=== PATIENT | male | born 1930 | race Caucasian/White ===

== ENCOUNTER → 2016-07-11 | Day surgery (SDC) | payer BC ==
[2016-06-30 08:09] VITALS: BMI 28.0
[~2016-07-11] VITALS: Ht 162.6 cm; Wt 75.9 kg
[~2016-07-11] MED LIST: ACET325T96 PO; ADVIN50050 INH; ALBINS NEB; ALBU2SYP9; ASPCH81X PO; ATEN25TA PO; ATROPINE SULFATE 0.1 MG/ML 5ML SYR IV PRN; CLB/200 PO; DVN/160 PO; EpHEDrine SULFATE INJ 50 MG/ML AMP IV PRN; FENTANYL CITRATE INJ 50 MCG/1 ML 2 ML VIAL ONE; FNTTP25 TOP; FURO20TA PO; GABA-112 PO; GABA1CAP PO; GABA1CAP5 PO; LEVO1TAB35 PO; LIDOCAINE HCL 2% 2 ML VIAL (20MG/ML) ONE; MULT-190 PO; MULT-506 PO; NRN/300 PO; OMEP40CA PO; OMEP40CA41 PO; OXYC-57 PO; PRED20TA PO; PROPOFOL IV EMULSION 10 MG/ML 20 ML VIAL IV ONE; RANI300T2 PO; SPRIN/30 INH; TRAM-10 PO; VNTHFA/IN INH; WARF5TAB90 PO
[2016-07-11 08:20] VITALS: Ht 162.6 cm; Wt 75.9 kg
--- NOTE | 2016-07-11 08:33 | Endo History and Physical ---
History & Physical Date of Service: Jul 11, 2016. Chief Complaint: GERD Referring Physician: Dr. Jefe Merritt History of Present Illness 86 yo CM who presents for EGD secondary to GERD. Past Medical History Arthritis, Pulmonary Emboli, Blood Dyscrasias, Cancer, High Cholesterol, Hypertension, COPD, CVA/TIA Past Surgical History Hx Cardiac Surgery: No Hx Internal Defibrillator: No Hx Pacemaker: No Hx Abdominal Surgery: Yes (INGUINAL HERNIA) Hx of Implantable Prosthesis: No Hx Post-Op Nausea and Vomiting: No Hx Cancer Surgery: Yes (REMOVAL SKIN LESIONS, MOHS ON NOSE) Hx Thoracic Surgery: No Hx Orthopedic: Yes (RT/LEFT SHOULDER SX, RT/LEFT CTR) Hx Urinary Tract Surgery: No Family History None Social History Smoking Status: Former Smoker Hx Substance Use: No Hx Alcohol Use: Yes (1 BEER DAILY) Allergies Coded Allergies: No Known Allergies (Verified , 07/11/16) Current Medications Reported Home Medications Medications Dose Route/Sig Max Daily Dose Days Date Category Dose Instructions Tylenol (Acetaminophen) 325 Mg Tab 650 Mg PO Q6H PRN 06/30/16 Reported Diovan (Valsartan) 160 Mg Tab 160 Mg PO QAM 06/30/16 Reported Ultram (Tramadol HCl) 50 Mg Tab 1-2 Tab PO Q6H PRN 30 06/30/16 Reported Spiriva Handihaler (Tiotropium [place]) 30 Puff/540 Mcg Aerp 1 Cap INH QAM 06/30/16 Reported Zantac (Ranitidine HCl) 300 Mg Tab 300 Mg PO HS 06/30/16 Reported Ocuvite Preservision (Multivitamins/Minerals) 1 Tab Tab 1 Tab PO BID 06/30/16 Reported Prilosec (Omeprazole) 40 Mg Capcr 40 Mg PO BID 06/30/16 Reported Multivitamin (Multivitamins) Tab 1 Tab PO QAM 06/30/16 Reported Neurontin (Gabapentin) 100 Mg Cap 300 Mg PO DAILY AT LUNCH 06/30/16 Reported Neurontin (Gabapentin) 400 Mg Cap 400 Mg PO BID 06/30/16 Reported Aspirin Chewable (Aspirin) 81 Mg Chew 81 Mg PO QAM 06/30/16 Reported Coumadin (Warfarin Sodium) 5 Mg Tab 5 Mg PO Q2D 06/09/14 Reported ALTERNATE WITH 2.5MG Lasix (Furosemide) 20 Mg Tab 40 Mg PO QAM 03/05/14 Reported CeleBREX (Celecoxib) 200 Mg Cap 200 Mg PO QPM 03/05/14 Reported Tenormin (Atenolol) 25 Mg Tab 25 Mg PO QAM 03/05/14 Reported Advair Diskus 500-50 Mcg/Dose (Fluticasone Prop/Salmeterol) 14 Puff/1 Inhaler Aerp 1 Puff INH BID 03/05/14 Reported Coumadin (Warfarin Sodium) 5 Mg Tab 2.5 Mg PO Q2D 03/05/14 Reported Vital Signs Weight (Kilograms): 75.91 Height (Feet): 5 Height (Inches): 4 Physical Exam General Appearance: WD/WN, no apparent distress Respiratory/Chest: Auscultation: breath sounds normal Cardiovascular: Heart Auscultation: RRR Abdomen: Bowel Sounds: normal Inspection & Palpation: soft, non-distended, no tenderness, guarding & rebound Assessment and Plan Assessment: 86 yo CM who presents for EGD secondary to GERD. Plan: Proceed with EGD.
--- NOTE | 2016-07-11 09:13 | GI REPORT ---
Procedure Date: 07/11/2016 8:50 AM Procedure: Upper GI endoscopy Indications: Gastro-esophageal reflux disease Medicines: Monitored Anesthesia Care Complications: No immediate complications. Estimated Blood Loss: Estimated blood loss: none. Procedure: Pre-Anesthesia Assessment: - Prior to the procedure, a History and Physical was performed, and patient medications and allergies were reviewed. The patient's tolerance of previous anesthesia was also reviewed. The risks and benefits of the procedure and the sedation options and risks were discussed with the patient. All questions were answered, and informed consent was obtained. Prior Anticoagulants: The patient last took aspirin 1 day and Coumadin (warfarin) 5 days prior to the procedure. ASA Grade Assessment: IV - A patient with severe systemic disease that is a constant threat to life. After reviewing the risks and benefits, the patient was deemed in satisfactory condition to undergo the procedure. After obtaining informed consent, the endoscope was passed under direct vision. Throughout the procedure, the patient's blood pressure, pulse, and oxygen saturations were monitored continuously. The On-site loaner was introduced through the mouth, and advanced to the second part of duodenum. The upper GI endoscopy was accomplished without difficulty. The patient tolerated the procedure well. Findings: The examined esophagus was normal. Localized moderate inflammation characterized by erythema was found in the gastric antrum. The examined duodenum was normal. Impression: - Normal esophagus. - Gastritis. - Normal examined duodenum. - No specimens collected. Recommendation: - Resume previous diet. - Continue present medications. - Return to primary care physician as previously scheduled. 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 Pancho Tobar, DO 07/11/2016 9:12:55 AM This report has been signed electronically. Note Initiated On: 07/11/2016 8:50 AM
--- NOTE | 2016-07-11 09:14 | Discharge Instructions ---
Endoscopy Patient Instructions Date / Procedure(s) Performed Jul 11, 2016. EGD Allergy Information Coded Allergies: No Known Allergies (Verified , 07/11/16) Discharge Date / Findings Jul 11, 2016. Gastritis Medication Instructions Stopped Medication(s): COUMADIN AND LASIX Restart Stopped Medication(s): OK to resume all medications today as prescribed Reported Home Medications Medications Dose Route/Sig Max Daily Dose Days Date Category Dose Instructions Tylenol (Acetaminophen) 325 Mg Tab 650 Mg PO Q6H PRN 06/30/16 Reported Diovan (Valsartan) 160 Mg Tab 160 Mg PO QAM 06/30/16 Reported Ultram (Tramadol HCl) 50 Mg Tab 1-2 Tab PO Q6H PRN 30 06/30/16 Reported Spiriva Handihaler (Tiotropium [place]) 30 Puff/540 Mcg Aerp 1 Cap INH QAM 06/30/16 Reported Zantac (Ranitidine HCl) 300 Mg Tab 300 Mg PO HS 06/30/16 Reported Ocuvite Preservision (Multivitamins/Minerals) 1 Tab Tab 1 Tab PO BID 06/30/16 Reported Prilosec (Omeprazole) 40 Mg Capcr 40 Mg PO BID 06/30/16 Reported Multivitamin (Multivitamins) Tab 1 Tab PO QAM 06/30/16 Reported Neurontin (Gabapentin) 100 Mg Cap 300 Mg PO DAILY AT LUNCH 06/30/16 Reported Neurontin (Gabapentin) 400 Mg Cap 400 Mg PO BID 06/30/16 Reported Aspirin Chewable (Aspirin) 81 Mg Chew 81 Mg PO QAM 06/30/16 Reported Coumadin (Warfarin Sodium) 5 Mg Tab 5 Mg PO Q2D 06/09/14 Reported ALTERNATE WITH 2.5MG Lasix (Furosemide) 20 Mg Tab 40 Mg PO QAM 03/05/14 Reported CeleBREX (Celecoxib) 200 Mg Cap 200 Mg PO QPM 03/05/14 Reported Tenormin (Atenolol) 25 Mg Tab 25 Mg PO QAM 03/05/14 Reported Advair Diskus 500-50 Mcg/Dose (Fluticasone Prop/Salmeterol) 14 Puff/1 Inhaler Aerp 1 Puff INH BID 03/05/14 Reported Coumadin (Warfarin Sodium) 5 Mg Tab 2.5 Mg PO Q2D 03/05/14 Reported Provider Instructions Activity Restrictions - No exercising or heavy lifting for 24 hours. - Do not drink alcohol the day of the procedure. - Do not drive a car or operate machinery until the day after the procedure. - Do not make any important decisions or sign important papers in 24 hours after the procedure. Following Day: - Return to full activity which may include returning to work/school. Diet Start your diet with liquids and light foods (jello, soup, juice, toast). Then eat your usual diet if not nauseated. 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 This treatment is called moderate sedation. After receiving the treatment, you may be sleepy, but you will be able to breathe on your own. The effects of the treatment may last for several hours. Follow these instructions along with Activity/Diet recommendations noted above: * Do NOT do anything where dizziness or clumsiness would be dangerous. * Rest quietly at home today, then you can be up and about tomorrow. * Have a responsible person stay with you the rest of today. * You may have had an I.V. today. If so, you may take the dressing off later today. Recommendations Call your doctor if: * Trouble breathing * Continuous vomiting for more than 24 hours * Temperature above 101 degrees * Severe abdominal pain or bloating * Pain not relieved by pain medicine ordered * There is increased drainage or redness from any incision * A large amount of rectal bleeding greater than 2-3 tablespoons. (If you had a polyp/s removed or have hemorrhoids, a small amount of blood - from the rectum is to be expected.) * You have any unanswered questions or concerns. IN THE EVENT OF A SERIOUS EMERGENCY, GO TO THE NEAREST EMERGENCY ROOM Your discharge instructions were prepared by provider Pancho Tobar. Patient Instructions Signature Page Jamie Morgan Patient (or Guardian) Signature/Date: I have read and understand the instructions given to me by my caregivers. Caregiver/RN/Doctor Signature/Date: The above-named patient and/or guardian has received patient instructions on this date. + Original Patient Signature Page (only) stays with chart. Please make copy for patient.
[2016-07-11 09:45] VITALS: BP 119/59; PULSE 61; O2SAT 94
--- NOTE | 2016-07-11 09:45 | Anesthesiology Progress Note ---
Anesthesia Post Op Note Date & Time Jul 11, 2016 at 09:45 Vital Signs Pain Intensity: 0 Vital Signs Past 12 Hours Date Time Temp Pulse Resp B/P Pulse Ox O2 Delivery O2 Flow Rate FiO2 07/11/16 08:31 36.5 75 20 138/65 97 Room Air Notes Mental Status: alert / awake / arousable, participated in evaluation Pt Amnestic to Procedure: Yes Nausea / Vomiting: adequately controlled Pain: adequately controlled Airway Patency, RR, SpO2: stable & adequate BP & HR: stable & adequate Hydration State: stable & adequate Anesthetic Complications: no major complications apparent
== END | disposition home or self-care (01) ==
LOC: C.GI 08:08
PROVIDERS: ATTEND Internal Medicine
DX: K21.9 Gastro-esophageal reflux disease without esophagitis (principal); K29.70 Gastritis, unspecified, without bleeding; I10 Essential (primary) hypertension; J44.9 Chronic obstructive pulmonary disease, unspecified; Z68.27 Body mass index [BMI] 27.0-27.9, adult; Z98.41 Cataract extraction status, right eye; Z98.42 Cataract extraction status, left eye; Z98.890 Other specified postprocedural states; Z79.01 Long term (current) use of anticoagulants; Z86.711 Personal history of pulmonary embolism; Z86.73 Personal history of transient ischemic attack (TIA), and cerebral infarction without residual deficits; Z87.891 Personal history of nicotine dependence; Z85.828 Personal history of other malignant neoplasm of skin

== ENCOUNTER 2016-08-14 13:35 | Emergency (ER) | payer BC ==
[~2016-08-14] VITALS: Ht 162.6 cm; Wt 77.5 kg
[~2016-08-14 13:35] MED LIST changes: -ALBINS NEB; -ALBU2SYP9; -ATROPINE SULFATE 0.1 MG/ML 5ML SYR IV PRN; -EpHEDrine SULFATE INJ 50 MG/ML AMP IV PRN; -FENTANYL CITRATE INJ 50 MCG/1 ML 2 ML VIAL ONE; -FNTTP25 TOP; -GABA-112 PO; -LEVO1TAB35 PO; -LIDOCAINE HCL 2% 2 ML VIAL (20MG/ML) ONE; -NRN/300 PO; -OMEP40CA41 PO; -OXYC-57 PO; -PRED20TA PO; -PROPOFOL IV EMULSION 10 MG/ML 20 ML VIAL IV ONE; -VNTHFA/IN INH
[2016-08-14 13:40] VITALS: Ht 162.6 cm; Wt 77.5 kg
[2016-08-14 13:55] VITALS: TEMP 36.9; O2SAT 91
[2016-08-14 14:13] LABS: HEMATOCRIT 34.2 % (42-52); MEAN CELL VOLUME 88.6 fL (80-100); MEAN CORPUSCULAR HEMOGLOBIN 30.6 pg (25-34); MEAN CORPUSCULAR HGB CONC 34.5 g/dl (32-36); MEAN PLATELET VOLUME 8.3 fL (7.4-10.4); PLATELET COUNT 195 K/uL (130-400); RED BLOOD COUNT 3.86 M/uL (4.7-6.1); WHITE BLOOD COUNT 6.58 K/uL (4.8-10.8)
[2016-08-14] MEDS ORDERED: ALBUT/IPRATROP 3MG/0.5MG NEB 3 ML VIAL INH STA (14:21)
[2016-08-14] MEDS ORDERED: METHYLPREDNISOLONE 125 MG VIAL IV STA (14:21)
[2016-08-14 14:30] LABS: BUN/CREATININE RATIO 16.6 (10-20); CALCIUM 8.2 mg/dl (8.5-10.1); CREATININE 1.4 mg/dl (0.60-1.40); POTASSIUM 4.2 mmol/L (3.5-5.1)
--- NOTE | 2016-08-14 14:30 | EMERGENCY ROOM VISIT NOTE ---
History Report prepared by Wade: Heather Aquino Under the Supervision of: Dr. Braulio Cho M.D. First contact with patient: 14:11 Chief Complaint: COUGH Stated Complaint: COUGH X 2 DAYS, FELL COUGHING Nursing Triage Summary: patient with cough for two weeks and has been shortness of breath with. wheezing as well non productive History of Present Illness The patient is an 86 year old male who presents to the Emergency Room with complaints of a persistent dry cough for the past two weeks. The patient states that his cough has been dry and he additionally associates shortness of breath. He states that he had a coughing spell today that caused him to lose consciousness at 1200. The patient notes that he fell hitting his head and his right elbow. He states that he is on Coumadin. The patient states that he only has half of a voice box. He denies any increased swelling to his legs. The patient denies any fever, chills, neck pain, chest pain, or back pain. He denies seeing his PCP for his symptoms. The patient's daughter notes that the patient has a history of COPD and uses inhalers daily. He states that his tetanus status is up to date. Source of History: patient, family (daughter) Onset: two weeks Position: other (global) Quality: other (cough) Timing: other (persistent) Associated Symptoms: + LOC, + SOB, No back pain, No chest pain, No neck pain Review of Systems See HPI for pertinent positives & negatives. A total of 10 systems reviewed and were otherwise negative. Past Medical & Surgical Medical Problems: (1) Asthma (2) COPD (chronic obstructive pulmonary disease) (3) DVT (deep venous thrombosis) (4) Heart disease (5) Hypertension (6) Pulmonary embolism Surgical Problems: (1) H/O shoulder surgery Family History Cancer FH: heart disease Hypertension Social History Smoking Status: Former Smoker Smokeless Tobacco Use: Yes Alcohol Use: occasionally Marital Status: Housing Status: lives alone Occupation Status: retired Current/Historical Medications Scheduled Albuterol Hfa (Ventolin Hfa), 3 PUFFS INH Q6H Aspirin (Aspirin Chewable), 81 MG PO QAM Atenolol (Tenormin), 25 MG PO QAM Celecoxib (CeleBREX), 200 MG PO QPM Fluticasone Prop/Salmeterol (Advair Diskus 500-50 Mcg/Dose), 1 PUFF INH BID Furosemide (Lasix), 40 MG PO QAM Gabapentin (Neurontin), 400 MG PO BID Gabapentin (Neurontin), 300 MG PO DAILY AT LUNCH Levofloxacin (Levaquin), 750 MG PO QD@16 Multivitamin (Multivitamin), 1 TAB PO QAM Ocuvite Preservision (Ocuvite Preservision), 1 TAB PO BID Omeprazole (Prilosec), 40 MG PO DAILY Prednisone (Prednisone), 0 PO DAILY Ranitidine (Zantac), 300 MG PO HS Tiotropium [place] (Spiriva Handihaler), 1 CAP INH QAM Valsartan (Diovan), 160 MG PO QAM Warfarin Sodium (Coumadin), 2.5 MG PO Q2D Warfarin Sodium (Coumadin), 5 MG PO Q2D Scheduled PRN Acetaminophen Tab (Tylenol), 650 MG PO Q6H PRN for Pain Allergies Coded Allergies: No Known Allergies (Verified , 07/11/16) Physical Exam Vital Signs Date Time Temp Pulse Resp B/P Pulse Ox O2 Delivery O2 Flow Rate FiO2 08/14/16 14:53 77 20 134/67 92 Room Air 08/14/16 13:55 36.9 77 18 112/63 91 Room Air 08/14/16 13:55 91 Room Air 08/14/16 13:51 91 Room Air 08/14/16 13:40 36.9 76 18 114/67 92 Room Air Physical Exam GENERAL: Patient is in no acute distress. HEENT: No acute trauma, normocephalic atraumatic, mucous membranes moist, no nasal congestion, no scleral icterus. NECK: No stridor, no adenopathy, no meningismus, trachea is midline. LUNGS: Moist cough noted, breath sounds are equal, but diminished bilaterally, wheezing and rhonchi heard bilaterally. HEART: 3/6 systolic murmur with a regular rate and rhythm ABDOMEN: Soft, nontender, bowel sounds positive, no hernias, no peritonitis. EXTREMITIES: Moderate bilateral pedal edema, no cellulitis. Skin tear to the right posterior elbow, no suturing required, no evidence of fracture of the bones. No cyanosis, full range of motion of all the joints without pain or difficulty. NEUROLOGIC: Oriented x 3, no acute motor or sensory deficits, no focal weakness. SKIN: No rash, no jaundice, no diaphoresis. Medical Decision & Procedures ER Provider Diagnostic Interpretation: X ray results and stated below per my interpretation and radiologist interpretation. Other radiology results and stated below per my review and radiologist interpretation: CHEST ONE VIEW PORTABLE CLINICAL HISTORY: cough and shortness of breath cough. Dyspnea. COMPARISON STUDY: 09/02/2014 FINDINGS: Mild stable cardia megaly. A well-defined parenchymal infiltrate left base. Mild pulmonary venous congestion. Diaphragms are smooth. IMPRESSION: Infiltrate left base. Pulmonary venous congestion. Electronically signed by: Gilberto Spencer M.D. 08/14/2016 2:39 PM Dictated Date/Time: 08/14/2016 2:[address] NONCONTRAST CT DOSE: 687.98 mGy.cm HISTORY: Trauma fall, hit head, coumadin TECHNIQUE: Multiaxial CT images of the head were performed without the use of intravenous contrast. Comparison: None. Findings: The paranasal sinuses and mastoid air cells are clear. The calvarium and skull base are intact. The ventricles and sulci are within normal limits. There is no mass, hematoma, midline shift, or acute infarct. Impression: No acute intracranial abnormality. Electronically signed by: Gilberto Spencer M.D. 08/14/2016 3:27 PM Dictated Date/Time: 08/14/2016 3:25 PM Laboratory Results 08/14/16 14:00 Red Blood Count 3.86, Mean Corpuscular Volume 88.6, Mean Corpuscular Hemoglobin 30.6, Mean Corpuscular Hemoglobin Concent 34.5, Mean Platelet Volume 8.3, Neutrophils (%) (Auto) 68.4, Lymphocytes (%) (Auto) 15.8, Monocytes (%) (Auto) 13.8, Eosinophils (%) (Auto) 1.2, Basophils (%) (Auto) 0.3, Neutrophils # (Auto ) 4.50, Lymphocytes # (Auto) 1.04, Monocytes # (Auto) 0.91, Eosinophils # (Auto ) 0.08, Basophils # (Auto) 0.02 08/14/16 14:00 Test 08/14/16 14:00 08/14/16 15:00 White Blood Count 6.58 K/uL (4.8-10.8) Red Blood Count 3.86 M/uL (4.7-6.1) Hemoglobin 11.8 g/dL (14.0-18.0) Hematocrit 34.2 % (42-52) Mean Corpuscular Volume 88.6 fL (80-100) Mean Corpuscular Hemoglobin 30.6 pg (25-34) Mean Corpuscular Hemoglobin Concent 34.5 g/dl (32-36) Platelet Count 195 K/uL (130-400) Mean Platelet Volume 8.3 fL (7.4-10.4) Neutrophils (%) (Auto) 68.4 % Lymphocytes (%) (Auto) 15.8 % Monocytes (%) (Auto) 13.8 % Eosinophils (%) (Auto) 1.2 % Basophils (%) (Auto) 0.3 % Neutrophils # (Auto) 4.50 K/uL (1.4-6.5) Lymphocytes # (Auto) 1.04 K/uL (1.2-3.4) Monocytes # (Auto) 0.91 K/uL (0.11-0.59) Eosinophils # (Auto) 0.08 K/uL (0-0.5) Basophils # (Auto) 0.02 K/uL (0-0.2) RDW Standard Deviation 44.7 fL (36.4-46.3) RDW Coefficient of Variation 13.7 % (11.5-14.5) Immature Granulocyte % (Auto) 0.5 % Immature Granulocyte # (Auto) 0.03 K/uL (0.00-0.02) Prothrombin Time 24.1 SECONDS (9.0-12.0) Prothromb Time International Ratio 2.2 (0.9-1.1) Activated Partial Thromboplast Time 37.2 SECONDS (21.0-31.0) Partial Thromboplastin Ratio 1.4 Anion Gap 10.0 mmol/L (3-11) Est Creatinine Clear Calc Drug Dose 35.6 ml/min Estimated GFR () 52.4 Estimated GFR (Non- 45.2 BUN/Creatinine Ratio 16.6 (10-20) Calcium Level 8.2 mg/dl (8.5-10.1) Total Bilirubin 0.3 mg/dl (0.2-1) Aspartate Amino Transf (AST/SGOT) 24 U/L (15-37) Alanine Aminotransferase (ALT/SGPT) 19 U/L (12-78) Alkaline Phosphatase 93 U/L (45-117) Troponin I < 0.015 ng/ml (0-0.045) Total Protein 7.0 gm/dl (6.4-8.2) Albumin 2.7 gm/dl (3.4-5.0) Globulin 4.3 gm/dl (2.5-4.0) Albumin/Globulin Ratio 0.6 (0.9-2) Influenza Type A Antigen Neg for Influ A (NEG) Influenza Type B Antigen Neg for Influ B (NEG) Laboratory results reviewed by me. Medications Administered Medications (Trade) Dose Ordered Sig/[place] Route Start Time Stop Time Status Last Admin Dose Admin Albuterol/ Ipratropium (Duoneb) 3 ml NOW STAT INH 08/14/16 14:21 08/14/16 14:26 DC 08/14/16 14:40 3 ML Methylprednisolone Sodium Succinate (Solu-Medrol IV) 80 mg NOW STAT IV 08/14/16 14:21 08/14/16 14:26 DC 08/14/16 14:40 80 MG Levofloxacin (Levaquin Tab) 750 mg NOW STAT PO 08/14/16 15:33 08/14/16 15:37 DC 08/14/16 16:01 750 MG Albuterol (Ventolin Hfa Inhaler) 2 puffs NOW ONCE INH 08/14/16 15:45 08/14/16 15:46 DC 08/14/16 16:02 2 PUFFS ECG Indication: SOB/dyspnea Rate (beats per minute): 75 Rhythm: sinus rhythm Findings: 1st degree AV block, no acute ischemic change, no ectopy ED Course 1414: The patient was evaluated in room B10. A complete history and physical exam was performed. 1421: Ordered Solu-Medrol IV 80 mg IV, Duoneb 3 ml INH. 1533: Ordered Levaquin Tab 750 mg PO. 1545: Ordered Albuterol 2 puffs INH. 1553: I reevaluated the patient and he is doing fine. I discussed all the exam findings with him and I discussed the treatment plan. He verbalized complete understanding and agreement. 1604: I reevaluated the patient and he is doing well. He is ready for discharge. Medical Decision The patient is an 86 year old male who presents to the ED with complaints of persistent cough. Differential diagnoses considered include intracranial bleeding, extremity fracture, pneumonia, bronchitis, exacerbation of COPD, CHF, cardiac ischemia, dysthymia, influenza. There is no leukocytosis or concerning anemia. No significant electrolyte abnormality, kidney failure or hepatitis. INR is 2.2 which is therapeutic for someone using Coumadin. EKG shows a sinus rhythm with a first-degree AV block, no acute ischemia. Cardiac enzyme testing times one is not consistent with acute cardiac injury. Influenza testing is negative. Brain CT shows no acute bleed or mass effect. Chest film shows a left basilar pneumonia, no CHF or pneumothorax. The patient's right elbow skin tear was cleansed and dressed, no suturing required. His tetanus is current. The patient received a DuoNeb, IV Solu-Medrol. He received albuterol via MDI and was given a dose of oral Levaquin. The patient is not hypoxic or toxic. He has pneumonia and this has caused a flare of his COPD. He would like to be discharged home. He will be discharged on Levaquin, a prednisone taper and albuterol. He states that his albuterol inhaler at home has and he has only been using his Spiriva. The patient is to follow with his doctor this week, he will need his INR followed closely. If he has worsening symptoms or worsening breathing, he will report back to the ER. Impression Primary Impression: Pneumonia Additional Impressions: COPD exacerbation Skin tear of right upper extremity Scribe Attestation The scribe's documentation has been prepared under my direction and personally reviewed by me in its entirety. I confirm that the note above accurately reflects all work, treatment, procedures, and medical decision making performed by me. Departure Information Dispostion Home / Self-Care Prescriptions Albuterol Hfa (VENTOLIN HFA) 200 Puffs/36301 Mcg Aers 3 PUFFS INH Q6H, #1 INHALER Prov: Braulio Cho M.D. 08/14/16 Levofloxacin (Levaquin) 750 Mg Tab 750 MG PO QD@16, #5 TAB Prov: Braulio Cho M.D. 08/14/16 Prednisone (Prednisone) 20 Mg Tab 0 PO DAILY, #14 TAB 3 TABS DAILY FOR 2 DAYS, THEN 2 TABS DAILY FOR 2 DAYS, THEN 1 TAB DAILY FOR 2 DAYS, THEN 1/2 TAB DAILY FOR 2 DAYS. Prov: Braulio Cho M.D. 08/14/16 Referrals Jefe Merritt M.D. (PCP) Forms HOME CARE DOCUMENTATION FORM, IMPORTANT VISIT INFORMATION Patient Instructions My [facility] Additional Instructions levaquin daily for 5 more days prednisone as directed albuterol inhaler 3 puffs every 4 hours rest see trent lara this week--call tomorrow for an appt--you need a recheck at the office and will need you INR followed closely return for worsening symptoms or breathing Problem Qualifiers
[2016-08-14 14:32] LABS: BASO % 0.3 %; BASO ABS # 0.02 K/uL (0-0.2); COMPLETE YES; EOS % 1.2 %; IG% 0.5 %; LYMPH % 15.8 %; LYMPH ABS # 1.04 K/uL (1.2-3.4); MONO % 13.8 %; NEUT % 68.4 %
[2016-08-14 14:33] LABS: ALB/GLOB RATIO 0.6 (0.9-2)
[2016-08-14] MEDS ORDERED: OMEP40CA41 PO (14:34)
[2016-08-14 14:38] LABS: INR 2.2 (0.9-1.1); PARTIAL THROMBOPLASTIN RATIO 1.4; PROTHROMBIN TIME (PATIENT) 24.1 SECONDS (9.0-12.0)
--- NOTE | 2016-08-14 14:40 | DIAGNOSTIC IMAGING REPORT ---
CHEST ONE VIEW PORTABLE CLINICAL HISTORY: cough and shortness of breath cough. Dyspnea. COMPARISON STUDY: 09/02/2014 FINDINGS: Mild stable cardia megaly. A well-defined parenchymal infiltrate left base. Mild pulmonary venous congestion. Diaphragms are smooth. IMPRESSION: Infiltrate left base. Pulmonary venous congestion. Electronically signed by: Gilberto Spencer M.D. 08/14/2016 2:39 PM Dictated Date/Time: 08/14/2016 2:38 PM
--- NOTE | 2016-08-14 15:28 | DIAGNOSTIC IMAGING REPORT ---
HEAD CT NONCONTRAST CT DOSE: 687.98 mGy.cm HISTORY: Trauma fall, hit head, coumadin TECHNIQUE: Multiaxial CT images of the head were performed without the use of intravenous contrast. Comparison: None. Findings: The paranasal sinuses and mastoid air cells are clear. The calvarium and skull base are intact. The ventricles and sulci are within normal limits. There is no mass, hematoma, midline shift, or acute infarct. Impression: No acute intracranial abnormality. Electronically signed by: Gilberto Spencer M.D. 08/14/2016 3:27 PM Dictated Date/Time: 08/14/2016 3:25 PM
[2016-08-14] MEDS ORDERED: LEVOFLOXACIN 250 MG TAB PO STA (15:33)
[2016-08-14] MEDS ORDERED: ALBUTEROL HFA 8 GM INHALER INH ONE (15:45)
[2016-08-14] MEDS ORDERED: VNTHFA/IN INH (16:09)
[2016-08-14] MEDS ORDERED: PRED20TA PO (16:09)
[2016-08-14] MEDS ORDERED: LEVO1TAB35 PO (16:09)
[2016-08-14 16:21] VITALS: BP 134/78; PULSE 78; O2SAT 93
[2017-01-19] MEDS ORDERED: ALBU2SYP9 (14:47)
[2017-01-19] MEDS ORDERED: NRN/300 PO (14:47)
[2017-01-19] MEDS ORDERED: OXYC-57 PO (14:47)
[2017-02-01] MEDS ORDERED: FNTTP25 TOP (15:23)
[2017-03-03] MEDS ORDERED: GABA-112 PO (14:18)
[2017-03-03] MEDS ORDERED: ALBINS NEB (14:18)
[2017-03-03] MEDS ORDERED: FURO20TA PO (14:18)
[2017-03-03] MEDS ORDERED: OXYC-57 PO (14:18)
== END 2016-08-14 16:27 | disposition home or self-care (01) ==
LOC: C.EDB 13:36
DX: J18.9 Pneumonia, unspecified organism (principal); J44.1 Chronic obstructive pulmonary disease with (acute) exacerbation; S51.001A Unspecified open wound of right elbow, initial encounter; W18.00XA Striking against unspecified object with subsequent fall, initial encounter; J45.909 Unspecified asthma, uncomplicated; I10 Essential (primary) hypertension; Z86.711 Personal history of pulmonary embolism; Z86.718 Personal history of other venous thrombosis and embolism; Z87.891 Personal history of nicotine dependence; Z98.890 Other specified postprocedural states; Z82.49 Family history of ischemic heart disease and other diseases of the circulatory system; Z79.01 Long term (current) use of anticoagulants; Z79.82 Long term (current) use of aspirin; Z79.52 Long term (current) use of systemic steroids; Z79.899 Other long term (current) drug therapy

== ENCOUNTER → 2016-09-09 | Outpatient (CLI) | payer BC ==
[~2016-09-09] MED LIST changes: +ALBINS NEB; +ALBU2SYP9; +FNTTP25 TOP; +GABA-112 PO; +LEVO1TAB35 PO; +NRN/300 PO; -OMEP40CA PO; +OMEP40CA41 PO; +OXYC-57 PO; +PRED20TA PO; -TRAM-10 PO; +VNTHFA/IN INH
[2016-09-09 12:43] LABS: ALT/SGPT 20 U/L (12-78); BLOOD UREA NITROGEN 21 mg/dl (7-18); BUN/CREATININE RATIO 16.4 (10-20); CALCIUM 8.8 mg/dl (8.5-10.1); CARBON DIOXIDE 26 mmol/L (21-32); CHLORIDE 100 mmol/L (98-107); GLUCOSE 109 mg/dl (70-99); POTASSIUM 4.6 mmol/L (3.5-5.1); SODIUM 133 mmol/L (136-145)
[2016-09-09 12:46] LABS: ALB/GLOB RATIO 0.9 (0.9-2); ALKALINE PHOSPHATASE 120 U/L (45-117); AST/SGOT 16 U/L (15-37)
[2016-09-09 13:09] LABS: ESTIMATED AVERAGE GLUCOSE 137 mg/dl; HA1C FLAG Normal (Normal)
== END | disposition home or self-care (01) ==
LOC: C.LABBFT 07:42
PROVIDERS: ATTEND Internal Medicine
DX: R73.01 Impaired fasting glucose (principal); K76.0 Fatty (change of) liver, not elsewhere classified; I50.9 Heart failure, unspecified

== ENCOUNTER → 2016-09-15 | Outpatient (CLI) | payer BC ==
--- NOTE | 2016-09-15 10:38 | DIAGNOSTIC IMAGING REPORT ---
CHEST 2 VIEWS ROUTINE CLINICAL HISTORY: J18.9 [id number] dyspnea COMPARISON STUDY: 08/14/2016 FINDINGS: Improved components of congestive failure. Small residual parenchymal infiltrate left base improved from the prior study. IMPRESSION: Small parenchymal infiltrate left base improved from the prior study. Improved components of congestive failure. Electronically signed by: Gilberto Spencer M.D. 09/15/2016 10:36 AM Dictated Date/Time: 09/15/2016 10:35 AM
[2016-09-15 12:21] LABS: BASO % 0.3 %; BASO ABS # 0.02 K/uL (0-0.2); COMPLETE YES; EOS % 3.5 %; IG% 0.2 %; LYMPH % 17.4 %; LYMPH ABS # 1.14 K/uL (1.2-3.4); MEAN CELL VOLUME 89.1 fL (80-100); MEAN CORPUSCULAR HEMOGLOBIN 30.7 pg (25-34); MEAN CORPUSCULAR HGB CONC 34.4 g/dl (32-36); MEAN PLATELET VOLUME 8.4 fL (7.4-10.4); MONO % 13.4 %; NEUT % 65.2 %; PLATELET COUNT 315 K/uL (130-400); RED BLOOD COUNT 4.04 M/uL (4.7-6.1); WHITE BLOOD COUNT 6.57 K/uL (4.8-10.8)
[2016-09-15 12:35] LABS: PROTHROMBIN TIME (PATIENT) 44.1 SECONDS (9.0-12.0)
[2016-09-15 12:39] LABS: BLOOD UREA NITROGEN 24 mg/dl (7-18); BUN/CREATININE RATIO 16.1 (10-20); CALCIUM 8.8 mg/dl (8.5-10.1); CARBON DIOXIDE 27 mmol/L (21-32); CHLORIDE 100 mmol/L (98-107); GLUCOSE 99 mg/dl (70-99); POTASSIUM 4.8 mmol/L (3.5-5.1); SODIUM 133 mmol/L (136-145)
[2016-09-15 12:49] LABS: INR 3.9 (0.9-1.1)
== END | disposition home or self-care (01) ==
LOC: C.RAD1850 10:12
PROVIDERS: ATTEND Nurse Practitioner
DX: J18.9 Pneumonia, unspecified organism (principal); I82.4Y9 Acute embolism and thrombosis of unspecified deep veins of unspecified proximal lower extremity

== ENCOUNTER → 2016-10-17 | Outpatient (CLI) | payer BC ==
[2016-10-17 17:45] LABS: TOTAL IRON BINDING CAPACITY 278 mcg/dl (250-450)
--- NOTE | 2016-10-24 06:45 | CODING QUERY MEDICAL NECESSITY ---
CQSUPPORTING DIAGNOSIS NEEDED A supporting diagnosis is required for the test/procedure performed on this patient in order for us to be reimbursed by the patient's insurance. Please provide a supporting diagnosis for the following test/procedure listed below next to the test name along with your signature. *If there is no additional diagnosis for this patient that would support the following test/procedure please document that below next to the test/procedure. Test(s)/Procedure(s) that require a supporting diagnosis: DOS 10/17/16 VITAMIN B12 Provider Signature: Date: Thank you Katelynn Benavidez [employer] Once completed, please kindly fax back to [phone] For questions please call [phone]
== END | disposition home or self-care (01) ==
LOC: C.LABBFT 11:25
PROVIDERS: ATTEND Internal Medicine
DX: D64.9 Anemia, unspecified (principal)

== ENCOUNTER → 2016-10-22 | Outpatient (CLI) | payer BC | END | disposition home or self-care (01) | LOC: C.LABSPEC 12:38 | PROVIDERS: ATTEND Internal Medicine | DX: D64.9 Anemia, unspecified (principal) ==

== ENCOUNTER → 2016-10-26 | Outpatient (CLI) | payer BC | END | disposition home or self-care (01) | LOC: C.LAB1850 14:42 | PROVIDERS: ATTEND Internal Medicine Pulmonary Disease | DX: I50.9 Heart failure, unspecified (principal) ==

== ENCOUNTER → 2016-10-31 | Outpatient (CLI) | payer BC | END | disposition home or self-care (01) | LOC: C.LABBFT 11:12 | PROVIDERS: ATTEND Internal Medicine | DX: D64.9 Anemia, unspecified (principal); I26.99 Other pulmonary embolism without acute cor pulmonale ==

== ENCOUNTER → 2016-11-01 | Outpatient (CLI) | payer BC ==
--- NOTE | 2016-11-01 09:45 | DIAGNOSTIC IMAGING REPORT ---
LUMBAR SPINE MRI HISTORY: Back pain M54.5 Low back [id number] TECHNIQUE: Multiplanar multisequence MRI of the lumbar spine was performed without the use of contrast. COMPARISON: Routine lumbar spine dated 10/12/2016 FINDINGS: For the purpose of the report the L5-S1 disc space will be located on axial image 27 of 30. Near complete compression deformity T12. 50% compression deformity T10. At both levels there is evidence for bone marrow edematous change and or infiltrative change. There is slight posterior bulging of the posterior margins of the vertebral bodies of both sites. There is a grade 1 anterolisthesis of L4 on L5. There is considerable degenerative disc changes throughout. T12-L1: Posterior bulging disc components combine with posterior displacement of the vertebral body. Anterior to posterior dimension of the spinal canal 0 x 50%. Posterior displacement is estimated at 5 mm. L1-L2: Mild broad-based disc bulge. Partial effacement anterior subarachnoid space. L2-L3: Broad-based bulging disc and mild mild posterior osteophytic reaction. Mild impact anterior thecal sac. Minimal narrowing neuroforamina bilaterally. L3-L4: No significant central canal or neural foraminal narrowing. L4-L5: Broad-based disc herniation with considerable narrowing of the right neuroforamina. Degenerative changes of the posterior arch. Moderate hypertrophic changes of posterior elements. Minimal narrowing left neural foramina. L5-S1: No significant central canal or neural foraminal narrowing. IMPRESSION: 1. Complete compression deformity T12. 2. 50% compression deformity T10. 3. Although there is considerable bone marrow edema at both sites, the appearance suggests osteoporotic compression deformities although this should be closely monitored. 4. Severe narrowing right and to lesser extent left neural foramina at L4-L5 primarily secondary to grade 1 anterolisthesis. It is accentuated by broad-based disc herniation and hypertrophic changes of posterior elements. 5. Multilevel bulging disc and posterior osteophytic reaction at all levels. 6. Severe degenerative disc changes throughout. Electronically signed by: Gilberto Spencer M.D. 11/01/2016 9:44 AM Dictated Date/Time: 11/01/2016 9:23 AM
== END | disposition home or self-care (01) ==
LOC: C.MRI 08:08
PROVIDERS: ATTEND Internal Medicine
DX: M54.5 Low back pain (principal); M53.84 Other specified dorsopathies, thoracic region

== ENCOUNTER → 2016-11-28 | Outpatient (CLI) | payer BC ==
[2016-11-28 14:55] LABS: BLOOD UREA NITROGEN 14 mg/dl (7-18); BUN/CREATININE RATIO 12.4 (10-20); CALCIUM 8.3 mg/dl (8.5-10.1); CARBON DIOXIDE 26 mmol/L (21-32); CHLORIDE 99 mmol/L (98-107); GLUCOSE 110 mg/dl (70-99); POTASSIUM 3.9 mmol/L (3.5-5.1); SODIUM 134 mmol/L (136-145)
== END | disposition home or self-care (01) ==
LOC: C.LAB1850 12:50
PROVIDERS: ATTEND Physician Assistant Medical
DX: R60.9 Edema, unspecified (principal)

== ENCOUNTER 2017-03-13 08:08 | Day surgery (SDC) | payer BC ==
[2017-03-03 14:18] VITALS: BMI 26.0
--- NOTE | 2017-03-03 15:16 | PAT Medication Instructions ---
Service Date Mar 03, 2017. Current Home Medication List Acetaminophen Tab (Tylenol), 650 MG PO Q6H PRN for Pain Albuterol Sulf (Albuterol Sulfate), 1 DOSE NEB UD PRN for SOB/Wheezing Aspirin (Aspirin Chewable), 81 MG PO QAM Atenolol (Tenormin), 25 MG PO QAM Celecoxib (CeleBREX), 200 MG PO QPM Fentanyl (Fentanyl), 25 MCG TOP q 72hrs Furosemide (Lasix), 20 MG PO TID Gabapentin (Neurontin), 400 MG PO TID Gabapentin (Neurontin), 100 MG PO UD PRN for prn Multivitamin (Multivitamin), 1 TAB PO QAM Ocuvite Preservision (Ocuvite Preservision), 1 TAB PO BID Oxycodone/Acetaminophen 5MG/325MG (Percocet 5MG/325MG), 1-2 TABLETS PO Q4H PRN for Pain Valsartan (Diovan), 160 MG PO QAM Warfarin Sodium (Coumadin), 2.5 MG PO Q2D Warfarin Sodium (Coumadin), 5 MG PO Q2D Medication Instructions For Your Scheduled Surgery - We will call you with instructions for following: Aspirin (Aspirin Chewable), 81 MG PO QAM Celecoxib (CeleBREX), 200 MG PO QPM -Hold for 5 days per surgeon's instructions: Warfarin Sodium (Coumadin), 2.5 MG PO Q2D Warfarin Sodium (Coumadin), 5 MG PO Q2D -Continue as directed: Fentanyl (Fentanyl), 25 MCG TOP q 72hrs - Hold the following medications the morning of surgery: Valsartan (Diovan), 160 MG PO QAM Ocuvite Preservision (Ocuvite Preservision), 1 TAB PO BID Multivitamin (Multivitamin), 1 TAB PO QAM Furosemide (Lasix), 20 MG PO TID - Take the following medications the morning of surgery with a sip of water: Oxycodone/Acetaminophen 5MG/325MG (Percocet 5MG/325MG), 1-2 TABLETS PO Q4H PRN for Pain (if needed up to four hours before surgery) Gabapentin (Neurontin), 400 MG PO TID Gabapentin (Neurontin), 100 MG PO UD PRN for prn Atenolol (Tenormin), 25 MG PO QAM Acetaminophen Tab (Tylenol), 650 MG PO Q6H PRN for Pain Albuterol Sulf (Albuterol Sulfate), 1 DOSE NEB UD PRN for SOB/Wheezing (if needed, ALSO PLEASE BRING WITH YOU THE MORNING OF THE SURGERY) - Take the following medications as scheduled the night before surgery: Ocuvite Preservision (Ocuvite Preservision), 1 TAB PO BID Gabapentin (Neurontin), 400 MG PO TID Gabapentin (Neurontin), 100 MG PO UD PRN for prn Furosemide (Lasix), 20 MG PO TID Oxycodone/Acetaminophen 5MG/325MG (Percocet 5MG/325MG), 1-2 TABLETS PO Q4H PRN for Pain Acetaminophen Tab (Tylenol), 650 MG PO Q6H PRN for Pain Albuterol Sulf (Albuterol Sulfate), 1 DOSE NEB UD PRN for SOB/Wheezing If you have any questions please call us at [phone] or [phone] or [phone]
--- NOTE | 2017-03-03 15:36 | DIAGNOSTIC IMAGING REPORT ---
CHEST 2 VIEWS ROUTINE CLINICAL HISTORY: Preoperative chest COMPARISON STUDY: 09/15/2016 FINDINGS: The heart remains enlarged. There is stable aortic tortuosity/ectasia. There is stable elevation of the interstitium. This is likely chronic.. There is no focal pulmonary consolidation. There are minor basilar atelectatic changes. There are no pleural effusions. There is a severe compression deformity within the lower thoracic spine. IMPRESSION: 1. Persistent cardiomegaly 2. Mild interstitial thickening, likely chronic 3. No evidence of focal pulmonary consolidation Electronically signed by: Darwin Ulloa M.D. 03/03/2017 3:35 PM Dictated Date/Time: 03/03/2017 3:33 PM
[2017-03-03 15:49] LABS: BUN/CREATININE RATIO 13.5 (10-20); CALCIUM 8.5 mg/dl (8.5-10.1); CREATININE 1.2 mg/dl (0.60-1.40); POTASSIUM 4.2 mmol/L (3.5-5.1)
[2017-03-03 17:04] LABS: PARTIAL THROMBOPLASTIN RATIO 1.3
[2017-03-03 17:11] LABS: URINE APPEARANCE CLEAR (CLEAR); URINE BILIRUBIN NEG (NEG); URINE COLOR YELLOW; URINE EPITHELIAL CELL AUTO 0-5 /lpf (0-5); URINE NITRITE NEG (NEG); URINE SPECIFIC GRAVITY 1.015 (1.000-1.030); UROBILINOGEN NEG (NEG)
[2017-03-03 17:18] LABS: MANUAL MICROSCOPIC REQUIRED? NO; REVIEW REQ? NO
[2017-03-03 18:18] LABS: BASO % 0.6 %; BASO ABS # 0.03 K/uL (0-0.2); COMPLETE YES; EOS % 5.3 %; LYMPH % 25.2 %; LYMPH ABS # 1.23 K/uL (1.2-3.4); MEAN CELL VOLUME 89.7 fL (80-100); MEAN CORPUSCULAR HEMOGLOBIN 30.3 pg (25-34); MEAN CORPUSCULAR HGB CONC 33.7 g/dl (32-36); MEAN PLATELET VOLUME 9.2 fL (7.4-10.4); MONO % 13.7 %; NEUT % 55.2 %; PLATELET COUNT 250 K/uL (130-400); WHITE BLOOD COUNT 4.89 K/uL (4.8-10.8)
[~2017-03-13] VITALS: Ht 162.6 cm; Wt 68.5 kg
[~2017-03-13 08:08] MED LIST changes: -ADVIN50050 INH; -ALBU2SYP9; +CEFAZOLIN 2000 MG/60 ML D5W IV SCH; -GABA1CAP PO; +LACTATED RINGER'S 1000ML 1,000 ML IV SCH; -LEVO1TAB35 PO; -NRN/300 PO; -OMEP40CA41 PO; -PRED20TA PO; -RANI300T2 PO; +SODIUM CHLORIDE 0.9% 1000ML 1,000 ML IV SCH; -SPRIN/30 INH; -VNTHFA/IN INH
[2017-03-13 08:33] VITALS: Ht 162.6 cm; Wt 68.5 kg
[2017-03-13 09:14] LABS: INR 1.1 (0.9-1.1); PARTIAL THROMBOPLASTIN RATIO 1.1
[2017-03-13] MEDS ORDERED: DEXAMETHASONE SOD INJ 4 MG/ML VIAL ONE (09:39)
[2017-03-13] MEDS ORDERED: PHENYLEPHRINE HCL INJ 10 MG/ML VIAL ONE (09:39)
[2017-03-13] MEDS ORDERED: GLYCOPYRROLATE INJ 0.2 MG/ML VIAL ONE (09:39)
[2017-03-13] MEDS ORDERED: EpHEDrine SULFATE INJ 50 MG/ML AMP ONE (09:39)
[2017-03-13] MEDS ORDERED: ONDANSETRON INJ 2 MG/ML 2 ML VIAL ONE (09:39)
[2017-03-13] MEDS ORDERED: FENTANYL CITRATE INJ 50 MCG/1 ML 2 ML VIAL ONE (09:39)
[2017-03-13] MEDS ORDERED: SUCCINYLCHOLINE CHLORIDE 20 MG/ML 10 ML VIAL IV ONE (09:39)
[2017-03-13] MEDS ORDERED: NEOSTIGMINE METHYLSULFATE 5 MG/5 ML SYR ONE ×2 (09:39→11:35)
[2017-03-13] MEDS ORDERED: ROCURONIUM BROMIDE 10 MG/ML 5 ML VIAL IV ONE (09:39)
[2017-03-13] MEDS ORDERED: PROPOFOL IV EMULSION 10 MG/ML 20 ML VIAL IV ONE (09:39)
[2017-03-13] MEDS ORDERED: LIDOCAINE HCL 2% 2 ML VIAL (20MG/ML) ONE (09:39)
[2017-03-13] MEDS ORDERED: MIDAZOLAM HCL 1 MG/ML 2ML VIAL ONE (09:40)
--- NOTE | 2017-03-13 10:12 | History and Physical ---
History & Physical Date Mar 13, 2017. Chief Complaint Back pain History of Present Illness The patient is a 87 year old male with complaints of lumbar spine pain ongoing now for 2-4 months in duration worsening over time. No neurological deficit. Past Medical/Surgical History Medical Problems: (1) Asthma (2) COPD (chronic obstructive pulmonary disease) (3) DVT (deep venous thrombosis) (4) Heart disease (5) Hypertension (6) Pulmonary embolism Surgical Problems: (1) H/O shoulder surgery Additional History Hypertension: Yes Bleeding Tendencies: Yes Allergies Coded Allergies: No Known Allergies (Verified , 03/13/17) Home Medications Scheduled Aspirin (Aspirin Chewable), 81 MG PO QAM Atenolol (Tenormin), 25 MG PO QAM Celecoxib (CeleBREX), 200 MG PO QPM Fentanyl (Fentanyl), 25 MCG TOP q 72hrs Furosemide (Lasix), 20 MG PO TID Gabapentin (Neurontin), 400 MG PO TID Multivitamin (Multivitamin), 1 TAB PO QAM Ocuvite Preservision (Ocuvite Preservision), 1 TAB PO BID Valsartan (Diovan), 160 MG PO QAM Warfarin Sodium (Coumadin), 2.5 MG PO Q2D Warfarin Sodium (Coumadin), 5 MG PO Q2D Scheduled PRN Acetaminophen Tab (Tylenol), 650 MG PO Q6H PRN for Pain Albuterol Sulf (Albuterol Sulfate), 1 DOSE NEB UD PRN for SOB/Wheezing Gabapentin (Neurontin), 100 MG PO UD PRN for prn Oxycodone/Acetaminophen 5MG/325MG (Percocet 5MG/325MG), 1-2 TABLETS PO Q4H PRN for Pain Physical Examination Skin: warm/dry Eyes: normal inspection ENT: normal ENT inspection Head: normocephalic Neck: supple Respiratory/Chest: no respiratory distress Cardiovascular: no edema, no murmur Abdomen / GI: non tender Back: + pertinent finding (extreme pain with flexion-extension the lumbar area extreme pain with palpation and percussion) Diagnosis Osteoporotic compression fracture T12 vertebrae ASA Classification: ASA Class III Plan of Treatment Plan of treatment Kyphoplasty T12 vertebrae
[2017-03-13] MEDS ORDERED: BUPIVACAINE/EPINEPHRINE 0.5% MPF 1:200,000 30 ML VIAL ONE (10:24)
[2017-03-13] MEDS ORDERED: CONRAY 60% 50 ML VIAL ONE (10:26)
[2017-03-13] MEDS ORDERED: HYDROmorphone INJ 2 MG/ML SYR/VIAL IV PRN (10:30)
[2017-03-13] MEDS ORDERED: ONDANSETRON INJ 2 MG/ML 2 ML VIAL IV PRN ×2 (10:30→12:15)
[2017-03-13] MEDS ORDERED: LABETALOL HCL IV 5 MG/ML 20ML IV PRN (10:30)
[2017-03-13] MEDS ORDERED: ATROPINE SULFATE 0.1 MG/ML 5ML SYR IV PRN (10:30)
[2017-03-13] MEDS ORDERED: SODIUM CHLORIDE 0.9% 1000ML 1,000 ML IV SCH (12:02)
--- NOTE | 2017-03-13 12:07 | Discharge Instructions ---
Discharge Instructions Date of Service Mar 13, 2017. Admission Reason for Admission: Compression Fracture T12 Discharge Discharge Diagnosis / Problem: SAME ABOVE Discharge Goals Goal(s): Decrease discomfort, Improve function Activity Recommendations Activity Limitations: as noted below Lifting Limitations: until after follow-up appointment Exercise/Sports Limitations: until after follow-up appointment Shower/Bathe: tomorrow . Instructions / Follow-Up Instructions / Follow-Up MEDICATIONS: * Resume previous medications unless instructed otherwise by your surgeon. * Always take pain medication on a full stomach or with food to avoid upset stomach. * Do not drink alcohol or drive while taking narcotics. * Ibuprofen or Tylenol may be taken if narcotic not needed. SPECIAL CARE INSTRUCTIONS: __ None _X_ Keep extremity elevated and iced x 48 hours; apply ice 20-30 minutes 8-10 times/day. May remove at night. __ Sling __24 hrs/day __ Remove at night __ Shoulder Immobilizer __ 24 hrs/day __ Remove at night _X_ Dressing __ Maintain until seen in office, may shower with plastic over site _X_ Remove dressings in 24-48 hours and then may shower _X_ Cover incisions with band-aids after showering __ Do not remove steri-strips Call physician if chills or temperature rises above 102 degrees or pain unrelieved by prescribed pain medications at . . Current Hospital Diet Patient's current hospital diet: Discharge Diet Recommended Diet: Regular Diet Procedures Procedures Performed: T12 Kyphoplasty Pending Studies Studies pending at discharge: no Medical Emergencies . Who to Call and When: Medical Emergencies: If at any time you feel your situation is an emergency, please call 911 immediately. . Non-Emergent Contact Non-Emergency issues call your: Primary Care Provider . "Provider Documentation" section prepared by Miguel Mortensen. . VTE Core Measure Inpt VTE Proph given/why not?: SCD's
--- NOTE | 2017-03-13 12:09 | [facility] Post Operative Brief Note ---
Immediate Operative Summary Operative Date Mar 13, 2017. Pre-Operative Diagnosis Osteoporotic compression fracture T12 vertebrae Post-Operative Diagnosis Osteoporotic compression fracture T12 vertebrae Procedure(s) Performed T12 Kyphoplasty [address] Nathan Perry Electrical And Instrument Mechanic Surgeon(s) Miguel Mortensen PA-C Estimated Blood Loss 10 mL Findings compression fracture Specimens No pathology specimens per surgeon Complication(s) None Disposition Recovery Room / PACU
[2017-03-13] MEDS ORDERED: GABAPENTIN 100 MG CAP PO PRN (12:15)
[2017-03-13] MEDS ORDERED: OXYCODONE/ACETAMINOPHEN 5-325 TAB PO PRN ×2 (12:15)
[2017-03-13] MEDS ORDERED: ACETAMINOPHEN 325 MG TAB PO PRN (12:15)
[2017-03-13] MEDS ORDERED: WARFARIN SOD 5 MG TAB PO SCH ×2 (12:15)
[2017-03-13 12:54] VITALS: TEMP 36.4
--- NOTE | 2017-03-13 13:09 | Anesthesiology Progress Note ---
Anesthesia Post Op Note Date & Time Mar 13, 2017 at 13:09 Vital Signs Pain Intensity: 0 Vital Signs Past 12 Hours Date Time Temp Pulse Resp B/P (MAP) Pulse Ox O2 Delivery O2 Flow Rate FiO2 03/13/17 12:45 36.3 66 16 131/62 94 Room Air 03/13/17 12:35 68 16 133/66 96 Room Air 03/13/17 12:25 74 18 132/55 100 Oxymask 10 03/13/17 12:15 62 13 121/55 100 Oxymask 10 03/13/17 12:07 36.2 69 16 120/57 100 Oxymask 10 03/13/17 09:06 36.7 65 18 151/68 (95) 94 Room Air Notes Mental Status: alert / awake / arousable, participated in evaluation Pt Amnestic to Procedure: Yes Nausea / Vomiting: adequately controlled Pain: adequately controlled Airway Patency, RR, SpO2: stable & adequate BP & HR: stable & adequate Hydration State: stable & adequate Anesthetic Complications: no major complications apparent
[2017-03-13] MEDS ORDERED: OXYCODONE/ACETAMINOPHEN 5-325 TAB ONE (13:19)
[2017-03-13 13:25] VITALS: BP 131/60; PULSE 72; O2SAT 96
[2017-03-13 13:55] VITALS: BP 116/70; PULSE 76; O2SAT 100
[2017-03-13] MEDS ORDERED: FUROSEMIDE 20 MG TAB PO SCH (14:00)
[2017-03-13] MEDS ORDERED: GABAPENTIN 400 MG CAP PO SCH (14:00)
--- NOTE | 2017-03-13 14:25 | DIAGNOSTIC IMAGING REPORT ---
Thoracic SPINE, INTRAOPERATIVE FLUOROSCOPY HISTORY: T12 kyphoplasty. FLUOROSCOPY TIME: 1 minute and 20 seconds. FINDINGS: Intraoperative fluoroscopy was provided for the thoracic spine. 2 fluoroscopic spot images were obtained. Status post kyphoplasty at the T12 compression deformity. The cement is within the T12 vertebral body. IMPRESSION: Fluoroscopy provided for a T12 kyphoplasty.. Electronically signed by: Jose Wallace M.D. 03/13/2017 2:24 PM Dictated Date/Time: 03/13/2017 2:23 PM
[2017-03-13] MEDS ORDERED: CEROVITE ADV FORMULA TAB PO SCH (21:00)
[2017-03-13] MEDS ORDERED: CeleBREX 200 MG CAP PO SCH (21:00)
--- NOTE | 2017-03-14 07:03 | OPERATIVE REPORT ---
DATE OF OPERATION: 03/13/2017 PREOPERATIVE DIAGNOSIS: Compression fracture, T12. POSTOPERATIVE DIAGNOSIS: Compression fracture, T12. PROCEDURE: Kyphoplasty, T12. SURGEON: Dr. Perry. COMPLICATIONS: Zero. BLOOD LOSS: Less than 10 mL. PANEL RAISER OPERATOR: Miguel Mortensen PA-C. ANESTHETIC: General. DESCRIPTION OF PROCEDURE: The patient was taken to the surgical suite, placed prone, scrubbed, prepped in sterile. We used biplanar x-ray and C-arm. We were able to engage the pedicle of T12 bilaterally. We used a drill balloon, inflating each balloon to about 250 mmHg and 2.0 mL per side. The balloons withdrawn. The cement infiltrated. It looked like a pretty good fill. There were no apparent complications. We irrigated and closed. Sterile dressings applied. The patient returned to PACU stable. No apparent complications with the surgery. Sponge and needle count correct. I attest to the content of the Intraoperative Record and any orders documented therein. Any exception s are noted below.
[2017-03-14] MEDS ORDERED: MULTIVITAMIN TAB PO SCH (09:00)
[2017-03-14] MEDS ORDERED: ASPIRIN 81 MG CHEW PO SCH (09:00)
[2017-03-14] MEDS ORDERED: VALSARTAN 80 MG TAB PO SCH (09:00)
== END 2017-03-13 14:35 | disposition home or self-care (01) ==
LOC: C.ACU 08:08
PROVIDERS: ATTEND Orthopaedic Surgery Orthopaedic Surgery of the Spine
DX: M80.88XA Other osteoporosis with current pathological fracture, vertebra(e), initial encounter for fracture (principal); I10 Essential (primary) hypertension; J44.9 Chronic obstructive pulmonary disease, unspecified; Z86.711 Personal history of pulmonary embolism; Z86.718 Personal history of other venous thrombosis and embolism; Z79.01 Long term (current) use of anticoagulants; Z79.82 Long term (current) use of aspirin; Z79.899 Other long term (current) drug therapy

== ENCOUNTER → 2017-04-25 | Outpatient (CLI) | payer BC ==
[~2017-04-25] MED LIST changes: -CEFAZOLIN 2000 MG/60 ML D5W IV SCH; -LACTATED RINGER'S 1000ML 1,000 ML IV SCH; -SODIUM CHLORIDE 0.9% 1000ML 1,000 ML IV SCH
--- NOTE | 2017-04-25 13:45 | DIAGNOSTIC IMAGING REPORT ---
ABDOMEN ULTRASOUND FOR HERNIA CLINICAL HISTORY: R10.31 Abdominal pain, RLQ (right lower quadrant) [id number] COMPARISON STUDY: None. FINDINGS: Real-time sonographic imaging within the right lower quadrant was performed at the patient's area of pain. There is no sonographic abnormality. No fluid collections or masses identified. No hernia identified. IMPRESSION: No sonographic abnormality within the right lower quadrant. Electronically signed by: Jose Wallace M.D. 04/25/2017 1:44 PM Dictated Date/Time: 04/25/2017 1:43 PM
== END | disposition home or self-care (01) ==
LOC: C.ULTR 13:01
PROVIDERS: ATTEND Physician Assistant Medical
DX: R10.31 Right lower quadrant pain (principal)

== ENCOUNTER → 2017-04-27 | Outpatient (CLI) | payer BC | END | disposition home or self-care (01) | LOC: C.LABBFT 09:29 | PROVIDERS: ATTEND Internal Medicine | DX: D64.9 Anemia, unspecified (principal) ==

== ENCOUNTER → 2017-05-02 | Outpatient (CLI) | payer BC ==
[2017-05-02 13:06] LABS: URINE APPEARANCE CLEAR (CLEAR); URINE BILIRUBIN NEG (NEG); URINE COLOR YELLOW; URINE NITRITE NEG (NEG); URINE SPECIFIC GRAVITY 1.014 (1.000-1.030); UROBILINOGEN NEG (NEG)
[2017-05-02 13:14] LABS: MANUAL MICROSCOPIC REQUIRED? NO; REVIEW REQ? NO
== END | disposition home or self-care (01) ==
LOC: C.LABSPEC 11:12
PROVIDERS: ATTEND Physician Assistant Medical
DX: R10.31 Right lower quadrant pain (principal)

== ENCOUNTER → 2017-05-09 | Outpatient (CLI) | payer BC ==
[2017-05-09 17:53] LABS: URINE APPEARANCE CLEAR (CLEAR); URINE BILIRUBIN NEG (NEG); URINE COLOR YELLOW; URINE EPITHELIAL CELL AUTO 0-5 /lpf (0-5); URINE NITRITE NEG (NEG); URINE PH 5.5 (4.5-7.5); URINE SPECIFIC GRAVITY 1.012 (1.000-1.030); UROBILINOGEN NEG (NEG); ZZUR CULT IF INDIC CLEAN CATCH NO
[2017-05-09 17:56] LABS: MANUAL MICROSCOPIC REQUIRED? NO; REVIEW REQ? NO
== END | disposition home or self-care (01) ==
LOC: C.LABBFT 13:19
PROVIDERS: ATTEND Physician Assistant Medical
DX: R10.31 Right lower quadrant pain (principal)

== ENCOUNTER → 2017-05-19 | Outpatient (CLI) | payer BC ==
--- NOTE | 2017-05-19 11:31 | DIAGNOSTIC IMAGING REPORT ---
CT SCAN OF THE ABDOMEN AND PELVIS WITHOUT IV CONTRAST CLINICAL HISTORY: Right lower quadrant abdominal pain. Flank pain. COMPARISON STUDY: Radiographs of lumbar spine dated 12/20/2016. TECHNIQUE: CT scan of the abdomen and pelvis is performed from the lung bases to the proximal femora. Images are reviewed in the axial, sagittal, and coronal planes. IV contrast was not administered for this examination as per the referring clinician. Note that the examination was performed in suboptimal fashion without oral and IV contrast. A dose lowering technique was utilized adhering to the principles of ALARA. The examination is degraded by streak artifact from the left arm which could not be elevated above the abdomen as well as by motion artifact. CT DOSE: 453.47 mGycm FINDINGS: Lung bases: The heart is enlarged and without pericardial effusion. The coronary arteries and mitral annulus are densely calcified. There is diminished attenuation of the cardiac blood pool as compared to the myocardium suggesting anemia. There is bibasilar scarring versus atelectasis and elevation of left hemidiaphragm. No airspace consolidation or pleural effusion is seen. Liver: The unenhanced liver is normal in size, contour, and attenuation. There is no intrahepatic biliary ductal dilatation. Gallbladder: Large calcified gallstones are identified. There is no CT evidence of acute cholecystitis. Spleen: Normal in size and attenuation. Pancreas: The unenhanced pancreas is markedly atrophic and grossly unremarkable. Adrenal glands: Unremarkable. Kidneys: The unenhanced kidneys are atrophic and without hydronephrosis. There are no renal calculi identified. There is no evidence of contour deforming renal mass lesion. Abdominal vasculature: The abdominal aorta is normal in course and caliber noting advanced atherosclerotic calcification. Bowel: There is moderate to severe constipation. No bowel obstruction is seen. The appendix is not clearly visualized. Peritoneum: There is no intraperitoneal free air or abdominal ascites. Lymphadenopathy: None. Pelvic viscera: The prostate gland is markedly enlarged and heterogeneous, measuring 5.7 cm in transverse outer. There is median lobe hypertrophy. The bladder wall appears mildly thickened and trabeculated consistent with chronic outlet obstruction. Skeletal structures: The skeletal structures are osteopenic. There is advanced lumbosacral spondylosis and scoliosis. There are moderate to severe compression deformities of T11 and T12. There are retropulsed fragments at T12 with evidence of previous vertebroplasty at this level. No lytic or blastic lesions are seen. IMPRESSION: 1. Suboptimal examination without oral and IV contrast. 2. No acute infectious or inflammatory findings are identified in the abdomen or pelvis. 3. Moderate to severe constipation. No bowel obstruction is seen. 4. Prostatomegaly with evidence of chronic bladder outlet obstruction. 5. Cardiomegaly. 6. Cholelithiasis. 7. Additional findings as above. Electronically signed by: Braulio Xavier M.D. 05/19/2017 11:30 AM Dictated Date/Time: 05/19/2017 11:23 AM
== END | disposition home or self-care (01) ==
LOC: C.CTS 10:39
PROVIDERS: ATTEND Physician Assistant Medical
DX: R10.31 Right lower quadrant pain (principal); K59.00 Constipation, unspecified; N40.0 Benign prostatic hyperplasia without lower urinary tract symptoms; I51.7 Cardiomegaly; K80.20 Calculus of gallbladder without cholecystitis without obstruction

== ENCOUNTER 2017-05-27 17:20 | Inpatient (IN) | payer BC, OTHER ==
[2017-05-27] VITALS (20 sets, daily range): BP systolic 85–149; BP diastolic 53–96; PULSE 74–84; TEMP 36.6–37.3; O2SAT 94–100; Ht 152.4 cm; Wt 60.9 kg
[~2017-05-27] VITALS: Ht 152.4 cm; Wt 60.9 kg
[2017-05-27] MEDS ORDERED: SODIUM CHLORIDE 0.9% 1000ML 1,000 ML IV STA (17:25)
--- NOTE | 2017-05-27 17:47 | EMERGENCY ROOM VISIT NOTE ---
History Report prepared by Wade: Saleem Cramer Under the Supervision of: Dr. Chad Valdes M.D. First contact with patient: 17:22 Stated Complaint: WEAKNESS, LIGHTHEADED, RECTAL BLEED History of Present Illness The patient is a 87 year old male who presents to the Emergency Room with complaints of intermittent rectal bleeding that began today. The patient states that he had a catscan and ultrasound done recently that showed that he is constipated. He reports that he was not given an enema, but states that he has been taking stool softeners. The patient reports that he has been having bowel movements every day and has been fine up until today. The patient states that he has been weak starting today.and noticed that he has been rectally bleeding. He states that he went to have a bowel movement today and noticed that his stool was dark red in appearance. The patient also states that he has been short of breath after moving around today, which is not normal for him. He reports that he currently takes Coumadin for his history of blood clots in his legs that started in 2009. The patient denies fevers, chills, cough, congestion , nausea, vomiting, and abdominal pain. Source of History: patient Onset: today Position: other (rectal) Quality: other (dark red) Timing: intermittent Associated Symptoms: + SOB, + weakness, No fevers, No chills, No cough, No nausea, No vomiting, No abdominal pain Review of Systems See HPI for pertinent positives and negatives. A total of ten systems were reviewed and were otherwise negative. Past Medical & Surgical Medical Problems: (1) Asthma (2) COPD (chronic obstructive pulmonary disease) (3) DVT (deep venous thrombosis) (4) Heart disease (5) Hypertension (6) Pulmonary embolism Surgical Problems: (1) H/O shoulder surgery Family History Cancer FH: heart disease Hypertension Social History Smoking Status: Former Smoker Alcohol Use: occasionally Marital Status: Housing Status: lives alone Occupation Status: retired Current/Historical Medications Scheduled Aspirin (Aspirin Chewable), 81 MG PO QAM Atenolol (Tenormin), 25 MG PO QAM Celecoxib (CeleBREX), 200 MG PO QPM Fentanyl (Fentanyl), 25 MCG TOP q 72hrs Furosemide (Lasix), 20 MG PO TID Gabapentin (Neurontin), 400 MG PO TID Multivitamin (Multivitamin), 1 TAB PO QAM Ocuvite Preservision (Ocuvite Preservision), 1 TAB PO BID Omeprazole (Prilosec), 40 MG PO DAILY Ranitidine (Zantac), 300 MG PO HS Ropinirole (Requip), 1 MG PO DAILY Valsartan (Diovan), 160 MG PO QAM Warfarin Sodium (Coumadin), 2.5 MG PO Q2D Warfarin Sodium (Coumadin), 5 MG PO Q2D Scheduled PRN Acetaminophen Tab (Tylenol), 650 MG PO Q6H PRN for Pain Albuterol Hfa (Ventolin Hfa), 2-4 PUFFS INH Q6H PRN for SOB/Wheezing Albuterol Sulf (Albuterol Sulfate), 1 DOSE NEB UD PRN for SOB/Wheezing Gabapentin (Neurontin), 100 MG PO UD PRN for prn Oxycodone/Acetaminophen 5MG/325MG (Percocet 5MG/325MG), 1-2 TABLETS PO Q4H PRN for Pain Tiotropium [place] (Spiriva Handihaler), 1 CAP INH DAILY PRN for SOB/Wheezing Tramadol (Ultram), 50 MG PO Q4H PRN for Pain Allergies Coded Allergies: No Known Allergies (Verified , 05/27/17) Physical Exam Vital Signs Date Time Temp Pulse Resp B/P (MAP) Pulse Ox O2 Delivery O2 Flow Rate FiO2 05/27/17 19:53 88 107/59 96 Nasal Cannula 2.0 05/27/17 19:38 92 Nasal Cannula 2.0 05/27/17 19:36 71 137/58 05/27/17 19:13 75 05/27/17 18:48 69 106/48 05/27/17 18:21 67 106/48 99 Room Air 05/27/17 17:30 97 Room Air 05/27/17 17:29 36.8 68 16 125/61 96 Room Air Physical Exam GENERAL: Awake, alert, fatigued-appearing, in no distress, pale appearing HENT: Normocephalic, atraumatic. Dry mucous membranes. EYES: Normal conjunctiva. Sclera non-icteric. NECK: Supple. No nuchal rigidity. FROM. No JVD. RESPIRATORY: Clear to auscultation. CARDIAC: Regular rate, normal rhythm. 3/6 systolic murmur. Extremities warm and well perfused. Pulses equal. ABDOMEN: Soft, non-distended. No tenderness to palpation. No rebound or guarding. No masses. RECTAL: Dark red blood that is guaiac positive. No Melena. MUSCULOSKELETAL: Chest examination reveals no tenderness. The back is symmetrical on inspection without obvious abnormality. There is no CVA tenderness to palpation. No joint edema. LOWER EXTREMITIES: Calves are equal size bilaterally and non-tender. 3+ lower extremity bilateral edema. No discoloration. NEURO: Normal sensorium. No sensory or motor deficits noted. SKIN: No rash or jaundice noted. Medical Decision & Procedures ER Provider Diagnostic Interpretation: Radiology results as stated below per my review and radiologist interpretation: CHEST ONE VIEW PORTABLE HISTORY: ABDOMINAL PAIN/GI COMPARISON: None. FINDINGS: The lungs are clear. Cardiac silhouette is top normal in size. No pleural effusions. No pneumothorax. Left shoulder prosthesis. Lower thoracic spine vertebroplasty. IMPRESSION: No significant change compared to the prior study. No acute process. Electronically signed by: Jose Wallace M.D. 05/27/2017 6:28 PM Dictated Date/Time: 05/27/2017 6:28 PM ABDOMEN AND PELVIS CT WITH IV CONTRAST CT DOSE: 284.95 mGy.cm HISTORY: Generalized abdominal pain. Right blood per rectum. TECHNIQUE: Multiaxial CT images of the abdomen and pelvis were performed following the use of intravenous contrast. A dose lowering technique was utilized adhering to the principles of ALARA. COMPARISON STUDY: Abdomen and pelvis CT 05/19/2017. FINDINGS: The heart is enlarged and without pericardial effusion. There is persistent elevation of left hemidiaphragm. No airspace consolidation or pleural effusion is seen. Liver: The unenhanced liver is normal in size, contour, and attenuation. There is no intrahepatic biliary ductal dilatation. Gallbladder: Large calcified gallstones are identified. There is no CT evidence of acute cholecystitis. Spleen: Normal in size and attenuation. Pancreas: The unenhanced pancreas is markedly atrophic and grossly unremarkable. Adrenal glands: Unremarkable. Kidneys: The unenhanced kidneys are atrophic and without hydronephrosis. There is a punctate stone within the left kidney. There is no evidence of contour deforming renal mass lesion. Abdominal vasculature: The abdominal aorta is normal in course and caliber noting advanced atherosclerotic calcification. Bowel: There is moderate to severe constipation. Question of focal thickening/narrowing within the rectum on image 292. However, this could be due to decompression. No surrounding pericolonic fat stranding.. The appendix is not clearly visualized. Peritoneum: There is no intraperitoneal free air or abdominal ascites. Small fat-containing left inguinal hernia, unchanged. Lymphadenopathy: None. Pelvic viscera: The prostate gland is markedly enlarged and heterogeneous, measuring 5.7 cm in transverse outer. There is median lobe hypertrophy. The bladder wall appears mildly thickened and trabeculated consistent with chronic outlet obstruction. Skeletal structures: The skeletal structures are osteopenic. There is advanced lumbosacral spondylosis and scoliosis. There are moderate to severe compression deformities of T11 and T12. There are retropulsed fragments at T12 with evidence of previous vertebroplasty at this level. No lytic or blastic lesions are seen. IMPRESSION: 1. Questionable area of focal thickening/narrowing within the rectum. This may be due to an area of underdistention. However, sigmoidoscopy is recommended to exclude the possibility of a rectal mass given the patient's history of rectal bleeding. 2. Otherwise, no significant change compared to the prior study. No acute infectious or inflammatory findings are identified in the abdomen or pelvis. 3. Moderate to severe constipation. 4. Prostatomegaly with evidence of chronic bladder outlet obstruction. 5. Cardiomegaly. 6. Cholelithiasis. 7. Additional findings as above. Electronically signed by: Jose Wallace M.D. 05/27/2017 6:58 PM Dictated Date/Time: 05/27/2017 6:47 PM Laboratory Results Test 05/27/17 17:39 05/27/17 20:03 Red Blood Cell Morphology Unremarkable Pro-B-Type Natriuretic Peptide 1266 pg/ml (0-1800) Lipase 60 U/L (73-393) Bedside Hemoglobin 6.1 g/dl (14.0-18.0) Bedside Hematocrit 18 % (42-52) Bedside Sodium 132 mEq/L (135-144) Bedside Potassium 5.4 mEq/L (3.3-5.0) Bedside Chloride 98 mEq/L (101-112) Bedside Total CO2 27 mEq/l (24-31) Bedside Blood Urea Nitrogen 38 mg/dl (7-18) Bedside Creatinine 1.1 mg/dl (0.6-1.3) Bedside Glucose (other) 113 mg/dl (70-99) Bedside Ionized Calcium (Arian) 1.07 mmol/l (1.12-1.32) Laboratory results reviewed by me Medications Administered Medications (Trade) Dose Ordered Sig/[place] Route Start Time Stop Time Status Last Admin Dose Admin Phytonadione 5 mg/ Sodium Chloride 50.5 ml @ 101 mls/hr ONE ONCE IV 05/27/17 19:30 05/27/17 19:59 DC 05/27/17 19:50 101 MLS/HR Albuterol/ Ipratropium (Duoneb) 3 ml NOW STAT INH 05/27/17 19:34 05/27/17 19:35 DC 05/27/17 20:28 3 ML ECG Indication: weakness Rate (beats per minute): 70 Rhythm: sinus rhythm Findings: 1st degree AV block, no acute ischemic change, other (normal axis) ED Course 1723: The patient was evaluated in room B11B. A complete history and physical exam was performed. 1919: I reevaluated the patient and discussed his results and treatment plan. He agreed and will be further evaluated. 1926: I discussed the patients case with Dr. Gallego, [facility] Hospitalist. He understands the patients condition and agrees to accept the patient. The patient will be further evaluated. Medical Decision I reviewed the patient's past medical history, medications, and the nursing notes as described above. The patient's presentation and history were concerning for diverticulosis, colitis, diverticulitis, gastritis, peptic ulcer, bowel obstruction. The patient is an 87-year-old gentleman with a past history of DVT on Coumadin who presents emergency Department with red blood per rectum per hpi. Arrival the patient is uncomfortable, pale but in no acute distress afebrile with stable vital signs. Exam demonstrates dark red blood that is guaiac positive. No Melena. HBG 7.4 from 11.8 in february. INR supratherapeutic at 4.7. CT of the abdomen and pelvis demonstrates question of a rectal mass which could be the source for the patient's rectal bleeding. Given the patient's active bleeding and substantial drop in hemoglobin from February patient was ordered for 2 units of PRBCs, 2 units of FFP, and 5 mg of IV vitamin K. Case was discussed with Dr. Lee, [facility] hospitalist will admit the patient to the ICU for further management. Case additionally d/w Mario Russell, ICU PA. Medication Reconcilliation Current Medication List: was personally reviewed by me Blood Pressure Screening Patient's blood pressure: Normal blood pressure Consults Time Called: 1924 Consulting Physician: Dr. Gallego [facility] Hospitalist Returned Call: 1926 I discussed the patients case with Dr. Gallego [facility] Hospitalist. He understands the patients condition and agrees to accept the patient. The patient will be further evaluated. Impression Primary Impression: GI bleed Critical Care I have personally spent greater than 80 minutes of critical care time in the direct management of this patient. This includes bedside care, interpretation of diagnostic studies, and testing, discussion with consultants, patient, and family members, and other required patient management activities. This 80 minutes is in excess of all separately billable procedures. Scribe Attestation The scribe's documentation has been prepared under my direction and personally reviewed by me in its entirety. I confirm that the note above accurately reflects all work, treatment, procedures, and medical decision making performed by me. Departure Information Dispostion Home / Self-Care Referrals No Doctor, Assigned (PCP)
[2017-05-27] MEDS ORDERED: VNTHFA/IN INH (18:00)
[2017-05-27] MEDS ORDERED: TRAM-10 PO (18:00)
[2017-05-27] MEDS ORDERED: SPRIN/30 INH (18:00)
[2017-05-27] MEDS ORDERED: RANI300T2 PO (18:00)
[2017-05-27] MEDS ORDERED: OMEP40CA41 PO (18:00)
[2017-05-27] MEDS ORDERED: ROPI1TAB PO (18:00)
[2017-05-27 18:05] LABS: BASO % 0.5 %; BASO ABS # 0.03 K/uL (0-0.2); EOS % 3.3 %; HEMATOCRIT 22.1 % (42-52); IG% 0.2 %; LYMPH % 23.3 %; LYMPH ABS # 1.28 K/uL (1.2-3.4); MEAN CELL VOLUME 91.7 fL (80-100); MEAN CORPUSCULAR HEMOGLOBIN 30.7 pg (25-34); MEAN CORPUSCULAR HGB CONC 33.5 g/dl (32-36); MONO % 12.4 %; NEUT % 60.3 %; PLATELET COUNT 239 K/uL (130-400); RED BLOOD COUNT 2.41 M/uL (4.7-6.1); WHITE BLOOD COUNT 5.49 K/uL (4.8-10.8)
[2017-05-27 18:10] LABS: PROTHROMBIN TIME (PATIENT) 47.7 SECONDS (9.0-12.0)
[2017-05-27 18:15] LABS: ALT/SGPT 13 U/L (12-78); AST/SGOT 13 U/L (15-37); BLOOD UREA NITROGEN 37 mg/dl (7-18); BUN/CREATININE RATIO 34.6 (10-20); CALCIUM 7.8 mg/dl (8.5-10.1); CARBON DIOXIDE 28 mmol/L (21-32); CHLORIDE 101 mmol/L (98-107); CREATININE 1.06 mg/dl (0.60-1.40); GLUCOSE 96 mg/dl (70-99); POTASSIUM 5.3 mmol/L (3.5-5.1); SODIUM 132 mmol/L (136-145)
[2017-05-27 18:20] LABS: ALKALINE PHOSPHATASE 95 U/L (45-117)
[2017-05-27 18:25] LABS: INR 4.7 (0.9-1.1)
[2017-05-27 18:29] LABS: COMPLETE YES
--- NOTE | 2017-05-27 18:30 | DIAGNOSTIC IMAGING REPORT ---
CHEST ONE VIEW PORTABLE HISTORY: ABDOMINAL PAIN/GI COMPARISON: None. FINDINGS: The lungs are clear. Cardiac silhouette is top normal in size. No pleural effusions. No pneumothorax. Left shoulder prosthesis. Lower thoracic spine vertebroplasty. IMPRESSION: No significant change compared to the prior study. No acute process. Electronically signed by: Jose Wallace M.D. 05/27/2017 6:28 PM Dictated Date/Time: 05/27/2017 6:28 PM
--- NOTE | 2017-05-27 18:59 | DIAGNOSTIC IMAGING REPORT ---
ABDOMEN AND PELVIS CT WITH IV CONTRAST CT DOSE: 284.95 mGy.cm HISTORY: Generalized abdominal pain. Right blood per rectum. TECHNIQUE: Multiaxial CT images of the abdomen and pelvis were performed following the use of intravenous contrast. A dose lowering technique was utilized adhering to the principles of ALARA. COMPARISON STUDY: Abdomen and pelvis CT 05/19/2017. FINDINGS: The heart is enlarged and without pericardial effusion. There is persistent elevation of left hemidiaphragm. No airspace consolidation or pleural effusion is seen. Liver: The unenhanced liver is normal in size, contour, and attenuation. There is no intrahepatic biliary ductal dilatation. Gallbladder: Large calcified gallstones are identified. There is no CT evidence of acute cholecystitis. Spleen: Normal in size and attenuation. Pancreas: The unenhanced pancreas is markedly atrophic and grossly unremarkable. Adrenal glands: Unremarkable. Kidneys: The unenhanced kidneys are atrophic and without hydronephrosis. There is a punctate stone within the left kidney. There is no evidence of contour deforming renal mass lesion. Abdominal vasculature: The abdominal aorta is normal in course and caliber noting advanced atherosclerotic calcification. Bowel: There is moderate to severe constipation. Question of focal thickening/narrowing within the rectum on image 292. However, this could be due to decompression. No surrounding pericolonic fat stranding.. The appendix is not clearly visualized. Peritoneum: There is no intraperitoneal free air or abdominal ascites. Small fat-containing left inguinal hernia, unchanged. Lymphadenopathy: None. Pelvic viscera: The prostate gland is markedly enlarged and heterogeneous, measuring 5.7 cm in transverse outer. There is median lobe hypertrophy. The bladder wall appears mildly thickened and trabeculated consistent with chronic outlet obstruction. Skeletal structures: The skeletal structures are osteopenic. There is advanced lumbosacral spondylosis and scoliosis. There are moderate to severe compression deformities of T11 and T12. There are retropulsed fragments at T12 with evidence of previous vertebroplasty at this level. No lytic or blastic lesions are seen. IMPRESSION: 1. Questionable area of focal thickening/narrowing within the rectum. This may be due to an area of underdistention. However, sigmoidoscopy is recommended to exclude the possibility of a rectal mass given the patient's history of rectal bleeding. 2. Otherwise, no significant change compared to the prior study. No acute infectious or inflammatory findings are identified in the abdomen or pelvis. 3. Moderate to severe constipation. 4. Prostatomegaly with evidence of chronic bladder outlet obstruction. 5. Cardiomegaly. 6. Cholelithiasis. 7. Additional findings as above. Electronically signed by: Jose Wallace M.D. 05/27/2017 6:58 PM Dictated Date/Time: 05/27/2017 6:47 PM
[2017-05-27] MEDS ORDERED: PHYTONADIONE INJ 5 MG in SODIUM CHLORIDE 0.9% 50ML 50 ML IV ONE (19:30)
--- NOTE | 2017-05-27 19:33 | History and Physical ---
History & Physical Date & Time of Service: May 27, 2017 at 19:31 Chief Complaint: Weakness, Lightheaded, Rectal Bleed Primary Care Physician: Jefe Merritt M.D. History of Present Illness Source: patient, family, clinic records, hospital records 87M with a PMHx of DVTs on Coumadin, Diastolic CHF, COPD p/w with a half day history of lethargy and four "black" stools after dinner (the last stool was the darkest). Patient has never had black or red bowel movements in the past. Patient denies that his BM are bright red. He denies any rectal pain. Patient has chronic abdominal pain that is across his front that goes to his back - the abdominal pain has been going for at least 6 months. The patient's back pain is chronic and he has had a compression fracture in the past. Patient has been getting regular blood work for a high Coumadin level. Patient has lost 30lbs over the past two months due to a poor appetite. Colonoscopy 4-5 years ago at [facility], had no issues. Endoscopy in early [address] Tobar. Patient received 1units of PRBC and IV Vit K in the ER. SHX: Former smoker 20 pack years, also chews tobacco. Past Medical/Surgical History Medical Problems: (1) Asthma Status: Chronic (2) COPD (chronic obstructive pulmonary disease) Status: Chronic (3) DVT (deep venous thrombosis) Status: Resolved (4) Heart disease Status: Chronic (5) Hypertension Status: Chronic (6) Pulmonary embolism Status: Resolved Surgical Problems: (1) H/O shoulder surgery Status: Resolved Family History Cancer FH: heart disease Hypertension Social History Smoking Status: Former Smoker Smokeless Tobacco Use: No Alcohol Use: none Drug Use: none Marital Status: Housing status: lives with family Occupational Status: retired Immunizations History of Influenza Vaccine: Yes Influenza Vaccine Date: Feb 17, 2015 History of Tetanus Vaccine?: Yes Tetanus Immunization Date: Aug 17, 2012 History of Pneumococcal: No History of Hepatitis B Vaccine: Unknown Multi-Drug Resistant Organisms History of MDRO: No Allergies Coded Allergies: No Known Allergies (Verified , 05/27/17) Home Medications Scheduled Aspirin (Aspirin Chewable), 81 MG PO QAM Atenolol (Tenormin), 25 MG PO QAM Celecoxib (CeleBREX), 200 MG PO QPM Fentanyl (Fentanyl), 25 MCG TOP q 72hrs Furosemide (Lasix), 20 MG PO TID Gabapentin (Neurontin), 400 MG PO TID Multivitamin (Multivitamin), 1 TAB PO QAM Ocuvite Preservision (Ocuvite Preservision), 1 TAB PO BID Omeprazole (Prilosec), 40 MG PO DAILY Ranitidine (Zantac), 300 MG PO HS Ropinirole (Requip), 1 MG PO DAILY Valsartan (Diovan), 160 MG PO QAM Warfarin Sodium (Coumadin), 2.5 MG PO Q2D Warfarin Sodium (Coumadin), 5 MG PO Q2D Scheduled PRN Acetaminophen Tab (Tylenol), 650 MG PO Q6H PRN for Pain Albuterol Hfa (Ventolin Hfa), 2-4 PUFFS INH Q6H PRN for SOB/Wheezing Albuterol Sulf (Albuterol Sulfate), 1 DOSE NEB UD PRN for SOB/Wheezing Gabapentin (Neurontin), 100 MG PO UD PRN for prn Oxycodone/Acetaminophen 5MG/325MG (Percocet 5MG/325MG), 1-2 TABLETS PO Q4H PRN for Pain Tiotropium Edison (Spiriva Handihaler), 1 CAP INH DAILY PRN for SOB/Wheezing Tramadol (Ultram), 50 MG PO Q4H PRN for Pain Review of Systems Constitutional: No fever, No chills Respiratory: No cough, No sputum, No shortness of breath Cardiovascular: No chest pain Abdomen: + pain (chronic), + GI bleeding, No nausea, No vomiting Musculoskeletal: No joint pain Genitourinary - Male: No dysuria Physical Exam Vital Signs Date Time Temp Pulse Resp B/P (MAP) Pulse Ox O2 Delivery O2 Flow Rate FiO2 05/27/17 19:13 75 05/27/17 18:48 69 106/48 05/27/17 18:21 67 106/48 99 Room Air 05/27/17 17:30 97 Room Air 05/27/17 17:29 36.8 68 16 125/61 96 Room Air General Appearance: WD/WN, + pertinent finding (patient appears pale, the room smells like melena. ) Head: normocephalic, atraumatic Eyes: PERRL, EOMI Neck: supple Respiratory/Chest: chest non-tender, lungs clear, normal breath sounds, no respiratory distress, no accessory muscle use Abdomen/GI: normal bowel sounds, normal rectal exam (good anal sphincter tone, no visible blood on my finger or around anus. ), + pertinent finding (pt has a midline abdominal hernia, abdomen is soft and non tender, I did appreciate a hard 1cm round non mobile lymph node on the right abdomen, bowel sounds present , abdomen is distended, not ascites. 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, no motor/sensory deficits, alert, normal mood/affect, oriented x 3 Skin: no rash, + pallor (pale) Diagnostics Laboratory Results Results Past 24 Hours Test 05/27/17 17:39 05/27/17 17:42 Range/Units White Blood Count 5.49 4.8-10.8 K/uL Red Blood Count 2.41 4.7-6.1 M/uL Hemoglobin 7.4 14.0-18.0 g/dL Hematocrit 22.1 42-52 % Mean Corpuscular Volume 91.7 80-100 fL Mean Corpuscular Hemoglobin 30.7 25-34 pg Mean Corpuscular Hemoglobin Concent 33.5 32-36 g/dl Platelet Count 239 130-400 K/uL Mean Platelet Volume 8.0 7.4-10.4 fL Neutrophils (%) (Auto) 60.3 % Lymphocytes (%) (Auto) 23.3 % Monocytes (%) (Auto) 12.4 % Eosinophils (%) (Auto) 3.3 % Basophils (%) (Auto) 0.5 % Neutrophils # (Auto) 3.31 1.4-6.5 K/uL Lymphocytes # (Auto) 1.28 1.2-3.4 K/uL Monocytes # (Auto) 0.68 0.11-0.59 K/uL Eosinophils # (Auto) 0.18 0-0.5 K/uL Basophils # (Auto) 0.03 0-0.2 K/uL RDW Standard Deviation 49.3 36.4-46.3 fL RDW Coefficient of Variation 14.6 11.5-14.5 % Immature Granulocyte % (Auto) 0.2 % Immature Granulocyte # (Auto) 0.01 0.00-0.02 K/uL Red Blood Cell Morphology Unremarkable Prothrombin Time 47.7 9.0-12.0 SECONDS Prothromb Time International Ratio 4.7 0.9-1.1 Sodium Level 132 136-145 mmol/L Potassium Level 5.3 3.5-5.1 mmol/L Chloride Level 101 98-107 mmol/L Carbon Dioxide Level 28 21-32 mmol/L Anion Gap 3.0 3-11 mmol/L Blood Urea Nitrogen 37 7-18 mg/dl Creatinine 1.06 0.60-1.40 mg/dl Est Creatinine Clear Calc Drug Dose 45.6 ml/min Estimated GFR () 72.8 Estimated GFR (Non- 62.8 BUN/Creatinine Ratio 34.6 10-20 Random Glucose 96 70-99 mg/dl Calcium Level 7.8 8.5-10.1 mg/dl Total Bilirubin 0.2 0.2-1 mg/dl Direct Bilirubin < 0.1 0-0.2 mg/dl Aspartate Amino Transf (AST/SGOT) 13 15-37 U/L Alanine Aminotransferase (ALT/SGPT) 13 12-78 U/L Alkaline Phosphatase 95 45-117 U/L Troponin I < 0.015 0-0.045 ng/ml Pro-B-Type Natriuretic Peptide 1266 0-1800 pg/ml Total Protein 5.8 6.4-8.2 gm/dl Albumin 2.5 3.4-5.0 gm/dl Lipase 60 73-393 U/L Lactic Acid Level 1.6 0.4-2.0 mmol/L Diagnostic Radiology ABDOMEN AND PELVIS CT WITH IV CONTRAST CT DOSE: 284.95 mGy.cm HISTORY: Generalized abdominal pain. Right blood per rectum. TECHNIQUE: Multiaxial CT images of the abdomen and pelvis were performed following the use of intravenous contrast. A dose lowering technique was utilized adhering to the principles of ALARA. COMPARISON STUDY: Abdomen and pelvis CT 05/19/2017. FINDINGS: The heart is enlarged and without pericardial effusion. There is persistent elevation of left hemidiaphragm. No airspace consolidation or pleural effusion is seen. Liver: The unenhanced liver is normal in size, contour, and attenuation. There is no intrahepatic biliary ductal dilatation. Gallbladder: Large calcified gallstones are identified. There is no CT evidence of acute cholecystitis. Spleen: Normal in size and attenuation. Pancreas: The unenhanced pancreas is markedly atrophic and grossly unremarkable. Adrenal glands: Unremarkable. Kidneys: The unenhanced kidneys are atrophic and without hydronephrosis. There is a punctate stone within the left kidney. There is no evidence of contour deforming renal mass lesion. Abdominal vasculature: The abdominal aorta is normal in course and caliber noting advanced atherosclerotic calcification. Bowel: There is moderate to severe constipation. Question of focal thickening/narrowing within the rectum on image 292. However, this could be due to decompression. No surrounding pericolonic fat stranding.. The appendix is not clearly visualized. Peritoneum: There is no intraperitoneal free air or abdominal ascites. Small fat-containing left inguinal hernia, unchanged. Lymphadenopathy: None. Pelvic viscera: The prostate gland is markedly enlarged and heterogeneous, measuring 5.7 cm in transverse outer. There is median lobe hypertrophy. The bladder wall appears mildly thickened and trabeculated consistent with chronic outlet obstruction. Skeletal structures: The skeletal structures are osteopenic. There is advanced lumbosacral spondylosis and scoliosis. There are moderate to severe compression deformities of T11 and T12. There are retropulsed fragments at T12 with evidence of previous vertebroplasty at this level. No lytic or blastic lesions are seen. IMPRESSION: 1. Questionable area of focal thickening/narrowing within the rectum. This may be due to an area of underdistention. However, sigmoidoscopy is recommended to exclude the possibility of a rectal mass given the patient's history of rectal bleeding. 2. Otherwise, no significant change compared to the prior study. No acute infectious or inflammatory findings are identified in the abdomen or pelvis. 3. Moderate to severe constipation. 4. Prostatomegaly with evidence of chronic bladder outlet obstruction. 5. Cardiomegaly. 6. Cholelithiasis. 7. Additional findings as above. CHEST ONE VIEW PORTABLE HISTORY: ABDOMINAL PAIN/GI COMPARISON: None. FINDINGS: The lungs are clear. Cardiac silhouette is top normal in size. No pleural effusions. No pneumothorax. Left shoulder prosthesis. Lower thoracic spine vertebroplasty. IMPRESSION: No significant change compared to the prior study. No acute process. Impression Assessment and Plan 87M with a PMHx of COPD, DVTs on Coumadin and Diastolic CHF p/w melena starting after dinner. Patient's Hemoglobin was 7.4 and went to 6.5 in the ER. INR was 4.7. IV Vit K and 3 units of PRBC were given. Dr. Lofton spoke to Dr. Davis. We will admit the patient to the ICU, start a PPI drip and IV Octreotide and do serial H&H monitoring. ECHO from 2014: 1. Normal global biventricular systolic function without segmental wall motion abnormalities. (EF of 55%) 2. Moderate aortic stenosis. 3. Trivial to mild aortic insufficiency. 4. Mild left ventricular hypertrophy. 5. Diastolic dysfunction is suggested. GI Bleed - Patient told ER doc that the stool was dark red, he told admitting resident that the stools were black. Room smells of melena. Rectal exam normal. - CT Showed moderate stool and a possible rectal mass. - Upper endoscopy by Dr. Tobar in Jun 2016 showed gastritis in the gastric antrum with a normal duodenum. - PPI drip and IV Octreotide. - Will hold all home AC (ASA, Cerebrex and Coumadin). - INR was 4.7 on admission, given IV Vit K, will recheck at 2am. - Dr. Davis is aware, if hemoglobin continues to dip he would be a candidate for Interventional Radiology (transfer). - No formal FOBT in chart. - Getting 3 units PRBC. After RBCs finish will start IVF of 75mls/hr (per last ECHO he should be able to tolerate it). - H&H Q6H. Asthma Albuterol Nebs Q6H PRN Continue home Spiriva Dopamine Agonist continue home Ropiranole Chronic Abdo and Back Pain Was unable to change position because of significant chronic back pain with a history of compression fractures. Hold home PO meds including Tylenol, Gabapentin and Ultram. Morphine 2mg IV PRN Q6G + 4mg PRN for breakthrough pain. Fentanyl Patch 50mcg TD Q3D. HTN Hold home Losartan. Hold home Atenolol. Hold Home Lasix. DVT Proph Pt has a h/o DVTs and was on Coumadin for them, will order SCDs. Dispo: ICU, NPO Full Code. Attending addendum: I have physically seen this patient, have supervised the medical residents activities, and agree with the H&P unless as otherwise noted. Assessment and Plan: GI bleed/symptomatic anemia, hemoglobin initially 7.4 decreased to 6.1 in 30 minutes in the ED-- Admit to the ICU. Nothing by mouth Protonix bolus then drip Octreotide drip Hold aspirin, Celebrex and Coumadin INR 4.7 upon admission, given vitamin K 10 mg IV and repeat INR in 4-6 hours with next labs Had colonoscopy with [facility] approximately 4 years ago that reportedly was negative Had EGD with Dr. Tobar in June 2016 which showed gastritis Transfused 3 units packed red blood cells now, and a repeat H&H, and then repeat at 6 hour intervals. 2 received 2 units of FFP in the ED Spoke with Dr. Davis from [facility], who did the last colonoscopy, as it appears that the source of bleeding as he described dark red stools would be lower GI, although, there is some variation in his story, and there may be an upper GI component. Hypertension-- Hold losartan, atenolol and Lasix. Asthma/hypoxia in the ED-- albuterol nebulizers every 6 hours when necessary Can continue Spiriva Continue nasal cannula 2 L of oxygen, titrate to keep pulse ox greater than or equal to 92%. DVT/PE history-- As noted above, reverse INR with vitamin K. We will need to determine the patient will be able to use anticoagulation again based on above studies next Restless leg syndrome-- Hold Requip while nothing by mouth GERD-- Replacing omeprazole and ranitidine with Protonix drip as noted above. Peripheral neuropathy-- Hold gabapentin 40 mg by mouth 3 times a day. Chronic pain syndrome-- continue fentanyl patch 25 g daily and morphine IV when necessary Level of Care Critical Care Advanced Directives Existing Advance Directive: Yes Existing Living Will: Yes VTE Prophylaxis VTE Risk Assessment Done? Y/N: Yes Risk Level: Moderate Given or contraindicated: SCD's, Contraindicated Social Service Consult None Apply Note Total Time: Critical Care 30 - 74 minutes Resident Involvement: Resident Care Provided Care Provided: Adult Hospital Medicine
[2017-05-27] MEDS ORDERED: ALBUT/IPRATROP 3MG/0.5MG NEB 3 ML VIAL INH STA (19:34)
[2017-05-27] MEDS ORDERED: OCTREOTIDE IV BOLUS & DRIP IV STA (20:10)
[2017-05-27 20:15] LABS: ISTAT CREATININE 1.1 mg/dl (0.6-1.3); ISTAT HEMOGLOBIN 6.1 g/dl (14.0-18.0); ISTAT IONIZED CALCIUM 1.07 mmol/l (1.12-1.32)
[2017-05-27] MEDS ORDERED: MoRPHine SULFATE 4 MG/ML 1 ML CARP\\VIAL IV PRN (20:15)
[2017-05-27] MEDS ORDERED: ALBUTEROL 0.5% NEB SOLN 2.5 MG/0.5 ML VIAL INH PRN (20:15)
[2017-05-27] MEDS ORDERED: FENTANYL 50 MCG/HR TDSY TD SCH (20:15)
[2017-05-27] MEDS ORDERED: TIOTROPIUM BROMIDE 5 PUFF/90 MCG INH INH PRN (20:15)
--- NOTE | 2017-05-27 20:27 | Critical Care Consultation ---
Critical Care Consultation Date of Consultation: May 27, 2017. Attending Physician: Reason for Consultation: 87-year-old male with active lower GI bleed requiring aggressive blood products replacement and close hemodynamic monitoring. History of Present Illness Patient is an 87-year-old male who was enjoying his typical state of health until this evening. He reports that after a meal, he developed dark colored stools followed by bloody stools. He became lightheaded and had some worsening baseline shortness of breath. EMS was contacted and the patient was brought to the emergency department. A CT scan of the abdomen and pelvis demonstrated some thickening of the distal colon at the rectum. He had a moderate amount of bloody stool output. His H&H was low at 7.4 and 22.1. He did receive 1 unit of FFP, 1 unit of blood, and 5 mg of vitamin K in the emergency department. EKG demonstrated no acute findings. Patient had increasing oxygen requirement. He does wear nasal cannula oxygen at night. The patient is currently on Coumadin secondary to a LEFT lower extremity DVT with associated PE. He does have COPD secondary to a long-standing history of smoking. He does not currently smoke, however. Patient reports no prior GI bleeds. He does take Celebrex daily secondary to a history of chronic low back pain and osteoarthritis. He wears a fentanyl patch for this discomfort. Patient reports a prior history of abdominal hernia repair. He denies any other abdominal surgeries. Patient does take Lasix 3 times daily secondary to peripheral edema. He denies any history of coronary artery disease or cholesterol issues. Upon arrival to the ICU, the patient reports ongoing low back pain rating his discomfort a 4/10. He reports no new discomfort otherwise. He reports that his initial bowel movement was very dark in color and subsequent bowel movements have been very dark red in color. He complains of some short of breath which she reports is worse than baseline. He denies any pleuritic pain or chest discomfort. He denies a current dizziness or lightheadedness. He denies any headaches, fevers, chills, nausea, vomiting, hematemesis, hematuria, or dysuria. Patient did have a history of colonoscopy approximately 3-4 years ago as well as an upper endoscopy at some point or another. Past Medical/Surgical History Medical Problems: (1) Asthma (2) COPD (chronic obstructive pulmonary disease) (3) DVT (deep venous thrombosis) (4) Heart disease (5) Hypertension (6) Pulmonary embolism Surgical Problems: (1) H/O shoulder surgery Family History Cancer FH: heart disease Hypertension noncontributory Social History Smoking Status: Former Smoker Smokeless Tobacco Use: No Alcohol Use: occasionally Drug Use: none Marital Status: Housing Status: lives alone Occupation Status: retired Allergies Coded Allergies: No Known Allergies (Verified , 05/27/17) Home Medications Scheduled Aspirin (Aspirin Chewable), 81 MG PO QAM Atenolol (Tenormin), 25 MG PO QAM Celecoxib (CeleBREX), 200 MG PO QPM Fentanyl (Fentanyl), 25 MCG TOP q 72hrs Furosemide (Lasix), 20 MG PO TID Gabapentin (Neurontin), 400 MG PO TID Multivitamin (Multivitamin), 1 TAB PO QAM Ocuvite Preservision (Ocuvite Preservision), 1 TAB PO BID Omeprazole (Prilosec), 40 MG PO DAILY Ranitidine (Zantac), 300 MG PO HS Ropinirole (Requip), 1 MG PO DAILY Valsartan (Diovan), 160 MG PO QAM Warfarin Sodium (Coumadin), 2.5 MG PO Q2D Warfarin Sodium (Coumadin), 5 MG PO Q2D Scheduled PRN Acetaminophen Tab (Tylenol), 650 MG PO Q6H PRN for Pain Albuterol Hfa (Ventolin Hfa), 2-4 PUFFS INH Q6H PRN for SOB/Wheezing Albuterol Sulf (Albuterol Sulfate), 1 DOSE NEB UD PRN for SOB/Wheezing Gabapentin (Neurontin), 100 MG PO UD PRN for prn Oxycodone/Acetaminophen 5MG/325MG (Percocet 5MG/325MG), 1-2 TABLETS PO Q4H PRN for Pain Tiotropium Hamilton (Spiriva Handihaler), 1 CAP INH DAILY PRN for SOB/Wheezing Tramadol (Ultram), 50 MG PO Q4H PRN for Pain Current Inpatient Medications Current Inpatient Medications Medications (Trade) Dose Ordered Sig/[place] Route Start Time Stop Time Status Last Admin Dose Admin Morphine Sulfate (MoRPHine SULFATE INJ) 2 mg Q2H PRN IV 05/27/17 20:15 06/10/17 20:14 Pantoprazole Sodium (Protonix IV Bolus/Drip) 1 ea NOW STAT IV 05/27/17 20:04 05/27/17 20:05 UNV Morphine Sulfate (MoRPHine SULFATE INJ) 4 mg Q2H PRN IV 05/27/17 20:15 06/10/17 20:14 Octreotide Acetate (Sandostatin Iv Bolus & Drip) 1 ea NOW STAT IV 05/27/17 20:10 05/27/17 20:11 UNV Ropinirole HCl (Requip Tab) 1 mg DAILY PO 05/28/17 09:00 06/27/17 08:59 UNV Tiotropium Hamilton (Spiriva Handihaler Inhaler) 30 puff DAILY PRN INH 05/27/17 20:15 06/26/17 20:14 UNV Fentanyl (Duragesic Patch) 50 mcg Q72H TD 05/27/17 20:15 06/10/17 20:14 UNV Albuterol Sulfate (Ventolin 0.5% 2.5MG/0.5ML Neb) 2.5 mg Q6R PRN INH 05/27/17 20:15 06/26/17 20:14 Review of Systems A complete 10-point Review of Systems was discussed with the patient, with pertinent positives and negatives listed in the History of Present Illness. All remaining Review of Systems questions can be considered negative unless otherwise specified. Physical Exam Date Time Temp Pulse Resp B/P (MAP) Pulse Ox O2 Delivery O2 Flow Rate FiO2 05/27/17 20:21 76 20 117/96 100 2.0 05/27/17 20:20 78 117/96 100 Nasal Cannula 2.0 05/27/17 20:17 37.0 74 14 137/69 98 2.0 05/27/17 19:53 88 107/59 96 Nasal Cannula 2.0 05/27/17 19:38 92 Nasal Cannula 2.0 05/27/17 19:36 71 137/58 05/27/17 19:13 75 05/27/17 18:48 69 106/48 05/27/17 18:21 67 106/48 99 Room Air 05/27/17 17:30 97 Room Air 05/27/17 17:29 36.8 68 16 125/61 96 Room Air VITAL SIGNS - Vital signs and nursing notes were reviewed. GENERAL - 87-year-old male appearing his stated age who is in no acute distress. Communicates well with provider and answers questions appropriately. HEAD - NC/AT. EYES - PERRL with EOMI bilaterally. Sclera anicteric. Pale conjunctiva. EARS - No deformities of external structures noted on gross examination bilaterally. NOSE - Midline and without cyanosis. MOUTH/OROPHARYNX - Without perioral cyanosis. Buccal mucosa pink and moist and without leukoplakia. Tongue midline with equal elevation of palate bilaterally. Edentulous. NECK - Neck with FROM. Supple to palpation. No JVD. No nuchal rigidity. LUNGS - Chest wall symmetric without accessory muscle use, intercostals retractions, or central cyanosis. Normal vesicular breath sounds CTA B/L. No wheezes, rales, or rhonchi appreciated. CARDIAC - RRR with S1/S2. No murmur, rubs, or gallops appreciated. ABDOMEN - Abdominal contour protuberant with palpable ventral hernia. No pulsatile masses noted. Negative Julio Cesar's or Chapman Yang's Signs. BS normoactive all four quadrants. Mild tenderness to palpation appreciated in the lower abdomen. No guarding. No Rebound Tenderness. Negative Rovsing's. Negative Garcia's. No palpable masses, hepatosplenomegaly, or ascites noted. EXTREMITIES - Moderate bilateral lower extremity pitting edema form the feet to the knees. +3/5 radial and dorsalis pedis pulses palpated throughout. PSYCH - A&Ox3 and cooperates fully with examiner. Pt is very pleasant and interacts well with examiner. Laboratory Results Last 24 Hours Test 05/27/17 17:39 05/27/17 17:42 05/27/17 20:03 05/27/17 20:04 White Blood Count 5.49 K/uL Red Blood Count 2.41 M/uL Hemoglobin 7.4 g/dL Hematocrit 22.1 % Mean Corpuscular Volume 91.7 fL Mean Corpuscular Hemoglobin 30.7 pg Mean Corpuscular Hemoglobin Concent 33.5 g/dl Platelet Count 239 K/uL Mean Platelet Volume 8.0 fL Neutrophils (%) (Auto) 60.3 % Lymphocytes (%) (Auto) 23.3 % Monocytes (%) (Auto) 12.4 % Eosinophils (%) (Auto) 3.3 % Basophils (%) (Auto) 0.5 % Neutrophils # (Auto) 3.31 K/uL Lymphocytes # (Auto) 1.28 K/uL Monocytes # (Auto) 0.68 K/uL Eosinophils # (Auto) 0.18 K/uL Basophils # (Auto) 0.03 K/uL RDW Standard Deviation 49.3 fL RDW Coefficient of Variation 14.6 % Immature Granulocyte % (Auto) 0.2 % Immature Granulocyte # (Auto) 0.01 K/uL Red Blood Cell Morphology Unremarkable Prothrombin Time 47.7 SECONDS Prothromb Time International Ratio 4.7 Sodium Level 132 mmol/L Potassium Level 5.3 mmol/L Chloride Level 101 mmol/L Carbon Dioxide Level 28 mmol/L Anion Gap 3.0 mmol/L 14.0 mmol/L Blood Urea Nitrogen 37 mg/dl Creatinine 1.06 mg/dl Est Creatinine Clear Calc Drug Dose 45.6 ml/min Estimated GFR () 72.8 Estimated GFR (Non- 62.8 BUN/Creatinine Ratio 34.6 Random Glucose 96 mg/dl Calcium Level 7.8 mg/dl Total Bilirubin 0.2 mg/dl Direct Bilirubin < 0.1 mg/dl Aspartate Amino Transf (AST/SGOT) 13 U/L Alanine Aminotransferase (ALT/SGPT) 13 U/L Alkaline Phosphatase 95 U/L Troponin I < 0.015 ng/ml Pro-B-Type Natriuretic Peptide 1266 pg/ml Total Protein 5.8 gm/dl Albumin 2.5 gm/dl Lipase 60 U/L Lactic Acid Level 1.6 mmol/L Bedside Hemoglobin 6.1 g/dl Bedside Hematocrit 18 % Bedside Sodium 132 mEq/L Bedside Potassium 5.4 mEq/L Bedside Chloride 98 mEq/L Bedside Total CO2 27 mEq/l Bedside Blood Urea Nitrogen 38 mg/dl Bedside Creatinine 1.1 mg/dl Bedside Glucose (other) 113 mg/dl Bedside Ionized Calcium (Arian) 1.07 mmol/l Diagnostic Results Radiological imaging and reports were reviewed by myself. Radiologist's Interpretation as follows: CHEST ONE VIEW PORTABLE HISTORY: ABDOMINAL PAIN/GI COMPARISON: None. FINDINGS: The lungs are clear. Cardiac silhouette is top normal in size. No pleural effusions. No pneumothorax. Left shoulder prosthesis. Lower thoracic spine vertebroplasty. IMPRESSION: No significant change compared to the prior study. No acute process. ABDOMEN AND PELVIS CT WITH IV CONTRAST CT DOSE: 284.95 mGy.cm HISTORY: Generalized abdominal pain. Right blood per rectum. TECHNIQUE: Multiaxial CT images of the abdomen and pelvis were performed following the use of intravenous contrast. A dose lowering technique was utilized adhering to the principles of ALARA. COMPARISON STUDY: Abdomen and pelvis CT 05/19/2017. FINDINGS: The heart is enlarged and without pericardial effusion. There is persistent elevation of left hemidiaphragm. No airspace consolidation or pleural effusion is seen. Liver: The unenhanced liver is normal in size, contour, and attenuation. There is no intrahepatic biliary ductal dilatation. Gallbladder: Large calcified gallstones are identified. There is no CT evidence of acute cholecystitis. Spleen: Normal in size and attenuation. Pancreas: The unenhanced pancreas is markedly atrophic and grossly unremarkable. Adrenal glands: Unremarkable. Kidneys: The unenhanced kidneys are atrophic and without hydronephrosis. There is a punctate stone within the left kidney. There is no evidence of contour deforming renal mass lesion. Abdominal vasculature: The abdominal aorta is normal in course and caliber noting advanced atherosclerotic calcification. Bowel: There is moderate to severe constipation. Question of focal thickening/narrowing within the rectum on image 292. However, this could be due to decompression. No surrounding pericolonic fat stranding.. The appendix is not clearly visualized. Peritoneum: There is no intraperitoneal free air or abdominal ascites. Small fat-containing left inguinal hernia, unchanged. Lymphadenopathy: None. Pelvic viscera: The prostate gland is markedly enlarged and heterogeneous, measuring 5.7 cm in transverse outer. There is median lobe hypertrophy. The bladder wall appears mildly thickened and trabeculated consistent with chronic outlet obstruction. Skeletal structures: The skeletal structures are osteopenic. There is advanced lumbosacral spondylosis and scoliosis. There are moderate to severe compression deformities of T11 and T12. There are retropulsed fragments at T12 with evidence of previous vertebroplasty at this level. No lytic or blastic lesions are seen. IMPRESSION: 1. Questionable area of focal thickening/narrowing within the rectum. This may be due to an area of underdistention. However, sigmoidoscopy is recommended to exclude the possibility of a rectal mass given the patient's history of rectal bleeding. 2. Otherwise, no significant change compared to the prior study. No acute infectious or inflammatory findings are identified in the abdomen or pelvis. 3. Moderate to severe constipation. 4. Prostatomegaly with evidence of chronic bladder outlet obstruction. 5. Cardiomegaly. 6. Cholelithiasis. 7. Additional findings as above. Assessment & Plan (1) GI bleed (2) COPD (chronic obstructive pulmonary disease) (3) Heart disease (4) Hypertension (5) Asthma Reason Critically Ill: 87-year-old male with active lower GI bleed requiring aggressive blood products replacement and close hemodynamic monitoring. Neuro - * CAM ICU: NEGATIVE * Chronic low back pain - Continue Fentanyl Patch. PRN Morphine for worsening pain. Cardiac - * History of hypertension and "leaky valve". Moderate bilateral lower extremity edema concerning for diastolic heart failure: * Continue home Lasix. * Will add Lasix while transfusing large volume of blood products. * BIPAP if needed. * EKG Sinus Rhythm w/ 1' AV block and QTc of 406 ms * Trend troponins in the setting of anemia and concerns for global ischemia. * Daily EKGs/EKGs w/ chest pain. * Monitor on Telemetry Respiratory - * History of COPD/CHF: * Worsening SOB tonight - ??Demand 2/2 anemia vs COPD. * Must presume demand 2/2 clear lungs at this time. * Will monitor closely for volume overload in the setting of large volume blood products. * Lasix as needed. * BIPAP if needed. * COPD: * PRN nebs. * Will add an AM CXR after receiving large volume overnight. * h/o PEs: * Will hold Coumadin and other anticoagulants at this point 2/2 GIB. * Will reassess need for anticoagulation tomorrow. GI - * GIB (presumed lower) w/ supratherapeutic INR: * Received 5 mg Vit K, 1U PRBCs, 1U FFP in the ED. * Will add an additional 2U PRBCs and 3 Units FFP for a total of 3U PRBCs/4U FFP * Initial described stool sounds UGIB in nature/however subsequent stools have sounded LGIB. In this setting with a patient who is on chronic Celebrex, will cover UGIB w/ Protonix gtt. Octreotide added in the acute setting. * Stool cultures/C. Diff added. * Initial Lactic Acid negative and CT does not suggest ischemia. - will trend Lactic. * NPO Overnight. * Appreciate GI consult * If declines overnight - suggest transfer for IR per GI. RENAL/LYTES - * Slight hyperkalemia. Will recheck in the setting of normal renal function. * Monitor electrolytes - replace appropriately. - * Slaughter Catheter to gravity. * Strict I&Os ENDO - * No h/o DM or Thyroid Disease. * Will monitor BSGs closely - ISS if needed. HEME - * Acute Blood Loss Anemia 2/2 GIB w/ initial H&H of 7.4/22.1 in an anticoagulated (supratherapeutic INR) patient: * Correction of INR w/ FFP/Vit K * H&H q4h overnight. * PRBCs x3 * FFP x4 * Close hemodynamic monitoring. ID - * No suggestion of infectious sources at this time. * Will send stool cultures/C. Diff * Monitor Fever Curve. LINES/IV ACCESS - * PIVs x3 in place. * Slaughter Catheter DVT PROPHYLAXIS - * Hold Anticoagulation at this point in the setting of GIB. * D/C SCDs 2/2 h/o LLE DVT. I have personally spent 45 minutes of critical care time in the direct management of this patient. This is a life/limb threatening event. This includes time spent evaluating patient, direct bedside care, chart review, placing orders, interpretation of diagnostic studies, discussion with consultants, patient, and family members, as well as other required patient management activities. This time is exclusive of all separately billable procedures, and teaching time and separate from and in addition to any other critical care service time. Thank you for this consultation allow us to be part of this patient's care. Please refer to my attending physician's documentation for any further recommendations. attending, addendum, agree with the above, the pt with lower GI bleeding, source undetermined, on coumadin, received vit K and FFP, 3 UPRBC, Hct up but not optimal. hemodynamically stable, awaiting GI input. monitor in ICU. code status DNR. CCT 60 min.
[2017-05-27] MEDS ORDERED: PANTOprazole INJ 80 MG in DEXTROSE 5% 100ML IV ONE (21:15)
[2017-05-27] MEDS ORDERED: OCTREOTIDE ACETATE INJ 100 MCG in SYR 9 ML PHA PREPARED IV ONE (21:15)
[2017-05-27] MEDS ORDERED: FUROSEMIDE INJ 20 MG in SYRINGE 0 ML IV ONE (21:30)
[2017-05-27] MEDS ORDERED: ALBUT/IPRATROP 3MG/0.5MG NEB 3 ML VIAL INH PRN (22:00)
[2017-05-27] MEDS: PANTOprazole INJ 40 MG in DEXTROSE 5% 100ML IV SCH (22:33)
[2017-05-27] MEDS: OCTREOTIDE ACETATE INJ 500 MCG in NSS 100ML IV SCH (22:34)
[2017-05-27 23:26] LABS: INR 1.9 (0.9-1.1); PARTIAL THROMBOPLASTIN RATIO 1.3; PROTHROMBIN TIME (PATIENT) 19.9 SECONDS (9.0-12.0)
[2017-05-28] VITALS (48 sets, daily range): BP systolic 71–150; BP diastolic 40–97; PULSE 61–99; TEMP 36.5–36.9; O2SAT 60–100
[2017-05-28] MEDS: CHECK FENTANYL PATCH PLACEMENT SCH ×3 (00:56→16:09)
[2017-05-28] MEDS ORDERED: FUROSEMIDE INJ 20 MG in SYRINGE 0 ML IV STA (01:46)
[2017-05-28] MEDS ORDERED: LIDOCAINE HCL 2% JELLY 30 ML TUBE EXT ONE (02:15)
[2017-05-28] MEDS: PANTOprazole INJ 40 MG in DEXTROSE 5% 100ML IV SCH ×5 (02:47→22:36)
[2017-05-28 03:59] LABS: BASO % 0.8 %; BASO ABS # 0.05 K/uL (0-0.2); EOS % 2.5 %; HEMATOCRIT 21.3 % (42-52); IG% 0.2 %; LYMPH % 25.8 %; LYMPH ABS # 1.65 K/uL (1.2-3.4); MEAN CELL VOLUME 86.9 fL (80-100); MEAN CORPUSCULAR HEMOGLOBIN 30.2 pg (25-34); MEAN CORPUSCULAR HGB CONC 34.7 g/dl (32-36); MONO % 16.1 %; NEUT % 54.6 %; PLATELET COUNT 134 K/uL (130-400); RED BLOOD COUNT 2.45 M/uL (4.7-6.1)
[2017-05-28 04:20] LABS: INR 1.4 (0.9-1.1); PARTIAL THROMBOPLASTIN RATIO 1.1; PROTHROMBIN TIME (PATIENT) 14.9 SECONDS (9.0-12.0)
[2017-05-28 04:21] LABS: BUN/CREATININE RATIO 36.1 (10-20); CALCIUM 7.8 mg/dl (8.5-10.1); CREATININE 1.01 mg/dl (0.60-1.40); MAGNESIUM 2.1 mg/dl (1.8-2.4); PHOSPHORUS 3.7 mg/dl (2.5-4.9); POTASSIUM 4.9 mmol/L (3.5-5.1)
[2017-05-28 04:48] LABS: COMPLETE YES; POLYCHROMASIA 1+
--- NOTE | 2017-05-28 07:28 | DIAGNOSTIC IMAGING REPORT ---
CHEST ONE VIEW PORTABLE CLINICAL HISTORY: 87 years-old Male presenting with copd/chf. TECHNIQUE: Portable upright AP view of the chest was obtained. COMPARISON: 05/27/2017. FINDINGS: Atherosclerosis of the aortic arch with tortuosity of the ascending and descending aorta. Cardiac silhouette top normal in size. Prominence of hilar vasculature unchanged. Mildly low lung volumes. Minimal left basilar opacity. Trace pleural effusions may be present. No pneumothorax. 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 Degenerative changes of the right glenohumeral joint. Posttreatment changes of kyphoplasty suggested. Upper abdomen normal. IMPRESSION: 1. Findings suggestive of developing volume overload. No bishop pulmonary edema. 2. Left basilar atelectasis. 3. Possible developing trace pleural effusions. Electronically signed by: Jm Dejesus M.D. 05/28/2017 7:27 AM Dictated Date/Time: 05/28/2017 7:25 AM
[2017-05-28] MEDS: OCTREOTIDE ACETATE INJ 500 MCG in NSS 100ML IV SCH ×2 (07:43→17:53)
[2017-05-28] MEDS ORDERED: FENTANYL PATCH REMOVE & WASTE SCH (08:59)
[2017-05-28] MEDS ORDERED: FENTANYL 50 MCG/HR TDSY TD SCH (09:00)
[2017-05-28 09:16] LABS: HEMATOCRIT 25.9 % (42-52)
[2017-05-28] MEDS: SODIUM CHLORIDE 0.9% 1000ML 1,000 ML IV SCH (10:24)
[2017-05-28] MEDS ORDERED: NURSING VERBAL MED ORDER ONE (10:30)
--- NOTE | 2017-05-28 10:38 | GASTROINTESTINAL CONSULTATION ---
DATE OF CONSULTATION: 05/28/2017 REASON FOR EVALUATION: Large-volume GI bleeding. HISTORY OF PRESENT ILLNESS: The patient is an 87-year-old man who presented to the hospital with large-volume rectal bleeding that started around noon yesterday. The patient is passing some dark stools and then maroon stools with clots. He became lightheaded and presented to the hospital where he was noted to be significantly anemic with a hemoglobin of 7.4. INR was elevated at 4.7. It was noted that the patient does take Coumadin for a left leg DVT with pulmonary embolism in the past. He is on ranitidine, but also takes baby aspirin and Celebrex. Since being hospitalized, the patient has received 2 units of fresh frozen plasma and 4 units of red blood cells with normalization of his vital signs. He has not had any further bowel movements since early this morning. He does report a little bit of pain in the right upper quadrant. PAST MEDICAL HISTORY: Remarkable for severe COPD, on nocturnal oxygen. He had a left leg DVT with pulmonary embolism. He has got hypertension, history of shoulder surgery and heart disease. FAMILY HISTORY: Positive for cancer, heart disease, hypertension. SOCIAL HISTORY: The patient is , lives with family, former smoker, does not consume any alcohol. ALLERGIES: None. MEDICATIONS: Per list. REVIEW OF SYSTEMS: Positive for pain in the right upper abdomen and back pain. PHYSICAL EXAMINATION: GENERAL: The patient is in no acute distress. VITAL SIGNS: Blood pressure is 106/50, pulse 70. LUNGS: Showed decreased breath sounds. ABDOMEN: Shows ventral hernia. He has some tenderness in right upper quadrant to palpation. No mass or rebound. IMPRESSION: The patient has onset of relatively painless rectal bleeding. It initially started off as dark blood, which would possibly indicate an upper gastrointestinal source, which means he needs an esophagogastroduodenoscopy. The patient does have a history of ulcers in the past and has been on aspirin and Celebrex with only ranitidine for gastric protection. He also has been passing some clots, which usually means a lower gastrointestinal source of bleeding, so we will also schedule him for a colonoscopy. These tests will be performed tomorrow. In the meantime, we will continue on octreotide and Protonix and fluid replacement. We will prep his bowel and scope him tomorrow afternoon. Should the patient have acute bleeding, then he may need interventional radiology. We will follow the patient during his hospital stay.
--- NOTE | 2017-05-28 10:59 | Critical Care Progress Note ---
Critical Care Progress Note Date of Service May 28, 2017. Attending Dr. Neal Subjective The patient remains asymptomatic except for right upper quadrant pain radiating to the back. He did have 2 bowel movements with brown stool mixed with old appalled according to the nursing staff. He denies any diarrhea, nausea or vomiting. His pain in the back returned again as a patient being dependent on narcotics to control his back pain. The patient appeared to be somewhat irritable, he denies any hematemesis, dizziness or palpitation. No hemoptysis or shortness of breath. The rest of his review of system was unremarkable except for swelling in the lower extremities right greater than left. 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 Current SOFA Score SOFA Score Response (Comments) Value PaO2/FiO2 (mmHg) < 400 1 SaO2 / FIO2 221 - 301 1 Platelets (x10) > 150 0 Bilirubin (mg/dL) < 1.2 0 Warren Coma Score 15 0 Level of Hypotension No Hypotension 0 Creatinine (mg/dL) < 1.2 0 Total 2 Assessment & Plan #1 GI bleeding, upper versus lower, the patient has been taken Celebrex, aspirin , and [id number] painkillers for his back pain. He could not remember whether he was taking NSAIDs are not. He also on narcotics for back pain as well. #2 although the patient had findings of the CAT scan suggestive of abnormality in the sigmoid. Further evaluation with colonoscopy as being planned for tomorrow by GI. Appreciate their input. #3 the patient also would undergo EGD to evaluate upper GI bleed. #4 history of DVT has been on Coumadin in the past. #5 history of COPD. #6 history of chronic back pain with narcotic dependence. Plan: #1 keep the patient nothing by mouth except for clear liquids for today until tomorrow. #2 continue with Protonix and octreotide drip. #3 the patient was given GoLYTELY by GI for colonic prep. #4 appreciate GI consult. #5 keep Coumadin on hold. #6 the patient cannot tolerate compression boots due to the swelling and tenderness in his lower extremities. #7 potential placement of IVC filter if needed based on the findings on the endoscopy. The soles of the bleeding. #8 serial hematocrit. #9 INR down to 1.4 which should be adequate. #10 agree with the diuresis done earlier as a patient received 5 units of blood and 3 units of FFP. In addition to vitamin K. #11 we will monitor in the ICU. #12 in addition to the fentanyl patch agree with morphine when necessary. #13 case discussed with the staff rounds details. Critical care time spent with the patient was 45 minutes. Consults & Procedures Consultants: GI consult Procedures: EGD and colonoscopy in a.m. Data Medications: Current Inpatient Medications Medications (Trade) Dose Ordered Sig/[place] Route Start Time Stop Time Status Last Admin Dose Admin Morphine Sulfate (MoRPHine SULFATE INJ) 2 mg Q2H PRN IV 05/27/17 20:15 06/10/17 20:14 Morphine Sulfate (MoRPHine SULFATE INJ) 4 mg Q2H PRN IV 05/27/17 20:15 06/10/17 20:14 Ropinirole HCl (Requip Tab) 1 mg DAILY PO 05/28/17 09:00 06/27/17 08:59 Tiotropium [place] (Spiriva Handihaler Inhaler) 1 puff DAILY PRN INH 05/27/17 20:15 06/26/17 20:14 Albuterol Sulfate (Ventolin 0.5% 2.5MG/0.5ML Neb) 2.5 mg Q6R PRN INH 05/27/17 20:15 06/26/17 20:14 Sodium Chloride 1,000 ml @ 45 mls/hr [id number] IV 05/27/17 21:00 06/26/17 20:59 05/28/17 10:24 45 MLS/HR Pantoprazole Sodium 40 mg/ Dextrose 100 ml @ 20 mls/hr Q5H IV 05/27/17 21:30 06/26/17 21:29 05/28/17 07:43 20 MLS/HR Octreotide Acetate 500 mcg/ Sodium Chloride 105 ml @ 10 mls/hr [id number] IV 05/27/17 21:15 06/26/17 21:14 05/28/17 07:43 10 MLS/HR Albuterol/ Ipratropium (Duoneb) 3 ml Q6R PRN INH 05/27/17 22:00 06/26/17 21:59 Miscellaneous Information (Check Fentanyl Patch Placement) 1 ea QS N/A 05/28/17 00:00 06/27/17 00:00 05/28/17 08:14 1 EA Fentanyl (Duragesic Patch) 50 mcg Q3D@0900 TD 05/30/17 09:00 06/13/17 08:59 Miscellaneous (Fentanyl Patch Remove & Waste) 1 ea Q3D@0859 N/A 05/30/17 08:59 06/29/17 08:58 Polyethylene Glycol/ Electrolytes (Golytely Soln) 8 dose TODAY@0600,1400 PO 05/28/17 14:00 05/29/17 06:01 I & O: 24-Hour Column 05/29/17 07:59 Intake Total 310 ml Balance 310 ml Vital Signs: Date Time Temp Pulse Resp B/P (MAP) Pulse Ox O2 Delivery O2 Flow Rate FiO2 05/28/17 09:01 36.9 66 17 125/70 (88) 95 Nasal Cannula 2.0 05/28/17 08:02 36.6 64 12 124/50 (74) 100 Nasal Cannula 2.0 05/28/17 08:00 Nasal Cannula 2.0 05/28/17 07:31 36.9 63 13 126/71 (89) 99 Nasal Cannula 2.0 05/28/17 07:01 36.7 62 13 116/55 (75) 99 Nasal Cannula 2.0 05/28/17 06:40 36.5 64 14 90/49 100 2.0 05/28/17 06:31 63 23 115/61 (79) 100 Nasal Cannula 2.0 05/28/17 06:16 61 12 122/55 (77) 99 Nasal Cannula 2.0 05/28/17 06:01 36.6 61 12 121/54 (76) 99 Nasal Cannula 2.0 05/28/17 05:46 69 21 99/55 (70) 99 Nasal Cannula 2.0 05/28/17 05:31 65 11 95/49 (64) 99 Nasal Cannula 2.0 05/28/17 05:16 36.8 68 13 109/51 (70) 99 Nasal Cannula 2.0 05/28/17 05:01 67 12 114/55 (74) 99 05/28/17 04:46 36.7 68 13 132/60 (84) 100 Nasal Cannula 2.0 05/28/17 04:31 71 12 123/53 (76) 99 05/28/17 04:16 36.6 75 9 71/ (23) 99 Nasal Cannula 2.0 05/28/17 04:01 36.9 71 14 105/60 (75) 100 Nasal Cannula 2.0 05/28/17 04:00 Room Air 2.0 05/28/17 03:51 70 14 139/65 (89) 99 05/28/17 03:31 73 13 125/60 (81) 99 05/28/17 03:16 74 10 123/62 (82) 99 05/28/17 03:01 70 13 123/67 (85) 99 05/28/17 02:46 73 14 130/69 (89) 99 05/28/17 02:31 36.9 73 15 141/68 (92) 100 05/28/17 02:16 79 18 121/64 (83) 98 05/28/17 02:02 36.8 85 16 128/40 (69) 99 Nasal Cannula 2.0 05/28/17 01:46 73 14 88/49 (62) 100 05/28/17 01:31 36.9 69 21 122/67 (85) 100 05/28/17 01:17 36.9 88 21 133/97 (109) 60 05/28/17 01:01 73 16 124/58 (80) 98 05/28/17 00:46 74 14 119/56 (77) 98 05/28/17 00:31 74 18 112/55 (74) 99 05/28/17 00:30 36.8 75 14 112/55 99 05/28/17 00:16 76 15 111/56 (74) 99 05/28/17 00:01 36.9 77 15 122/60 100 2.0 05/28/17 00:01 77 15 122/60 (80) 100 Nasal Cannula 2.0 05/27/17 23:59 Room Air 2.0 05/27/17 23:46 79 24 97/54 (68) 94 05/27/17 23:45 36.9 75 18 97/54 97 2.0 05/27/17 23:31 77 13 124/58 (80) 96 05/27/17 23:20 36.8 75 12 124/58 98 2.0 05/27/17 23:16 76 13 118/54 (75) 99 05/27/17 23:07 36.9 81 20 124/64 96 05/27/17 23:01 82 16 124/64 (84) 97 05/27/17 22:46 37.3 74 17 106/55 96 2.0 05/27/17 22:31 36.6 78 20 119/53 99 05/27/17 22:18 36.8 84 15 121/55 99 2.0 05/27/17 22:05 36.7 82 19 85/66 99 2.0 05/27/17 21:45 36.7 80 17 149/62 97 05/27/17 21:15 36.7 83 15 110/64 100 05/27/17 21:13 36.6 79 15 111/54 97 2.0 05/27/17 21:00 36.6 83 12 111/54 (63) 05/27/17 20:51 36.6 83 12 111/54 97 Room Air 2.0 05/27/17 20:41 37.1 77 15 95/69 100 3.0 05/27/17 20:31 36.8 77 10 131/57 97 12.0 05/27/17 20:21 76 20 117/96 100 2.0 05/27/17 20:20 78 117/96 100 Nasal Cannula 2.0 05/27/17 20:17 37.0 74 14 137/69 98 2.0 05/27/17 19:53 88 107/59 96 Nasal Cannula 2.0 05/27/17 19:38 92 Nasal Cannula 2.0 05/27/17 19:36 71 137/58 05/27/17 19:13 75 05/27/17 18:48 69 106/48 05/27/17 18:21 67 106/48 99 Room Air 05/27/17 17:30 97 Room Air 05/27/17 17:29 36.8 68 16 125/61 96 Room Air Laboratory Results: Last 24 Hours Test 05/27/17 17:39 05/27/17 17:42 05/27/17 20:03 05/27/17 22:14 White Blood Count 5.49 K/uL Red Blood Count 2.41 M/uL Hemoglobin 7.4 g/dL Hematocrit 22.1 % Mean Corpuscular Volume 91.7 fL Mean Corpuscular Hemoglobin 30.7 pg Mean Corpuscular Hemoglobin Concent 33.5 g/dl Platelet Count 239 K/uL Mean Platelet Volume 8.0 fL Neutrophils (%) (Auto) 60.3 % Lymphocytes (%) (Auto) 23.3 % Monocytes (%) (Auto) 12.4 % Eosinophils (%) (Auto) 3.3 % Basophils (%) (Auto) 0.5 % Neutrophils # (Auto) 3.31 K/uL Lymphocytes # (Auto) 1.28 K/uL Monocytes # (Auto) 0.68 K/uL Eosinophils # (Auto) 0.18 K/uL Basophils # (Auto) 0.03 K/uL RDW Standard Deviation 49.3 fL RDW Coefficient of Variation 14.6 % Immature Granulocyte % (Auto) 0.2 % Immature Granulocyte # (Auto) 0.01 K/uL Red Blood Cell Morphology Unremarkable Prothrombin Time 47.7 SECONDS Prothromb Time International Ratio 4.7 Sodium Level 132 mmol/L Potassium Level 5.3 mmol/L Chloride Level 101 mmol/L Carbon Dioxide Level 28 mmol/L Anion Gap 3.0 mmol/L 14.0 mmol/L Blood Urea Nitrogen 37 mg/dl Creatinine 1.06 mg/dl Est Creatinine Clear Calc Drug Dose 45.6 ml/min Estimated GFR () 72.8 Estimated GFR (Non- 62.8 BUN/Creatinine Ratio 34.6 Random Glucose 96 mg/dl Calcium Level 7.8 mg/dl Total Bilirubin 0.2 mg/dl Direct Bilirubin < 0.1 mg/dl Aspartate Amino Transf (AST/SGOT) 13 U/L Alanine Aminotransferase (ALT/SGPT) 13 U/L Alkaline Phosphatase 95 U/L Troponin I < 0.015 ng/ml 0.021 ng/ml Pro-B-Type Natriuretic Peptide 1266 pg/ml Total Protein 5.8 gm/dl Albumin 2.5 gm/dl Lipase 60 U/L Lactic Acid Level 1.6 mmol/L Bedside Hemoglobin 6.1 g/dl Bedside Hematocrit 18 % Bedside Sodium 132 mEq/L Bedside Potassium 5.4 mEq/L Bedside Chloride 98 mEq/L Bedside Total CO2 27 mEq/l Bedside Blood Urea Nitrogen 38 mg/dl Bedside Creatinine 1.1 mg/dl Bedside Glucose (other) 113 mg/dl Bedside Ionized Calcium (Arian) 1.07 mmol/l Test 05/27/17 22:58 05/28/17 00:00 05/28/17 01:47 05/28/17 03:47 Hemoglobin 6.0 g/dL 7.4 g/dL Hematocrit 18.0 % 21.3 % Prothrombin Time 19.9 SECONDS 14.9 SECONDS Prothromb Time International Ratio 1.9 1.4 Activated Partial Thromboplast Time 34.1 SECONDS 29.1 SECONDS Partial Thromboplastin Ratio 1.3 1.1 Stool Occult Blood POSITIVE White Blood Count 6.40 K/uL Red Blood Count 2.45 M/uL Mean Corpuscular Volume 86.9 fL Mean Corpuscular Hemoglobin 30.2 pg Mean Corpuscular Hemoglobin Concent 34.7 g/dl Platelet Count 134 K/uL Mean Platelet Volume 8.0 fL Neutrophils (%) (Auto) 54.6 % Lymphocytes (%) (Auto) 25.8 % Monocytes (%) (Auto) 16.1 % Eosinophils (%) (Auto) 2.5 % Basophils (%) (Auto) 0.8 % Neutrophils # (Auto) 3.50 K/uL Lymphocytes # (Auto) 1.65 K/uL Monocytes # (Auto) 1.03 K/uL Eosinophils # (Auto) 0.16 K/uL Basophils # (Auto) 0.05 K/uL RDW Standard Deviation 47.2 fL RDW Coefficient of Variation 14.9 % Immature Granulocyte % (Auto) 0.2 % Immature Granulocyte # (Auto) 0.01 K/uL Polychromasia 1+ Sodium Level 134 mmol/L Potassium Level 4.9 mmol/L Chloride Level 101 mmol/L Carbon Dioxide Level 28 mmol/L Anion Gap 5.0 mmol/L Blood Urea Nitrogen 37 mg/dl Creatinine 1.01 mg/dl Est Creatinine Clear Calc Drug Dose 39.8 ml/min Estimated GFR () 77.2 Estimated GFR (Non- 66.6 BUN/Creatinine Ratio 36.1 Random Glucose 127 mg/dl Lactic Acid Level 1.4 mmol/L Calcium Level 7.8 mg/dl Phosphorus Level 3.7 mg/dl Magnesium Level 2.1 mg/dl Total Bilirubin 1.0 mg/dl Direct Bilirubin 0.3 mg/dl Aspartate Amino Transf (AST/SGOT) 11 U/L Alanine Aminotransferase (ALT/SGPT) 11 U/L Alkaline Phosphatase 73 U/L Troponin I < 0.015 ng/ml Total Protein 5.1 gm/dl Albumin 2.4 gm/dl Test 05/28/17 09:02 Hemoglobin 9.1 g/dL Hematocrit 25.9 %
[2017-05-28 11:00] LABS: URINE APPEARANCE CLEAR (CLEAR); URINE BILIRUBIN NEG (NEG); URINE COLOR YELLOW; URINE NITRITE NEG (NEG); URINE PH 7.5 (4.5-7.5); URINE SPECIFIC GRAVITY 1.012 (1.000-1.030); UROBILINOGEN NEG (NEG); ZZUR CULT IF INDIC CLEAN CATCH NO
[2017-05-28 11:01] LABS: MANUAL MICROSCOPIC REQUIRED? NO; REVIEW REQ? NO
[2017-05-28] MEDS: ROPINIROLE HCL 1 MG TAB PO SCH (11:36)
[2017-05-28] MEDS: LAVAGE SOLUTION 4000ML PO SCH (14:08)
[2017-05-28 14:16] LABS: HEMATOCRIT 23.7 % (42-52)
--- NOTE | 2017-05-28 16:06 | Progress Note ---
Subjective Date of Service: May 28, 2017. Subjective sleeping nursing notes stabilizing no further active bleeding and vitals stable ICU input noted and appreciated Problem List Medical Problems: (1) Asthma Status: Chronic (2) COPD (chronic obstructive pulmonary disease) Status: Chronic (3) COPD exacerbation Status: Acute (4) GI bleed Status: Acute (5) Heart disease Status: Chronic (6) Hypertension Status: Chronic (7) Pneumonia Status: Acute (8) Skin tear of right upper extremity Status: Acute Objective Vital Signs Date Time Temp Pulse Resp B/P (MAP) Pulse Ox O2 Delivery O2 Flow Rate FiO2 05/28/17 15:00 36.9 80 18 95/66 (76) 99 Nasal Cannula 2.0 05/28/17 14:01 74 18 135/80 (98) 99 Nasal Cannula 2.0 05/28/17 13:01 69 18 112/59 (76) 97 Nasal Cannula 2.0 05/28/17 12:40 36.9 69 15 122/58 (79) 99 Nasal Cannula 2.0 05/28/17 12:00 Nasal Cannula 2.0 05/28/17 11:01 64 18 150/69 (96) 100 Nasal Cannula 2.0 05/28/17 10:01 64 17 130/49 (76) 96 Nasal Cannula 2.0 05/28/17 09:01 36.9 66 17 125/70 (88) 95 Nasal Cannula 2.0 05/28/17 08:02 36.6 64 12 124/50 (74) 100 Nasal Cannula 2.0 05/28/17 08:00 Nasal Cannula 2.0 05/28/17 07:31 36.9 63 13 126/71 (89) 99 Nasal Cannula 2.0 05/28/17 07:01 36.7 62 13 116/55 (75) 99 Nasal Cannula 2.0 05/28/17 06:40 36.5 64 14 90/49 100 2.0 05/28/17 06:31 63 23 115/61 (79) 100 Nasal Cannula 2.0 05/28/17 06:16 61 12 122/55 (77) 99 Nasal Cannula 2.0 05/28/17 06:01 36.6 61 12 121/54 (76) 99 Nasal Cannula 2.0 05/28/17 05:46 69 21 99/55 (70) 99 Nasal Cannula 2.0 05/28/17 05:31 65 11 95/49 (64) 99 Nasal Cannula 2.0 05/28/17 05:16 36.8 68 13 109/51 (70) 99 Nasal Cannula 2.0 05/28/17 05:01 67 12 114/55 (74) 99 05/28/17 04:46 36.7 68 13 132/60 (84) 100 Nasal Cannula 2.0 05/28/17 04:31 71 12 123/53 (76) 99 05/28/17 04:16 36.6 75 9 71/ (23) 99 Nasal Cannula 2.0 05/28/17 04:01 36.9 71 14 105/60 (75) 100 Nasal Cannula 2.0 05/28/17 04:00 Room Air 2.0 05/28/17 03:51 70 14 139/65 (89) 99 05/28/17 03:31 73 13 125/60 (81) 99 05/28/17 03:16 74 10 123/62 (82) 99 05/28/17 03:01 70 13 123/67 (85) 99 05/28/17 02:46 73 14 130/69 (89) 99 05/28/17 02:31 36.9 73 15 141/68 (92) 100 05/28/17 02:16 79 18 121/64 (83) 98 05/28/17 02:02 36.8 85 16 128/40 (69) 99 Nasal Cannula 2.0 05/28/17 01:46 73 14 88/49 (62) 100 05/28/17 01:31 36.9 69 21 122/67 (85) 100 05/28/17 01:17 36.9 88 21 133/97 (109) 60 05/28/17 01:01 73 16 124/58 (80) 98 05/28/17 00:46 74 14 119/56 (77) 98 05/28/17 00:31 74 18 112/55 (74) 99 05/28/17 00:30 36.8 75 14 112/55 99 05/28/17 00:16 76 15 111/56 (74) 99 05/28/17 00:01 36.9 77 15 122/60 100 2.0 05/28/17 00:01 77 15 122/60 (80) 100 Nasal Cannula 2.0 05/27/17 23:59 Room Air 2.0 05/27/17 23:46 79 24 97/54 (68) 94 05/27/17 23:45 36.9 75 18 97/54 97 2.0 05/27/17 23:31 77 13 124/58 (80) 96 05/27/17 23:20 36.8 75 12 124/58 98 2.0 05/27/17 23:16 76 13 118/54 (75) 99 05/27/17 23:07 36.9 81 20 124/64 96 05/27/17 23:01 82 16 124/64 (84) 97 05/27/17 22:46 37.3 74 17 106/55 96 2.0 05/27/17 22:31 36.6 78 20 119/53 99 05/27/17 22:18 36.8 84 15 121/55 99 2.0 05/27/17 22:05 36.7 82 19 85/66 99 2.0 05/27/17 21:45 36.7 80 17 149/62 97 05/27/17 21:15 36.7 83 15 110/64 100 05/27/17 21:13 36.6 79 15 111/54 97 2.0 05/27/17 21:00 36.6 83 12 111/54 (63) 05/27/17 20:51 36.6 83 12 111/54 97 Room Air 2.0 05/27/17 20:41 37.1 77 15 95/69 100 3.0 05/27/17 20:31 36.8 77 10 131/57 97 12.0 05/27/17 20:21 76 20 117/96 100 2.0 05/27/17 20:20 78 117/96 100 Nasal Cannula 2.0 05/27/17 20:17 37.0 74 14 137/69 98 2.0 05/27/17 19:53 88 107/59 96 Nasal Cannula 2.0 05/27/17 19:38 92 Nasal Cannula 2.0 05/27/17 19:36 71 137/58 05/27/17 19:13 75 05/27/17 18:48 69 106/48 05/27/17 18:21 67 106/48 99 Room Air 05/27/17 17:30 97 Room Air 05/27/17 17:29 36.8 68 16 125/61 96 Room Air Physical Exam General Appearance: no apparent distress Respiratory/Chest: no respiratory distress, no accessory muscle use Skin: normal color Laboratory Results Last 24 Hours Test 05/27/17 17:39 05/27/17 17:42 05/27/17 20:03 05/27/17 22:14 White Blood Count 5.49 K/uL Red Blood Count 2.41 M/uL Hemoglobin 7.4 g/dL Hematocrit 22.1 % Mean Corpuscular Volume 91.7 fL Mean Corpuscular Hemoglobin 30.7 pg Mean Corpuscular Hemoglobin Concent 33.5 g/dl Platelet Count 239 K/uL Mean Platelet Volume 8.0 fL Neutrophils (%) (Auto) 60.3 % Lymphocytes (%) (Auto) 23.3 % Monocytes (%) (Auto) 12.4 % Eosinophils (%) (Auto) 3.3 % Basophils (%) (Auto) 0.5 % Neutrophils # (Auto) 3.31 K/uL Lymphocytes # (Auto) 1.28 K/uL Monocytes # (Auto) 0.68 K/uL Eosinophils # (Auto) 0.18 K/uL Basophils # (Auto) 0.03 K/uL RDW Standard Deviation 49.3 fL RDW Coefficient of Variation 14.6 % Immature Granulocyte % (Auto) 0.2 % Immature Granulocyte # (Auto) 0.01 K/uL Red Blood Cell Morphology Unremarkable Prothrombin Time 47.7 SECONDS Prothromb Time International Ratio 4.7 Sodium Level 132 mmol/L Potassium Level 5.3 mmol/L Chloride Level 101 mmol/L Carbon Dioxide Level 28 mmol/L Anion Gap 3.0 mmol/L 14.0 mmol/L Blood Urea Nitrogen 37 mg/dl Creatinine 1.06 mg/dl Est Creatinine Clear Calc Drug Dose 45.6 ml/min Estimated GFR () 72.8 Estimated GFR (Non- 62.8 BUN/Creatinine Ratio 34.6 Random Glucose 96 mg/dl Calcium Level 7.8 mg/dl Total Bilirubin 0.2 mg/dl Direct Bilirubin < 0.1 mg/dl Aspartate Amino Transf (AST/SGOT) 13 U/L Alanine Aminotransferase (ALT/SGPT) 13 U/L Alkaline Phosphatase 95 U/L Troponin I < 0.015 ng/ml 0.021 ng/ml Pro-B-Type Natriuretic Peptide 1266 pg/ml Total Protein 5.8 gm/dl Albumin 2.5 gm/dl Lipase 60 U/L Lactic Acid Level 1.6 mmol/L Bedside Hemoglobin 6.1 g/dl Bedside Hematocrit 18 % Bedside Sodium 132 mEq/L Bedside Potassium 5.4 mEq/L Bedside Chloride 98 mEq/L Bedside Total CO2 27 mEq/l Bedside Blood Urea Nitrogen 38 mg/dl Bedside Creatinine 1.1 mg/dl Bedside Glucose (other) 113 mg/dl Bedside Ionized Calcium (Arian) 1.07 mmol/l Test 05/27/17 22:58 05/28/17 00:00 05/28/17 01:47 05/28/17 03:47 Hemoglobin 6.0 g/dL 7.4 g/dL Hematocrit 18.0 % 21.3 % Prothrombin Time 19.9 SECONDS 14.9 SECONDS Prothromb Time International Ratio 1.9 1.4 Activated Partial Thromboplast Time 34.1 SECONDS 29.1 SECONDS Partial Thromboplastin Ratio 1.3 1.1 Urine Color YELLOW Urine Appearance CLEAR Urine pH 7.5 Urine Specific [place] 1.012 Urine Protein NEG Urine Glucose (UA) NEG Urine Ketones NEG Urine Occult Blood 2+ Urine Nitrite NEG Urine Bilirubin NEG Urine Urobilinogen NEG Urine Leukocyte Esterase NEG Urine WBC (Auto) 1-5 /hpf Urine RBC (Auto) 10-30 /hpf Urine Hyaline Casts (Auto) 0 /lpf Urine Epithelial Cells (Auto) 5-10 /lpf Urine Bacteria (Auto) NEG Stool Occult Blood POSITIVE White Blood Count 6.40 K/uL Red Blood Count 2.45 M/uL Mean Corpuscular Volume 86.9 fL Mean Corpuscular Hemoglobin 30.2 pg Mean Corpuscular Hemoglobin Concent 34.7 g/dl Platelet Count 134 K/uL Mean Platelet Volume 8.0 fL Neutrophils (%) (Auto) 54.6 % Lymphocytes (%) (Auto) 25.8 % Monocytes (%) (Auto) 16.1 % Eosinophils (%) (Auto) 2.5 % Basophils (%) (Auto) 0.8 % Neutrophils # (Auto) 3.50 K/uL Lymphocytes # (Auto) 1.65 K/uL Monocytes # (Auto) 1.03 K/uL Eosinophils # (Auto) 0.16 K/uL Basophils # (Auto) 0.05 K/uL RDW Standard Deviation 47.2 fL RDW Coefficient of Variation 14.9 % Immature Granulocyte % (Auto) 0.2 % Immature Granulocyte # (Auto) 0.01 K/uL Polychromasia 1+ Sodium Level 134 mmol/L Potassium Level 4.9 mmol/L Chloride Level 101 mmol/L Carbon Dioxide Level 28 mmol/L Anion Gap 5.0 mmol/L Blood Urea Nitrogen 37 mg/dl Creatinine 1.01 mg/dl Est Creatinine Clear Calc Drug Dose 39.8 ml/min Estimated GFR () 77.2 Estimated GFR (Non- 66.6 BUN/Creatinine Ratio 36.1 Random Glucose 127 mg/dl Lactic Acid Level 1.4 mmol/L Calcium Level 7.8 mg/dl Phosphorus Level 3.7 mg/dl Magnesium Level 2.1 mg/dl Total Bilirubin 1.0 mg/dl Direct Bilirubin 0.3 mg/dl Aspartate Amino Transf (AST/SGOT) 11 U/L Alanine Aminotransferase (ALT/SGPT) 11 U/L Alkaline Phosphatase 73 U/L Troponin I < 0.015 ng/ml Total Protein 5.1 gm/dl Albumin 2.4 gm/dl Test 05/28/17 09:02 05/28/17 11:34 05/28/17 14:00 Hemoglobin 9.1 g/dL 8.2 g/dL Hematocrit 25.9 % 23.7 % Bedside Glucose 119 mg/dl Troponin I < 0.015 ng/ml Assessment and Plan GI Bleed with acute blood loss anemia requiring 5 units transfusion thus far also related to coagulopathy - appearing stabilizing - ongoing close follow up, further transfusion if necessary - ongoing medical management for possible UGI source pending scopes, although clinically suspect LGI Asthma Albuterol Nebs Q6H PRN Continue home Spiriva Chronic Abdo and Back Pain Was unable to change position because of significant chronic back pain with a history of compression fractures. Hold home PO meds including Tylenol, Gabapentin and Ultram. Morphine 2mg IV PRN Q6G + 4mg PRN for breakthrough pain. Fentanyl Patch 50mcg TD Q3D. HTN Hold home Losartan. Hold home Atenolol. Hold Home Lasix. DVT Proph Pt has a h/o DVTs and was on Coumadin for them, will order SCDs. Dispo: ICU, NPO, management currently predominantly via product assembler team
[2017-05-28] MEDS: MoRPHine SULFATE 2 MG/ML CARP IV PRN (16:08)
[2017-05-28 20:23] LABS: HEMATOCRIT 26.5 % (42-52); MEAN CORPUSCULAR HEMOGLOBIN 29.9 pg (25-34); MEAN PLATELET VOLUME 8.2 fL (7.4-10.4); PLATELET COUNT 165 K/uL (130-400); RED BLOOD COUNT 3.01 M/uL (4.7-6.1); WHITE BLOOD COUNT 8.58 K/uL (4.8-10.8)
[2017-05-29] VITALS (35 sets, daily range): BP systolic 111–171; BP diastolic 57–98; PULSE 70–96; TEMP 36.4–37.2; O2SAT 95–100
[2017-05-29 02:39] LABS: HEMATOCRIT 23.2 % (42-52)
[2017-05-29] MEDS: PANTOprazole INJ 40 MG in DEXTROSE 5% 100ML IV SCH ×4 (03:30→20:38)
[2017-05-29] MEDS: OCTREOTIDE ACETATE INJ 500 MCG in NSS 100ML IV SCH ×2 (05:13→16:12)
[2017-05-29 05:39] LABS: BASO % 0.5 %; BASO ABS # 0.03 K/uL (0-0.2); EOS % 4.3 %; IG% 0.2 %; LYMPH % 24.8 %; LYMPH ABS # 1.46 K/uL (1.2-3.4); MEAN CELL VOLUME 88.2 fL (80-100); MEAN CORPUSCULAR HEMOGLOBIN 31.1 pg (25-34); MEAN CORPUSCULAR HGB CONC 35.2 g/dl (32-36); MEAN PLATELET VOLUME 8.2 fL (7.4-10.4); MONO % 13.8 %; NEUT % 56.4 %; PLATELET COUNT 129 K/uL (130-400); RED BLOOD COUNT 2.38 M/uL (4.7-6.1); WHITE BLOOD COUNT 5.88 K/uL (4.8-10.8)
[2017-05-29 05:59] LABS: COMPLETE YES
[2017-05-29] MEDS: LAVAGE SOLUTION 4000ML PO SCH (06:00)
[2017-05-29 06:14] LABS: BUN/CREATININE RATIO 31.4 (10-20); CALCIUM 7.6 mg/dl (8.5-10.1); CREATININE 0.84 mg/dl (0.60-1.40); MAGNESIUM 2.1 mg/dl (1.8-2.4); POTASSIUM 4.4 mmol/L (3.5-5.1)
[2017-05-29 06:19] LABS: PHOSPHORUS 2.6 mg/dl (2.5-4.9)
[2017-05-29] MEDS: CHECK FENTANYL PATCH PLACEMENT SCH ×3 (08:00→16:00)
[2017-05-29] MEDS: SODIUM CHLORIDE 0.9% 1000ML 1,000 ML IV SCH (08:01)
[2017-05-29] MEDS: ROPINIROLE HCL 1 MG TAB PO SCH (08:01)
--- NOTE | 2017-05-29 09:05 | Clinical Documentation Query ---
CECY Sebastian : CLINICAL DOCUMENTATION QUERY Patient is an 87 year old male admitted for evaluation and treatment of acute GI bleeding with acute blood loss anemia. Documentation by admitting physician notes include "Patient has lost 30lbs over the past two months due to a poor appetite". Per EMR, patient has lost > 36 pounds since August of this year. Total protein and serum albumin low. Patient monitored with serial chemistries. NPO at this time secondary to admitting diagnoses as above. In your clinical opinion is this patient suffering from: ( x ) possible Mild protein-calorie malnutrition, will check prealbumin ( ) Moderate protein-calorie malnutrition ( ) Severe protein-calorie malnutrition ( ) Not Agree ( ) Other explanation of clinical findings (Please Explain) ( ) Unable to determine (Please Define) ( ) Need to Discuss The medical record reflects the following clinical findings, treatment, and risk factors. Clinical Indicators: As above Treatment: Patient monitored with serial chemistries, I/O, daily weights Risk Factors: Age, diastolic CHF, COPD Please clarify and document your clinical opinion in the progress notes and discharge summary. Terms such as "probable", "suspected", "likely", "questionable", "possible", or "still to be ruled out" are acceptable. IF IN AGREEMENT, YOU MUST DOCUMENT ABOVE DIAGNOSTIC STATEMENT IN DAILY PROGRESS NOTES AND DISCHARGE SUMMARY. This document is not part of the patient's record. Thank You, Miguel Dotson RN [phone]
[2017-05-29 09:35] LABS: INR 1.1 (0.9-1.1); PROTHROMBIN TIME (PATIENT) 11.5 SECONDS (9.0-12.0)
[2017-05-29] MEDS: MoRPHine SULFATE 2 MG/ML CARP IV PRN (10:27)
--- NOTE | 2017-05-29 12:54 | Clinical Documentation Query ---
CECY Sebastian : CLINICAL DOCUMENTATION QUERY Patient is an 87 year old male admitted for evaluation and treatment of acute GI bleeding with acute blood loss anemia. Documentation by admitting physician notes include "Patient has lost 30lbs over the past two months due to a poor appetite". Per EMR, patient has lost > 36 pounds since August of this year. Total protein and serum albumin low. Patient monitored with serial chemistries. NPO at this time secondary to admitting diagnoses as above. In your clinical opinion is this patient suffering from: (x ) possible Mild protein-calorie malnutrition, will check prealbumin ( ) Moderate protein-calorie malnutrition ( ) Severe protein-calorie malnutrition ( ) Not Agree ( ) Other explanation of clinical findings (Please Explain) ( ) Unable to determine (Please Define) ( ) Need to Discuss The medical record reflects the following clinical findings, treatment, and risk factors. Clinical Indicators: As above Treatment: Patient monitored with serial chemistries, I/O, daily weights Risk Factors: Age, diastolic CHF, COPD Please clarify and document your clinical opinion in the progress notes and discharge summary. Terms such as "probable", "suspected", "likely", "questionable", "possible", or "still to be ruled out" are acceptable. IF IN AGREEMENT, YOU MUST DOCUMENT ABOVE DIAGNOSTIC STATEMENT IN DAILY PROGRESS NOTES AND DISCHARGE SUMMARY. This document is not part of the patient's record. Thank You, Miguel Dotson RN [phone]
[2017-05-29 13:52] LABS: HEMATOCRIT 23.5 % (42-52)
--- NOTE | 2017-05-29 15:57 | Endo History and Physical ---
History & Physical Date of Service: May 29, 2017. Chief Complaint: GI bleed Referring Physician: Dr Merritt History of Present Illness For EGD and colonoscopy Past Medical History Arthritis, Hypertension, COPD, Depression Past Surgical History Hx Cardiac Surgery: No Hx Internal Defibrillator: No Hx Pacemaker: No Hx Abdominal Surgery: Yes (INGUINAL HERNIA) Hx Post-Op Nausea and Vomiting: No Hx Cancer Surgery: Yes (REMOVAL SKIN LESIONS, MOHS ON NOSE) Hx Thoracic Surgery: No Hx Orthopedic: Yes (RT/LEFT SHOULDER SX, RT/LEFT CTR) Hx Urinary Tract Surgery: No Social History Smoking Status: Former Smoker Smokeless Tobacco Use: No Hx Substance Use: No Hx Alcohol Use: Yes (1 beer a day) Allergies Coded Allergies: No Known Allergies (Verified , 05/27/17) Current Medications Reported Home Medications Medications Dose Route/Sig Max Daily Dose Days Date Category Dose Instructions Ultram (Tramadol HCl) 50 Mg Tab 50 Mg PO Q4H PRN 05/27/17 Reported Requip (Ropinirole HCl) 1 Mg Tab 1 Mg PO DAILY 05/27/17 Reported Ventolin Hfa (Albuterol) 200 Puffs/16951 Mcg Aers 2-4 Puffs INH Q6H PRN 05/27/17 Reported Prilosec (Omeprazole) 40 Mg Cap 40 Mg PO DAILY 05/27/17 Reported Zantac (Ranitidine HCl) 300 Mg Tab 300 Mg PO HS 05/27/17 Reported Spiriva Handihaler (Tiotropium [place]) 30 Puff/540 Mcg Aerp 1 Cap INH DAILY PRN 05/27/17 Reported Albuterol Sulfate (Albuterol Sulf) 2.5 Mg/3 Ml Nebu 1 Dose NEB UD PRN 03/03/17 Reported Lasix (Furosemide) 20 Mg Tab 20 Mg PO TID 03/03/17 Reported Percocet 5MG/325MG (Oxycodone/Acetaminophen) Tab 1-2 Tablets PO Q4H PRN 03/03/17 Reported PAIN Neurontin (Gabapentin) 100 Mg Cap 100 Mg PO UD PRN 03/03/17 Reported Fentanyl 25 Mcg Tdsy 25 Mcg TOP Q 72HRS 02/01/17 Reported Tylenol (Acetaminophen) 325 Mg Tab 650 Mg PO Q6H PRN 06/30/16 Reported Diovan (Valsartan) 160 Mg Tab 160 Mg PO QAM 06/30/16 Reported Ocuvite Preservision (Multivitamins/Minerals) 1 Tab Tab 1 Tab PO BID 06/30/16 Reported Multivitamin (Multivitamins) Tab 1 Tab PO QAM 06/30/16 Reported Neurontin (Gabapentin) 400 Mg Cap 400 Mg PO TID 06/30/16 Reported Aspirin Chewable (Aspirin) 81 Mg Chew 81 Mg PO QAM 06/30/16 Reported Coumadin (Warfarin Sodium) 5 Mg Tab 5 Mg PO Q2D 06/09/14 Reported ALTERNATE WITH 2.5MG CeleBREX (Celecoxib) 200 Mg Cap 200 Mg PO QPM 03/05/14 Reported Tenormin (Atenolol) 25 Mg Tab 25 Mg PO QAM 03/05/14 Reported Coumadin (Warfarin Sodium) 5 Mg Tab 2.5 Mg PO Q2D 03/05/14 Reported Vital Signs Weight (Kilograms): 60.900 Height (Feet): 5 Height (Inches): 0.00 Date Time Temp Pulse Resp B/P (MAP) Pulse Ox O2 Delivery O2 Flow Rate FiO2 05/29/17 15:10 37.3 76 20 137/65 (89) 98 Room Air 05/29/17 11:30 36.8 80 18 139/74 (95) 97 Nasal Cannula 2.0 05/29/17 11:17 Nasal Cannula 2.0 05/29/17 09:30 36.8 70 20 138/69 (92) 97 Nasal Cannula 2.0 05/29/17 08:00 37.0 78 20 145/75 96 05/29/17 07:30 36.8 80 20 160/71 (100) 97 Nasal Cannula 2.0 05/29/17 07:30 Nasal Cannula 2.0 05/29/17 07:15 36.8 80 20 160/71 97 05/29/17 06:31 36.4 76 13 160/71 99 2.0 05/29/17 06:29 36.4 76 13 138/79 99 2.0 05/29/17 05:19 83 17 136/68 (90) 98 Nasal Cannula 2.0 05/29/17 05:01 77 11 142/66 (91) 96 Nasal Cannula 2.0 05/29/17 04:17 96 Nasal Cannula 2.0 05/29/17 04:01 37.0 82 17 135/67 (89) 96 Nasal Cannula 2.0 05/29/17 03:01 81 16 111/59 (76) 98 Nasal Cannula 2.0 05/29/17 02:01 88 18 129/80 (96) 98 Nasal Cannula 2.0 05/29/17 01:01 88 18 125/75 (92) 97 Nasal Cannula 2.0 05/29/17 00:09 96 Nasal Cannula 2.0 05/29/17 00:01 37.0 91 14 121/86 (98) 98 Nasal Cannula 2.0 05/28/17 23:01 93 13 100/82 (88) 97 Nasal Cannula 2.0 05/28/17 22:01 97 13 116/85 (95) 97 Nasal Cannula 2.0 05/28/17 21:01 96 14 118/72 (87) 97 Nasal Cannula 2.0 05/28/17 20:02 96 Nasal Cannula 2.0 05/28/17 20:01 36.9 98 15 113/74 (87) 99 Nasal Cannula 2.0 05/28/17 19:01 99 15 116/92 (100) 99 Nasal Cannula 2.0 05/28/17 18:00 36.9 91 16 142/78 (99) 100 Nasal Cannula 2.0 05/28/17 17:00 36.9 65 18 131/95 (107) 100 Nasal Cannula 2.0 05/28/17 16:00 36.9 65 18 128/68 (88) 100 Nasal Cannula 2.0 05/28/17 16:00 96 Nasal Cannula 2.0 Physical Exam General Appearance: + mild distress, + thin Respiratory/Chest: Respiratory effort: tachypneic Auscultation: breath sounds normal Cardiovascular: Heart Auscultation: RRR Abdomen: Inspection & Palpation: RUQ tenderness Assessment and Plan GI bleed for EGD and colonoscopy
--- NOTE | 2017-05-29 16:04 | Hospitalist Progress Note ---
Hospitalist Progress Note Date of Service May 29, 2017. Subjective Pt evaluation today including: conversation w/ patient, physical exam, chart review, lab review, review of inpatient medication list Pain: None PO Intake: NPO Voiding: pat catheter in place The patient complains of bloody diarrhea. He complains of shortness of breath, general weakness and fatigue. He also states that he has a cold that he " picked up here" and complains of a cough. The patient denies fevers, chills, sweats, chest pain, palpitations, claudication, wheezing, nausea, vomiting, abdominal pain, dysuria, hematuria, urinary retention, paralysis, weakness, numbness and tingling. Additional Comments: See HPI for pertinent positives and negatives. All other systems reviewed and negative. Objective Vital Signs Date Time Temp Pulse Resp B/P (MAP) Pulse Ox O2 Delivery O2 Flow Rate FiO2 05/29/17 15:10 37.3 76 20 137/65 (89) 98 Room Air 05/29/17 11:30 36.8 80 18 139/74 (95) 97 Nasal Cannula 2.0 05/29/17 11:17 Nasal Cannula 2.0 05/29/17 09:30 36.8 70 20 138/69 (92) 97 Nasal Cannula 2.0 05/29/17 08:00 37.0 78 20 145/75 96 05/29/17 07:30 36.8 80 20 160/71 (100) 97 Nasal Cannula 2.0 05/29/17 07:30 Nasal Cannula 2.0 05/29/17 07:15 36.8 80 20 160/71 97 05/29/17 06:31 36.4 76 13 160/71 99 2.0 05/29/17 06:29 36.4 76 13 138/79 99 2.0 05/29/17 05:19 83 17 136/68 (90) 98 Nasal Cannula 2.0 05/29/17 05:01 77 11 142/66 (91) 96 Nasal Cannula 2.0 05/29/17 04:17 96 Nasal Cannula 2.0 05/29/17 04:01 37.0 82 17 135/67 (89) 96 Nasal Cannula 2.0 05/29/17 03:01 81 16 111/59 (76) 98 Nasal Cannula 2.0 05/29/17 02:01 88 18 129/80 (96) 98 Nasal Cannula 2.0 05/29/17 01:01 88 18 125/75 (92) 97 Nasal Cannula 2.0 05/29/17 00:09 96 Nasal Cannula 2.0 05/29/17 00:01 37.0 91 14 121/86 (98) 98 Nasal Cannula 2.0 05/28/17 23:01 93 13 100/82 (88) 97 Nasal Cannula 2.0 05/28/17 22:01 97 13 116/85 (95) 97 Nasal Cannula 2.0 05/28/17 21:01 96 14 118/72 (87) 97 Nasal Cannula 2.0 05/28/17 20:02 96 Nasal Cannula 2.0 05/28/17 20:01 36.9 98 15 113/74 (87) 99 Nasal Cannula 2.0 05/28/17 19:01 99 15 116/92 (100) 99 Nasal Cannula 2.0 05/28/17 18:00 36.9 91 16 142/78 (99) 100 Nasal Cannula 2.0 05/28/17 17:00 36.9 65 18 131/95 (107) 100 Nasal Cannula 2.0 05/28/17 16:00 36.9 65 18 128/68 (88) 100 Nasal Cannula 2.0 05/28/17 16:00 96 Nasal Cannula 2.0 Physical Exam Notes: General appearance: Well-developed, well-nourished, no apparent distress Head: Normocephalic, atraumatic Eyes: Normal inspection, PERRL, EOMI ENT: Normal ENT inspection, hearing grossly normal, pharynx normal Neck: Supple, no JVD, trachea midline Respiratory/Chest: +Diminished throughout. Lungs clear to auscultation, no respiratory distress Cardiovascular: +Systolic murmur. Regular rate & rhythm, no gallop Abdomen/GI: +Diffuse tenderness to palpation. Copious blood coming from rectum. Normal bowel sounds, soft Extremities/Musculoskeletal: Normal inspection, no calf tenderness, no pedal edema Neurological/Psych: Alert, normal mood/affect Skin: Normal color, warm/dry, no rash Laboratory Results Last 24 Hours Test 05/28/17 17:11 05/28/17 20:13 05/29/17 02:31 05/29/17 05:20 Bedside Glucose 137 mg/dl White Blood Count 8.58 K/uL 5.88 K/uL Red Blood Count 3.01 M/uL 2.38 M/uL Hemoglobin 9.0 g/dL 8.0 g/dL 7.4 g/dL Hematocrit 26.5 % 23.2 % 21.0 % Mean Corpuscular Volume 88.0 fL 88.2 fL Mean Corpuscular Hemoglobin 29.9 pg 31.1 pg Mean Corpuscular Hemoglobin Concent 34.0 g/dl 35.2 g/dl RDW Standard Deviation 49.4 fL 49.2 fL RDW Coefficient of Variation 15.4 % 15.3 % Platelet Count 165 K/uL 129 K/uL Mean Platelet Volume 8.2 fL 8.2 fL Neutrophils (%) (Auto) 56.4 % Lymphocytes (%) (Auto) 24.8 % Monocytes (%) (Auto) 13.8 % Eosinophils (%) (Auto) 4.3 % Basophils (%) (Auto) 0.5 % Neutrophils # (Auto) 3.32 K/uL Lymphocytes # (Auto) 1.46 K/uL Monocytes # (Auto) 0.81 K/uL Eosinophils # (Auto) 0.25 K/uL Basophils # (Auto) 0.03 K/uL Immature Granulocyte % (Auto) 0.2 % Immature Granulocyte # (Auto) 0.01 K/uL Red Blood Cell Morphology Unremarkable Sodium Level 136 mmol/L Potassium Level 4.4 mmol/L Chloride Level 104 mmol/L Carbon Dioxide Level 30 mmol/L Anion Gap 2.0 mmol/L Blood Urea Nitrogen 26 mg/dl Creatinine 0.84 mg/dl Est Creatinine Clear Calc Drug Dose 47.6 ml/min Estimated GFR () 91.2 Estimated GFR (Non- 78.7 BUN/Creatinine Ratio 31.4 Random Glucose 119 mg/dl Calcium Level 7.6 mg/dl Phosphorus Level 2.6 mg/dl Magnesium Level 2.1 mg/dl Total Bilirubin 0.6 mg/dl Direct Bilirubin 0.2 mg/dl Aspartate Amino Transf (AST/SGOT) 10 U/L Alanine Aminotransferase (ALT/SGPT) 10 U/L Alkaline Phosphatase 64 U/L Total Protein 4.7 gm/dl Albumin 2.2 gm/dl Test 05/29/17 09:09 05/29/17 13:26 05/29/17 13:44 Prothrombin Time 11.5 SECONDS Prothromb Time International Ratio 1.1 Activated Partial Thromboplast Time 24.7 SECONDS Partial Thromboplastin Ratio 1.0 Bedside Glucose 142 mg/dl Hemoglobin 8.1 g/dL Hematocrit 23.5 % Fibrinogen 233 mg/dl Diagnostic Results Reviewed the following studies and agree with interpretation as follows: CHEST ONE VIEW PORTABLE CLINICAL HISTORY: 87 years-old Male presenting with copd/chf. TECHNIQUE: Portable upright AP view of the chest was obtained. COMPARISON: 05/27/2017. FINDINGS: Atherosclerosis of the aortic arch with tortuosity of the ascending and descending aorta. Cardiac silhouette top normal in size. Prominence of hilar vasculature unchanged. Mildly low lung volumes. Minimal left basilar opacity. Trace pleural effusions may be present. No pneumothorax. 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 Degenerative changes of the right glenohumeral joint. Posttreatment changes of kyphoplasty suggested. Upper abdomen normal. IMPRESSION: 1. Findings suggestive of developing volume overload. No bishop pulmonary edema. 2. Left basilar atelectasis. 3. Possible developing trace pleural effusions. Assessment and Plan 87 y/o male with a history of HTN, chronic diastolic CHF, h/o DVT/PE, COPD, RLS , and chronic back pain who presents with GI bleed and acute blood loss anemia. GI bleed w/acute blood loss anemia -Admit to ICU. Intensivists consulted and managing -Hgb 7.4 on 05/29, received 1 unit PRBC. Has received 6 units total so far. Repeat Hgb 8.1. Transfuse prn -Trend H&H q6h -GI consulted, appreciate recs: Will scope today, continue PPI drip and octreotide. -Pt for EGD/colonoscopy, NPO -Continue Protonix drip, octreotide and IVF -Pt hemodynamically stable. PICC established HTN--stable, pt had been hypotensive -Home atenolol and Diovan on hold Chronic diastolic CHF--mild acute exacerbation given large amount of fluid/ blood received -Received Lasix 20 mg IV x2 on 05/28 as had received total of 3 units PRBC -CXR 05/28 with developing volume overload but no bishop edema. -Will give further Lasix on prn basis H/o DVT/PE -Hold warfarin COPD -Continue Spiriva RLS -Continue Requip 1 mg PO qd Chronic back pain -Continue fentanyl patch 50 mcg TD q72h, IV morphine prn breakthrough DVT prophylaxis -Chemical prophylaxis contraindicated -SCDs Code Status -Level V, DO NOT RESUSCITATE
[2017-05-29 16:08] LABS: ISTAT CREATININE 0.9 mg/dl (0.6-1.3); ISTAT HEMOGLOBIN 6.8 g/dl (14.0-18.0); ISTAT IONIZED CALCIUM 1.18 mmol/l (1.12-1.32)
[2017-05-29] MEDS ORDERED: PROPOFOL IV EMULSION 10 MG/ML 20 ML VIAL IV ONE (16:26)
[2017-05-29] MEDS ORDERED: KETAMINE HCL INJ 50 MG/ML 10 ML VIAL ONE (16:26)
[2017-05-29] MEDS ORDERED: MIDAZOLAM HCL 1 MG/ML 2ML VIAL ONE (16:38)
--- NOTE | 2017-05-29 17:03 | Discharge Instructions ---
Endoscopy Patient Instructions Date / Procedure(s) Performed May 29, 2017. EGD Allergy Information Coded Allergies: No Known Allergies (Verified , 05/27/17) Discharge Date / Findings May 29, 2017. 2 large duodenal ulcers Medication Instructions Restart Stopped Medication(s): resume meds Current Inpatient Medications Medications (Trade) Dose Ordered Sig/[place] Route Start Time Stop Time Status Last Admin Dose Admin Morphine Sulfate (MoRPHine SULFATE INJ) 2 mg Q2H PRN IV 05/27/17 20:15 06/10/17 20:14 05/29/17 10:27 2 MG Morphine Sulfate (MoRPHine SULFATE INJ) 4 mg Q2H PRN IV 05/27/17 20:15 06/10/17 20:14 Ropinirole HCl (Requip Tab) 1 mg DAILY PO 05/28/17 09:00 06/27/17 08:59 05/29/17 08:01 1 MG Tiotropium [place] (Spiriva Handihaler Inhaler) 1 puff DAILY PRN INH 05/27/17 20:15 06/26/17 20:14 Albuterol Sulfate (Ventolin 0.5% 2.5MG/0.5ML Neb) 2.5 mg Q6R PRN INH 05/27/17 20:15 06/26/17 20:14 Sodium Chloride 1,000 ml @ 45 mls/hr [id number] IV 05/27/17 21:00 06/26/17 20:59 05/29/17 08:01 45 MLS/HR Pantoprazole Sodium 40 mg/ Dextrose 100 ml @ 20 mls/hr Q5H IV 05/27/17 21:30 06/26/17 21:29 05/29/17 13:39 20 MLS/HR Octreotide Acetate 500 mcg/ Sodium Chloride 105 ml @ 10 mls/hr [id number] IV 05/27/17 21:15 06/26/17 21:14 05/29/17 16:12 10 MLS/HR Albuterol/ Ipratropium (Duoneb) 3 ml Q6R PRN INH 05/27/17 22:00 06/26/17 21:59 Miscellaneous Information (Check Fentanyl Patch Placement) 1 ea QS N/A 05/28/17 00:00 06/27/17 00:00 05/29/17 08:00 1 EA Fentanyl (Duragesic Patch) 50 mcg Q3D@0900 TD 05/30/17 09:00 06/13/17 08:59 Miscellaneous (Fentanyl Patch Remove & Waste) 1 ea Q3D@0859 N/A 05/30/17 08:59 06/29/17 08:58 Provider Instructions Activity Restrictions - No exercising or heavy lifting for 24 hours. - Do not drink alcohol the day of the procedure. - Do not drive a car or operate machinery until the day after the procedure. - Do not make any important decisions or sign important papers in 24 hours after the procedure. Following Day: - Return to full activity which may include returning to work/school. Diet Start your diet with liquids and light foods (jello, soup, juice, toast). Then eat your usual diet if not nauseated. Treatment For Common After Affects For mild abdominal pain, bloating, or excessive gas: - Rest - Eat lightly - Lie on right side Follow-Up Information Follow-up with as scheduled Anesthesia Information What You Should Know You have had a procedure that required some medicine to reduce anxiety and discomfort. This treatment is called moderate sedation. After receiving the treatment, you may be sleepy, but you will be able to breathe on your own. The effects of the treatment may last for several hours. Follow these instructions along with Activity/Diet recommendations noted above: * Do NOT do anything where dizziness or clumsiness would be dangerous. * Rest quietly at home today, then you can be up and about tomorrow. * Have a responsible person stay with you the rest of today. * You may have had an I.V. today. If so, you may take the dressing off later today. Recommendations Call your doctor if: * Trouble breathing * Continuous vomiting for more than 24 hours * Temperature above 101 degrees * Severe abdominal pain or bloating * Pain not relieved by pain medicine ordered * There is increased drainage or redness from any incision * A large amount of rectal bleeding greater than 2-3 tablespoons. (If you had a polyp/s removed or have hemorrhoids, a small amount of blood - from the rectum is to be expected.) * You have any unanswered questions or concerns. IN THE EVENT OF A SERIOUS EMERGENCY, GO TO THE NEAREST EMERGENCY ROOM Your discharge instructions were prepared by provider Devon Davis. Patient Instructions Signature Page Jamie Morgan Patient (or Guardian) Signature/Date: I have read and understand the instructions given to me by my caregivers. Caregiver/RN/Doctor Signature/Date: The above-named patient and/or guardian has received patient instructions on this date. + Original Patient Signature Page (only) stays with chart. Please make copy for patient.
[2017-05-29] MEDS ORDERED: LIDOCAINE HCL 2% 2 ML VIAL (20MG/ML) ONE (17:08)
--- NOTE | 2017-05-29 17:14 | GI REPORT ---
Procedure Date: 05/29/2017 4:39 PM Procedure: Upper GI endoscopy Indications: Hematochezia Medicines: Midazolam 1 mg IV, Propofol total dose 100 mg IV, Ketamine 10 mg IV, Lidocaine 60 mg IV Complications: No immediate complications. Estimated Blood Loss: Estimated blood loss: none. Procedure: Pre-Anesthesia Assessment: - Prior to the procedure, a History and Physical was performed, and patient medications, allergies and sensitivities were reviewed. The patient's tolerance of previous anesthesia was reviewed. - The risks and benefits of the procedure and the sedation options and risks were discussed with the patient. All questions were answered and informed consent was obtained. After obtaining informed consent, the endoscope was passed under direct vision. Throughout the procedure, the patient's blood pressure, pulse, and oxygen saturations were monitored continuously. The scope was introduced through the mouth, and advanced to the second part of duodenum. The upper GI endoscopy was accomplished without difficulty. The patient tolerated the procedure well. Findings: A medium-sized hiatus hernia was present. Hematin (altered blood/oerwql-skrurf-pnep material) was found in the gastric body. Two non-obstructing non-bleeding cratered duodenal ulcers with a visible vessel were found in the duodenal bulb. The largest lesion was 12 mm in largest dimension. There is no evidence of perforation. Area was successfully injected with 3 mL of a 1:10,000 solution of epinephrine for drug delivery. To prevent bleeding post-maneuver, two hemostatic clips were successfully placed (MR conditional). There was no bleeding during, and at the end, of the procedure. Impression: - Medium-sized hiatus hernia. - Hematin (altered blood/kqwdbh-fojfpx-nprd material) in the gastric body. - Multiple non-obstructing non-bleeding duodenal ulcers with a visible vessel. NSAID induced etiology. There is no evidence of perforation. Injected. Clips (MR conditional) were placed. - No specimens collected. Recommendation: - Return patient to [facility] for ongoing care. Devon Davis M.D. Devon Davis MD 05/29/2017 5:13:12 PM This report has been signed electronically. Note Initiated On: 05/29/2017 4:39 PM I attest to the content of the Intraoperative Record and orders documented therein, exceptions below
--- NOTE | 2017-05-29 17:18 | Anesthesiology Progress Note ---
Anesthesia Post Op Note Date & Time May 29, 2017 at 17:18 Vital Signs Pain Intensity: 10.0 Vital Signs Past 12 Hours Date Time Temp Pulse Resp B/P (MAP) Pulse Ox O2 Delivery O2 Flow Rate FiO2 05/29/17 16:40 37.1 96 20 171/98 100 10.0 05/29/17 16:25 37.1 76 20 150/61 96 10.0 05/29/17 16:10 37.0 73 18 149/70 98 10.0 05/29/17 16:10 36.9 72 20 139/66 99 10.0 05/29/17 16:05 37.1 72 22 159/74 99 10.0 05/29/17 16:00 37.2 77 22 147/75 98 10.0 05/29/17 15:10 37.3 76 20 137/65 (89) 98 Room Air 05/29/17 11:30 36.8 80 18 139/74 (95) 97 Nasal Cannula 2.0 05/29/17 11:17 Nasal Cannula 2.0 05/29/17 09:30 36.8 70 20 138/69 (92) 97 Nasal Cannula 2.0 05/29/17 08:00 37.0 78 20 145/75 96 05/29/17 07:30 36.8 80 20 160/71 (100) 97 Nasal Cannula 2.0 05/29/17 07:30 Nasal Cannula 2.0 05/29/17 07:15 36.8 80 20 160/71 97 05/29/17 06:31 36.4 76 13 160/71 99 2.0 05/29/17 06:29 36.4 76 13 138/79 99 2.0 05/29/17 05:19 83 17 136/68 (90) 98 Nasal Cannula 2.0 Notes Mental Status: alert / awake / arousable, participated in evaluation Pt Amnestic to Procedure: Yes Nausea / Vomiting: adequately controlled Pain: adequately controlled Airway Patency, RR, SpO2: stable & adequate BP & HR: stable & adequate Hydration State: stable & adequate Anesthetic Complications: no major complications apparent
--- NOTE | 2017-05-29 17:56 | PROGRESS NOTE ---
DATE: 05/29/2017 SUBJECTIVE: The patient presented to the endoscopy unit this afternoon for EGD and colonoscopy for rectal bleeding. The patient on upper endoscopy was found to have 2 large deep duodenal ulcers, one with a visible vessel. Fortunately, there was no active bleeding, but there was some old blood in the stomach. Prior to the procedure, the patient was noted to be short of breath and a hemoglobin done stat prior to the procedure showed his hemoglobin of 6.7. He was ordered 3 more units of red blood cells, which would make a total of 9. During the procedure, the ulcer bases were injected with a total of 3 mL of epinephrine. The more proximal ulcer had an area that appeared to be a visible vessel and this was clipped with 2 Hemoclips. There was no bleeding during or after the procedure. IMPRESSION: The patient has 2 large deep duodenal ulcers. The colonoscopy was not performed as the patient was relatively unstable. Discussed with the patient's family and the critical care unit nurse about considering transfer to a facility that has interventional radiology, in case he has further bleeding. ADIEL
--- NOTE | 2017-05-29 18:05 | Discharge Summary ---
Discharge Summary Date of Service May 29, 2017. Discharge Summary Admission Date: May 27, 2017 at 20:10 Discharge Date: May 29, 2017 Discharge Disposition: Acute care facility Principal Diagnosis: GI bleed w/acute blood loss anemia Problems/Secondary Diagnoses: GI bleed from gastric 2 big ulcerations , has epi injections and clips during EGD, is getting 3 unit PRBC now b/c hypotensive Immunizations: Have You Had Influenza Vaccine: Yes Influenza Vaccine Date: Feb 17, 2015 History of Tetanus Vaccine?: Yes Tetanus Immunization Date: Aug 17, 2012 History of Pneumococcal: No History of Hepatitis B Vaccine: Unknown Consultations: gi, and efficiency expert Medication Reconciliation Continued Medications: Albuterol Hfa (Ventolin Hfa) 200 Puffs/61378 Mcg Aers 2-4 PUFFS INH Q6H PRN for SOB/Wheezing, #1 INHALER Fentanyl (Fentanyl) 25 Mcg Tdsy 25 MCG TOP q 72hrs Gabapentin (Neurontin) 400 Mg Cap 400 MG PO TID, CAP Gabapentin (Neurontin) 100 Mg Cap 100 MG PO UD PRN for prn, CAP Oxycodone/Acetaminophen 5MG/325MG (Percocet 5MG/325MG) Tab 1-2 TABLETS PO Q4H PRN for Pain, TAB PAIN Ropinirole (Requip) 1 Mg Tab 1 MG PO DAILY, TAB Tiotropium [place] (Spiriva Handihaler) 30 Puff/540 Mcg Aerp 1 CAP INH DAILY PRN for SOB/Wheezing, INHALER Tramadol (Ultram) 50 Mg Tab 50 MG PO Q4H PRN for Pain, TAB Discontinued Medications: Acetaminophen Tab (Tylenol) 325 Mg Tab 650 MG PO Q6H PRN for Pain, TAB Albuterol Sulf (Albuterol Sulfate) 2.5 Mg/3 Ml Nebu 1 DOSE NEB UD PRN for SOB/Wheezing Aspirin (Aspirin Chewable) 81 Mg Chew 81 MG PO QAM Atenolol (Tenormin) 25 Mg Tab 25 MG PO QAM Celecoxib (CeleBREX) 200 Mg Cap 200 MG PO QPM Furosemide (Lasix) 20 Mg Tab 20 MG PO TID, TAB Multivitamin (Multivitamin) Tab 1 TAB PO QAM, TAB Ocuvite Preservision (Ocuvite Preservision) 1 Tab Tab 1 TAB PO BID, TAB Omeprazole (Prilosec) 40 Mg Cap 40 MG PO DAILY, CAP Ranitidine (Zantac) 300 Mg Tab 300 MG PO HS, TAB Valsartan (Diovan) 160 Mg Tab 160 MG PO QAM, TAB Warfarin Sodium (Coumadin) 5 Mg Tab 2.5 MG PO Q2D Warfarin Sodium (Coumadin) 5 Mg Tab 5 MG PO Q2D ALTERNATE WITH 2.5MG Discharge Exam [id number] Review of Systems: Constitutional: No fever, No chills, No sweats, No weight loss, No weakness , No fatigue, No problem reported Eyes: No worsening of vision, No eye pain, No redness, No discharge, No diplopia, No problem reported ENT: No hearing loss, No unusual epistaxis, No nasal symptoms, No sore throat, No tinnitus, No dental problems, No trouble swallowing, No problem reported Respiratory: No cough, No sputum, No wheezing, No shortness of breath, No dyspnea on exertion, No dyspnea at rest, No hemoptysis, No problem reported Cardiovascular: No chest pain, No orthopnea, No PND, No edema, No claudication, No palpitations, No problem reported Abdomen: No pain, No nausea, No vomiting, No diarrhea, No constipation, No GI bleeding, No problem reported Musculoskeletal: No joint pain, No muscle pain, No swelling, No calf pain, No problem reported Genitourinary - Male: No hematuria, No dysuria, No urinary frequency, No urinary urgency, No urinary hesitancy, No urinary retention, No urinary incontinence, No penile discharge, No lesions, No impotence, No problem reported Neurologic: No memory loss, No paralysis, No weakness, No numbness/tingling , No vertigo, No balance problems, No problem reported Psychiatric: No depression symptoms, No anhedonism, No anxiety, No insomnia , No substance abuse, No problem reported Endocrine: + fatigue, No excessive thirst, No excessive urination, No problem reported Hematologic / Lymphatic: No abnormal bleeding/bruising, No clotting problems , No swollen lymph nodes, No night sweats, No problem reported Integumentary: No rash, No itch, No new/changing skin lesions, No color change, No bleeding, No problem reported Physical Exam: General Appearance: WD/WN Eyes: normal inspection, PERRL, EOMI ENT: normal ENT inspection, hearing grossly normal, TMs normal Neck: supple, no adenopathy, thyroid normal, no JVD Respiratory/Chest: chest non-tender, lungs clear, normal breath sounds Cardiovascular: regular rate, rhythm, no edema, no murmur Abdomen / GI: normal bowel sounds, non tender, soft, no organomegaly, no pulsatile mass, normal rectal exam, occult blood negative Extremities: normal inspection, no calf tenderness, normal capillary refill , no pedal edema, normal range of motion Neurologic/Psychiatric: guest relations representative II-XII nml as tested, no motor/sensory deficits , alert, normal mood/affect, normal reflexes, oriented x 3 Skin: normal color, warm/dry, no rash Hospital Course 87 y/o male with a history of HTN, chronic diastolic CHF, h/o DVT/PE, COPD, RLS , and chronic back pain was admitted on 05/27/2017 with GI bleed and acute blood loss anemia. GI bleed w/acute blood loss anemia -Admit to ICU. Intensivists consulted and managing Has received 6 units total so far. Repeat Hgb 8.1 in 13:44, and 6.8 at 15:52 GI bleed from gastric 2 big ulcerations in EGD around 1600 , has epi injections and clips during EGD, is getting 3 unit PRBC now b/c hypotensive cont ICU. continue PPI drip and octreotide. talked to efficiency expert, and GI, efficiency expert, and GI, updated patient and family, for the care plan, which includes transferring to tertiary care center for possible need surgery or interventional radiologist if rebleeding, INR was 4.7 upon admission, today late afternoon INR is 1.1, got 3 unit FFP, and Vit k iv upon admission d/w pt and family about the transferring plan, d/w the risks and benefits for transferring, risks includes delayed care, MVA, and cardio pulm arrest, pt is competent to make decision, agreed to go, consent signed, pt will go by [facility] icu Dr. Meena romero pt is gettign 3 unit PRBC now, hemodynamic stable, PICC established HTN--stable, pt had been hypotensive -Home atenolol and Diovan on hold Chronic diastolic CHF--mild acute exacerbation given large amount of fluid/ blood received -Received Lasix 20 mg IV x2 on 05/28 as had received total of 3 units PRBC -CXR 05/28 with developing volume overload but no bishop edema. -Will give further Lasix on prn basis H/o DVT/PE -Hold warfarin COPD -Continue Spiriva RLS -Continue Requip 1 mg PO qd Chronic back pain -Continue fentanyl patch 50 mcg TD q72h, IV morphine prn breakthrough DVT prophylaxis -Chemical prophylaxis contraindicated -SCDs Code Status -Level V, DO NOT RESUSCITATE Total Time Spent: Greater than 30 minutes This includes examination of the patient, discharge planning, medication reconciliation, and communication with other providers. Discharge Instructions Please refer to the electronic Patient Visit Report (Discharge Instructions) for additional information. Additional Copies To Devon Davis M.D.; Jefe Merritt M.D.
[2017-05-29 18:06] LABS: HEMATOCRIT 25.8 % (42-52)
[2017-05-29 19:25] LABS: HEMATOCRIT 25.2 % (42-52)
--- NOTE | 2017-05-30 02:33 | Critical Care Progress Note ---
Critical Care Progress Note Date of Service May 30, 2017. ICU Day ICU Day Number: [address] Martin Subjective Patient tired, frustrated with passing bloody bowel movements Objective Alert and oriented 3 Normocephalic atraumatic Bilateral 20-gauge IVs in upper extremities Current SOFA Score SOFA Score Response (Comments) Value PaO2/FiO2 (mmHg) < 400 1 SaO2 / FIO2 221 - 301 1 Platelets (x10) > 150 0 Bilirubin (mg/dL) < 1.2 0 [place] Coma Score 15 0 Level of Hypotension No Hypotension 0 Creatinine (mg/dL) < 1.2 0 Total 2 Assessment & Plan (1) GI bleed (2) COPD (chronic obstructive pulmonary disease) (3) Heart disease (4) Hypertension (5) Asthma #1 GI bleeding * Discussed with gastroenterology patient has 2 large ulcers which were clipped * GI expresses concern if he was to rebleed he would need further intervention by radiology, we do not have interventional radiology service here so patient would prefer to be transferred to [facility] #2 acute blood loss anemia * Patient has received a total of 7 units of packed red cells, 2 of FFP and an additional unit of cryoprecipitate was ordered * Given the significant transfusion requirement the patient was seen by IV team and they were able to place bilateral 16-gauge IVs #3 chronic long-term anticoagulation secondary to DVT * Currently being held #4 history aortic stenosis * Avoid significant tachycardia I have personally spent 40 minutes of critical care time in the direct management of this patient. This is a life/limb threatening event. This includes time spent evaluating patient, direct bedside care, chart review, placing orders, interpretation of diagnostic studies, discussion with consultants, patient, and family members, as well as other required patient management activities. This time is exclusive of all separately billable procedures, and teaching time and separate from and in addition to any other critical care service time. Consults & Procedures Consultants: GI consult Procedures: EGD 05/29/2017 Data Vital Signs: Date Time Temp Pulse Resp B/P (MAP) Pulse Ox O2 Delivery O2 Flow Rate FiO2 05/29/17 20:30 78 13 131/60 (83) 96 05/29/17 20:15 75 19 130/60 (83) 96 05/29/17 20:00 Nasal Cannula 2.0 05/29/17 20:00 36.9 73 19 133/64 (87) 96 17 18:31 36.7 78 14 134/61 (85) 97 17 18:20 79 15 95 17 18:16 75 16 131/58 (82) 17 18:05 78 18 100 17 18:01 76 21 145/57 (86) 99 17 17:50 78 20 99 17 17:46 76 15 140/75 (96) 98 17 17:35 76 14 99 18/17 17:31 79 17 136/60 (85) 98 17 17:20 82 15 100 17 17:15 36.8 22 138/60 (86) 97 Nasal Cannula 2.0 05/29/17 17:15 Nasal Cannula 2.0 05/29/17 16:40 37.1 96 20 171/98 100 10.0 05/29/17 16:25 37.1 76 20 150/61 96 10.0 05/29/17 16:10 37.0 73 18 149/70 98 10.0 05/29/17 16:10 36.9 72 20 139/66 99 10.0 05/29/17 16:05 37.1 72 22 159/74 99 10.0 05/29/17 16:00 37.2 77 22 147/75 98 10.0 17 15:10 37.3 76 20 137/65 (89) 98 Room Air 05/29/17 11:30 36.8 80 18 139/74 (95) 97 Nasal Cannula 2.0 05/29/17 11:17 Nasal Cannula 2.0 05/29/17 09:30 36.8 70 20 138/69 (92) 97 Nasal Cannula 2.0 05/29/17 08:00 37.0 78 20 145/75 96 05/29/17 07:30 36.8 80 20 160/71 (100) 97 Nasal Cannula 2.0 05/29/17 07:30 Nasal Cannula 2.0 17 07:15 36.8 80 20 160/71 97 17 06:31 36.4 76 13 160/71 99 2.0 17 06:29 36.4 76 13 138/79 99 2.0 05/29/17 05:19 83 17 136/68 (90) 98 Nasal Cannula 2.0 05/29/17 05:01 77 11 142/66 (91) 96 Nasal Cannula 2.0 05/29/17 04:17 96 Nasal Cannula 2.0 05/29/17 04:01 37.0 82 17 135/67 (89) 96 Nasal Cannula 2.0 05/29/17 03:01 81 16 111/59 (76) 98 Nasal Cannula 2.0 Laboratory Results: Last 24 Hours Test 05/29/17 02:31 05/29/17 05:20 05/29/17 09:09 05/29/17 13:26 Hemoglobin 8.0 g/dL 7.4 g/dL Hematocrit 23.2 % 21.0 % White Blood Count 5.88 K/uL Red Blood Count 2.38 M/uL Mean Corpuscular Volume 88.2 fL Mean Corpuscular Hemoglobin 31.1 pg Mean Corpuscular Hemoglobin Concent 35.2 g/dl Platelet Count 129 K/uL Mean Platelet Volume 8.2 fL Neutrophils (%) (Auto) 56.4 % Lymphocytes (%) (Auto) 24.8 % Monocytes (%) (Auto) 13.8 % Eosinophils (%) (Auto) 4.3 % Basophils (%) (Auto) 0.5 % Neutrophils # (Auto) 3.32 K/uL Lymphocytes # (Auto) 1.46 K/uL Monocytes # (Auto) 0.81 K/uL Eosinophils # (Auto) 0.25 K/uL Basophils # (Auto) 0.03 K/uL RDW Standard Deviation 49.2 fL RDW Coefficient of Variation 15.3 % Immature Granulocyte % (Auto) 0.2 % Immature Granulocyte # (Auto) 0.01 K/uL Red Blood Cell Morphology Unremarkable Sodium Level 136 mmol/L Potassium Level 4.4 mmol/L Chloride Level 104 mmol/L Carbon Dioxide Level 30 mmol/L Anion Gap 2.0 mmol/L Blood Urea Nitrogen 26 mg/dl Creatinine 0.84 mg/dl Est Creatinine Clear Calc Drug Dose 47.6 ml/min Estimated GFR () 91.2 Estimated GFR (Non- 78.7 BUN/Creatinine Ratio 31.4 Random Glucose 119 mg/dl Calcium Level 7.6 mg/dl Phosphorus Level 2.6 mg/dl Magnesium Level 2.1 mg/dl Total Bilirubin 0.6 mg/dl Direct Bilirubin 0.2 mg/dl Aspartate Amino Transf (AST/SGOT) 10 U/L Alanine Aminotransferase (ALT/SGPT) 10 U/L Alkaline Phosphatase 64 U/L Total Protein 4.7 gm/dl Albumin 2.2 gm/dl Prothrombin Time 11.5 SECONDS Prothromb Time International Ratio 1.1 Activated Partial Thromboplast Time 24.7 SECONDS Partial Thromboplastin Ratio 1.0 Bedside Glucose 142 mg/dl Test 05/29/17 13:44 05/29/17 15:52 05/29/17 17:53 05/29/17 19:11 Hemoglobin 8.1 g/dL 9.0 g/dL 8.7 g/dL Hematocrit 23.5 % 25.8 % 25.2 % Fibrinogen 233 mg/dl Bedside Hemoglobin 6.8 g/dl Bedside Hematocrit 20 % Bedside Sodium 137 mEq/L Bedside Potassium 4.2 mEq/L Bedside Chloride 99 mEq/L Bedside Total CO2 25 mEq/l Anion Gap 19.0 mmol/L Bedside Blood Urea Nitrogen 18 mg/dl Bedside Creatinine 0.9 mg/dl Bedside Glucose (other) 119 mg/dl Bedside Ionized Calcium (Arian) 1.18 mmol/l Prealbumin 12.0 mg/dl
[2017-05-30] MEDS ORDERED: FENTANYL PATCH REMOVE & WASTE SCH (08:59)
[2017-05-30] MEDS ORDERED: FENTANYL 50 MCG/HR TDSY TD SCH (09:00)
--- NOTE | 2017-05-31 17:25 | EDITING REQUIRED CODING QUERY ---
CODING QUERY To promote full compliance with coding requirements relating to patient care, provider participation is requested in all cases of director call center sales uncertainty. Please assist us with the question(s) below: Coding Question(s): Patient admitted with rectal bleed and acute blood loss anemia. D/S states gastric ulcer - 05/29 progress note mentions duodenal ulcer which as clipped/injected during EGD. Please clarify the source of the GI bleed. Thank you. Gorge Carney [facility] Physician's Response(s): Clarification : Two non-obstructing non-bleeding cratered duodenal ulcers with a visible vessel were found in the duodenal bulb", thanks Principal Diagnosis: "_that condition established after study, to be chiefly responsible for occasioning the admission of the patient to the hospital for care." Co-Existing Principal Diagnosis: "_when two or more diagnoses equally meet the criteria for principal diagnosis as determined by the circumstances of admission, diagnostic work up, and/or therapy provided, and the Alphabetic Index, Tabular List, or another coding guideline does not provide sequencing direction, any one of the diagnoses may be sequenced first." "When the physician has documented what appears to be a current diagnosis in the body of the record, but has not included the diagnosis in the final diagnostic statement, the physician should be asked whether the diagnosis should be added." (Source Coding [facility] 2 QTR90. p3-4)
== END 2017-05-29 21:25 | disposition short-term general hospital (02) | DRG 377 ==
LOC: EDBD 17:20 → C.EDB 17:21 → C.MSICU 20:10 → ENRESERV 20:13
PROVIDERS: ADMIT Hospitalist; ATTEND Family Medicine
PROC: 3E0G8GC Introduction of Other Therapeutic Substance into Upper GI, Via Natural or Artificial Opening Endoscopic (ICD-10-PCS; principal; 2017-05-29 15:04)
PROC: 0W3P8ZZ Control Bleeding in Gastrointestinal Tract, Via Natural or Artificial Opening Endoscopic (ICD-10-PCS; principal; 2017-05-29 15:04)
DX: K26.4 Chronic or unspecified duodenal ulcer with hemorrhage (principal); I50.33 Acute on chronic diastolic (congestive) heart failure; D62 Acute posthemorrhagic anemia; D68.32 Hemorrhagic disorder due to extrinsic circulating anticoagulants; F11.20 Opioid dependence, uncomplicated; E44.1 Mild protein-calorie malnutrition; S41.101A Unspecified open wound of right upper arm, initial encounter; T45.515A Adverse effect of anticoagulants, initial encounter; J44.9 Chronic obstructive pulmonary disease, unspecified; T39.015A Adverse effect of aspirin, initial encounter; Z86.718 Personal history of other venous thrombosis and embolism; I11.0 Hypertensive heart disease with heart failure; I35.0 Nonrheumatic aortic (valve) stenosis; Z79.01 Long term (current) use of anticoagulants; Z82.49 Family history of ischemic heart disease and other diseases of the circulatory system; K44.9 Diaphragmatic hernia without obstruction or gangrene; M48.50XS Collapsed vertebra, not elsewhere classified, site unspecified, sequela of fracture; I25.10 Atherosclerotic heart disease of native coronary artery without angina pectoris; Z86.711 Personal history of pulmonary embolism; R09.02 Hypoxemia; K21.9 Gastro-esophageal reflux disease without esophagitis; G25.81 Restless legs syndrome; G89.4 Chronic pain syndrome; X58.XXXA Exposure to other specified factors, initial encounter; Z87.891 Personal history of nicotine dependence; Y92.019 Unspecified place in single-family (private) house as the place of occurrence of the external cause; X58.XXXS Exposure to other specified factors, sequela; I82.4Y9 Acute embolism and thrombosis of unspecified deep veins of unspecified proximal lower extremity

== ENCOUNTER → 2017-06-06 | Outpatient (CLI) | payer BC, OTHER ==
[~2017-06-06] MED LIST changes: +ACET-1311 PO; +ACET-1693 PO; -ACET325T96 PO; +ASPI81TA28 PO; +ATEN-173 PO; +CYM/30 PO; +DRGTP12 TOP; +DRGTP25 TD; +DULO-24 PO; +FERR1TAB13 PO; +FURO-85 PO; +GABA-1220 PO; -GABA1CAP5 PO; +IPRA-64 INH; +MULTCAP33 PO; +OMEP40CA41 PO; +ONDA4TAB46 PO; +OXGN; +OXYC-643 PO; +OXYC-737 PO; +PANT40TA PO; +RANI300T2 PO; +ROPI1TAB PO; +SENN-61 PO; +SENNTAB23 PO; +SPRIN/30 INH; +TRAM-10 PO; +VNTHFA/IN INH; +WARF2.5T8 PO; +WARF5TAB7 PO; +[UNRECOGNIZED DRUG - CODE] PO
[2017-06-06 17:26] LABS: BASO ABS # 0.06 K/uL (0-0.2); EOS % 3.4 %; HEMATOCRIT 31.2 % (42-52); HEMOGLOBIN 10.1 g/dL (14.0-18.0); IG# 0.02 K/uL (0.00-0.02); LYMPH % 24.9 %; LYMPH ABS # 1.47 K/uL (1.2-3.4); MEAN CELL VOLUME 93.1 fL (80-100); MEAN CORPUSCULAR HEMOGLOBIN 30.1 pg (25-34); MEAN CORPUSCULAR HGB CONC 32.4 g/dl (32-36); MEAN PLATELET VOLUME 8.7 fL (7.4-10.4); MONO % 9.3 %; MONO ABS # 0.55 K/uL (0.11-0.59); NEUT % 61.1 %; NEUT ABS # 3.61 K/uL (1.4-6.5); PLATELET COUNT 380 K/uL (130-400); RED CELL DISTRIBUTION WIDTH CV 15.4 % (11.5-14.5); RED CELL DISTRIBUTION WIDTH SD 51.7 fL (36.4-46.3); WHITE BLOOD COUNT 5.91 K/uL (4.8-10.8)
== END | disposition home or self-care (01) ==
LOC: C.LABBFT 12:07
PROVIDERS: ATTEND Internal Medicine
DX: I82.4Y9 Acute embolism and thrombosis of unspecified deep veins of unspecified proximal lower extremity (principal); K25.9 Gastric ulcer, unspecified as acute or chronic, without hemorrhage or perforation

== ENCOUNTER → 2017-06-13 | Outpatient (CLI) | payer BC, OTHER ==
[2017-06-13 12:31] LABS: BASO % 0.8 %; BASO ABS # 0.05 K/uL (0-0.2); EOS ABS # 0.36 K/uL (0-0.5); HEMATOCRIT 30.3 % (42-52); HEMOGLOBIN 9.7 g/dL (14.0-18.0); IG# 0.01 K/uL (0.00-0.02); LYMPH % 24.2 %; LYMPH ABS # 1.45 K/uL (1.2-3.4); MEAN CELL VOLUME 93.8 fL (80-100); MEAN PLATELET VOLUME 8.4 fL (7.4-10.4); MONO % 13.5 %; MONO ABS # 0.81 K/uL (0.11-0.59); NEUT % 55.3 %; NEUT ABS # 3.32 K/uL (1.4-6.5); PLATELET COUNT 332 K/uL (130-400); RED CELL DISTRIBUTION WIDTH CV 15.1 % (11.5-14.5); RED CELL DISTRIBUTION WIDTH SD 51.5 fL (36.4-46.3)
[2017-06-13 12:59] LABS: HEMOGLOBIN A1C 5.4 % (4.5-5.6)
[2017-06-13 13:05] LABS: ALT/SGPT 17 U/L (12-78); BLOOD UREA NITROGEN 14 mg/dl (7-18); CALCIUM 8.5 mg/dl (8.5-10.1); CARBON DIOXIDE 29 mmol/L (21-32); CREATININE 1.01 mg/dl (0.60-1.40); GLUCOSE 80 mg/dl (70-99); POTASSIUM 4.3 mmol/L (3.5-5.1); SODIUM 134 mmol/L (136-145)
[2017-06-13 13:13] LABS: ALKALINE PHOSPHATASE 88 U/L (45-117); AST/SGOT 18 U/L (15-37); TOTAL PROTEIN 6.1 gm/dl (6.4-8.2); TRANSFERRIN 200 mg/dl (200-360)
== END | disposition home or self-care (01) ==
LOC: C.LABBFT 08:36
PROVIDERS: ATTEND Internal Medicine
DX: D64.9 Anemia, unspecified (principal); R73.01 Impaired fasting glucose; I26.99 Other pulmonary embolism without acute cor pulmonale; I82.4Y9 Acute embolism and thrombosis of unspecified deep veins of unspecified proximal lower extremity; R10.31 Right lower quadrant pain; K59.00 Constipation, unspecified; N40.0 Benign prostatic hyperplasia without lower urinary tract symptoms; I51.7 Cardiomegaly; K80.20 Calculus of gallbladder without cholecystitis without obstruction

== ENCOUNTER → 2017-07-18 | Outpatient (CLI) | payer BC ==
[~2017-07-18] MED LIST changes: -CYM/30 PO; -DRGTP12 TOP; -IPRA-64 INH; +IPRASOL4 INH; -ONDA4TAB46 PO; -OXYC-737 PO; -[UNRECOGNIZED DRUG - CODE] PO
--- NOTE | 2017-07-18 14:54 | DIAGNOSTIC IMAGING REPORT ---
THORACIC SPINE 3 VIEWS ROUTINE CLINICAL HISTORY: M54.5 Low back [id number] COMPARISON STUDY: 03-28 FINDINGS: There are post procedural changes of a T12 kyphoplasty. There is a persistent superior endplate T11 compression deformity with endplate fragmentation. There are equivocal erosive type changes involving the inferior T10 endplate. There are multilevel degenerative changes. IMPRESSION: 1. No acute fractures 2. Evidence for prior T12 kyphoplasty 3. Superior endplate T11 compression fracture with fragmentation and T11-12 endplate erosive change Electronically signed by: Darwin Ulloa M.D. 07/18/2017 2:53 PM Dictated Date/Time: 07/18/2017 2:50 PM
--- NOTE | 2017-07-18 15:35 | DIAGNOSTIC IMAGING REPORT ---
LUMBAR SPINE 5 VIEWS CLINICAL HISTORY: Chronic low back pain. FINDINGS: 5 views of the lumbar spine are compared to a study dated 12/20/2016. The skeletal structures are osteopenic. Correlation is made with abdominal CT dated 05/27/2017. There is a moderate to severe compression deformity of T12 with evidence of previous vertebroplasty and mildly retropulsed fragment. Chronic compression deformity is also seen involving T11. Vertebral body height is maintained throughout the lumbar spine. There is grade 1 anterolisthesis at L4-L5 and L5-S1. The transverse and spinous processes are intact as visualized. Advanced facet arthropathy is seen in the mid to lower lumbar region. Anterior osteophytes are seen throughout. Advanced degenerative disc space narrowing is seen at all levels, greatest at L4-L5 and L5-S1 where there is associated endplate sclerosis. There is no evidence of spondylolysis. The visualized bony pelvis is intact as imaged. Sclerotic degenerative change is noted in the sacroiliac joints. There is advanced atherosclerotic calcification of the abdominal aorta. No bowel obstruction is identified. An indeterminate density projects over the mid abdomen. This is new from prior studies. Phleboliths are noted in the pelvis. IMPRESSION: 1. No acute bony abnormality is seen involving the lumbar spine. 2. Osteopenia, chronic compression deformities in the lower thoracic region, and advanced lumbosacral spondylosis are similar to previous. 3. An indeterminant metallic density projects over the mid abdomen and is new from previous. Clinical correlation will be required. Dictated: 07/18/2017 2:50 PM Transcribed: 07/18/2017 3:35 PM [facility] Electronically signed by: Braulio Xavier M.D. 07/19/2017 4:30 PM Dictated Date/Time: 07/18/2017 2:50 PM
== END | disposition home or self-care (01) ==
LOC: C.RAD1850 14:30
PROVIDERS: ATTEND Internal Medicine
DX: M54.5 Low back pain (principal); M85.88 Other specified disorders of bone density and structure, other site; M47.817 Spondylosis without myelopathy or radiculopathy, lumbosacral region; R93.5 Abnormal findings on diagnostic imaging of other abdominal regions, including retroperitoneum; M48.54XA Collapsed vertebra, not elsewhere classified, thoracic region, initial encounter for fracture

== ENCOUNTER → 2017-07-26 | Outpatient (CLI) | payer BC ==
--- NOTE | 2017-07-26 11:07 | DIAGNOSTIC IMAGING REPORT ---
R RIBS UNILATERAL MIN 2 VIEWS CLINICAL HISTORY: Right posterior lateral chest wall pain. No recent trauma. COMPARISON STUDY: Chest radiograph May 28, 2017. FINDINGS: No pneumothorax or pleural effusion is noted. There is no consolidation to suggest pneumonia. Cardiomediastinal silhouette is stable. There is no evidence for pulmonary edema. A lower thoracic vertebral augmentation is incidentally noted. No acute right rib fractures are identified. There is subtle deformity of several right-sided ribs which likely reflects old, healed fractures. IMPRESSION: 1. No pneumothorax. No acute right rib fractures identified. 2. Subtle deformity of several right-sided ribs which favors old, healed fractures. Electronically signed by: Kj Hernandez M.D. 07/26/2017 11:05 AM Dictated Date/Time: 07/26/2017 11:01 AM
== END | disposition home or self-care (01) ==
LOC: C.RADBC 10:05
PROVIDERS: ATTEND Physician Assistant
DX: R07.89 Other chest pain (principal)

== ENCOUNTER → 2017-08-01 | Outpatient (CLI) | payer BC ==
[~2017-08-01] MED LIST changes: -ASPI81TA28 PO; -ATEN25TA PO; -CLB/200 PO; -OXYC-57 PO; -OXYC-643 PO; -RANI300T2 PO; -TRAM-10 PO
[2017-08-01 17:44] LABS: BLOOD UREA NITROGEN 19 mg/dl (7-18); CREATININE 1.17 mg/dl (0.60-1.40)
== END | disposition home or self-care (01) ==
LOC: C.LABBFT 11:27
PROVIDERS: ATTEND Physician Assistant
DX: Z01.812 Encounter for preprocedural laboratory examination (principal)

== ENCOUNTER → 2017-08-02 | Day surgery (SDC) | payer BC ==
[2017-07-21 11:41] VITALS: BMI 24.0
[~2017-08-02] VITALS: Ht 162.6 cm; Wt 64.1 kg
[~2017-08-02] MED LIST changes: +LIDOCAINE HCL 2% 2 ML VIAL (20MG/ML) ONE; +PROPOFOL IV EMULSION 10 MG/ML 20 ML VIAL IV ONE
[2017-08-02 12:19] VITALS: Ht 162.6 cm; Wt 64.1 kg
[2017-08-02 12:48] VITALS: TEMP 36.9
--- NOTE | 2017-08-02 13:10 | Endo History and Physical ---
History & Physical Date of Service: Aug 02, 2017. Chief Complaint: F/U DUODENAL ULCER Referring Physician: DR. LE History of Present Illness For EGD Past Medical History Arthritis, Hypertension, COPD, Depression Past Surgical History Hx Cardiac Surgery: No Hx Internal Defibrillator: No Hx Pacemaker: No Hx Abdominal Surgery: Yes (HERNIA REPAIR) Hx of Implantable Prosthesis: No Hx Post-Op Nausea and Vomiting: No Hx Cancer Surgery: No Hx Thoracic Surgery: No Hx Orthopedic: Yes (RT ARM REPAIR S/P BREAK, LT/RT CTR, LT TSA, RT RCR, LOW BACK DISCECTOMY) Hx Urinary Tract Surgery: No Family History None Social History Smoking Status: Former Smoker Hx Substance Use: No Hx Alcohol Use: Yes (1 BEER/DAY) Allergies Coded Allergies: No Known Allergies (Verified , 08/02/17) Current Medications Reported Home Medications Medications Dose Route/Sig Max Daily Dose Days Date Category Dose Instructions Oxygen Unknown Strength Gas Unknown Dose NA HS 07/21/17 Reported Jantoven (Warfarin Sodium) 2.5 Mg Tab 2.5 Mg PO [id number] 07/21/17 Reported MON,TU,WED,TH,FRI,SAT Jantoven (Warfarin Sodium) 5 Mg Tab 5 Mg PO Monday07/21/17 Reported Diovan (Valsartan) 160 Mg Tab 160 Mg PO QAM 07/21/17 Reported Tylenol (Acetaminophen) 325 Mg Tab 325 Mg PO Q4-6H PRN 07/21/17 Reported Stool Softener (Sennosides-Docusate Sodium) 1 Tab Tab 1 Tab PO BID 07/21/17 Reported Senokot (Senna) 8.6 Mg Tab 1 Tab PO DAILY PRN 07/21/17 Reported Requip (Ropinirole HCl) 1 Mg Tab 1 Mg PO HS 07/21/17 Reported Preservision Areds (Multiple Vitamins W/ Minerals) 1 Cap Cap 1 Cap PO BID 07/21/17 Reported Protonix (Pantoprazole Sodium) 40 Mg Tab 40 Mg PO BID 07/21/17 Reported Multivitamin (Multivitamins) Tab 1 Tab PO DAILY 07/21/17 Reported Lasix (Furosemide) 20 Mg Tab 20 Mg PO TID 07/21/17 Reported Kp Ferrous Sulfate (Ferrous Sulfate) 325 Mg Tab 1 Tab PO Q2D 07/21/17 Reported Fentanyl 25 Mcg Tdsy 1 Patch TD [id number] 07/21/17 Reported Cymbalta (Duloxetine HCl) 20 Mg Cap 1 Cap PO BID 07/21/17 Reported Tenormin (Atenolol) 25 Mg Tab 25 Mg PO QAM 07/21/17 Reported Prilosec (Omeprazole) 40 Mg Cap 40 Mg PO DAILY 05/27/17 Reported Fentanyl 25 Mcg Tdsy 25 Mcg TOP Q 72HRS 02/01/17 Reported Tylenol (Acetaminophen) 325 Mg Tab 650 Mg PO Q6H PRN 06/30/16 Reported Ocuvite Preservision (Multivitamins/Minerals) 1 Tab Tab 1 Tab PO BID 06/30/16 Reported Neurontin (Gabapentin) 400 Mg Cap 400 Mg PO TID 06/30/16 Reported Aspirin Chewable (Aspirin) 81 Mg Chew 81 Mg PO QAM 06/30/16 Reported Coumadin (Warfarin Sodium) 5 Mg Tab 2.5 Mg PO Q2D 03/05/14 Reported Vital Signs Weight (Kilograms): 64.09 Height (Feet): 5 Height (Inches): 4 Date Time Temp Pulse Resp B/P (MAP) Pulse Ox O2 Delivery O2 Flow Rate FiO2 08/02/17 12:48 36.9 59 18 132/67 (88) 94 Room Air Physical Exam General Appearance: + thin Respiratory/Chest: Respiratory effort: no dyspnea Cardiovascular: Heart Auscultation: RRR Abdomen: Inspection & Palpation: soft Assessment and Plan Hx of DU for EGD
--- NOTE | 2017-08-02 13:26 | Discharge Instructions ---
Endoscopy Patient Instructions Date / Procedure(s) Performed Aug 02, 2017. EGD Allergy Information Coded Allergies: No Known Allergies (Verified , 08/02/17) Discharge Date / Findings Aug 02, 2017. Healed ulcer Medication Instructions Stopped Medication(s): COUMADIN ASPIRIN Restart Stopped Medication(s): resume meds Reported Home Medications Medications Dose Route/Sig Max Daily Dose Days Date Category Dose Instructions Oxygen Unknown Strength Gas Unknown Dose NA HS 07/21/17 Reported Jantoven (Warfarin Sodium) 2.5 Mg Tab 2.5 Mg PO [id number] 07/21/17 Reported MON,,WED,,MON,SAT Jantoven (Warfarin Sodium) 5 Mg Tab 5 Mg PO Monday07/21/17 Reported Diovan (Valsartan) 160 Mg Tab 160 Mg PO QAM 07/21/17 Reported Tylenol (Acetaminophen) 325 Mg Tab 325 Mg PO Q4-6H PRN 07/21/17 Reported Stool Softener (Sennosides-Docusate Sodium) 1 Tab Tab 1 Tab PO BID 07/21/17 Reported Senokot (Senna) 8.6 Mg Tab 1 Tab PO DAILY PRN 07/21/17 Reported Requip (Ropinirole HCl) 1 Mg Tab 1 Mg PO HS 07/21/17 Reported Preservision Areds (Multiple Vitamins W/ Minerals) 1 Cap Cap 1 Cap PO BID 07/21/17 Reported Protonix (Pantoprazole Sodium) 40 Mg Tab 40 Mg PO BID 07/21/17 Reported Multivitamin (Multivitamins) Tab 1 Tab PO DAILY 07/21/17 Reported Lasix (Furosemide) 20 Mg Tab 20 Mg PO TID 07/21/17 Reported Kp Ferrous Sulfate (Ferrous Sulfate) 325 Mg Tab 1 Tab PO Q2D 07/21/17 Reported Fentanyl 25 Mcg Tdsy 1 Patch TD [id number] 07/21/17 Reported Cymbalta (Duloxetine HCl) 20 Mg Cap 1 Cap PO BID 07/21/17 Reported Tenormin (Atenolol) 25 Mg Tab 25 Mg PO QAM 07/21/17 Reported Prilosec (Omeprazole) 40 Mg Cap 40 Mg PO DAILY 05/27/17 Reported Fentanyl 25 Mcg Tdsy 25 Mcg TOP Q 72HRS 02/01/17 Reported Tylenol (Acetaminophen) 325 Mg Tab 650 Mg PO Q6H PRN 06/30/16 Reported Ocuvite Preservision (Multivitamins/Minerals) 1 Tab Tab 1 Tab PO BID 06/30/16 Reported Neurontin (Gabapentin) 400 Mg Cap 400 Mg PO TID 06/30/16 Reported Aspirin Chewable (Aspirin) 81 Mg Chew 81 Mg PO QAM 06/30/16 Reported Coumadin (Warfarin Sodium) 5 Mg Tab 2.5 Mg PO Q2D 03/05/14 Reported Provider Instructions Activity Restrictions - No exercising or heavy lifting for 24 hours. - Do not drink alcohol the day of the procedure. - Do not drive a car or operate machinery until the day after the procedure. - Do not make any important decisions or sign important papers in 24 hours after the procedure. Following Day: - Return to full activity which may include returning to work/school. Diet Start your diet with liquids and light foods (jello, soup, juice, toast). Then eat your usual diet if not nauseated. Treatment For Common After Affects For mild abdominal pain, bloating, or excessive gas: - Rest - Eat lightly - Lie on right side Follow-Up Information Follow-up with DR. LE as scheduled Anesthesia Information What You Should Know You have had a procedure that required some medicine to reduce anxiety and discomfort. This treatment is called moderate sedation. After receiving the treatment, you may be sleepy, but you will be able to breathe on your own. The effects of the treatment may last for several hours. Follow these instructions along with Activity/Diet recommendations noted above: * Do NOT do anything where dizziness or clumsiness would be dangerous. * Rest quietly at home today, then you can be up and about tomorrow. * Have a responsible person stay with you the rest of today. * You may have had an I.V. today. If so, you may take the dressing off later today. Recommendations Call your doctor if: * Trouble breathing * Continuous vomiting for more than 24 hours * Temperature above 101 degrees * Severe abdominal pain or bloating * Pain not relieved by pain medicine ordered * There is increased drainage or redness from any incision * A large amount of rectal bleeding greater than 2-3 tablespoons. (If you had a polyp/s removed or have hemorrhoids, a small amount of blood - from the rectum is to be expected.) * You have any unanswered questions or concerns. IN THE EVENT OF A SERIOUS EMERGENCY, GO TO THE NEAREST EMERGENCY ROOM Your discharge instructions were prepared by provider Devon Davis. Patient Instructions Signature Page Jamie Morgan Patient (or Guardian) Signature/Date: I have read and understand the instructions given to me by my caregivers. Caregiver/RN/Doctor Signature/Date: The above-named patient and/or guardian has received patient instructions on this date. + Original Patient Signature Page (only) stays with chart. Please make copy for patient.
--- NOTE | 2017-08-02 13:32 | GI REPORT ---
Procedure Date: 08/02/2017 1:18 PM Procedure: Upper GI endoscopy Indications: Follow-up of acute duodenal ulcer Medicines: Propofol total dose 50 mg IV, Lidocaine 60 mg IV Complications: No immediate complications. Estimated Blood Loss: Estimated blood loss: none. Procedure: Pre-Anesthesia Assessment: - Prior to the procedure, a History and Physical was performed, and patient medications, allergies and sensitivities were reviewed. The patient's tolerance of previous anesthesia was reviewed. - The risks and benefits of the procedure and the sedation options and risks were discussed with the patient. All questions were answered and informed consent was obtained. After obtaining informed consent, the endoscope was passed under direct vision. Throughout the procedure, the patient's blood pressure, pulse, and oxygen saturations were monitored continuously. The Scope was introduced through the mouth, and advanced to the third part of duodenum. The upper GI endoscopy was accomplished without difficulty. The patient tolerated the procedure well. Findings: The Z-line was regular and was found 35 cm from the incisors. The entire examined stomach was normal. The duodenal ulcer is healed with a retained clip present. Impression: - Z-line regular, 35 cm from the incisors. - Normal stomach. - No specimens collected. Recommendation: - Discharge patient to home (ambulatory). - Continue present medications. - Return to primary care physician PRN. Devon Davis M.D. Devon Davis MD 08/02/2017 1:32:25 PM This report has been signed electronically. Note Initiated On: 08/02/2017 1:18 PM I attest to the content of the Intraoperative Record and orders documented therein, exceptions below
[2017-08-02 14:01] VITALS: BP 141/67; PULSE 63; O2SAT 92
--- NOTE | 2017-08-02 14:13 | Anesthesiology Progress Note ---
Anesthesia Post Op Note Date & Time Aug 02, 2017 at 14:13 Vital Signs Pain Intensity: 0 Vital Signs Past 12 Hours Date Time Temp Pulse Resp B/P (MAP) Pulse Ox O2 Delivery O2 Flow Rate FiO2 08/02/17 14:01 63 20 141/67 (91) 92 Room Air 08/02/17 13:45 64 18 133/65 (87) 95 Room Air 08/02/17 13:30 64 18 125/56 (79) 98 Room Air 08/02/17 12:48 36.9 59 18 132/67 (88) 94 Room Air Notes Mental Status: alert / awake / arousable, participated in evaluation Pt Amnestic to Procedure: Yes Nausea / Vomiting: adequately controlled Pain: adequately controlled Airway Patency, RR, SpO2: stable & adequate BP & HR: stable & adequate Hydration State: stable & adequate Anesthetic Complications: no major complications apparent
== END | disposition home or self-care (01) ==
LOC: C.GI 12:03
PROVIDERS: ATTEND Internal Medicine Gastroenterology
DX: K26.9 Duodenal ulcer, unspecified as acute or chronic, without hemorrhage or perforation (principal); M19.90 Unspecified osteoarthritis, unspecified site; I10 Essential (primary) hypertension; I77.1 Stricture of artery; J44.9 Chronic obstructive pulmonary disease, unspecified; K21.9 Gastro-esophageal reflux disease without esophagitis; D64.9 Anemia, unspecified; F32.9 Major depressive disorder, single episode, unspecified; Z98.41 Cataract extraction status, right eye; Z98.42 Cataract extraction status, left eye; Z96.612 Presence of left artificial shoulder joint; Z87.81 Personal history of (healed) traumatic fracture; Z87.891 Personal history of nicotine dependence; Z79.82 Long term (current) use of aspirin; Z79.01 Long term (current) use of anticoagulants; Z86.718 Personal history of other venous thrombosis and embolism; Z86.711 Personal history of pulmonary embolism

== ENCOUNTER → 2017-08-04 | Outpatient (CLI) | payer BC ==
[~2017-08-04] MED LIST changes: -ALBINS NEB; +CYM/30 PO; +DRGTP12 TOP; -FURO20TA PO; -GABA-112 PO; +GADAVIST IV PRN; -IPRASOL4 INH; -LIDOCAINE HCL 2% 2 ML VIAL (20MG/ML) ONE; -PROPOFOL IV EMULSION 10 MG/ML 20 ML VIAL IV ONE; -SPRIN/30 INH; -VNTHFA/IN INH
--- NOTE | 2017-08-04 08:51 | DIAGNOSTIC IMAGING REPORT ---
THORACIC SPINE MRI WITH AND WITHOUT CONTRAST HISTORY: THORACIC PAIN TECHNIQUE: Multiplanar multisequence MRI of the thoracic spine was performed both before and after the intravenous administration of contrast. COMPARISON: Thoracic spine 07/18/2017. FINDINGS: Severe compression deformity T12 level which demonstrates prior vertebroplasty. There is moderate anterior wedging within the T11 vertebral body. Mild inferior endplate compression deformity at T9. The T10 vertebral body is completely compressed and fragmented and therefore not well visualized. This is also unchanged. There is edema within the posterior elements of the T10 and T11 vertebral bodies. There is edema throughout the inferior endplate of T9, majority of the T11 vertebral body, and seen within the fragmented and compressed T10 vertebral body. These areas also demonstrate diminished T1 signal and diffuse enhancement. Minimal paravertebral edema and enhancement. There is enhancement seen within the posterior elements of the T10 and T11 vertebral bodies. No definite mass identified. These compression deformities are unchanged compared to 05/27/[address] There is fusion of the T4 and T5 vertebral bodies. These thoracic spinal cord demonstrates a normal signal intensity. The conus terminates at the L1-L2 disc space level. There is epidural enhancement and thickening at the T10 level which completely surrounds the thecal sac and results in moderate central canal narrowing. There is 4 mm of retropulsion of the fragment at T10 vertebral body and 4 mm of retropulsion of the T12 vertebral body. There is also moderate central canal narrowing at the T12 level. Severe bilateral neural foraminal narrowing at T10-T11 and moderate bilateral neural foraminal narrowing at T11-T12. IMPRESSION: 1. Old compression fractures from T9 through T12 which remain unchanged. No acute compression fractures identified. 2. The T10 vertebral body is not well visualized due to the severe compression and fragmentation. This also remains unchanged. 3. Abnormal signal and enhancement within the T9-T11 vertebral bodies and posterior elements as described above. There is also abnormal epidural thickening and enhancement at the T10 level which completely surrounds the thecal sac and results in moderate central canal narrowing. No epidural fluid collections identified. There is also mild paravertebral edema and enhancement at this level. These findings are nonspecific and could represent long-standing reactive change from the old fractures and abnormal movement in the setting of a pseudoarthrosis at T10. However, a discitis/osteomyelitis could also have a similar appearance in the appropriate clinical setting. Therefore, clinical correlation recommended. 4. Moderate central canal narrowing at the T10 and T12 levels. 5. These findings were called/faxed to the referring physician's office following dictation. Electronically signed by: Jose Wallace M.D. 08/04/2017 8:49 AM Dictated Date/Time: 08/04/2017 8:30 AM
== END | disposition home or self-care (01) ==
LOC: C.MRIBC 06:44
PROVIDERS: ATTEND Physician Assistant
DX: M54.14 Radiculopathy, thoracic region (principal)

== ENCOUNTER → 2017-08-11 | Outpatient (CLI) | payer BC ==
[~2017-08-11] MED LIST changes: -GADAVIST IV PRN
[2017-08-11 13:13] LABS: BASO % 1.1 %; BASO ABS # 0.06 K/uL (0-0.2); EOS % 3.9 %; EOS ABS # 0.22 K/uL (0-0.5); HEMATOCRIT 36.5 % (42-52); HEMOGLOBIN 11.8 g/dL (14.0-18.0); IG# 0.01 K/uL (0.00-0.02); LYMPH % 27.3 %; LYMPH ABS # 1.52 K/uL (1.2-3.4); MEAN CELL VOLUME 90.1 fL (80-100); MEAN CORPUSCULAR HEMOGLOBIN 29.1 pg (25-34); MEAN CORPUSCULAR HGB CONC 32.3 g/dl (32-36); MEAN PLATELET VOLUME 8.6 fL (7.4-10.4); MONO % 11.8 %; MONO ABS # 0.66 K/uL (0.11-0.59); NEUT % 55.7 %; PLATELET COUNT 379 K/uL (130-400); RED CELL DISTRIBUTION WIDTH CV 14.2 % (11.5-14.5); WHITE BLOOD COUNT 5.57 K/uL (4.8-10.8)
== END | disposition home or self-care (01) ==
LOC: C.LABBC 09:37
PROVIDERS: ATTEND Physician Assistant
DX: M46.24 Osteomyelitis of vertebra, thoracic region (principal); M46.44 Discitis, unspecified, thoracic region

== ENCOUNTER → 2017-08-17 | Outpatient (CLI) | payer BC ==
[~2017-08-17] MED LIST changes: -CYM/30 PO; -DRGTP12 TOP; -DRGTP25 TD; -FNTTP25 TOP; -WARF5TAB90 PO
--- NOTE | 2017-08-17 11:20 | DIAGNOSTIC IMAGING REPORT ---
CHEST 2 VIEWS ROUTINE CLINICAL HISTORY: R/O PNEUMOTHORAX nerve block. Chest pain. COMPARISON STUDY: 05/28/2017 FINDINGS: Mild stable cardiomegaly. Tortuous thoracic aorta unchanged. Lungs are clear. No evidence for pneumothorax. Prior low thoracic vertebroplasty. Degenerative change of the thoracic spine. Left shoulder arthroplasty. IMPRESSION: No evidence for pneumothorax. Chronic and postoperative change. The above report was generated using voice recognition software. It may contain grammatical, syntax or spelling errors. Electronically signed by: Gilberto Spencer M.D. 08/17/2017 11:18 AM Dictated Date/Time: 08/17/2017 11:17 AM
--- NOTE | 2017-08-17 12:02 | Pain Clinic Procedure Note ---
Pain Management Procedure Note Procedure Date Aug 17, 2017. Procedure Description Procedure Time Out: side/site verified, patient ID confirmed, correct procedure Consent Obtained: written Performed By: Dr. Rodriguez Indications: diagnostic Contraindications: none ASA Class: 4 Description: INTERCOSTAL NERVE BLOCK Diagnosis: Intercostal neuralgia. Side/Level injected: Right T10, T11 and T12 intercostal nerves Surgeon: Dr. Rodriguez Prior to starting, the Patients diagnosis and the procedure were reviewed with the patient in detail. Possible risks and complications including infection, bleeding, damage to surrounding structures and increased pain were discussed. Alternative therapies were also reviewed. Patients questions were answered and they agreed to proceed. Informed consent was obtained. Allergies and medication list was reviewed. The patient was brought to the procedure room and placed in left lateral decubitus position. Immediately prior to starting the procedure, a ``time out was conducted with the staff and the patient where the patient was identified , proposed procedure was verified, consent was reviewed and the proper site for the planned procedure was identified. Monitors used included intermittent blood pressure with automated device, continuous pulse oximetry and level of consciousness. Patient was not given any intravenous sedation and constant verbal contact was maintained throughout the procedure. Biplanar fluoroscopy was used to assist in placement of the needle as well as to evaluate final needle position prior to the injection. On examination, no signs of skin breakdown or infection were noted at the injection site. The site was cleansed with DuraPrep followed by Betadine. Sterile drapes were applied. Next, appropriate rib on the appropriate side identified under fluoroscopy to true AP view. Skin was infiltrated with 0.5 mL of 1% Xylocaine MPF. A 25 gauge , 1.5 needle was introduced through the anesthetized area and placed at the inferior edge of the rib. C-arm was lateral view and the needle was then `` walked off the inferior margin of the rib into the neurovascular bundle. No blood, paresthesia or air was aspirated upon removed the stylette. 2.5 ml of 0.5% bupivacaine MPF containing 10 milligrams of Kenalog was injected. Needle was flushed with additional local anesthetic and withdrawn. Hemostasis was noted. Band-Aids were applied at the site. Using same technique, additional levels were injected. Chest x-ray was obtained to evaluate for any hemo or pneumothorax. Patient tolerated the procedure uneventfully without complications. Patient was brought to recovery area and observed. Vital signs were stable prior to discharge. 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 Complications: none Patient Tolerated Procedure: well Post-procedure Vital Signs: reviewed and stable Discharge Instructions: reviewed & understood Comments: Prior to proceeding, potential risks including infection, bleeding, nerve injury , failure to relieve symptoms, possible diagnostic nature of the procedure as well as possibility of pneumo or hemothorax were discussed with the patient. Patient was informed that if he experiences hemopneumothorax, he may require additional procedure such as a chest tube placement and hospitalization. Patient's questions were answered and they voiced understanding. Patient gave informed consent to proceed. Postprocedure x-ray did not reveal any edema or pneumothorax.
== END | disposition home or self-care (01) ==
LOC: C.RADBC 10:31
PROVIDERS: ATTEND Anesthesiology
DX: J93.9 Pneumothorax, unspecified (principal); Z98.890 Other specified postprocedural states

== ENCOUNTER → 2017-08-17 | Outpatient (CLI) | payer BC | END | disposition home or self-care (01) | LOC: C.LAB1850 09:49 | PROVIDERS: ATTEND Anesthesiology | DX: Z01.812 Encounter for preprocedural laboratory examination (principal) ==

== ENCOUNTER → 2017-08-29 | Outpatient (CLI) | payer BC ==
--- NOTE | 2017-08-29 16:23 | DIAGNOSTIC IMAGING REPORT ---
THORACIC SPINE 3 VIEWS ROUTINE CLINICAL HISTORY: AGE-RELATED OSTEOPOROSIS COMPARISON STUDY: July 18, 2017 FINDINGS: The bones are osteoporotic. There is a severe T12 compression fracture status post vertebroplasty. There is slight progression in the moderate wedge compression deformity of the T11 vertebral body. The T10 vertebral body is flattened. IMPRESSION: 1. Osteoporosis 2. Severe T10 and T12 compression fractures 3. Slight progression in the moderate T11 wedge-shaped compression deformity Electronically signed by: Darwin Ulloa M.D. 08/29/2017 4:22 PM Dictated Date/Time: 08/29/2017 4:19 PM
== END | disposition home or self-care (01) ==
LOC: C.RADBC 15:41
PROVIDERS: ATTEND Physician Assistant Surgical
DX: M80.08XA Age-related osteoporosis with current pathological fracture, vertebra(e), initial encounter for fracture (principal)

== ENCOUNTER 2017-09-21 10:49 | Emergency (ER) | payer BC ==
[~2017-09-21] VITALS: Ht 152.4 cm; Wt 64.5 kg
[2017-09-21 10:50] VITALS: Ht 152.4 cm; Wt 64.5 kg
[2017-09-21] MEDS ORDERED: SODIUM CHLORIDE 0.9% 1000ML 1,000 ML IV STA (11:12)
[2017-09-21] MEDS ORDERED: OPTIRAY 320 IV PRN (11:30)
[2017-09-21 11:33] LABS: BASO % 0.6 %; BASO ABS # 0.03 K/uL (0-0.2); EOS % 1.4 %; EOS ABS # 0.07 K/uL (0-0.5); HEMATOCRIT 35.6 % (42-52); HEMOGLOBIN 12.2 g/dL (14.0-18.0); IG# 0.01 K/uL (0.00-0.02); LYMPH % 25.8 %; LYMPH ABS # 1.28 K/uL (1.2-3.4); MEAN CELL VOLUME 86.4 fL (80-100); MEAN CORPUSCULAR HEMOGLOBIN 29.6 pg (25-34); MEAN CORPUSCULAR HGB CONC 34.3 g/dl (32-36); MEAN PLATELET VOLUME 7.9 fL (7.4-10.4); MONO % 13.3 %; MONO ABS # 0.66 K/uL (0.11-0.59); NEUT % 58.7 %; NEUT ABS # 2.92 K/uL (1.4-6.5); PLATELET COUNT 197 K/uL (130-400); RED CELL DISTRIBUTION WIDTH CV 15.5 % (11.5-14.5); RED CELL DISTRIBUTION WIDTH SD 49.4 fL (36.4-46.3); WHITE BLOOD COUNT 4.97 K/uL (4.8-10.8)
[2017-09-21 11:34] VITALS: O2SAT 92
[2017-09-21 11:44] LABS: INR 2.5 (0.9-1.1); PTT PATIENT 34.8 SECONDS (21.0-31.0)
[2017-09-21 11:51] LABS: ALBUMIN 3.5 gm/dl (3.4-5.0); ALKALINE PHOSPHATASE 87 U/L (45-117); ALT/SGPT 21 U/L (12-78); AST/SGOT 28 U/L (15-37); BLOOD UREA NITROGEN 20 mg/dl (7-18); CALCIUM 8.7 mg/dl (8.5-10.1); CARBON DIOXIDE 27 mmol/L (21-32); CREATININE 0.92 mg/dl (0.60-1.40); GLUCOSE 87 mg/dl (70-99); POTASSIUM 4.4 mmol/L (3.5-5.1); SODIUM 128 mmol/L (136-145); TOTAL PROTEIN 6.9 gm/dl (6.4-8.2)
[2017-09-21] MEDS ORDERED: ONDA4TAB46 PO (12:06)
[2017-09-21] MEDS ORDERED: [UNRECOGNIZED DRUG - CODE] PO (12:06)
[2017-09-21] MEDS ORDERED: OXYC-57 PO (12:06)
--- NOTE | 2017-09-21 12:23 | DIAGNOSTIC IMAGING REPORT ---
CHEST ONE VIEW PORTABLE CLINICAL HISTORY: 87 years-old Male presenting with EVALUATE FOR TRAUMA/INJURY. TECHNIQUE: Portable upright AP view of the chest was obtained. COMPARISON: 08/17/2017. FINDINGS: Atherosclerosis of the aortic arch. Tortuosity and prominence of the thoracic aorta. Cardiac silhouette top normal in size. Mildly low lung volumes. No focal opacity. Trace bilateral pleural effusions may be present. No pneumothorax. Deformity of the posterior superior lateral aspect of the right humeral head could suggest prior Hill-Sachs impaction fracture. Reverse total left shoulder arthroplasty. Osteopenia suspected. Post procedure changes of kyphoplasty in the thoracic spine. Upper abdomen normal. IMPRESSION: 1. Mildly low lung volumes with possible trace bilateral pleural effusions. No other evidence of acute cardiopulmonary disease. Electronically signed by: Jm Dejesus M.D. 09/21/2017 11:50 AM Dictated Date/Time: 09/21/2017 11:48 AM
--- NOTE | 2017-09-21 12:33 | DIAGNOSTIC IMAGING REPORT ---
CT SCAN OF THE BRAIN WITHOUT IV CONTRAST CLINICAL HISTORY: Trauma. COMPARISON STUDY: CT of the brain dated 08/14/2016. TECHNIQUE: Unenhanced axial CT scan of the brain is performed from the vertex to the skull base. A dose lowering technique was utilized adhering to the principles of ALARA. FINDINGS: Brain parenchyma: There are age-related involutional changes noting moderate confluent subcortical and periventricular microangiopathic change. There is no hemorrhage, mass effect, or evidence of acute territorial ischemia by CT criteria. Lau-white matter is preserved. No extra-axial fluid collection is seen. Ventricles, sulci, cisterns: Prominent secondary to involutional change. Intracranial vasculature: There is atherosclerotic calcification of the cavernous carotid and vertebral arteries. Calvarium: The skeletal structures are osteopenic. No depressed calvarial fracture is identified. Sinuses and mastoids: Calcified secretions are present within the left sphenoid sinus. The remaining visualized paranasal sinuses are clear. The mastoid air cells are well pneumatized. Orbits: The bony orbits are grossly intact. There are bilateral ocular lens implants. IMPRESSION: Senescent changes as above with no hemorrhage, mass effect, or evidence of acute territorial ischemia by CT criteria. Electronically signed by: Braulio Xavier M.D. 09/21/2017 12:32 PM Dictated Date/Time: 09/21/2017 12:29 PM
--- NOTE | 2017-09-21 12:38 | DIAGNOSTIC IMAGING REPORT ---
CERVICAL SPINE W/O CT DOSE: 1122.97 mGy.cm CLINICAL HISTORY: 87 years-old Male with EVALUATE FOR TRAUMA/INJURY. Acute neck injury status post fall COMPARISON: CT head of same day TECHNIQUE: Multiple axial CT images of the cervical spine were obtained without contrast. A dose lowering technique was utilized adhering to the principles of ALARA. FINDINGS: Mastoid air cells and middle ear cavities are clear. The bones appear demineralized. Severe multilevel intervertebral disc space narrowing and facet arthrosis with prominent multilevel endplate spurring and posterior disc osteophyte complex formations. 2 mm anterolisthesis C5 on C6 and 3 mm anterolisthesis C6 on C7 is likely secondary to long-standing facet disease. No definite acute fracture or subluxation is identified. Evaluation of the central canal and neuroforamen is better assessed by MRI. Multilevel foraminal narrowing is noted without definite high-grade central canal stenosis. Moderate atherosclerosis of the thoracic aorta with plaquing of the bilateral carotid bulbs. No pneumothorax identified. Biapical pleural-parenchymal scarring of the lung apices. Soft tissues are unremarkable. IMPRESSION: No acute cervical spine fracture or subluxation. The above report was generated using voice recognition software. It may contain grammatical, syntax or spelling errors. Electronically signed by: Burak Trujillo M.D. 09/21/2017 12:37 PM Dictated Date/Time: 09/21/2017 12:31 PM
--- NOTE | 2017-09-21 12:40 | DIAGNOSTIC IMAGING REPORT ---
CT (CHEST) THORAX WITH CLINICAL HISTORY: 87 years-old Male presenting with fall severe L sided chest pain, fell backwards with head trauma, 10 out of 10 left rib pain, on Coumadin. TECHNIQUE: Multidetector CT imaging of the chest was performed after the administration of intravenous contrast. IV contrast: 118 mL of Optiray 320. A dose lowering technique was used consistent with the principles of ALARA (as low as reasonably achievable). COMPARISON: 09/11/2014. CT DOSE (mGy.cm): The estimated cumulative dose is 1122.97. FINDINGS: Radio Division Officer topogram: Cardiomegaly. Reverse left total shoulder arthroplasty. On soft tissue windows, normal thyroid and thoracic inlet. No axillary, supraclavicular, hilar, or mediastinal lymphadenopathy. Atherosclerosis of the aorta. Tortuosity of cervical vessels could suggest chronic hypertension. Mild multichamber enlargement of the heart. Coronary artery and aortic valve calcification. No pericardial or pleural effusion. Hyperenhancing focus in the periphery of the left hepatic lobe likely flash filling hemangioma. On lung windows, extensive dependent changes likely atelectasis. Mosaic attenuation at the lung apices suggest small airways disease. Scattered linear and bandlike opacities likely atelectasis or scarring. Pleural parenchymal scarring at the apices is unchanged. Respiratory motion artifact slightly limits evaluation of lung parenchyma. Mild bronchial wall thickening. Central airways patent. On bone windows, degenerative changes of the spine. Interval kyphoplasty changes of T12. Additionally, interval development of a transversely oriented fracture of T11 extending from the anterior cortex to the superior endplate. This is accompanied by smooth sclerosis along the fracture plane suggesting chronic deformity. Anterior vertebral body height loss at this level. Reverse left total shoulder arthroplasty. Degenerative changes of the right glenohumeral joint. No evidence of a rib fracture. Chronic fracture of the left acromion process. IMPRESSION: 1. Atelectasis and extensive pleural-parenchymal scarring. 2. No displaced left rib fracture. 3. Chronic fracture of the left acromion process. 4. Interval kyphoplasty changes of T12. 5. Transversely oriented fracture of T11 with anterior vertebral body height loss. This fracture may also be chronic. Noncontrast MR of the thoracic spine could help to characterize the chronicity if clinically indicated. Electronically signed by: Jm Dejesus M.D. 09/21/2017 12:39 PM Dictated Date/Time: 09/21/2017 12:30 PM
[2017-09-21] MEDS ORDERED: MoRPHine SULFATE 4 MG/ML 1 ML CARP\\VIAL IV STA (12:52)
[2017-09-21] MEDS ORDERED: OXYC1TAB3 PO (13:49)
[2017-09-21 14:11] VITALS: BP 138/71; PULSE 70; TEMP 36.4; O2SAT 92
--- NOTE | 2017-09-21 16:56 | EMERGENCY ROOM VISIT NOTE ---
History Report prepared by Wade: Bertha Morrissey Under the Supervision of: Dr. Yo Mendez D.O. First contact with patient: 11:04 Chief Complaint: FALL Stated Complaint: 5 History of Present Illness The patient is an 87 year old male who presents to the Emergency Room with complaints of constant pain in his left side that began following a falling episode that occurred last night. The patient states that he was closing his blinds and tried to walk backwards with the help of his walker. He suffered a mechanical fall and fell down onto his side. He now has pain in his left side of his chest. The patient denies any back pain or head pain, but he did hit his head. The patient notes that he does have some pain in his neck, but this is still present from a fall that occurred 1 week ago. The patient also "slid out of his chair" this morning, but this did not cause any injuries. The patient is on blood thinners for a history of DVT and pulmonary emboli. The patient does live alone, and notes that he wants to go back home if he can be discharged today. Source of History: patient Onset: Last night Position: abdomen (Left ribs) Quality: other (Trauma from a fall) Timing: constant Associated Symptoms: + neck pain (chronic), No headache, No back pain Review of Systems See HPI for pertinent positives & negatives. A total of 10 systems reviewed and were otherwise negative. Past Medical & Surgical Medical Problems: (1) Asthma (2) COPD (chronic obstructive pulmonary disease) (3) DVT (deep venous thrombosis) (4) Heart disease (5) Hypertension (6) Pulmonary embolism Surgical Problems: (1) H/O shoulder surgery Family History Cancer FH: heart disease Hypertension Social History Smoking Status: Former Smoker Alcohol Use: occasionally Drug Use: none Marital Status: Housing Status: lives alone Occupation Status: retired Current/Historical Medications Scheduled Aspirin (Aspirin Chewable), 81 MG PO QAM Atenolol (Tenormin), 25 MG PO QAM Docusate Sodium (Dss), 100 MG PO BID Duloxetine HCl (Cymbalta), 1 CAP PO BID Ferrous Sulfate (Kp Ferrous Sulfate), 1 TAB PO Q2D Furosemide (Lasix), 20 MG PO TID Gabapentin (Neurontin), 400 MG PO TID Home O2 Therapy (Oxygen), Unknown Dose NA HS Multiple Vitamins W/ Minerals (Preservision Areds), 1 CAP PO BID Multivitamin (Multivitamin), 1 TAB PO DAILY Pantoprazole (Protonix), 40 MG PO BID Ropinirole (Requip), 1 MG PO HS Valsartan (Diovan), 160 MG PO QAM Warfarin Sod (Jantoven), 5 MG PO 6XWK Warfarin Sod (Jantoven), 2.5 MG PO WK Scheduled PRN Acetaminophen (Tylenol), 325 MG PO Q4-6H PRN for Pain Acetaminophen Tab (Tylenol), 650 MG PO Q6H PRN for Pain Ondansetron Hcl (Zofran), 4 MG PO Q6 PRN for Nausea Oxycodone Immediate Rel Tab (Roxicodone Ir), 5 MG PO Q6H PRN for Pain Oxycodone/Acetaminophen 5MG/325MG (Percocet 5MG/325MG), 1-2 TABLETS PO 4-6HOURS PRN for Pain Allergies Coded Allergies: No Known Allergies (Verified , 09/21/17) Physical Exam Vital Signs Date Time Temp Pulse Resp B/P (MAP) Pulse Ox O2 Delivery O2 Flow Rate FiO2 09/21/17 14:11 36.4 70 17 138/71 92 09/21/17 14:00 138/71 09/21/17 13:49 70 17 92 09/21/17 13:30 156/72 09/21/17 13:22 145/71 09/21/17 13:19 64 19 93 09/21/17 12:55 62 09/21/17 12:41 180/88 09/21/17 12:40 60 18 180/88 97 Room Air 09/21/17 11:34 92 Room Air 09/21/17 10:50 36.4 58 18 156/82 96 Room Air Physical Exam GENERAL: alert, well appearing, well nourished, no distress, non-toxic HEAD: normal cephalic, atraumatic EYE EXAM: normal conjunctiva, PERRL and EOM's grossly intact OROPHARYNX: no exudate, no erythema, lips, buccal mucosa, and tongue normal and mucous membranes are moist EARS: TMs clear b/l NECK: supple, no nuchal rigidity, no adenopathy, non-tender CHEST: stable to compression anteriorly and posteriorly. Left rib pain from rib 3 to 7, tracking to left flank. LUNGS: clear to auscultation. Normal chest wall mechanics HEART: no murmurs, S1 normal and S2 normal ABDOMEN: abdomen soft, non-tender, normo-active bowel sounds, no masses, no rebound or guarding. PELVIS: stable to compression anteriorly and posteriorly BACK: Back is symmetrical on inspection and there is no deformity, no new midline tenderness, no CVA tenderness. UPPER EXTREMITIES: full active and passive range of motion of all joints without tenderness to palpation LOWER EXTREMITIES: full active and passive range of motion of all joints without tenderness to palpation NEURO EXAM: Normal sensorium, cranial nerves II-XII grossly intact, normal speech, no gross weakness of arms, no gross weakness of legs. GCS: 15. Medical Decision & Procedures ER Provider Diagnostic Interpretation: Radiology results as stated below per my review and the radiologist's interpretation: CERVICAL SPINE W/O CT DOSE: 1122.97 mGy.cm CLINICAL HISTORY: 87 years-old Male with EVALUATE FOR TRAUMA/INJURY. Acute neck injury status post fall COMPARISON: CT head of same day TECHNIQUE: Multiple axial CT images of the cervical spine were obtained without contrast. A dose lowering technique was utilized adhering to the principles of ALARA. FINDINGS: Mastoid air cells and middle ear cavities are clear. The bones appear demineralized. Severe multilevel intervertebral disc space narrowing and facet arthrosis with prominent multilevel endplate spurring and posterior disc osteophyte complex formations. 2 mm anterolisthesis C5 on C6 and 3 mm anterolisthesis C6 on C7 is likely secondary to long-standing facet disease. No definite acute fracture or subluxation is identified. Evaluation of the central canal and neuroforamen is better assessed by MRI. Multilevel foraminal narrowing is noted without definite high-grade central canal stenosis. Moderate atherosclerosis of the thoracic aorta with plaquing of the bilateral carotid bulbs. No pneumothorax identified. Biapical pleural-parenchymal scarring of the lung apices. Soft tissues are unremarkable. IMPRESSION: No acute cervical spine fracture or subluxation. The above report was generated using voice recognition software. It may contain grammatical, syntax or spelling errors. Electronically signed by: Burak Trujillo M.D. 09/21/2017 12:37 PM Dictated Date/Time: 09/21/2017 12:[address] (CHEST) THORAX WITH CLINICAL HISTORY: 87 years-old Male presenting with fall severe L sided chest pain, fell backwards with head trauma, 10 out of 10 left rib pain, on Coumadin. TECHNIQUE: Multidetector CT imaging of the chest was performed after the administration of intravenous contrast. IV contrast: 118 mL of Optiray 320. A dose lowering technique was used consistent with the principles of ALARA (as low as reasonably achievable). COMPARISON: 09/11/2014. CT DOSE (mGy.cm): The estimated cumulative dose is 1122.97. FINDINGS: Pathology Supervisor topogram: Cardiomegaly. Reverse left total shoulder arthroplasty. On soft tissue windows, normal thyroid and thoracic inlet. No axillary, supraclavicular, hilar, or mediastinal lymphadenopathy. Atherosclerosis of the aorta. Tortuosity of cervical vessels could suggest chronic hypertension. Mild multichamber enlargement of the heart. Coronary artery and aortic valve calcification. No pericardial or pleural effusion. Hyperenhancing focus in the periphery of the left hepatic lobe likely flash filling hemangioma. On lung windows, extensive dependent changes likely atelectasis. Mosaic attenuation at the lung apices suggest small airways disease. Scattered linear and bandlike opacities likely atelectasis or scarring. Pleural parenchymal scarring at the apices is unchanged. Respiratory motion artifact slightly limits evaluation of lung parenchyma. Mild bronchial wall thickening. Central airways patent. On bone windows, degenerative changes of the spine. Interval kyphoplasty changes of T12. Additionally, interval development of a transversely oriented fracture of T11 extending from the anterior cortex to the superior endplate. This is accompanied by smooth sclerosis along the fracture plane suggesting chronic deformity. Anterior vertebral body height loss at this level. Reverse left total shoulder arthroplasty. Degenerative changes of the right glenohumeral joint. No evidence of a rib fracture. Chronic fracture of the left acromion process. IMPRESSION: 1. Atelectasis and extensive pleural-parenchymal scarring. 2. No displaced left rib fracture. 3. Chronic fracture of the left acromion process. 4. Interval kyphoplasty changes of T12. 5. Transversely oriented fracture of T11 with anterior vertebral body height loss. This fracture may also be chronic. Noncontrast MR of the thoracic spine could help to characterize the chronicity if clinically indicated. Electronically signed by: Jm Dejesus M.D. 09/21/2017 12:39 PM Dictated Date/Time: 09/21/2017 12:30 PM . CHEST ONE VIEW PORTABLE CLINICAL HISTORY: 87 years-old Male presenting with EVALUATE FOR TRAUMA/INJURY. TECHNIQUE: Portable upright AP view of the chest was obtained. COMPARISON: 08/17/2017. FINDINGS: Atherosclerosis of the aortic arch. Tortuosity and prominence of the thoracic aorta. Cardiac silhouette top normal in size. Mildly low lung volumes. No focal opacity. Trace bilateral pleural effusions may be present. No pneumothorax. Deformity of the posterior superior lateral aspect of the right humeral head could suggest prior Hill-Sachs impaction fracture. Reverse total left shoulder arthroplasty. Osteopenia suspected. Post procedure changes of kyphoplasty in the thoracic spine. Upper abdomen normal. IMPRESSION: 1. Mildly low lung volumes with possible trace bilateral pleural effusions. No other evidence of acute cardiopulmonary disease. Electronically signed by: Jm Dejesus M.D. 09/21/2017 11:50 AM Dictated Date/Time: 09/21/2017 11:[address] SCAN OF THE BRAIN WITHOUT IV CONTRAST CLINICAL HISTORY: Trauma. COMPARISON STUDY: CT of the brain dated 08/14/2016. TECHNIQUE: Unenhanced axial CT scan of the brain is performed from the vertex to the skull base. A dose lowering technique was utilized adhering to the principles of ALARA. FINDINGS: Brain parenchyma: There are age-related involutional changes noting moderate confluent subcortical and periventricular microangiopathic change. There is no hemorrhage, mass effect, or evidence of acute territorial ischemia by CT criteria. Lau-white matter is preserved. No extra-axial fluid collection is seen. Ventricles, sulci, cisterns: Prominent secondary to involutional change. Intracranial vasculature: There is atherosclerotic calcification of the cavernous carotid and vertebral arteries. Calvarium: The skeletal structures are osteopenic. No depressed calvarial fracture is identified. Sinuses and mastoids: Calcified secretions are present within the left sphenoid sinus. The remaining visualized paranasal sinuses are clear. The mastoid air cells are well pneumatized. Orbits: The bony orbits are grossly intact. There are bilateral ocular lens implants. IMPRESSION: Senescent changes as above with no hemorrhage, mass effect, or evidence of acute territorial ischemia by CT criteria. Electronically signed by: Braulio Xavier M.D. 09/21/2017 12:32 PM Dictated Date/Time: 09/21/2017 12:29 PM Laboratory Results 09/21/17 11:20 Red Blood Count 4.12, Mean Corpuscular Volume 86.4, Mean Corpuscular Hemoglobin 29.6, Mean Corpuscular Hemoglobin Concent 34.3, Mean Platelet Volume 7.9, Neutrophils (%) (Auto) 58.7, Lymphocytes (%) (Auto) 25.8, Monocytes (%) (Auto) 13.3, Eosinophils (%) (Auto) 1.4, Basophils (%) (Auto) 0.6, Neutrophils # (Auto ) 2.92, Lymphocytes # (Auto) 1.28, Monocytes # (Auto) 0.66, Eosinophils # (Auto ) 0.07, Basophils # (Auto) 0.03 09/21/17 11:20 Test 09/21/17 11:20 09/21/17 12:40 White Blood Count 4.97 K/uL (4.8-10.8) Red Blood Count 4.12 M/uL (4.7-6.1) Hemoglobin 12.2 g/dL (14.0-18.0) Hematocrit 35.6 % (42-52) Mean Corpuscular Volume 86.4 fL (80-100) Mean Corpuscular Hemoglobin 29.6 pg (25-34) Mean Corpuscular Hemoglobin Concent 34.3 g/dl (32-36) Platelet Count 197 K/uL (130-400) Mean Platelet Volume 7.9 fL (7.4-10.4) Neutrophils (%) (Auto) 58.7 % Lymphocytes (%) (Auto) 25.8 % Monocytes (%) (Auto) 13.3 % Eosinophils (%) (Auto) 1.4 % Basophils (%) (Auto) 0.6 % Neutrophils # (Auto) 2.92 K/uL (1.4-6.5) Lymphocytes # (Auto) 1.28 K/uL (1.2-3.4) Monocytes # (Auto) 0.66 K/uL (0.11-0.59) Eosinophils # (Auto) 0.07 K/uL (0-0.5) Basophils # (Auto) 0.03 K/uL (0-0.2) RDW Standard Deviation 49.4 fL (36.4-46.3) RDW Coefficient of Variation 15.5 % (11.5-14.5) Immature Granulocyte % (Auto) 0.2 % Immature Granulocyte # (Auto) 0.01 K/uL (0.00-0.02) Prothrombin Time 25.9 SECONDS (9.0-12.0) Prothromb Time International Ratio 2.5 (0.9-1.1) Activated Partial Thromboplast Time 34.8 SECONDS (21.0-31.0) Partial Thromboplastin Ratio 1.3 Anion Gap 3.0 mmol/L (3-11) Est Creatinine Clear Calc Drug Dose 44.6 ml/min Estimated GFR () 86.4 Estimated GFR (Non- 74.5 BUN/Creatinine Ratio 22.1 (10-20) Calcium Level 8.7 mg/dl (8.5-10.1) Total Bilirubin 0.5 mg/dl (0.2-1) Direct Bilirubin 0.2 mg/dl (0-0.2) Aspartate Amino Transf (AST/SGOT) 28 U/L (15-37) Alanine Aminotransferase (ALT/SGPT) 21 U/L (12-78) Alkaline Phosphatase 87 U/L (45-117) Troponin I < 0.015 ng/ml (0-0.045) Total Protein 6.9 gm/dl (6.4-8.2) Albumin 3.5 gm/dl (3.4-5.0) Urine Color YELLOW Urine Appearance CLEAR (CLEAR) Urine pH 6.0 (4.5-7.5) Urine Specific [place] 1.022 (1.000-1.030) Urine Protein NEG (NEG) Urine Glucose (UA) NEG (NEG) Urine Ketones NEG (NEG) Urine Occult Blood TRACE (NEG) Urine Nitrite NEG (NEG) Urine Bilirubin NEG (NEG) Urine Urobilinogen NEG (NEG) Urine Leukocyte Esterase NEG (NEG) Urine WBC (Auto) 1-5 /hpf (0-5) Urine RBC (Auto) 10-30 /hpf (0-4) Urine Hyaline Casts (Auto) 0 /lpf (0-5) Urine Epithelial Cells (Auto) 0-5 /lpf (0-5) Urine Bacteria (Auto) NEG (NEG) Laboratory results per my review. Medications Administered Medications (Trade) Dose Ordered Sig/[place] Route Start Time Stop Time Status Last Admin Dose Admin Sodium Chloride 1,000 ml @ 999 mls/hr Q1H1M STAT IV 09/21/17 11:12 4/12/18 12:12 DC 09/21/17 12:46 999 MLS/HR Morphine Sulfate (MoRPHine SULFATE INJ) 4 mg NOW STAT IV 09/21/17 12:52 09/21/17 12:53 DC 09/21/17 13:00 4 MG ECG Per My Interpretation Indication: other (recurrent fall) Rate (beats per minute): 53 Rhythm: sinus rhythm Findings: 1st degree AV block, T-wave inversion (Leads 3), other (No PVCs) ED Course ED COURSE: Vital signs were reviewed and showed hypertensive vitals The patients medical record was reviewed The above diagnostic studies were performed and reviewed. ED treatments and interventions as stated above. 1106: The patient was evaluated in room C6. A complete history and physical examination was performed. 1112: Ordered Sodium Chloride 1000 mL @ 999 mL/hr IV. 1252: Ordered Morphine Sulfate 4 mg IV. 1406: I discussed the case with Dr. Perry - Orthopedics. He states that he will see the patient in the office tomorrow morning at 0830. He suggest discharging home with a brace. 1412: Upon reevaluation, the patient is resting in bed.I discussed my findings with the patient and he understands and agrees with the treatment plan. Based on the patients age, coexisting illnesses, exam and lab findings the decision to treat as an outpatient was made. The patient remained stable while under my care. The patient appeared well at the time of discharge. Medical Decision Differential diagnoses include major intracranial, cervical, spinal, thoracic, abdominal, pelvic and neurologic injury. Fracture, contusion, sprain, strain, laceration, abrasions included as well. Patient is an 87-year-old male who presents the ER following a mechanical fall. He fell and hit his left side. He denies loss consciousness. He has had no headache or neck pain. Does take blood thinners. Labs were obtained and CBC and BMP along with LFTs, bilirubin and troponin were unremarkable with the exception of mild hyponatremia at 128. INR therapeutic at 2.5. UA was negative. Patient was given IV fluids. He was given IV morphine for pain along his left chest wall which was reproducible. CT of the chest showed no rib fractures but a questionable recent chronic T11 fracture. Reviewed with Dr. Perry who has his spinal surgeon previously had operated on T12. He recommended if the patient is comfortable he will see him tomorrow at 820 in the morning. Patient requests to go home and notes that he does not want to stay. I did feel this was reasonable. With his mild hypernatremia and questionable acute T11 fracture with him being neurologically intact he was discharged per his request. He was given OxyIR. Discussed with Pt concerning signs and symptoms to watch out for. Pt was instructed to follow up with their PCP and discussed with the patient their option to return to the ED at anytime for persistent or worsening symptoms. The appropriate anticipatory guidance and out-patient management, including indications for return to the emergency department, were explained at length to the patient and understood. Medication Reconcilliation Current Medication List: was personally reviewed by me Blood Pressure Screening Patient's blood pressure: Elevated blood pressure Blood pressure disposition: Elevated BP felt to be situational Consults Time Called: 1400 Consulting Physician: Dr. Vicky Garzon Orthopedically Returned Call: 1406 I discussed the case with Dr. Vicky Diaz. He states that he will see the patient in the office tomorrow morning at 0830. He suggest discharging home with a brace. Impression Primary Impression: Thoracic spine fracture Additional Impressions: Fall Anemia Scribe Attestation The scribe's documentation has been prepared under my direction and personally reviewed by me in its entirety. I confirm that the note above accurately reflects all work, treatment, procedures, and medical decision making performed by me. Departure Information Dispostion Home / Self-Care Prescriptions Oxycodone Immediate Rel Tab (ROXICODONE IR) 5 Mg Tab 5 MG PO Q6H Y for Pain, #10 TAB Prov: Yo Mendez, 09/21/17 Referrals Jefe Merritt M.D. (PCP) Forms HOME CARE DOCUMENTATION FORM, IMPORTANT VISIT INFORMATION Patient Instructions My [facility] Additional Instructions Please follow up with your primary care doctor with in the next 24 hours. Any worsening of your symptoms, please return to the ED immediately. This includes any fevers greater than 100.4, worsening pain, chest pain, shortness breath, weakness or numbness in the legs, persistent nausea, vomiting, unable to eat or drink, or any other concerning signs or symptoms from your standpoint. You were given medications during this visit that will inhibit your ability to drive, operate machinery and work. Please do NOT drive, operate machinery or work for the next 12hrs. You were also given a prescription for a narcotic. While taking this medication you should also not drive, operate machinery and or work. You were found to have a blood pressure greater than 120 systolic over 90 diastolic. Due to the new Medicare guidelines, we are now recommending that you follow up with your primary care doctor in regards to this elevated blood pressure. You have an appointment tomorrow at [address] Perry's office. If you are unable to make this please call as soon as possible to inform them. Please wear your back brace at home. Problem Qualifiers Primary Impression: Thoracic spine fracture Encounter type: initial encounter Thoracic vertebra fracture level: T11 Fracture type: closed Fracture morphology: unspecified fracture morphology Qualified Codes: S22.089A - Unspecified fracture of t11-T12 vertebra, initial encounter for closed fracture Additional Impressions: Fall Encounter type: initial encounter Qualified Codes: W19.XXXA - Unspecified fall, initial encounter
== END 2017-09-21 14:13 | disposition home or self-care (01) ==
LOC: EDBD 10:49 → C.EDC 10:52
DX: S22.089A Unspecified fracture of T11-T12 vertebra, initial encounter for closed fracture (principal); R07.81 Pleurodynia; W19.XXXA Unspecified fall, initial encounter; Y93.01 Activity, walking, marching and hiking; Y92.009 Unspecified place in unspecified non-institutional (private) residence as the place of occurrence of the external cause; Y99.8 Other external cause status; E87.1 Hypo-osmolality and hyponatremia; D64.9 Anemia, unspecified; J44.9 Chronic obstructive pulmonary disease, unspecified; I11.9 Hypertensive heart disease without heart failure; Z79.82 Long term (current) use of aspirin; Z79.01 Long term (current) use of anticoagulants; Z87.891 Personal history of nicotine dependence; Z99.81 Dependence on supplemental oxygen

== ENCOUNTER → 2017-12-27 | Outpatient (CLI) | payer BC ==
[~2017-12-27] MED LIST changes: -ACET-1693 PO; -MULT-190 PO; -OMEP40CA41 PO; +ONDA4TAB46 PO; +OXYC-57 PO; -SENN-61 PO; -SENNTAB23 PO; +[UNRECOGNIZED DRUG - CODE] PO
[2017-12-27 09:01] LABS: INR 5.4 (0.9-1.1)
--- NOTE | 2018-01-10 07:17 | CODING QUERY NO DIAGNOSIS ---
TREATMENT RENDERED WITHOUT A DIAGNOSIS 30 To promote full compliance with coding requirements relating to patient care, physician participation is requested in all cases of hospital coder uncertainty. Please assist us with providing a diagnosis/symptom for the test(s) below: A diagnosis/symptom was not documented on your Order. A valid diagnosis/symptom is required to bill all insurances. Please remember that we are unable to code a diagnosis of rule out, probable, possible, questionable, or suspected. DOS 12/27/17 Tests that require a diagnosis: * PT/INR DIAGNOSIS: Provider Signature: Date: Thank you Arleen Medina Health Information Management Once completed, please kindly fax back to [phone] For questions please call [phone]
== END | disposition home or self-care (01) ==
LOC: C.LABSPEC 08:10
PROVIDERS: ATTEND Internal Medicine
DX: I82.4Y9 Acute embolism and thrombosis of unspecified deep veins of unspecified proximal lower extremity (principal)

== ENCOUNTER → 2017-12-28 | Outpatient (CLI) | payer BC ==
[2017-12-28 12:31] LABS: INR 3.4 (0.9-1.1)
--- NOTE | 2018-01-10 11:36 | CODING QUERY NO DIAGNOSIS ---
TREATMENT RENDERED WITHOUT A DIAGNOSIS 30 To promote full compliance with coding requirements relating to patient care, physician participation is requested in all cases of grab setter uncertainty. Please assist us with providing a diagnosis/symptom for the test(s) below: A diagnosis/symptom was not documented on your Order. A valid diagnosis/symptom is required to bill all insurances. Please remember that we are unable to code a diagnosis of rule out, probable, possible, questionable, or suspected. DOS 30 Tests that require a diagnosis: * PT/INR DIAGNOSIS: Provider Signature: Date: Thank you Arleen Medina Health Information Management Once completed, please kindly fax back to [phone] For questions please call [phone]
== END | disposition home or self-care (01) ==
LOC: C.LABSPEC 12:44
PROVIDERS: ATTEND Internal Medicine
DX: I82.4Y9 Acute embolism and thrombosis of unspecified deep veins of unspecified proximal lower extremity (principal)

== ENCOUNTER → 2018-01-03 | Outpatient (CLI) | payer BC ==
[2018-01-03 08:59] LABS: INR 3.5 (0.9-1.1)
== END | disposition home or self-care (01) ==
LOC: C.LABSPEC 08:26
PROVIDERS: ATTEND Internal Medicine
DX: Z51.81 Encounter for therapeutic drug level monitoring (principal); Z79.01 Long term (current) use of anticoagulants

== ENCOUNTER 2018-08-04 00:25 | Inpatient (IN) ==
[2018-08-04] MEDS ORDERED: ALBUT/IPRATROP 3MG/0.5MG NEB 3 ML VIAL NEB STA ×2 (00:48→06:15)
[2018-08-04] MEDS ORDERED: MoRPHine SULFATE 4 MG/ML 1 ML CARP\\VIAL IV STA (00:48)
[2018-08-04] MEDS: SODIUM CHLORIDE 0.9% 500 ML IV SCH ×2 (01:02→13:40)
[2018-08-04 01:06] LABS: Hematocrit (blood only) 35.2 % (42-52); Hemoglobin 11.7 g/dL (14.0-18.0); Immature Granulocytes # (auto) 0.01 K/uL (0.00-0.02); Immature Granulocytes % (auto) 0.2 %; Lymphocytes # (auto) 1.16 K/uL (1.2-3.4); Mean Corpuscular Hgb Conc 33.2 g/dL (32-36); Mean Corpuscular Volume 84.2 fL (80-100); Mean Platelet Volume 8.4 fL (7.4-10.4); Monocytes # (auto) 0.82 K/uL (0.11-0.59); Monocytes % (auto) 13.5 %; Neutrophils % (auto) 67.3 %; Platelet Count 247 K/uL (130-400); RDW Coefficient of Variation 17.3 % (11.5-14.5); Red Blood Count 4.18 M/uL (4.7-6.1); White Blood Count 6.09 K/uL (4.8-10.8)
[2018-08-04 01:27] LABS: BUN Creatinine Ratio 23.1 (10-20); Calcium 8.1 mg/dl (8.5-10.1); Creatinine Clr Calc Pharmacy 37.8 ml/min; Est GFR (African American) 66.9; Est GFR (Non-African American) 57.7; Magnesium 1.8 mg/dl (1.8-2.4); Potassium 4.2 mmol/L (3.5-5.1)
[2018-08-04 01:32] LABS: Albumin Globulin Ratio 0.8 (0.9-2); Bilirubin,Total 0.4 mg/dl (0.2-1); Globulin 3.7 gm/dl (2.5-4.0); Total Protein 6.7 gm/dl (6.4-8.2); Troponin I 0.02 ng/ml (0-0.045)
[2018-08-04 01:47] LABS: Prothrombin Time 48.1 Seconds (9.0-12.0)
[2018-08-04 02:05] LABS: INR 5.3 (0.9-1.1)
[2018-08-04] MEDS ORDERED: IOVERSOL 100ml IV PRN (03:33)
[2018-08-04] MEDS ORDERED: PHYTONADIONE 2.5 MG in SODIUM CHLORIDE 0.9% 50 ML IV ONE (04:04)
[2018-08-04] MEDS ORDERED: BENZONATATE 100 MG CAPSULE PO ONE (04:26)
[2018-08-04] MEDS ORDERED: MoRPHine SULFATE 4 MG/ML 1 ML CARP\\VIAL ONE (04:50)
[2018-08-04] MEDS ORDERED: SODIUM CHLORIDE 0.9% 500 ML IV ONE (06:15)
[2018-08-04] MEDS ORDERED: VANCOMYCIN CONSULT ACTIVE PRN ×2 (06:20→08:30)
[2018-08-04] MEDS ORDERED: PIPERACILL/TAZOBAC CONSULT ACTIVE PRN ×2 (06:20→08:30)
[2018-08-04] MEDS ORDERED: VANCOMYCIN CONSULT ACTIVE ONE (06:20)
[2018-08-04] MEDS ORDERED: VANCOMYCIN HCL 1,500 MG in SODIUM CHLORIDE 0.9% 500 ML IV ONE (06:20)
[2018-08-04] MEDS ORDERED: PIPERACILLIN/TAZOBACTAM 3.375 GM/115 ML BAG IV STA (06:20)
[2018-08-04] MEDS ORDERED: PHYTONADIONE 5 MG in SODIUM CHLORIDE 0.9% 50 ML IV ONE (06:38)
--- NOTE | 2018-08-04 06:44 | XRay Report ---
XR chest 1V portable HISTORY: 88 years-old Male cough, recent bronchitis acute cough with history of bronchitis COMPARISON: Chest radiograph 07/30/2017 TECHNIQUE: Portable AP view the chest FINDINGS: Cardiac silhouette is enlarged, unchanged. Calcification tortuosity of the thoracic aortic arch. Brass Plater jesse interstitial coarsening. Subsegmental left basilar opacities are noted without pneumothorax, larg e pleural effusion or overt pulmonary edema. Degenerative changes about the spine and right shoulder. Kyphoplasty changes about a lower thoracic segment. Left shoulder arthroplasty. IMPRESSION: 1. Cardiomegaly without overt pulmonary edema. 2. Linear left basilar opacities are suggestive of atelectasis, pneumonitis considered less likely. 3. Chronic interstitial coarsening. The above report was generated using voice recognition software. It may contain grammatical, syntax o r spelling errors. Electronically signed by: Burak Trujillo M.D. 08/04/2018 6:42 AM
--- NOTE | 2018-08-04 07:07 | CT Scan Report ---
CT abd pelvis IV con only CLINICAL HISTORY: 88 years-old Male presenting with rlq pain. TECHNIQUE: Multidetector CT of the abdomen and pelvis was performed after the administration of intra venous contrast. IV contrast: 94 mL of Optiray 320. One or more dose lowering techniques were used co nsistent with the principles of ALARA (as low as reasonably achievable), including automatic exposure control, mA or kV adjustment to individual patient size, and/or use of iterative reconstruction. COMPARISON: 05/19/2017. CT DOSE (mGy.cm): The estimated cumulative dose is 581.56 mGy.cm. 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 Lung bases: Normal heart size. Coronary artery and aortic valve calcification. No pericardial or pleu ral effusion. Minimal dependent changes likely atelectasis or scarring. 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 No focal lesion. Patent hepatic vasculature. Biliary: No intrahepatic or extrahepatic biliary ductal dilatation. Gallbladder contains gallstones. Pancreas: A cystic ovoid 1.6 cm focus is noted in the pancreatic head (series 3 image 126). 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 Alternatively, this could represent a dilated portion of the common bile duct. Sever e atrophy of pancreatic parenchyma. No pancreatic ductal dilatation. Spleen: Normal. Adrenal glands: Normal. Kidneys and ureters: Mild bilateral renal parenchymal atrophy. Nonobstructing punctate calculus in th e left kidney. No hydronephrosis. Ureters nondistended. Bladder: Circumferential bladder wall thickening. Pelvic organs: Prostate enlargement likely secondary to benign prostatic hyperplasia. Bowel: The appendix is not visualized. No bowel obstruction. Moderate stool burden in the right colon . Peritoneal cavity: No free fluid or intraperitoneal gas. However, extensive infiltration with high de nsity fluid in the right retroperitoneum within the posterior pararenal space in the right lower quad rant minimally tracking to the right extraperitoneal pelvis and extensively in the space of Retzius. Lymph nodes: No enlarged lymph nodes in the abdomen or pelvis. Vasculature: Atherosclerosis of the normal caliber abdominal aorta. IVC patent. Abdominal wall: Extensive right rectus sheath hematoma also involving the right oblique muscles. The most focal portion of the hematoma measures 3.6 x 6.2 cm in axial dimension (series 3 image 249. Ther e is displacement inferomedially of the subjacent properitoneal fat. The right inferior epigastric ve ssels course medial to this and are normal in caliber, nearing the appearance of the left vessels. No evidence of a pseudoaneurysm or extravasation. Abdominal wall intramuscular hematoma also involves t he oblique muscles more superior to this to the level of the ribs fat-containing inguinal hernias. Po ssible postsurgical changes in the right inguinal region may imply hernia repair. Musculoskeletal: Degenerative changes of the spine. Osteopenia. Post procedure changes of kyphoplasty of T12. There is a severe compression deformity of T12 as well as a moderate to severe anterior wedg ing deformity of T11 with a persistent focal fracture plane versus disc calcification at T10-11. This appearance is unchanged from prior. Partially visualized internal fixation hardware in the right hum erus. IMPRESSION: 1. Extensive right rectus sheath and right abdominal wall intramuscular hematoma, measuring up to 6 cm in axial dimension. Hemorrhage extends into the right retroperitoneal/extraperitoneal regions. No evidence of pseudoaneurysm or active extravasation. Correlate clinically for possible trauma or iatro genic injury. This can also be seen in the setting of coagulopathy. 2. No convincing evidence of additional acute intra-abdominal pathology. 3. 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 4. chronic severe compression deformities of the lower thoracic spine. Electronically signed by: Jm Dejesus M.D. 08/04/2018 7:05 AM
[2018-08-04] MEDS ORDERED: ACETAMINOPHEN 1000 MG/100 ML IV IV PRN (08:30)
[2018-08-04] MEDS ORDERED: POLYETHYLENE (MIRALAX) 17 GM PACK PO PRN (08:30)
[2018-08-04] MEDS ORDERED: ALUMINUM/MAGNESIUM SUSP 30 ML UDC PO PRN (08:30)
[2018-08-04] MEDS ORDERED: OXYCODONE/ACETAMINOPHEN 5mg/325mg TAB PO PRN (08:30)
[2018-08-04] MEDS ORDERED: PIPERACILLIN/TAZOBACTAM 4.5 GM in DEXTROSE 5% 100 ML IV SCH (08:30)
[2018-08-04] MEDS ORDERED: MAGNESIUM HYDROXIDE SUSP 30 ML UDC PO PRN (08:30)
[2018-08-04] MEDS ORDERED: ACETAMINOPHEN 325 MG TAB PO PRN (08:30)
[2018-08-04] MEDS ORDERED: VANCOMYCIN HCL 1,000 MG/270 ML BAG IV STA (08:30)
[2018-08-04] MEDS ORDERED: NON-FORMULARY MEDICATION (Acetaminophen [Acetaminophen] 650 MG) PO PRN (08:30)
[2018-08-04] MEDS ORDERED: NITROGLYCERIN SL 0.4 MG/TAB TAB SL PRN (08:30)
[2018-08-04] MEDS ORDERED: ONDANSETRON 4 MG TAB PO PRN (08:30)
[2018-08-04] MEDS ORDERED: ONDANSETRON INJ 2 MG/ML 2 ML VIAL IV PRN (08:30)
[2018-08-04] MEDS ORDERED: ACETAMINOPHEN 1,000 MG/100 ML VIAL IV PRN (08:57)
[2018-08-04] MEDS ORDERED: ALBUT/IPRATROP 3MG/0.5MG NEB 3 ML VIAL INH PRN (08:58)
[2018-08-04] MEDS ORDERED: NON-FORMULARY MEDICATION (Vitamins A,C,E-Zinc-Copper [Preservision Areds] 1 CAP) PO SCH (09:00)
[2018-08-04] MEDS: ALBUT/IPRATROP 3MG/0.5MG NEB 3 ML VIAL NEB SCH ×4 (09:01→18:40)
--- NOTE | 2018-08-04 09:26 | History & Physical Report ---
Date of Service August 04, 2018 Assessment & Plan (1) Hematoma: (2) Supratherapeutic INR: This is a coagulopathy associated with Coumadin on presentation he was given vitamin K. 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 The patient has significant GI bleed in 2017 however after this was stabilized he had recurrence of the leg clot and his primary care provider elected to restart the Coumadin. Patient states they did discuss a intra-vena caval filter in the past and is felt he was not a candidate for this (3) COPD exacerbation: This is a COPD exacerbation associated with bronchitis he will be on intravenous steroids duo nebs and antibiotics vancomycin and Zosyn have been chosen by the emergency department (4) Bronchitis: There is some equivocal reading of a basilar change on x-ray however clinically this continues to be a continuation of his bronchitis (5) Heart disease: Patient is a history of chronic diastolic heart failure he is typically on Lasix 20 ARB and atenolol continue to watch his volume status History of Present Illness Primary Care Provider: [facility] 80-year-old male presents to the emergency department with increased abdominal pain and shortness of breath. The patient was given doxycycline for bronchitis on the . Patient continues to have shortness of breath productive cough now is a firm tender area to the left side of his midline of his abdomen. This is confirmed to be a rectus sheath hematoma. He was with coagulopathy from Coumadin with an INR of 5.7 on presentation was given 7.5 mg of vitamin K on presentation. Patient states it hurts to cough he cannot take a deep breath Allergies Allergy/AdvReac Type Severity Reaction Status Date / Time No Known Allergies Allergy Verified 08/04/18 01:28 Home Medications Home Medications Medication Instructions Recorded Confirmed Type aspirin 81 mg tablet,delayed 81 mg PO DAILY 02/19/18 08/04/18 History release atenolol 25 mg tablet 25 mg PO DAILY 02/19/18 08/04/18 History duloxetine 20 mg capsule,delayed 40 mg PO DAILY cap 02/19/18 08/04/18 History release gabapentin 400 mg capsule 400 mg PO TID 02/19/18 08/04/18 History multivitamin capsule 1 cap PO DAILY 02/19/18 08/04/18 History ondansetron HCl 4 mg tablet 4 mg PO Q6 PRN 02/19/18 08/04/[address] 40 mg granules 40 mg PO BID 02/19/18 08/04/18 History delayed-release for susp in packet ropinirole 1 mg tablet 1 mg PO HS tab 02/19/18 08/04/18 History warfarin 5 mg tablet 5 mg PO [id number] tab 02/19/18 08/04/18 History furosemide 20 mg tablet 20 mg PO DAILY tab 02/21/18 08/04/18 History irbesartan 150 mg tablet 150 mg PO DAILY 02/21/18 08/04/18 History naloxone 4 mg/actuation nasal spray 1 sprays INTNAS Q2M PRN 02/21/18 08/04/18 History oxycodone-acetaminophen 5 mg-325 1 - 2 tab PO .Q4-6H PRN tab 02/21/18 08/04/18 History mg tablet acetaminophen 650 mg PO Q4 PRN 05/04/18 08/04/18 History food supplemt, lactose-reduced 1 dose PO DAILY 05/04/18 08/04/18 History [Ensure] sennosides 8.6 mg PO DAILY PRN 05/04/18 08/04/18 History warfarin 2 mg tablet 2 mg PO MONWEDFRI tab 06/29/18 08/04/18 History Oxygen Gas 1 applic NA UD 08/04/18 08/04/18 History vitamins A,C,F-rhfq-ytzmax 1 cap PO BID 08/04/18 08/04/18 History [PreserVision AREDS] Past Med/Surg History Surgical History History of kyphoplasty (Chronic) History of left shoulder replacement (Chronic) 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) Hx of hernia repair Family History Other Family history non-contributory Social History marital status: / Current Living Situation: Personal Care Facility current occupational status: retired Other Information That Helps Us Care for You: No Feels Safe at Home: Yes Safety Concerns: Feels Safe At This Time Smoking Status: Former smoker Do You Dip or Chew Tobacco: No Second Hand Exposure: No Tobacco Cessation Education Requested by Patient: No Hx Alcohol Use: Yes (OCC) Alcohol Intake Frequency: holidays/special occasions only Hx Substance Use: No Beliefs That Will Affect Care: Ep[employer] Ep[employer] Beliefs: 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 Required: No Review of Systems ROS: Patient is in pain has difficulty breathing No double vision blurry vision No problems with speech or swallowing No palpitations, chest pain or pressure Patient has a coughing which is loose and productive on his baseline chronic respiratory failure Marked central abdominal pain with some swelling, no nausea vomiting diarrhea No burning urine urine frequency or changes in color No focal joint pain or muscle pain No skin rashes or oral lesions No unusual bruising or bleeding No focused back pain or numbness or loss of strength No changes in memory or confusion Physical Exam 2 Vital Signs (Past 24 Hours): Last Vital Signs Temp 36.4 C L 08/04/18 00:41 Pulse 58 L 08/04/18 09:01 Resp 19 08/04/18 09:01 BP 109/71 08/04/18 06:30 Pulse Ox 92 08/04/18 09:01 The patient in moderate distress, with pain and breathing. Vital signs as documented. Head exam is unremarkable. normocephalic, atraumatic Neck is without jugular venous distension, thyromegaly, or lymphademopathy Lungs are labored breathing, accessory muscle use, purse lips, coarse rhonchi no wheeze Cardiac exam reveals Rhythm is regular. First and second heart sounds normal. Abdominal exam reveals swelling of rectus sheath tender and painful to exam, normal bowel sounds, no masses, no organomegaly Extremities are nonedematous and both pedal pulses are present Neurologic exam is A&Ox3, no focal deficits, strength is equal bilateral Psychologically seems neither anxious or depressed Skin is warm Dry without bruises or lesions
[2018-08-04] MEDS: GABAPENTIN 400 MG CAP PO SCH ×3 (09:47→20:07)
[2018-08-04] MEDS: ATENOLOL 25 MG TABLET PO SCH (09:47)
[2018-08-04] MEDS: ASPIRIN 81 MG ECTAB PO SCH (09:47)
[2018-08-04] MEDS: MULTIVITAMIN TAB PO SCH (09:47)
[2018-08-04] MEDS: PANTOprazole 40 MG TAB PO SCH ×2 (09:47→20:07)
[2018-08-04] MEDS: IRBESARTAN 150 MG TAB PO SCH (09:47)
[2018-08-04] MEDS: methylPREDNISolone 60 MG in SYRINGE 0 ML IV SCH ×3 (09:47→23:00)
[2018-08-04] MEDS: DULOXETINE HCL 20 MG CAP PO SCH (09:47)
[2018-08-04] MEDS: SENNA 8.6 MG TAB PO SCH (09:48)
[2018-08-04 11:29] LABS: INR 2.3 (0.9-1.1); Prothrombin Time 22.6 Seconds (9.0-12.0)
--- NOTE | 2018-08-04 11:43 | Pharmacy Report ---
Pharmacy Abx Initial Consult - Date of Service August 04, 2018 - Pharmacy Dosing Scope Date of Consult: 08-04 Consultation requested by: Dr. Armstrong Pharmacy is consulted to initiate vancomycin/zosyn dosing therapy, order appropriate labs and adjust drug dose/frequency. - Subjective The patient is a 88 year old M admitted on 08/04/18 07:09. - Objective Height: 5 ft Weight: 69.4 kg Vital Signs (Past 12hrs): Lab Results (24hrs): Laboratory Tests (24 Hours) 08/04/18 08/04/18 00:57 00:57 WBC 6.09 Neut # (Auto) 4.10 Creatinine 1.13 Est Cr Clr Drug Dosing 37.8 - Risk Factors for Resistance * Resident in a residential or extended-care facility * Antimicrobial use within the last 90 days [doxycycline 07/30 - unclear how many days] - Assessment & Plan Assessment/Plan: Patient admitted with possible COPD exacerbation/bronchitis - pharmacy consulted for vancomycin and zosyn. Per provider notes, patient previously on doxycycline prior to admission. MRSA nasal swab ordered. Vancomycin: * 1500 mg (~21 mg/kg) given in the ER as loading dose * Will start maintenance dose of vancomycin 1000 mg (~14 mg/kg) iv q 18 hrs to achieve estimated trough ~15-20 mcg/ml (goal for pneumonia/resp infxn) * Estimated kinetics: t1/2~18 hrs, ke~0.037, CrCl ~37 ml/min - baseline Scr appears to be closer to 1.0 mg/dL * Will continue to follow - will plan on ordering trough if continued >48 hrs Zosyn: * 3.375 gm iv x 1 in the ER - will start 3.375 gm iv q8 hrs (appropriate for CrCl >20ml/min; actual CrCl ~37 ml/min) Pharmacy will continue to follow and will adjust dose/frequency as necessary. Thank you.
[2018-08-04] MEDS ORDERED: ALBUT/IPRATROP 3MG/0.5MG NEB 3 ML VIAL NEB SCH (12:00)
[2018-08-04] MEDS: PIPERACILLIN/TAZOBACTAM 3.375 GM in DEXTROSE 5% 100 ML IV SCH ×2 (12:06→19:52)
[2018-08-04] MEDS: TAMSULOSIN HCL 0.4 MG CAP PO SCH (20:07)
[2018-08-04] MEDS: ROPINIROLE HCL 1 MG TABLET PO SCH (20:07)
[2018-08-05] MEDS ORDERED: VANCOMYCIN HCL 1,000 MG in SODIUM CHLORIDE 0.9% 250 ML IV SCH (02:00)
[2018-08-05] MEDS: PIPERACILLIN/TAZOBACTAM 3.375 GM in DEXTROSE 5% 100 ML IV SCH ×2 (04:00→11:33)
[2018-08-05] MEDS: methylPREDNISolone 60 MG in SYRINGE 0 ML IV SCH ×2 (06:34→14:07)
[2018-08-05 07:17] LABS: Hemoglobin 9.3 g/dL (14.0-18.0); Immature Granulocytes # (auto) 0.03 K/uL (0.00-0.02); Immature Granulocytes % (auto) 0.5 %; Lymphocytes # (auto) 0.83 K/uL (1.2-3.4); Lymphocytes % (auto) 13.2 %; Mean Corpuscular Hgb Conc 33.2 g/dL (32-36); Mean Corpuscular Volume 84.3 fL (80-100); Mean Platelet Volume 8.4 fL (7.4-10.4); Monocytes % (auto) 12.8 %; Neutrophils # (auto) 4.61 K/uL (1.4-6.5); Neutrophils % (auto) 73.5 %; Platelet Count 208 K/uL (130-400); RDW Coefficient of Variation 17.6 % (11.5-14.5); RDW Standard Deviation 54.6 fL (36.4-46.3); Red Blood Count 3.32 M/uL (4.7-6.1); White Blood Count 6.27 K/uL (4.8-10.8)
[2018-08-05 07:21] LABS: INR 1.2 (0.9-1.1); Partial Thromboplastin Time 27.3 Seconds (21.0-31.0)
[2018-08-05] MEDS: ALBUT/IPRATROP 3MG/0.5MG NEB 3 ML VIAL NEB SCH ×4 (07:21→17:59)
[2018-08-05] MEDS: MULTIVITAMIN TAB PO SCH (07:36)
[2018-08-05] MEDS: ASPIRIN 81 MG ECTAB PO SCH (07:37)
[2018-08-05] MEDS: ATENOLOL 25 MG TABLET PO SCH (07:38)
[2018-08-05] MEDS: SENNA 8.6 MG TAB PO SCH (07:38)
[2018-08-05] MEDS: PANTOprazole 40 MG TAB PO SCH ×2 (07:39→21:10)
[2018-08-05] MEDS: IRBESARTAN 150 MG TAB PO SCH (07:39)
[2018-08-05] MEDS: DULOXETINE HCL 20 MG CAP PO SCH (07:39)
[2018-08-05] MEDS: GABAPENTIN 400 MG CAP PO SCH ×3 (07:40→21:10)
[2018-08-05 07:42] LABS: Albumin Level 2.6 gm/dl (3.4-5.0); BUN Creatinine Ratio 21.7 (10-20); Calcium 8.3 mg/dl (8.5-10.1); Est GFR (African American) 71.5; Est GFR (Non-African American) 61.7; Potassium 4.4 mmol/L (3.5-5.1)
[2018-08-05 07:45] LABS: Albumin Globulin Ratio 0.8 (0.9-2); Bilirubin,Total 0.5 mg/dl (0.2-1); Globulin 3.2 gm/dl (2.5-4.0); Total Protein 5.8 gm/dl (6.4-8.2)
--- NOTE | 2018-08-05 09:08 | Emergency Department Note ---
Entered by Marian Hernandez acting as a scribe for History of Present Illness General Chief complaint: Abdominal Pain Stated complaint: RIGHT SIDE PAIN Time Seen by Provider: 08/04/18 00:33 Source: patient History of Present Illness Onset (ago): day(s) (yesterday) Location: abdomen Radiation: non-radiation Pain Consistency: + other (worsening) Maximum Pain Intensity: 10 Relieved By: + other (lying on left side); not by medication (Tylenol, Oxycodone ) Exacerbated By: + other (cough) Associated symptoms: + denies other symptoms (change in bowel movements, difficulty urinating, pain with urination, abdominal bloating, abdominal distention, hip pain, scrotal pain) and + cough; no fever/chills and no nausea/ vomiting The patient is an 88 year old male who presents to the Emergency Room with complaints of worsening right lower abdominal pain starting yesterday. The patient states that he was in the ED Monday and he thought he had the flu, but it wasn�t. He states that he was diagnosed with acute bronchitis. He states that since then his fevers have gone away, but his cough has remained and is more productive. He reports that yesterday while coughing the pain suddenly started. He states that since then the pain has gotten worse. He notes that it has become more constant. He reports that the pain is worse with coughing and better when he lies on his left side. He notes that he tried taking Tylenol and Oxycodone with no relief. The patient notes that he has a history of a hernia repair there, but doesn�t feel a bulge there now and didn�t feel a pop when coughing. The patient notes that he has hematuria, but believes it is from being cathed on Monday. The patient denies chills, change in bowel movements, difficulty urinating, pain with urination, vomiting, nausea, abdominal bloating , abdominal distention, hip pain, scrotal pain, the pain radiating anywhere, a history of an appendectomy and cholecystectomy, and ever having pain like this before. The patient�s daughter notes that he is on oxygen usually at night. Home Medications Home Medications Medication Instructions Recorded Confirmed Type aspirin 81 mg tablet,delayed 81 mg PO DAILY 02/19/18 08/04/18 History release atenolol 25 mg tablet 25 mg PO DAILY 02/19/18 08/04/18 History duloxetine 20 mg capsule,delayed 40 mg PO DAILY cap 02/19/18 08/04/18 History release gabapentin 400 mg capsule 400 mg PO TID 02/19/18 08/04/18 History multivitamin capsule 1 cap PO DAILY 02/19/18 08/04/18 History ondansetron HCl 4 mg tablet 4 mg PO Q6 PRN 02/19/18 08/04/[address] 40 mg granules 40 mg PO BID 02/19/18 08/04/18 History delayed-release for susp in packet ropinirole 1 mg tablet 1 mg PO HS tab 02/19/18 08/04/18 History warfarin 5 mg tablet 5 mg PO [id number] tab 02/19/18 08/04/18 History furosemide 20 mg tablet 20 mg PO DAILY tab 02/21/18 08/04/18 History irbesartan 150 mg tablet 150 mg PO DAILY 02/21/18 08/04/18 History naloxone 4 mg/actuation nasal spray 1 sprays INTNAS Q2M PRN 02/21/18 08/04/18 History oxycodone-acetaminophen 5 mg-325 1 - 2 tab PO .Q4-6H PRN tab 02/21/18 08/04/18 History mg tablet acetaminophen 650 mg PO Q4 PRN 05/04/18 08/04/18 History food supplemt, lactose-reduced 1 dose PO DAILY 05/04/18 08/04/18 History [Ensure] sennosides 8.6 mg PO DAILY PRN 05/04/18 08/04/18 History warfarin 2 mg tablet 2 mg PO [id number] tab 06/29/18 08/04/18 History Oxygen Gas 1 applic NA UD 08/04/18 08/04/18 History vitamins A,C,I-uyzx-pjfrni 1 cap PO BID 08/04/18 08/04/18 History [PreserVision AREDS] Allergies Allergy/AdvReac Type Severity Reaction Status Date / Time No Known Allergies Allergy Verified 08/04/18 01:28 Past Med/Surg History Surgical History History of kyphoplasty (Chronic) History of left shoulder replacement (Chronic) 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) Hx of hernia repair Family History Other Family history non-contributory Social History marital status: / Current Living Situation: Personal Care Facility current occupational status: retired Other Information That Helps Us Care for You: No Feels Safe at Home: Yes Safety Concerns: Feels Safe At This Time Smoking Status: Former smoker Do You Dip or Chew Tobacco: No Second Hand Exposure: No Tobacco Cessation Education Requested by Patient: No Hx Alcohol Use: Yes (OCC) Alcohol Intake Frequency: holidays/special occasions only Hx Substance Use: No Beliefs That Will Affect Care: Bahai Bahai Beliefs: JHONATHAN [employer] Fiberglass Required: No Review of Systems See HPI for pertinent positives & negatives. and A total of 10 systems reviewed and were otherwise negative Physical Exam Vital Signs Vital Signs - 24 hr 08/04/18 10:11 08/04/18 10:58 08/04/18 11:14 Temperature 36.8 C 36.6 C Temperature Source Oral Oral Pulse Rate Pulse Rate [Apical] 103 H 85 76 Pulse Rate [Finger] Pulse Rhythm [Apical] Regular Pulse Strength [Apical] Normal Respiratory Rate 20 18 Respiratory Effort / Characteristics Spontaneous Short of Breath SOB on Exertion Respiratory Depth Normal Respiratory Pattern Regular Blood Pressure [Left Arm] Blood Pressure [Right Arm] 162/90 H 99/56 L Blood Pressure Mean [Left Arm] Blood Pressure Mean [Right Arm] 114 70 Blood Pressure Position [Left Arm] Blood Pressure Position [Right Arm] Lying Sitting Pulse Oximetry 95 95 96 Oxygen Delivery Method Nasal Cannula Nasal Cannula Nasal Cannula Oxygen Flow Rate 2 2 2 08/04/18 15:11 08/04/18 15:43 08/04/18 16:00 Temperature 36.6 C Temperature Source Oral Pulse Rate 73 Pulse Rate [Apical] 78 74 Pulse Rate [Finger] Pulse Rhythm [Apical] Pulse Strength [Apical] Respiratory Rate 19 18 Respiratory Effort / Characteristics Respiratory Depth Respiratory Pattern Blood Pressure [Left Arm] Blood Pressure [Right Arm] 114/62 Blood Pressure Mean [Left Arm] Blood Pressure Mean [Right Arm] 79 Blood Pressure Position [Left Arm] Blood Pressure Position [Right Arm] Lying Pulse Oximetry 93 95 Oxygen Delivery Method Nasal Cannula Nasal Cannula Oxygen Flow Rate 2 2 08/04/18 18:41 08/04/18 19:09 08/04/18 20:00 Temperature 36.9 C Temperature Source Oral Pulse Rate Pulse Rate [Apical] 76 109 H Pulse Rate [Finger] Pulse Rhythm [Apical] Pulse Strength [Apical] Respiratory Rate 18 19 Respiratory Effort / Characteristics Labored SOB on Exertion Respiratory Depth Normal Respiratory Pattern Regular Blood Pressure [Left Arm] Blood Pressure [Right Arm] 133/69 Blood Pressure Mean [Left Arm] Blood Pressure Mean [Right Arm] 90 Blood Pressure Position [Left Arm] Blood Pressure Position [Right Arm] Lying Pulse Oximetry 94 92 Oxygen Delivery Method Nasal Cannula Nasal Cannula Nasal Cannula Oxygen Flow Rate 2 1 2.5 08/04/18 23:15 08/04/18 23:45 08/05/18 04:00 Temperature 37.1 C 36.6 C Temperature Source Oral Oral Pulse Rate 92 H Pulse Rate [Apical] Pulse Rate [Finger] 96 H 88 Pulse Rhythm [Apical] Pulse Strength [Apical] Respiratory Rate 23 22 Respiratory Effort / Characteristics Respiratory Depth Respiratory Pattern Blood Pressure [Left Arm] 147/70 H Blood Pressure [Right Arm] 103/49 L Blood Pressure Mean [Left Arm] 95 Blood Pressure Mean [Right Arm] 67 Blood Pressure Position [Left Arm] Lying Blood Pressure Position [Right Arm] Lying Pulse Oximetry 91 95 Oxygen Delivery Method Nasal Cannula Nasal Cannula Oxygen Flow Rate 2.5 2.5 08/05/18 06:58 08/05/18 07:23 Temperature 36.4 C L Temperature Source Oral Pulse Rate Pulse Rate [Apical] Pulse Rate [Finger] 83 80 Pulse Rhythm [Apical] Pulse Strength [Apical] Respiratory Rate 22 16 Respiratory Effort / Characteristics Respiratory Depth Respiratory Pattern Blood Pressure [Left Arm] 139/68 Blood Pressure [Right Arm] Blood Pressure Mean [Left Arm] 91 Blood Pressure Mean [Right Arm] Blood Pressure Position [Left Arm] Lying Blood Pressure Position [Right Arm] Pulse Oximetry 91 92 Oxygen Delivery Method Nasal Cannula Nasal Cannula Oxygen Flow Rate 2.5 2 GENERAL: alert, uncomfortable appearing, well nourished, moderate distress, non- toxic EYE EXAM: normal conjunctiva, PERRL and EOM's grossly intact OROPHARYNX: no exudate, no erythema, lips, buccal mucosa, and tongue normal and mucous membranes are moist NECK: supple, no nuchal rigidity, no adenopathy, non-tender LUNGS: Bilateral expiratory wheezes. Normal chest wall mechanics HEART: no murmurs, S1 normal and S2 normal ABDOMEN: abdomen soft, normo-active bowel sounds, ventral hernia soft and easily reduced, only present during increased intraabdominal pressure, extreme tenderness to palpation and splinting of the RLQ, no obvious hernia, no rebound or guarding. BACK: Back is symmetrical on inspection and there is no deformity, no midline tenderness, no CVA tenderness. SKIN: no rashes and no bruising UPPER EXTREMITIES: upper extremities are grossly normal. FROM, nml puses b/l. LOWER EXTREMITIES: 1+ bilateral lower extremity edema. FROM, nml pulses b/l. NEURO EXAM: Normal sensorium, cranial nerves II-XII grossly intact, normal speech, no gross weakness of arms, no gross weakness of legs. Course 0039: Past medical records reviewed. The patient was evaluated in room B6, and a complete history and physical examination were performed. 0415: I reevaluated the patient and he is still having pain. I updated him on his test results and discussed admission with him. He wants to go back to [facility], but will think about it since he can't walk. I told him he will need a close recheck of his Coumdin level. 0607: I reevaluated the patient and updated him on his test results. I discussed the treatment plan with them. They verbally agree and understand. 0630: Dr. Madden [facility] Hospitalist is aware of the patient at this time. Consultations Consultation #1: Dr. Madden [facility] Hospitalist is aware of the patient at this time. Time: 06:30 Administered Medications Albuterol (Duoneb) 3 ml NEB QIDR [facility] Stop: 09/03/18 08:29 Last Admin: 08/05/18 07:21 Dose: 3 ml Admin: 08/04/18 18:40 Dose: 3 ml Admin: 08/04/18 15:43 Dose: 3 ml Admin: 08/04/18 11:13 Dose: 3 ml Admin: 08/04/18 09:01 Dose: 3 ml Aspirin (Ecotrin Ectab) 81 mg PO DAILY [facility] Stop: 09/03/18 08:59 Last Admin: 08/05/18 07:37 Dose: 81 mg Admin: 08/04/18 09:47 Dose: 81 mg Atenolol (Tenormin) 25 mg PO DAILY [facility] Stop: 09/03/18 08:59 Last Admin: 08/05/18 07:38 Dose: 25 mg Admin: 08/04/18 09:47 Dose: 25 mg Duloxetine HCl (Cymbalta) 40 mg PO DAILY [facility] Stop: 09/03/18 08:59 Last Admin: 08/05/18 07:39 Dose: 40 mg Admin: 08/04/18 09:47 Dose: 40 mg Gabapentin (Neurontin) 400 mg PO TID [facility] Stop: 09/03/18 08:59 Last Admin: 08/05/18 07:40 Dose: 400 mg Admin: 08/04/18 20:07 Dose: 400 mg Admin: 08/04/18 13:25 Dose: 400 mg Admin: 08/04/18 09:47 Dose: 400 mg Methylprednisolone 60 mg/ (Syringe) 0.96 mls @ 1.5 mls/min IV Q8 [facility] Stop: 09/03/18 08:59 Last Admin: 08/05/18 06:34 Dose: 1.5 mls/min Admin: 08/04/18 23:00 Dose: 1.5 mls/min Admin: 08/04/18 15:57 Dose: 1.5 mls/min Admin: 08/04/18 09:47 Dose: 1.5 mls/min Vancomycin HCl 1,000 mg/ (Sodium Chloride) 270 mls @ 125 mls/hr IV Q18H [facility] Stop: 08/12/18 01:59 Last Infusion: 08/05/18 04:15 Dose: 0 mls/hr Admin: 08/05/18 02:00 Dose: 125 mls/hr Piperacillin Sod/Tazobactam (Sod 3.375 gm/ Dextrose) 115 mls @ 28.75 mls/hr IV Q8H [facility]; Protocol Stop: 08/11/18 11:59 Last Infusion: 08/05/18 08:10 Dose: 0 mls/hr Admin: 08/05/18 04:00 Dose: 28.8 mls/hr Infusion: 08/05/18 00:00 Dose: 0 mls/hr Admin: 08/04/18 19:52 Dose: 28.8 mls/hr Infusion: 08/04/18 16:12 Dose: 0 mls/hr Admin: 08/04/18 12:06 Dose: 28.8 mls/hr Ioversol (Optiray 320 100ml) 94 ml IV ONCE PRN PRN Reason: Interaction Checking Stop: 08/08/18 03:32 Last Admin: 08/04/18 03:33 Dose: 94 ml Irbesartan (Avapro) 150 mg PO DAILY [facility] Stop: 09/03/18 08:59 Last Admin: 08/05/18 07:39 Dose: 150 mg Admin: 08/04/18 09:47 Dose: 150 mg Miscellaneous (Order Awaiting Action) 1 ea N/A QS [facility] Stop: 09/03/18 15:59 Last Admin: 08/05/18 07:13 Dose: Not Given Admin: 08/05/18 06:28 Dose: Not Given Admin: 08/04/18 15:28 Dose: Not Given Multivitamins (Multivitamin Tab) 1 tab PO DAILY [facility] Stop: 09/03/18 08:59 Last Admin: 08/05/18 07:36 Dose: 1 tab Admin: 08/04/18 09:47 Dose: 1 tab Pantoprazole Sodium (Protonix) 40 mg PO BID [facility] Stop: 09/03/18 08:59 Last Admin: 08/05/18 07:39 Dose: 40 mg Admin: 08/04/18 20:07 Dose: 40 mg Admin: 08/04/18 09:47 Dose: 40 mg Ropinirole HCl (Requip) 1 mg PO HS [facility] Stop: 09/03/18 20:59 Last Admin: 08/04/18 20:07 Dose: 1 mg Sennosides (Senokot) 8.6 mg PO DAILY [facility] Stop: 09/03/18 08:59 Last Admin: 08/05/18 07:38 Dose: 8.6 mg Admin: 08/04/18 09:48 Dose: 8.6 mg Tamsulosin HCl (Flomax) 0.4 mg PO HS [facility] Stop: 09/03/18 20:59 Last Admin: 08/04/18 20:07 Dose: 0.4 mg Discontinued Medications Albuterol (Duoneb) 3 ml NEB NOW STA Stop: 08/04/18 00:49 Last Admin: 08/04/18 01:12 Dose: 3 ml Albuterol (Duoneb) 3 ml NEB NOW STA Stop: 08/04/18 06:16 Last Admin: 08/04/18 06:38 Dose: 3 ml Benzonatate (Tessalon Perle) 100 mg PO NOW ONE Stop: 08/04/18 04:27 Last Admin: 08/04/18 04:33 Dose: 100 mg Sodium Chloride (Nss) 500 mls @ 125 mls/hr IV .Q4H [facility] Stop: 09/03/18 00:59 Last Admin: 08/04/18 13:40 Dose: Not Given Infusion: 08/04/18 04:19 Dose: 0 mls/hr Admin: 08/04/18 01:02 Dose: 125 mls/hr Phytonadione 2.5 mg/ Sodium (Chloride) 50.25 mls @ 100.5 mls/hr IV ONE ONE Stop: 08/04/18 04:33 Last Infusion: 08/04/18 04:55 Dose: 0 mls/hr Admin: 08/04/18 04:19 Dose: 100.5 mls/hr Sodium Chloride (Nss) 500 mls @ 999 mls/hr IV .Q31M ONE Stop: 08/04/18 06:45 Last Infusion: 08/04/18 08:37 Dose: 0 mls/hr Admin: 08/04/18 06:38 Dose: 999 mls/hr Piperacillin Sod/Tazobactam Sod (Zosyn) 3.375 gm in 115 mls @ 230 mls/hr IV NOW STA Stop: 08/04/18 06:49 Last Infusion: 08/04/18 08:37 Dose: 0 mls/hr Admin: 08/04/18 06:46 Dose: 230 mls/hr Vancomycin HCl 1,500 mg/ (Sodium Chloride) 530 mls @ 200 mls/hr IV NOW ONE Stop: 08/04/18 08:58 Last Infusion: 08/04/18 10:38 Dose: 0 mls/hr Admin: 08/04/18 07:27 Dose: 200 mls/hr Phytonadione 5 mg/ Sodium (Chloride) 50.5 mls @ 101 mls/hr IV ONE ONE Stop: 08/04/18 07:07 Last Infusion: 08/04/18 10:01 Dose: 0 mls/hr Admin: 08/04/18 09:09 Dose: 101 mls/hr Miscellaneous Information (Consult) 1 ea N/A UD ONE Stop: 08/04/18 06:21 Last Admin: 08/04/18 13:41 Dose: Not Given Morphine Sulfate (Morphine Sulfate) 4 mg IV NOW STA Stop: 08/04/18 00:49 Last Admin: 08/04/18 01:12 Dose: 4 mg Morphine Sulfate (Morphine Sulfate) Confirm Administered Dose 4 mg .ROUTE .STK- MED ONE Stop: 08/04/18 04:51 Last Admin: 08/04/18 04:52 Dose: 4 mg Medical Decision Making Differential Diagnosis Differential diagnosis: Etiologies such as biliary colic, cholecystitis, hepatitis, pancreatitis, cardiac disease, pancreatitis, gastritis, peptic ulcer disease, appendicitis, cystitis, diverticulitis, mesenteric ischemia, inflammatory bowel disease, ileus , bowel obstruction, testicular torsion, aortic pathology, shingles, as well as others were considered. Medical Records Attestation: I reviewed the patient's medical records. Home Medications Current Medication List: was personally reviewed by me Laboratory Data Attestation: I reviewed the patient's lab results. Result diagrams: 08/05/18 06:36 08/05/18 06:36 Lab Results 08/04/18 08/04/18 08/04/18 Range/Units 00:57 00:57 00:57 WBC 6.09 (4.8-10.8) K/uL RBC 4.18 L (4.7-6.1) M/uL Hgb 11.7 L (14.0-18.0) g/dL Hct 35.2 L (42-52) % MCV 84.2 (80-100) fL MCH 28.0 (25-34) pg MCHC 33.2 (32-36) g/dL RDW Std Deviation 53.0 H (36.4-46.3) fL RDW Coeff of Truman 17.3 H (11.5-14.5) % Plt Count 247 (130-400) K/uL MPV 8.4 (7.4-10.4) fL Immature Gran % (Auto) 0.2 % Neut % (Auto) 67.3 % Lymph % (Auto) 19.0 % Evangeline % (Auto) 13.5 % Eos % (Auto) 0.0 % Baso % (Auto) 0.0 % Immature Gran # (Auto) 0.01 (0.00-0.02) K/uL Neut # (Auto) 4.10 (1.4-6.5) K/uL Lymph # (Auto) 1.16 L (1.2-3.4) K/uL Evangeline # (Auto) 0.82 H (0.11-0.59) K/uL Eos # (Auto) 0.00 (0-0.5) K/uL Baso # (Auto) 0.00 (0-0.2) K/uL PT 48.1 H (9.0-12.0) Seconds INR 5.3 H (0.9-1.1) APTT (21.0-31.0) Seconds PTT Ratio Sodium 132 L (136-145) mmol/L Potassium 4.2 (3.5-5.1) mmol/L Chloride 98 (98-107) mmol/L Carbon Dioxide 30 (21-32) mmol/L Anion Gap 4.0 (3-11) BUN 26 H (7-18) mg/dl Creatinine 1.13 (0.6-1.4) mg/dl Est Cr Clr Drug Dosing 37.8 ml/min Est GFR ( Amer) 66.9 Est GFR (Non-Af Amer) 57.7 BUN/Creatinine Ratio 23.1 H (10-20) Glucose 122 H (70-99) mg/dl POC Lactic Acid Marcio (0.90-1.70) mmol/L Calcium 8.1 L (8.5-10.1) mg/dl Magnesium 1.8 (1.8-2.4) mg/dl Total Bilirubin 0.4 (0.2-1) mg/dl AST 24 (15-37) U/L ALT 27 (12-78) U/L Alkaline Phosphatase 93 (45-117) U/L Troponin I 0.020 (0-0.045) ng/ml Total Protein 6.7 (6.4-8.2) gm/dl Albumin 3.0 L (3.4-5.0) gm/dl Globulin 3.7 (2.5-4.0) gm/dl Albumin/Globulin Ratio 0.8 L (0.9-2) Lipase 35 L (73-393) U/L Nasal Screen MRSA (PCR) (Negative) 08/04/18 08/04/18 08/04/18 Range/Units 01:02 09:05 11:02 WBC (4.8-10.8) K/uL RBC (4.7-6.1) M/uL Hgb (14.0-18.0) g/dL Hct (42-52) % MCV (80-100) fL MCH (25-34) pg MCHC (32-36) g/dL RDW Std Deviation (36.4-46.3) fL RDW Coeff of Truman (11.5-14.5) % Plt Count (130-400) K/uL MPV (7.4-10.4) fL Immature Gran % (Auto) % Neut % (Auto) % Lymph % (Auto) % Evangeline % (Auto) % Eos % (Auto) % Baso % (Auto) % Immature Gran # (Auto) (0.00-0.02) K/uL Neut # (Auto) (1.4-6.5) K/uL Lymph # (Auto) (1.2-3.4) K/uL Evangeline # (Auto) (0.11-0.59) K/uL Eos # (Auto) (0-0.5) K/uL Baso # (Auto) (0-0.2) K/uL PT 22.6 H (9.0-12.0) Seconds INR 2.3 H (0.9-1.1) APTT (21.0-31.0) Seconds PTT Ratio Sodium (136-145) mmol/L Potassium (3.5-5.1) mmol/L Chloride (98-107) mmol/L Carbon Dioxide (21-32) mmol/L Anion Gap (3-11) BUN (7-18) mg/dl Creatinine (0.6-1.4) mg/dl Est Cr Clr Drug Dosing ml/min Est GFR ( Amer) Est GFR (Non-Af Amer) BUN/Creatinine Ratio (10-20) Glucose (70-99) mg/dl POC Lactic Acid Marcio 1.53 (0.90-1.70) mmol/L Calcium (8.5-10.1) mg/dl Magnesium (1.8-2.4) mg/dl Total Bilirubin (0.2-1) mg/dl AST (15-37) U/L ALT (12-78) U/L Alkaline Phosphatase (45-117) U/L Troponin I 0.016 (0-0.045) ng/ml Total Protein (6.4-8.2) gm/dl Albumin (3.4-5.0) gm/dl Globulin (2.5-4.0) gm/dl Albumin/Globulin Ratio (0.9-2) Lipase (73-393) U/L Nasal Screen MRSA (PCR) (Negative) 08/04/18 08/04/18 08/05/18 Range/Units 13:08 15:05 06:36 WBC 6.27 (4.8-10.8) K/uL RBC 3.32 L (4.7-6.1) M/uL Hgb 10.7 L 9.3 L (14.0-18.0) g/dL Hct 28.0 L (42-52) % MCV 84.3 (80-100) fL MCH 28.0 (25-34) pg MCHC 33.2 (32-36) g/dL RDW Std Deviation 54.6 H (36.4-46.3) fL RDW Coeff of Truman 17.6 H (11.5-14.5) % Plt Count 208 (130-400) K/uL MPV 8.4 (7.4-10.4) fL Immature Gran % (Auto) 0.5 % Neut % (Auto) 73.5 % Lymph % (Auto) 13.2 % Evangeline % (Auto) 12.8 % Eos % (Auto) 0.0 % Baso % (Auto) 0.0 % Immature Gran # (Auto) 0.03 H (0.00-0.02) K/uL Neut # (Auto) 4.61 (1.4-6.5) K/uL Lymph # (Auto) 0.83 L (1.2-3.4) K/uL Evangeline # (Auto) 0.80 H (0.11-0.59) K/uL Eos # (Auto) 0.00 (0-0.5) K/uL Baso # (Auto) 0.00 (0-0.2) K/uL PT (9.0-12.0) Seconds INR (0.9-1.1) APTT (21.0-31.0) Seconds PTT Ratio Sodium (136-145) mmol/L Potassium (3.5-5.1) mmol/L Chloride (98-107) mmol/L Carbon Dioxide (21-32) mmol/L Anion Gap (3-11) BUN (7-18) mg/dl Creatinine (0.6-1.4) mg/dl Est Cr Clr Drug Dosing ml/min Est GFR ( Amer) Est GFR (Non-Af Amer) BUN/Creatinine Ratio (10-20) Glucose (70-99) mg/dl POC Lactic Acid Marcio (0.90-1.70) mmol/L Calcium (8.5-10.1) mg/dl Magnesium (1.8-2.4) mg/dl Total Bilirubin (0.2-1) mg/dl AST (15-37) U/L ALT (12-78) U/L Alkaline Phosphatase (45-117) U/L Troponin I (0-0.045) ng/ml Total Protein (6.4-8.2) gm/dl Albumin (3.4-5.0) gm/dl Globulin (2.5-4.0) gm/dl Albumin/Globulin Ratio (0.9-2) Lipase (73-393) U/L Nasal Screen MRSA (PCR) Negative (Negative) 08/05/18 08/05/18 Range/Units 06:36 06:36 WBC (4.8-10.8) K/uL RBC (4.7-6.1) M/uL Hgb (14.0-18.0) g/dL Hct (42-52) % MCV (80-100) fL MCH (25-34) pg MCHC (32-36) g/dL RDW Std Deviation (36.4-46.3) fL RDW Coeff of Truman (11.5-14.5) % Plt Count (130-400) K/uL MPV (7.4-10.4) fL Immature Gran % (Auto) % Neut % (Auto) % Lymph % (Auto) % Evangeline % (Auto) % Eos % (Auto) % Baso % (Auto) % Immature Gran # (Auto) (0.00-0.02) K/uL Neut # (Auto) (1.4-6.5) K/uL Lymph # (Auto) (1.2-3.4) K/uL Evangeline # (Auto) (0.11-0.59) K/uL Eos # (Auto) (0-0.5) K/uL Baso # (Auto) (0-0.2) K/uL PT 12.0 (9.0-12.0) Seconds INR 1.2 H (0.9-1.1) APTT 27.3 (21.0-31.0) Seconds PTT Ratio 1.0 Sodium 133 L (136-145) mmol/L Potassium 4.4 (3.5-5.1) mmol/L Chloride 98 (98-107) mmol/L Carbon Dioxide 29 (21-32) mmol/L Anion Gap 5.0 (3-11) BUN 23 H (7-18) mg/dl Creatinine 1.07 (0.6-1.4) mg/dl Est Cr Clr Drug Dosing 39.0 ml/min Est GFR ( Amer) 71.5 Est GFR (Non-Af Amer) 61.7 BUN/Creatinine Ratio 21.7 H (10-20) Glucose 112 H (70-99) mg/dl POC Lactic Acid Marcio (0.90-1.70) mmol/L Calcium 8.3 L (8.5-10.1) mg/dl Magnesium (1.8-2.4) mg/dl Total Bilirubin 0.5 (0.2-1) mg/dl AST 23 (15-37) U/L ALT 20 (12-78) U/L Alkaline Phosphatase 68 (45-117) U/L Troponin I (0-0.045) ng/ml Total Protein 5.8 L (6.4-8.2) gm/dl Albumin 2.6 L (3.4-5.0) gm/dl Globulin 3.2 (2.5-4.0) gm/dl Albumin/Globulin Ratio 0.8 L (0.9-2) Lipase (73-393) U/L Nasal Screen MRSA (PCR) (Negative) Imaging Data Attestation: I personally reviewed and interpreted this imaging study as follows : My Impression: 1 VIEW CHEST X-RAY: The results were interpreted by me. No cardiomegaly. No effusions. Appearance of left lower lobe infiltrate. Prominent aortic know. No wide mediastinum. No acute pulmonary edema. Radiologist's Impression: Radiology results as stated below per my review and the radiologist's interpretation: CT ABDOMEN & PELVIS With Contrast: Impression: Extensive fat stranding with thickening of the right rectus and oblique abdominal muscles most likely represents an intramuscular hematoma. The inferior epigastric artery courses through this collection but no definite source of active contrast extravasation is seen. The appendix is not clearly delineated. Cholelithiasis. Large colonic stool burden. Recommend correlation for constipation. Mild urinary bladder wall thickening. Recommend correlation for cystitis. Enlarged prostate gland. Bilateral renal atrophy with punctate nonobstructing left renal calculus. Osteoporosis. Fat stranding overlying the sacrum appears similar to prior examination. Radiologist: Pancho Castro MD Study ready at 03:49 and initial results transmitted at 03:58. ECG Data Attestation: I personally reviewed and interpreted this ECG as follows: Indication: abdominal pain Rate (beats per minute): 71 Rhythm: sinus rhythm Findings: + other (normal axis, normal QRS and QTc, no other acute ischemic changes), + 1st degree AV block and + T-wave inversion (lead 3) Blood Pressure Blood Pressure Findings: Normal blood pressure Blood Pressure Disposition: did not require urgent referral MDM Narrative Patient here in moderate distress and uncomfortable appearing initially required multiple doses of IV pain medication. Patient's labs are reassuring, INR supratherapeutic, H&H stable. Given patient's recent bronchitis, wheezing noted on exam, and patient's reported worsening cough despite outpatient prednisone and doxycycline according to the records, patient sent for repeat chest x-ray. It appeared on chest x-ray patient had an evolving infiltrate in the left lower lung. Given patient's age, known COPD, and concern for failed outpatient treatment, cultures drawn and patient started on IV antibiotics. Out of concern for his respiratory pathology as well as need for pain control for the hematoma seen on CT it is likely the cause of his right lower quadrant pain, case discussed with hospitalist for additional evaluation and management. There is no evidence on the CT read by stat read of active extravasation despite hematoma seen. I suspect given forceful nature of cough and supratherapeutic INR, patient developed a small bleeding vessel which led to a hematoma which is contributed to his pain. No other evidence of acute vascular , GI, or pathology seen on CT. Patient and family aware of all results. They are in agreement with plan will feel more comfortable with him being rechecked here. We did attempt to contact the [facility] to see if close recheck could be performed tomorrow including a repeat PT/INR as patient was given a dose of vitamin K here in the emergency room. They state that is only possible on Wednesdays at their facilities otherwise family would have to take him for additional follow-up. Given his the weekend and family is not available to take him to these additional appointments, I feel it is safer for patient to be observed in the hospital. Impression & Plan Abdominal pain, RLQ, Hematoma, Supratherapeutic INR, Pneumonia, COPD exacerbation Discharge Plan Visit Data *Final* Discharge Date/Time: 08/04/18 08:27 Chief Complaint: Abdominal Pain Stated Complaint: RIGHT SIDE PAIN ED Provider: Leatha Shaw Discharge Problem: Abdominal pain, RLQ, Hematoma, Supratherapeutic INR, Pneumonia, COPD exacerbation Patient Disposition: Admitted As Inpatient Discharge Instructions Interventions: ED Discharge Assessment Last Done: 08/04/18 08:27 The scribe's documentation has been prepared under my direction and personally reviewed by me in its entirety. I confirm that the note above accurately reflects all work, treatment, procedures, and medical decision making performed by me.
--- NOTE | 2018-08-05 15:10 | Hospitalist Progress Note ---
Date of Service August 05, 2018 Assessment & Plan (1) Hematoma: (2) Supratherapeutic INR: This is a coagulopathy associated with Coumadin on presentation he was given vitamin K. 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 The patient has significant GI bleed in 2017 however after this was stabilized he had recurrence of the leg clot and his primary care provider elected to restart the Coumadin. Patient states they did discuss a intra-vena caval filter in the past and he refused at that point time and does continue to refuse it, his INR is now 1.2 we will continue to hold anticoagulation at this point time until hemoglobin stabilizes Is acute blood loss anemia from his rectus sheath hematoma we will continue to follow he remains hemodynamically stable (3) COPD exacerbation: This is a COPD exacerbation associated with bronchitis he is improved so we will begin to taper his steroids, continuing duo nebs and de-escalating antibiotics to Augmentin (4) Bronchitis: There is some equivocal reading of a basilar change on x-ray however clinically this continues to be a continuation of his bronchitis (5) Heart disease: Patient is a history of chronic diastolic heart failure he is euvolemic, we will continue Lasix 20 ARB and atenolol and continue to watch his volume status Subjective Patient looks much better he still having some abdominal pain his breathing is greatly improved globin did drop 1 additional gram his coagulopathy has been reversed Review of Systems ROS: well nourished well developed. No double vision blurry vision No problems with speech or swallowing No palpitations, chest pain or pressure No Wheezing has persistent chronic shortness of breath and dyspnea Persistent abdominal pain but no nausea vomiting diarrhea No burning urine urine frequency or changes in color No focal joint pain or muscle pain No skin rashes or oral lesions No unusual bruising or bleeding Chronic daily focused back pain or numbness or loss of strength No changes in memory or confusion Physical Exam 2 Vital Signs (Past 24 Hours): Last Vital Signs Temp 37.1 C 08/05/18 14:57 Pulse 84 08/05/18 14:57 Resp 16 08/05/18 14:57 BP 142/72 H 08/05/18 14:57 Pulse Ox 92 08/05/18 14:57 The patient appeared chronically ill Vital signs as documented. Head exam is unremarkable. normocephalic, atraumatic Neck is without jugular venous distension, thyromegaly, or lymphademopathy Lungs are dense bilaterally accessory muscles of respiration are used he is barrel chested Cardiac exam reveals Rhythm is regular. First and second heart sounds normal. Abdominal exam reveals tenderness to the rectus sheath area no visible ecchymosis seen, firm abdomen but not rigid normal bowel sounds, no masses, no organomegaly Extremities are nonedematous and both pedal pulses are present Neurologic exam is A&Ox3, no focal deficits, strength is equal bilateral Psychologically seems neither anxious or depressed Skin is warm Dry without bruises or lesions
[2018-08-05] MEDS ORDERED: Nursing to Pharmacy Communication ONE (17:54)
[2018-08-05] MEDS: BENZONATATE 100 MG CAPSULE PO PRN (18:15)
[2018-08-05] MEDS: methylPREDNISolone 40 MG in SYRINGE 0 ML IV SCH (21:00)
[2018-08-05] MEDS: TAMSULOSIN HCL 0.4 MG CAP PO SCH (21:10)
[2018-08-05] MEDS: ROPINIROLE HCL 1 MG TABLET PO SCH (21:10)
[2018-08-06] MEDS ORDERED: VANCOMYCIN HCL 1,000 MG in SODIUM CHLORIDE 0.9% 250 ML IV SCH (02:00)
[2018-08-06 07:08] LABS: Hematocrit (blood only) 27.5 % (42-52); Hemoglobin 9.1 g/dL (14.0-18.0); Immature Granulocytes # (auto) 0.03 K/uL (0.00-0.02); Immature Granulocytes % (auto) 0.4 %; Lymphocytes % (auto) 7.5 %; Mean Corpuscular Hgb Conc 33.1 g/dL (32-36); Mean Corpuscular Volume 84.1 fL (80-100); Mean Platelet Volume 8.1 fL (7.4-10.4); Monocytes # (auto) 0.66 K/uL (0.11-0.59); Monocytes % (auto) 9.9 %; Neutrophils # (auto) 5.51 K/uL (1.4-6.5); Neutrophils % (auto) 82.2 %; Platelet Count 218 K/uL (130-400); RDW Coefficient of Variation 17.3 % (11.5-14.5); RDW Standard Deviation 52.6 fL (36.4-46.3); Red Blood Count 3.27 M/uL (4.7-6.1)
[2018-08-06] MEDS: ALBUT/IPRATROP 3MG/0.5MG NEB 3 ML VIAL NEB SCH ×4 (07:11→19:45)
[2018-08-06 07:17] LABS: INR 1.2 (0.9-1.1)
[2018-08-06] MEDS: methylPREDNISolone 40 MG in SYRINGE 0 ML IV SCH (07:35)
[2018-08-06] MEDS: ASPIRIN 81 MG ECTAB PO SCH (07:35)
[2018-08-06 07:36] LABS: Albumin Level 2.6 gm/dl (3.4-5.0); Calcium 8.1 mg/dl (8.5-10.1); Creatinine Clr Calc Pharmacy 42.6 ml/min; Est GFR (African American) 80.5; Est GFR (Non-African American) 69.4; Magnesium 2.1 mg/dl (1.8-2.4); Potassium 4.2 mmol/L (3.5-5.1)
[2018-08-06] MEDS: MULTIVITAMIN TAB PO SCH (07:36)
[2018-08-06] MEDS: BENZONATATE 100 MG CAPSULE PO PRN (07:36)
[2018-08-06] MEDS: ATENOLOL 25 MG TABLET PO SCH (07:36)
[2018-08-06] MEDS: DULOXETINE HCL 20 MG CAP PO SCH (07:36)
[2018-08-06] MEDS: GABAPENTIN 400 MG CAP PO SCH ×3 (07:36→20:23)
[2018-08-06] MEDS: SENNA 8.6 MG TAB PO SCH (07:36)
[2018-08-06] MEDS: PANTOprazole 40 MG TAB PO SCH ×2 (07:37→20:57)
[2018-08-06] MEDS: IRBESARTAN 150 MG TAB PO SCH (07:37)
[2018-08-06 07:39] LABS: Albumin Globulin Ratio 0.8 (0.9-2); Bilirubin,Total 0.6 mg/dl (0.2-1); Globulin 3.3 gm/dl (2.5-4.0); Total Protein 5.9 gm/dl (6.4-8.2)
[2018-08-06] MEDS ORDERED: VANCOMYCIN TROUGH ONE (13:30)
[2018-08-06] MEDS: AMOXICILLIN/CLAVULANATE 875 MG TAB PO SCH (18:01)
[2018-08-06] MEDS: TAMSULOSIN HCL 0.4 MG CAP PO SCH (20:23)
[2018-08-06] MEDS: ROPINIROLE HCL 1 MG TABLET PO SCH (20:23)
--- NOTE | 2018-08-06 23:12 | Hospitalist Progress Note ---
Date of Service August 06, 2018 Assessment & Plan (1) Hematoma: spontaneous hematoma due to anticoagulation bleeding stopped, less pain continue to hold Coumadin, INR 1.2 (2) Supratherapeutic INR: This is a coagulopathy associated with Coumadin on presentation he was given vitamin K. 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 The patient has significant GI bleed in 2017 however after this was stabilized he had recurrence of the leg clot and his primary care provider elected to restart the Coumadin. Patient states they did discuss a intra-vena caval filter in the past and he refused at that point time and does continue to refuse it, his INR is now 1.2 we will continue to hold anticoagulation continue to hold Coumadin on discharge, would wait for a week (3) COPD exacerbation: improved air flow, mild wheezing change to Prednisone, change abx to Augmentin, continue nebulizers (4) Bronchitis: There is some equivocal reading of a basilar change on x-ray however clinically this continues to be a continuation of his bronchitis (5) Heart disease: Patient is a history of chronic diastolic heart failure he is euvolemic, we will continue Lasix 20 ARB and atenolol and continue to watch his volume status (6) Acute respiratory failure with hypoxia: typically on oxygen at night only, currently on 2L during the day as well order two step prior to d/c tomorrow transfer to medical floor, PT/OT consults, two step likely to [facility] tomorrow Subjective patient feels well, no further abdominal pain, breathing is stable he is eating well, making jokes Hb is 9.1, 9.2 yesterday, no signs of further bleeding still feels a little weak, will get PT/OT still on oxygen during the day, this is not typical for him discussed with daughter over the phone Review of Systems All systems reviewed & are unremarkable except as noted in HPI & below Constitutional: + fatigue and + weakness Respiratory: + dyspnea on exertion Gastrointestinal: + abdominal pain (in abdominal wall) Physical Exam 2 Vital Signs (Past 24 Hours): Last Vital Signs Temp 36.7 C 08/06/18 15:29 Pulse 100 H 08/06/18 19:45 Resp 20 08/06/18 19:45 BP 126/64 08/06/18 15:29 Pulse Ox 93 02/25/19 19:45 Constitutional: WD/WN, vitals as above Eyes: PERRL, conjunctivae normal, anicteric sclerae ENMT: external ear and nose normal, oropharynx normal Neck: trachea midline, no thyromegaly Respiratory: normal respiratory effort and + cough; no respiratory distress Auscultation: + diminished lung sounds and + wheezes (faint, end exhalation) Cardiovascular: RRR, no murmur, no edema Gastrointestinal (Abdomen): Inspection/Auscultation: abdomen normal to inspection and normal bowel sounds; abdomen not distended Percussion/ Palpation: + abdomen tender (in rectus muscle) and abdomen soft; no abdominal mass Musculoskeletal: no cyanosis or clubbing, extremities motor strength 5/5 Skin: no rashes, warm and dry Neurologic: patellar DTR's 2+ bilat, sensation intact and PERRL, EOMI, accommodation nl, no face palsy, no dysarthria Psychiatric: A+Ox3, euthymic affect Lymphatic: no cervical or axillary lymphadenopathy Results & Data Laboratory Results Laboratory Results - last 24 hr 08/06/18 08/06/18 08/06/18 06:53 06:53 06:53 WBC 6.70 RBC 3.27 L Hgb 9.1 L Hct 27.5 L MCV 84.1 MCH 27.8 MCHC 33.1 RDW Std Deviation 52.6 H RDW Coeff of [place] 17.3 H Plt Count 218 MPV 8.1 Immature Gran % (Auto) 0.4 Neut % (Auto) 82.2 Lymph % (Auto) 7.5 [place] % (Auto) 9.9 Eos % (Auto) 0.0 Baso % (Auto) 0.0 Immature Gran # (Auto) 0.03 H Neut # (Auto) 5.51 Lymph # (Auto) 0.50 L [place] # (Auto) 0.66 H Eos # (Auto) 0.00 Baso # (Auto) 0.00 PT 12.0 INR 1.2 H Sodium 133 L Potassium 4.2 Chloride 99 Carbon Dioxide 29 Anion Gap 5.0 BUN 17 Creatinine 0.97 Est Cr Clr Drug Dosing 42.6 Est GFR ( Amer) 80.5 Est GFR (Non-Af Amer) 69.4 BUN/Creatinine Ratio 18.0 Glucose 122 H Calcium 8.1 L Magnesium 2.1 Total Bilirubin 0.6 AST 32 ALT 25 Alkaline Phosphatase 66 Total Protein 5.9 L Albumin 2.6 L Globulin 3.3 Albumin/Globulin Ratio 0.8 L Medications Administered Current Inpatient Medications Acetaminophen (Tylenol) 650 mg PO Q4H PRN PRN Reason: Pain or Fever Stop: 09/03/18 08:29 Al Hydrox/Mg Hydrox/Simethicone (Maalox) 15 ml PO Q4H PRN PRN Reason: Dyspepsia Stop: 09/03/18 08:29 Albuterol (Duoneb) 3 ml NEB QIDR [facility] Stop: 09/03/18 08:29 Last Admin: 08/06/18 19:45 Dose: 3 ml Albuterol (Duoneb) 3 ml INH Q2H PRN PRN Reason: SOB/WHEEZING Stop: 09/03/18 08:57 Amoxicillin/Clavulanate Potassium (Augmentin 875mg) 1 tab PO BIDM [facility] Stop: 08/13/18 16:59 Last Admin: 08/06/18 18:01 Dose: 1 tab Aspirin (Ecotrin Ectab) 81 mg PO DAILY [facility] Stop: 09/03/18 08:59 Last Admin: 08/06/18 07:35 Dose: 81 mg Atenolol (Tenormin) 25 mg PO DAILY [facility] Stop: 09/03/18 08:59 Last Admin: 08/06/18 07:36 Dose: 25 mg Benzonatate (Tessalon Perle) 100 mg PO Q8H PRN PRN Reason: Cough Stop: 09/04/18 17:58 Last Admin: 08/06/18 07:36 Dose: 100 mg Duloxetine HCl (Cymbalta) 40 mg PO DAILY [facility] Stop: 09/03/18 08:59 Last Admin: 08/06/18 07:36 Dose: 40 mg Gabapentin (Neurontin) 400 mg PO TID [facility] Stop: 09/03/18 08:59 Last Admin: 08/06/18 20:23 Dose: 400 mg Irbesartan (Avapro) 150 mg PO DAILY [facility] Stop: 09/03/18 08:59 Last Admin: 08/06/18 07:37 Dose: 150 mg Magnesium Hydroxide (Milk Of Magnesia) 30 ml PO Q12H PRN PRN Reason: Constipation Stop: 09/03/18 08:29 Multivitamins (Multivitamin Tab) 1 tab PO DAILY [facility] Stop: 09/03/18 08:59 Last Admin: 08/06/18 07:36 Dose: 1 tab Nitroglycerin (Nitrostat) 0.4 mg SL UD PRN PRN Reason: Chest Pain Stop: 09/03/18 08:29 Ondansetron HCl (Zofran) 4 mg PO Q6 PRN PRN Reason: Nausea Stop: 09/03/18 08:29 Oxycodone/Acetaminophen (Percocet 5mg/325mg) 1 tab PO Q4H PRN PRN Reason: pain Stop: 08/18/18 08:29 Last Admin: 08/05/18 21:16 Dose: 1 tab Pantoprazole Sodium (Protonix) 40 mg PO BID [facility] Stop: 09/03/18 08:59 Last Admin: 08/06/18 20:57 Dose: 40 mg Polyethylene Glycol (Miralax Powder Packet) 17 gm PO DAILY PRN PRN Reason: Constipation Stop: 09/03/18 08:29 Prednisone (Prednisone) 40 mg PO QAM [facility] Stop: 09/06/18 08:59 Ropinirole HCl (Requip) 1 mg PO HS [facility] Stop: 09/03/18 20:59 Last Admin: 08/06/18 20:23 Dose: 1 mg Sennosides (Senokot) 8.6 mg PO DAILY [facility] Stop: 09/03/18 08:59 Last Admin: 08/06/18 07:36 Dose: 8.6 mg Tamsulosin HCl (Flomax) 0.4 mg PO HS [facility] Stop: 09/03/18 20:59 Last Admin: 08/06/18 20:23 Dose: 0.4 mg
[2018-08-07] MEDS: BENZONATATE 100 MG CAPSULE PO PRN ×2 (00:07→07:56)
[2018-08-07] MEDS ORDERED: VANCOMYCIN TROUGH ONE (01:30)
[2018-08-07 06:49] LABS: Eosinophils # (auto) 0.03 K/uL (0-0.5); Eosinophils % (auto) 0.4 %; Hematocrit (blood only) 29.1 % (42-52); Hemoglobin 9.8 g/dL (14.0-18.0); Immature Granulocytes # (auto) 0.04 K/uL (0.00-0.02); Immature Granulocytes % (auto) 0.5 %; Lymphocytes # (auto) 1.31 K/uL (1.2-3.4); Lymphocytes % (auto) 17.1 %; Mean Corpuscular Hgb Conc 33.7 g/dL (32-36); Mean Corpuscular Volume 83.9 fL (80-100); Mean Platelet Volume 7.9 fL (7.4-10.4); Monocytes # (auto) 0.92 K/uL (0.11-0.59); Neutrophils # (auto) 5.34 K/uL (1.4-6.5); Nucleated RBC # (auto) 0.04 K/uL (0-0); Nucleated RBC % (auto) 0.5 %; Platelet Count 246 K/uL (130-400); RDW Coefficient of Variation 17.7 % (11.5-14.5); Red Blood Count 3.47 M/uL (4.7-6.1); White Blood Count 7.64 K/uL (4.8-10.8)
[2018-08-07 06:59] LABS: INR 1.1 (0.9-1.1); Prothrombin Time 11.6 Seconds (9.0-12.0)
[2018-08-07] MEDS: ALBUT/IPRATROP 3MG/0.5MG NEB 3 ML VIAL NEB SCH ×2 (07:09→10:38)
[2018-08-07 07:24] LABS: Albumin Level 2.6 gm/dl (3.4-5.0); BUN Creatinine Ratio 18.6 (10-20); Creatinine Clr Calc Pharmacy 45.4 ml/min; Est GFR (African American) 86.9; Magnesium 2.1 mg/dl (1.8-2.4); Potassium 4.1 mmol/L (3.5-5.1)
[2018-08-07 07:27] LABS: Albumin Globulin Ratio 0.8 (0.9-2); Bilirubin,Total 0.9 mg/dl (0.2-1); Globulin 3.2 gm/dl (2.5-4.0); Total Protein 5.8 gm/dl (6.4-8.2)
[2018-08-07] MEDS: ASPIRIN 81 MG ECTAB PO SCH (07:56)
[2018-08-07] MEDS: SENNA 8.6 MG TAB PO SCH (07:56)
[2018-08-07] MEDS: DULOXETINE HCL 20 MG CAP PO SCH (07:57)
[2018-08-07] MEDS: GABAPENTIN 400 MG CAP PO SCH ×2 (07:57→12:35)
[2018-08-07] MEDS: AMOXICILLIN/CLAVULANATE 875 MG TAB PO SCH (07:57)
[2018-08-07] MEDS: PANTOprazole 40 MG TAB PO SCH (07:58)
[2018-08-07] MEDS: ATENOLOL 25 MG TABLET PO SCH (07:59)
[2018-08-07] MEDS: MULTIVITAMIN TAB PO SCH (07:59)
[2018-08-07] MEDS: IRBESARTAN 150 MG TAB PO SCH (08:46)
[2018-08-07] MEDS ORDERED: predniSONE 20 MG TAB PO SCH (09:00)
--- NOTE | 2018-08-07 23:31 | Discharge Summary ---
Date of Service August 07, 2018 Admission HPI Per Admitting Provider 80-year-old male presents to the emergency department with increased abdominal pain and shortness of breath. The patient was given doxycycline for bronchitis on the . Patient continues to have shortness of breath productive cough now is a firm tender area to the left side of his midline of his abdomen. This is confirmed to be a rectus sheath hematoma. He was with coagulopathy from Coumadin with an INR of 5.7 on presentation was given 7.5 mg of vitamin K on presentation. Patient states it hurts to cough he cannot take a deep breath Admission Exam Per Admitting Provider The patient in moderate distress, with pain and breathing. Vital signs as documented. Head exam is unremarkable. normocephalic, atraumatic Neck is without jugular venous distension, thyromegaly, or lymphademopathy Lungs are labored breathing, accessory muscle use, purse lips, coarse rhonchi no wheeze Cardiac exam reveals Rhythm is regular. First and second heart sounds normal. Abdominal exam reveals swelling of rectus sheath tender and painful to exam, normal bowel sounds, no masses, no organomegaly Extremities are nonedematous and both pedal pulses are present Neurologic exam is A&Ox3, no focal deficits, strength is equal bilateral Psychologically seems neither anxious or depressed Skin is warm Dry without bruises or lesions Principal Diagnosis Spontaneous rectus sheath hematoma Discharge Exam Constitutional WD/WN, vitals as above Eyes PERRL, conjunctivae normal, anicteric sclerae ENMT external ear and nose normal, oropharynx normal Neck trachea midline, no thyromegaly Respiratory normal respiratory effort and + cough; no respiratory distress Auscultation: + diminished lung sounds, + rhonchi (bilateral, clear with cough but takes a lot of effort) and + wheezes (faint, end exhalation) Cardiovascular RRR, no murmur, no edema Gastrointestinal (Abdomen) Inspection/Auscultation: abdomen normal to inspection and normal bowel sounds; abdomen not distended Percussion/Palpation: + abdomen tender (in rectus muscle on right, some bruising in right flank) and abdomen soft; no abdominal mass Musculoskeletal no cyanosis or clubbing, extremities motor strength 5/5 Skin no rashes, warm and dry Neurologic patellar DTR's 2+ bilat, sensation intact and PERRL, EOMI, accommodation nl, no face palsy, no dysarthria Psychiatric A+Ox3, euthymic affect Lymphatic no cervical or axillary lymphadenopathy Discharge Data Allergies Allergy/AdvReac Type Severity Reaction Status Date / Time No Known Allergies Allergy Verified 08/04/18 01:28 Consultations 08/04/18 08:30 Consult Case Management - Discharge Planning Routine Ordered Studies 08/04/18 02:45 CT abd pelvis IV con only Urgent Hospital Course (1) Hematoma: spontaneous hematoma due to anticoagulation, plus he was coughing due to COPD exacerbation bleeding stopped, less pain continue to hold Coumadin, INR 1.1 would resume Coumadin later this week, 08/10 but would consider lower dose, defer to PCP (2) Supratherapeutic INR: This is a coagulopathy associated with Coumadin on presentation he was given vitamin K. 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 The patient has significant GI bleed in 2016 however after this was stabilized he had recurrence of the leg clot and his primary care provider elected to restart the Coumadin. Patient states they did discuss a intra-vena caval filter in the past and he refused at that point time and does continue to refuse it, his INR is now 1.2 we will continue to hold anticoagulation continue to hold Coumadin on discharge, would wait until 08/10 defer to PCP (3) COPD exacerbation: improved air flow, mild wheezing has rhonchi and increased sputum production prone to some mild distress because he has weak cough and phlegm gets stuck he does not want to cough strongly due to pain in rectus muscle Prednisone taper on discharge, 40mg initially, decrease by 10mg every 2 days complete several more days of Augmentin, continue nebulizers, script provided for Duoneb and home nebulizer so it can be delivered to [facility] (4) Bronchitis: There is some equivocal reading of a basilar change on x-ray however clinically this continues to be a continuation of his bronchitis as above, treat with Prednisone and nebulizers (5) Heart disease: Patient is a history of chronic diastolic heart failure he is euvolemic, we will continue Lasix 20 ARB and atenolol (6) Acute respiratory failure with hypoxia: typically on oxygen at night only 2 step performed on 08/07, qualifies for 2L on exertion, none at rest, continue 2L at night PT/OT recommends return to [facility] with home therapy script provided to get therapy Total Time Total Time Spent Total Time Spent (In Minutes): 35 minutes Total Time Includes: Examination of the Patient, Discharge Planning and Other ( discussed with patient's daughter) Discharge Plan Discharge Items Patient Disposition: Personal [facility] Reason For Visit: PNEUMONIA Discharge Diagnosis: Spontaneous rectal sheath hematoma, supratherapeutic INR, COPD exacerbation Condition: Good Discharge Goals: Improve disease control and Improve function Activity: Resume your previous activity Non-emergency contact: Primary Care Provider Call non-emergency contact if: you have any medication questions, your symptoms worsen and you have a fever Diet: Heart Healthy Addtl Provider Instructions: Medications: - AUGMENTIN and PREDNISONE: complete as prescribed for mild COPD exacerbation - TESSALON: use as needed for cough - DUONEB: use as needed for shortness of breath - COUMADIN: hold until end of week, can resume on 08/10 recommend starting at lower dose than previous, INR was 5.3 on admission with spontaneous hematoma - OXYGEN: qualifies for 2 liters on exertion, does not need while resting, continue to use 2L at night as previously prescribed Spontaneous hematoma, rectus sheath bleeding stopped, Hb actually trending up to 9.8 today INR is 1.1, was initially 5.3 on admission and reversed with Vitamin K hold Coumadin until 08/10, resume at lower dose than previous, watch INR closely for next month COPD exacerbation, mild complete Prednisone and Augmentin, Duoneb PRN can use oxygen on exertion FOLLOW UP - PCP in one week, call for appointment Prescriptions: New benzonatate [Tessalon Perles] 100 mg Capsule 100 mg PO Q8H PRN (Reason: cough) 10 Days Qty: 30 RF: 2 amoxicillin-pot clavulanate 875-125 mg Tablet 1 tab PO BIDM 4 Days Qty: 9 RF: 0 prednisone 10 mg tablet 40 mg PO QAM 8 Days Qty: 20 RF: 0 ipratropium-albuterol 0.5 mg-3 mg(2.5 mg base)/3 mL Solution For Nebulization 3 ml NEB Q6 PRN (Reason: sob) Qty: 15 RF: 1 Continue ropinirole [Requip] 1 mg tablet 1 mg PO HS RF: 0 ondansetron HCl [Zofran] 4 mg tablet 4 mg PO Q6 PRN (Reason: Nausea) RF: 0 gabapentin 400 mg capsule 400 mg PO TID RF: 0 atenolol 25 mg tablet 25 mg PO DAILY RF: 0 aspirin 81 mg tablet,delayed release (DR/EC) 81 mg PO DAILY RF: 0 multivitamin capsule 1 cap PO DAILY RF: 0 duloxetine [Cymbalta] 20 mg capsule,delayed release(DR/EC) 40 mg PO DAILY RF: 0 pantoprazole [Protonix] [address] for susp in packet 40 mg PO BID RF: 0 irbesartan 150 mg tablet 150 mg PO DAILY RF: 0 furosemide [Lasix] 20 mg tablet 20 mg PO DAILY RF: 0 naloxone [Narcan] 4 mg/actuation spray,non-aerosol 1 sprays INTNAS Q2M PRN (Reason: opioid overdose) RF: 0 oxycodone-acetaminophen [Percocet] 5-325 mg tablet 1 - 2 tab PO .Q4-6H PRN (Reason: pain) RF: 0 sennosides 8.6 mg Tablet 8.6 mg PO DAILY PRN (Reason: Constipation) RF: 0 acetaminophen 650 mg Tablet Extended Release 650 mg PO Q4 PRN (Reason: Fever Or Pain) RF: 0 food supplemt, lactose-reduced [Ensure] Liquid 1 dose PO DAILY RF: 0 vitamins A,C,[id number] [PreserVision AREDS] [id number],320-226-200 [id number] Capsule 1 cap PO BID RF: 0 Oxygen Gas 1 applic NA UD RF: 0 Discontinued warfarin [Coumadin] 2 mg tablet 2 mg PO [id number] RF: 0 warfarin [Coumadin] 5 mg tablet 5 mg PO [id number] RF: 0 Stand-Alone Forms: [facility] Discharge Orders: Discharge Order (Routine); Ordered 08/07/18 Ordered By: Eddie Chavez Admission Data Admit Date/Time: 08/04/18 07:09 Attending Provider: Eddie Chavez Admit Provider: Jorge Armstrong Primary Care Provider: Julio Waller,[facility], [employer] Other Providers: Jorge Armstrong Service: Medical Other Interventions: Discharge Summary Assessment (RN) Last Done: 08/07/18 11:22 DC Date/Time DO NOT enter until pt leaves facility: 08/07/18 14:27
== END 2018-08-07 14:27 | disposition home or self-care (01) | DRG 813 ==
LOC: ED 00:25 → 2S 07:09 → SUATTDRO 07:09 → 2S 08:27 → 4E 08-06 15:06

== ENCOUNTER 2019-10-31 22:56 | Inpatient (IN) ==
[2019-10-31] MEDS ORDERED: fentaNYL citrate 100 MCG/2 ML VIAL IV STA (23:10)
--- NOTE | 2019-10-31 23:12 | Emergency Department Note ---
Impression & Plan Closed fracture of left hip ED Provider Note Name: TIFFANIE PARADA Age: 89 Sex: M Arrives Via: Ambulance Informant: Patient, EMS report, Care Transfer Sheet ED Provider: Bora Metcalf MD Chief Complaint: Left leg pain Impression: Closed fracture of left hip Medical Decision Making: Very pleasant 89 yr old male with acute left hip/left pain this evening. History of significant back issues and osteoporosis, along with COPD, DVT, CAD, HTN, Asthma, amongst others. Denies fall, injury, nor mistep but pain is acute and this evening. Mostly over left hip with any ROM/Palpation though does have pain with ROM left knee. No swelling, bruising, increased warmth nor rash appreciated. Imaging with left hip fracture new from CT last year. Unclear why acute fracture though could be spontaneous from osteoporosis. Will bring in for further management. He was a bit hypoxic on arrival (88% on his normal 2L NC) but I is in no respiratory distress nor is CXR concerning. No fevers, cough, shortness of breath and I feel COVID unlikely. More likely is fact he had Percocet earlier. Pain better with small doses fentanyl. Hospitalist in to evaluate further. With fracture I did not opt to get US for DVT. Prior Medical Record and Triage/Nursing Notes reviewed by Me Additional history obtained from EMS, Nursing Differentials:Fracture, dislocation, septic joint, sciatica, shingles, infection amongst other pathologies. Vital Signs: reviewed and remarkable for mild hypoxia Interventions: Fentanyl 25mcg IV x 2, Zofran 4mg IV Labs:Reviewed and remarkable for no significant abnormalities Imaging:X ray results are stated below per my interpretation: Chest: 1 view: No infiltrate, no effusion, normal cardiac border. Lumbar Xray: 3 view: extensive osteoporosis, arthritis and moderate age indeterminant compression fractures Pelvis xray: 1 view: new left hip fracture through greater trochanter Femer Left xray: 3 view: Arthritic findings, osteoporosis, left intertroch fracture EKG:Per My Interpretation: Indication Pre-Op and hypoxia: NSR 90 bpm, qtc 457. No Ectopy. No Ischemia. Compared to EKG 08/06/18 no acute changes Consults:Dr Sarita Webber Hospitalist Plan: Disposition:Hospitalization. Home. Condition: Good Blood pressure:Normal.No Referral necessary Prescriptions:None PDMP: n/a History of Present Illness:89 / M arrives for evaluation of left leg pain. Patient with chronic history back and joint issues who notes sudden onset left hip pain yesterday but severely worse this evening. Pain radiates to knee. Worse with movement. Better with rest. Using Percocet without improvement. No falls, trauma, injury. Patient states that he hurts and has no other symptoms. No weakness but pain too much to walk. EMS notes patient was hypoxic prior to arrival and had to increase NC from 2 to 4. This is at least 4 hours after last percocet was given. Patient without fevers, cough, shortness of breath, weakness. He states he has no abdominal pain, new back pain, headache, rashes, swelling, nausea, vomiting, diarrhea nor other symptoms. ROS: See above HPI for pertinent positives & negatives. A total of 10 systems reviewed and were otherwise negative. Past Medical History:Extensive see below Past Surgical History:Multiple joint/back surgeries, see below Family History:Cancer, CAD Social History:Lives personal shelter, , non-smoker, retired Home Medications:None Allergies:NKDA Vitals:Blood Pressure: 160/80, Pulse 88, RR 16, T 36.6C, O2 93% on NC Physical Exam: GENERAL: Patient is very uncomfortable appearing and in mild distress. EYES: No scleral icterus, unremarkable pupils. ENT: Mucous membranes moist, no nasal congestion. NECK: No masses appreciated, nomeningismus, trachea is midline. RESPIRATORY: No dyspnea. Clear to auscultation and equal bilaterally. No wheeze, no rhonchi. CARDIOVASCULAR: Regular rate and rhythm.No murmurs, rubs, gallops appreciated. GASTROINTESTINAL: Abdomen soft, non-tender, no peritonitis.Bowel sounds positive.No masses appreciated. BACK: Previous surgical scar, scoliosis/kyphosis, No midline tenderness, no CVA tenderness EXTREMITIES: laying on left side with severe pain on ROM left hip , mild pain on ROM left knee, TTP over lateral left hip, distal pulses/sensation intact. Other ang normal motion all extremities, no cyanosis, no edema. NEUROLOGIC: Alert and oriented, no acute motor or sensory deficits, no focal weakness, cranial nerves grossly intact. SKIN: No rash, no jaundice, no diaphoresis. PSYCH: Appropriate GCS: 15 ED Course: Times/Reassessments: Multiple, pain controlled with fentanyl Bora Metcalf MD Past Med/Surg History Medical History (Updated 11/01/19 @ 03:14 by Bora Metcalf MD) Anemia (Acute) Asthma (Chronic) Asthma (Chronic) Bronchitis (Inactive) Chronic pain of left knee (Chronic) COPD (chronic obstructive pulmonary disease) (Chronic) COPD (chronic obstructive pulmonary disease) (Chronic) Fall (Acute) Fall (Resolved) Heart disease (Chronic) Heart disease (Chronic) Hypertension (Chronic) Hypertension (Chronic) Metacarpal bone fracture (Acute) Metacarpal bone fracture (Resolved) Myofascial pain (Acute) Rotator cuff arthropathy (Acute 04/11/14) Shoulder pain, left (Acute) Thoracic back pain (Chronic) Thoracic radiculopathy Thoracic spine fracture (Acute) Thoracic spine fracture (Chronic) Surgical History (Updated 09/11/19 @ 09:56 by Max Burnham) H/O wrist surgery History of carpal tunnel surgery History of kyphoplasty (Chronic) History of left shoulder replacement (Chronic) Hx of hernia repair 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) Family History (Updated 09/11/19 @ 09:56 by Max Burnham) Brother Cancer Father Heart disease Denies family history of Ovarian cancer Prostate cancer Myocardial infarction Breast cancer Colorectal cancer Social History Preferred Language: Paraguayan Communication Ability: Effective Visual Impairment: Limited Hearing Ability: Hard of Hearing Slope Runner Required: No Beliefs That Will Affect Care: None marital status: / Current Living Situation: Care Home current occupational status: retired Feels Safe at Home: Yes Safety Concerns: Feels Safe At This Time Smoking Status: Never smoker Do You Dip or Chew Tobacco: No ; Second Hand Exposure: No ; Tobacco Cessation Education Requested by Patient: No Hx Alcohol Use: No Hx Substance Use: No Allergies Allergies Allergy/AdvReac Type Severity Reaction Status Date / Time No Known Allergies Allergy Verified 10/31/19 23:50 Home Meds Home Medications Medication Instructions Recorded Confirmed aspirin 81 mg tablet,delayed 81 mg PO DAILY 02/19/18 10/31/19 release atenolol 25 mg tablet 25 mg PO DAILY 02/19/18 10/31/19 duloxetine 20 mg capsule,delayed 40 mg PO DAILY cap 02/19/18 10/31/19 release multivitamin 1 cap PO DAILY 02/19/18 10/31/19 naloxone 4 mg/actuation nasal spray 1 sprays INTNAS Q2M PRN 02/21/18 10/31/19 sennosides 8.6 mg PO DAILY PRN 05/04/18 10/31/19 guaifenesin 1,200 mg tablet, 1,200 mg PO Q12H PRN 08/21/18 10/31/19 extended release 12 hr sodium chloride 0.9 % nasal spray 2 sprays INTNAS UD PRN 08/21/18 10/31/19 aerosol ipratropium-albuterol 3 ml NEB Q6 PRN 01/08/19 10/31/19 miconazole nitrate [Zeasorb AF] 1 applic TOPICAL BID PRN 01/08/19 10/31/19 polyethylene glycol 3350 [ClearLax] 17 g PO DAILY 01/08/19 10/31/19 pantoprazole 40 mg tablet,delayed 40 mg PO BID #180 tab 03/04/19 10/31/19 release acetaminophen [Tylenol] 650 mg PO QID PRN MDD 3g 10/31/19 10/31/19 diphenhydramine-acetaminophen 2 tab PO HS MDD 3g 10/31/19 10/31/19 [Pain Reliever PM] gabapentin 100 mg PO TID 10/31/19 10/31/19 lanolin vvbiyrx-yt-x.pet-ceres 1 applic TOPICAL DAILY 10/31/19 10/31/19 [Eucerin] psyllium husk [Reguloid (psyllium 1 tsp PO DAILY PRN 10/31/19 10/31/19 husk)] vit C,B-Zm-ejjqc-lutein-zeaxan 1 tab PO BID 10/31/19 10/31/19 [PreserVision AREDS-2] Previous Rx's Medication Instructions Recorded ondansetron HCl 4 mg tablet 4 mg PO Q6H PRN #30 tab 01/31/19 furosemide 20 mg tablet 20 mg PO DAILY #30 tab 03/12/19 oxycodone-acetaminophen 5 mg-325 1 - 2 tab PO .COMPLEX PRN #90 tab 03/12/19 mg tablet ropinirole 1 mg tablet 1 mg PO HS #30 tab 03/12/19 dutasteride 0.5 mg-tamsulosin ER 1 cap PO DAILY #90 cap 04/09/19 0.4 mg capsule ext.release 24hr mphas irbesartan 150 mg tablet 150 mg PO DAILY #30 tab 04/26/19 diclofenac sodium 1 % topical gel 4 gm TOP QID #200 gm 10/10/19 Results & Data (ED) Vital Signs Vital Signs - 24 hr 10/31/19 23:09 11/01/19 00:26 Temperature 36.6 C Temperature Source Oral Pulse Rate 87 Pulse Rate [Right Finger] 92 H Respiratory Rate 18 16 Blood Pressure 146/78 H Blood Pressure [Right Arm] 152/86 H Blood Pressure Mean 100 Blood Pressure Mean [Right Arm] 108 Blood Pressure Position Lying Pulse Oximetry 88 L 95 Oxygen Delivery Method Nasal Cannula Nasal Cannula Oxygen Flow Rate 2 4 Sepsis Recent Fever Within 48 Hours No Sepsis New/Unexplained Change in Mental Status No Sepsis Action Taken by Nursing No Action Required Laboratory Data Result diagrams: 10/31/19 23:37 10/31/19 23:37 Lab Results 10/31/19 10/31/19 10/31/19 Range/Units 23:37 23:37 23:37 WBC 10.33 (4.8-10.8) K/uL RBC 4.48 L (4.7-6.1) M/uL Hgb 13.1 L (14.0-18.0) g/dL Hct 38.2 L (42-52) % MCV 85.3 (80-100) fL MCH 29.2 (25-34) pg MCHC 34.3 (32-36) g/dL RDW Std Deviation 46.6 H (36.4-46.3) fL RDW Coeff of Truman 15.0 H (11.5-14.5) % Plt Count 247 (130-400) K/uL MPV 8.6 (7.4-10.4) fL Immature Gran % (Auto) 0.2 % Neut % (Auto) 74.2 % Lymph % (Auto) 13.0 % Wood % (Auto) 11.2 % Eos % (Auto) 1.2 % Baso % (Auto) 0.2 % Immature Gran # (Auto) 0.02 (0.00-0.02) K/uL Neut # (Auto) 7.67 H (1.4-6.5) K/uL Lymph # (Auto) 1.34 (1.2-3.4) K/uL Wood # (Auto) 1.16 H (0.11-0.59) K/uL Eos # (Auto) 0.12 (0-0.5) K/uL Baso # (Auto) 0.02 (0-0.2) K/uL PT Cancelled INR Cancelled APTT (21.0-31.0) Seconds PTT Ratio Sodium 131 L (136-145) mmol/L Potassium 4.5 (3.5-5.1) mmol/L Chloride 98 (98-107) mmol/L Carbon Dioxide 24 (21-32) mmol/L Anion Gap 9.0 (3-11) BUN 15 (7-18) mg/dl Creatinine 1.11 (0.6-1.4) mg/dl Est Cr Clr Drug Dosing 43.0 ml/min Est GFR ( Amer) 67.9 Est GFR (Non-Af Amer) 58.6 BUN/Creatinine Ratio 13.1 (10-20) Glucose 129 H (70-99) mg/dl Calcium 8.6 (8.5-10.1) mg/dl Magnesium 2.2 (1.8-2.4) mg/dl Total Bilirubin 0.6 (0.2-1) mg/dl Direct Bilirubin 0.2 (0-0.2) mg/dl AST 21 (15-37) U/L ALT 21 (12-78) U/L Alkaline Phosphatase 121 H (45-117) U/L Total Creatine Kinase 189 (39-308) U/L Troponin I < 0.015 (0-0.045) ng/ml Total Protein 7.1 (6.4-8.2) gm/dl Albumin 3.7 (3.4-5.0) gm/dl 11/01/19 Range/Units 00:35 WBC (4.8-10.8) K/uL RBC (4.7-6.1) M/uL Hgb (14.0-18.0) g/dL Hct (42-52) % MCV (80-100) fL MCH (25-34) pg MCHC (32-36) g/dL RDW Std Deviation (36.4-46.3) fL RDW Coeff of Truman (11.5-14.5) % Plt Count (130-400) K/uL MPV (7.4-10.4) fL Immature Gran % (Auto) % Neut % (Auto) % Lymph % (Auto) % Wood % (Auto) % Eos % (Auto) % Baso % (Auto) % Immature Gran # (Auto) (0.00-0.02) K/uL Neut # (Auto) (1.4-6.5) K/uL Lymph # (Auto) (1.2-3.4) K/uL Wood # (Auto) (0.11-0.59) K/uL Eos # (Auto) (0-0.5) K/uL Baso # (Auto) (0-0.2) K/uL PT 11.3 INR 1.1 APTT 26.3 (21.0-31.0) Seconds PTT Ratio 0.9 Sodium (136-145) mmol/L Potassium (3.5-5.1) mmol/L Chloride (98-107) mmol/L Carbon Dioxide (21-32) mmol/L Anion Gap (3-11) BUN (7-18) mg/dl Creatinine (0.6-1.4) mg/dl Est Cr Clr Drug Dosing ml/min Est GFR ( Amer) Est GFR (Non-Af Amer) BUN/Creatinine Ratio (10-20) Glucose (70-99) mg/dl Calcium (8.5-10.1) mg/dl Magnesium (1.8-2.4) mg/dl Total Bilirubin (0.2-1) mg/dl Direct Bilirubin (0-0.2) mg/dl AST (15-37) U/L ALT (12-78) U/L Alkaline Phosphatase (45-117) U/L Total Creatine Kinase (39-308) U/L Troponin I (0-0.045) ng/ml Total Protein (6.4-8.2) gm/dl Albumin (3.4-5.0) gm/dl Administered Medications Discontinued Medications Fentanyl Citrate (Fentanyl Citrate) 25 mcg IV NOW STA Stop: 10/31/19 23:11 Last Admin: 10/31/19 23:34 Dose: 25 mcg Documented by: [id number] Fentanyl Citrate (Fentanyl Citrate) 25 mcg IV NOW STA Stop: 11/01/19 00:48 Last Admin: 11/01/19 01:08 Dose: 25 mcg Documented by: [id number] Ondansetron HCl (Zofran) 4 mg IV NOW STA Stop: 11/01/19 01:54 Last Admin: 11/01/19 01:57 Dose: 4 mg Documented by: [id number] Ondansetron HCl (Zofran) Confirm Administered Dose 4 mg .ROUTE .STK-MED ONE Stop: 11/01/19 01:54 Last Admin: 11/01/19 01:57 Dose: Not Given Documented by: [id number] Discharge Plan Visit Data Chief Complaint: Leg Injury/Pain Stated Complaint: hip/leg pain ED Provider: Bora Metcalf Discharge Problem: Closed fracture of left hip Discharge Instructions Interventions: ED Discharge Assessment Last Done: 11/01/19 02:33 Discharge Problem: Closed fracture of left hip Qualifiers: Encounter type: initial encounter Qualified Code(s): S72.002A - Fracture of unspecified part of neck of left femur, initial encounter for closed fracture
[2019-10-31 23:54] LABS: Basophils # (auto) 0.02 K/uL (0-0.2); Basophils % (auto) 0.2 %; Eosinophils # (auto) 0.12 K/uL (0-0.5); Eosinophils % (auto) 1.2 %; Hematocrit (blood only) 38.2 % (42-52); Hemoglobin 13.1 g/dL (14.0-18.0); Immature Granulocytes # (auto) 0.02 K/uL (0.00-0.02); Immature Granulocytes % (auto) 0.2 %; Lymphocytes # (auto) 1.34 K/uL (1.2-3.4); Mean Corpuscular Hemoglobin 29.2 pg (25-34); Mean Corpuscular Hgb Conc 34.3 g/dL (32-36); Mean Corpuscular Volume 85.3 fL (80-100); Mean Platelet Volume 8.6 fL (7.4-10.4); Monocytes # (auto) 1.16 K/uL (0.11-0.59); Monocytes % (auto) 11.2 %; Neutrophils # (auto) 7.67 K/uL (1.4-6.5); Neutrophils % (auto) 74.2 %; Platelet Count 247 K/uL (130-400); RDW Standard Deviation 46.6 fL (36.4-46.3); Red Blood Count 4.48 M/uL (4.7-6.1); White Blood Count 10.33 K/uL (4.8-10.8)
[2019-11-01 00:01] LABS: Alanine Aminotransferase 21 U/L (12-78); Albumin Level 3.7 gm/dl (3.4-5.0); Aspartate Aminotransferase 21 U/L (15-37); BUN Creatinine Ratio 13.1 (10-20); Bilirubin Direct 0.2 mg/dl (0-0.2); Blood Urea Nitrogen 15 mg/dl (7-18); Calcium 8.6 mg/dl (8.5-10.1); Carbon Dioxide 24 mmol/L (21-32); Chloride 98 mmol/L (98-107); Est GFR (African American) 67.9; Est GFR (Non-African American) 58.6; Glucose 129 mg/dl (70-99); Magnesium 2.2 mg/dl (1.8-2.4); Potassium 4.5 mmol/L (3.5-5.1); Sodium 131 mmol/L (136-145)
[2019-11-01 00:06] LABS: Alkaline Phosphatase 121 U/L (45-117); Bilirubin,Total 0.6 mg/dl (0.2-1); Creatine Kinase 189 U/L (39-308); Total Protein 7.1 gm/dl (6.4-8.2); Troponin I < 0.015 ng/ml (0-0.045)
[2019-11-01] MEDS ORDERED: fentaNYL citrate 100 MCG/2 ML VIAL IV STA (00:47)
[2019-11-01 00:55] LABS: INR 1.1 (0.9-1.1); Partial Thromboplastin Ratio 0.9; Partial Thromboplastin Time 26.3 Seconds (21.0-31.0); Prothrombin Time 11.3 Seconds (9.0-12.0)
--- NOTE | 2019-11-01 01:46 | History & Physical Report ---
Date of Service November 01, 2019 Assessment & Plan (1) Left hip pain: Left hip fracture Hypertension, elevated secondary to discomfort chronic diastolic heart failure (EF 55%, TTE 2014), euvolemic Hypoxemic respiratory failure secondary to COPD nocturnal hypoxemia on home O2 at night History of asbestos exposure as per records. Patient denies unusual S OB symptoms. hx CAD as per records history of moderate aortic stenosis (TTE 2014) hx PE/DVT off Coumadin secondary to rectus sheath hematoma/recurrent GI bleed as per records chronic hyponatremia chronic anemia, hemoglobin better than last baseline Hyperglycemia secondary to DM (new diagnosis), hemoglobin A1c noted to be 6.6, February 2019 past tobacco abuse Medical telemetry given elevated BP Facilitate home BP meds, may need titration Analgesia Orthopedics consult RE left hip fracture (Patient known to Dr. Domingo's group as per ER provider.) Update TTE RE history aortic stenosis N.p.o. for now in anticipation of procedure in a.m. Final medical evaluation pending Orthopedics eval/discussion with patient and TTE results. ISS BG goal [id number], update hemoglobin A1c, diabetic education DVT prophylaxis. SCDs for now RE possible surgery (Recommend pharmacologic anticoagulation once bleeding risk is deemed to be minimal and negligible pending Orthopedics evaluation.) Full code Text document was generated using zulily voice recognition software. It may contain grammatical or spelling errors. Kindly contact undersigned for clarification of any documentation item in question. History of Present Illness Prediabetes as per records Chief Complaint: Left hip pain Primary Care Provider: Max Blanchard History obtained from patient and records. Medical history significant for chronic diastolic heart failure (EF 55%, TTE 2014), nocturnal hypoxemia on home O2 at night, COPD as per records, hypertension, CAD as per records, history of moderate aortic stenosis (TTE 2014), history PE/DVT off Coumadin secondary to bleeding, chronic hyponatremia, skin cancer as per records, chronic anemia (baseline hemoglobin of 12 as of 2019) BPH as per records, chronic pain, prediabetes as per records, past tobacco abuse. Last confinement July 2018 for spontaneous rectus sheath hematoma attributed to coughing from COPD exacerbation. Coumadin stopped on discharge. [facility]ed to [facility]. Patient noted achy left hip/knee pain for about a week. Has been tripping at home. No head trauma as per patient No fever, no chills. No unusual chest pain, cough, S OB, fluid retention issues. Patient brought to the ER for evaluation. Medical History as above Surgical History : Bowel surgery, carpal tunnel surgery, back surgery, shoulder surgery, hernia repair Family History : Heart disease Personal/Social history : Past tobacco abuse, occasional EtOH intake, retired from [employer] Allergies Allergy/AdvReac Type Severity Reaction Status Date / Time No Known Allergies Allergy Verified 10/31/19 23:50 Home Medications Home Medications Medication Instructions Recorded Confirmed Type aspirin 81 mg tablet,delayed 81 mg PO DAILY 02/19/18 10/31/19 History release atenolol 25 mg tablet 25 mg PO DAILY 02/19/18 10/31/19 History duloxetine 20 mg capsule,delayed 40 mg PO DAILY cap 02/19/18 10/31/19 History release multivitamin 1 cap PO DAILY 02/19/18 10/31/19 History naloxone 4 mg/actuation nasal spray 1 sprays INTNAS Q2M PRN 02/21/18 10/31/19 History sennosides 8.6 mg PO DAILY PRN 05/04/18 10/31/19 History guaifenesin 1,200 mg tablet, 1,200 mg PO Q12H PRN 08/21/18 10/31/19 History extended release 12 hr sodium chloride 0.9 % nasal spray 2 sprays INTNAS UD PRN 08/21/18 10/31/19 History aerosol ipratropium-albuterol 3 ml NEB Q6 PRN 01/08/19 10/31/19 History miconazole nitrate [Zeasorb AF] 1 applic TOPICAL BID PRN 01/08/19 10/31/19 History polyethylene glycol 3350 [ClearLax] 17 g PO DAILY 01/08/19 10/31/19 History ondansetron HCl 4 mg tablet 4 mg PO Q6H PRN #30 tab 01/31/19 10/31/19 Rx pantoprazole 40 mg tablet,delayed 40 mg PO BID #180 tab 03/04/19 10/31/19 History release furosemide 20 mg tablet 20 mg PO DAILY #30 tab 03/12/19 10/31/19 Rx oxycodone-acetaminophen 5 mg-325 1 - 2 tab PO .COMPLEX PRN #90 tab 03/12/19 10/31/19 Rx mg tablet ropinirole 1 mg tablet 1 mg PO HS #30 tab 03/12/19 10/31/19 Rx dutasteride 0.5 mg-tamsulosin ER 1 cap PO DAILY #90 cap 04/09/19 10/31/19 Rx 0.4 mg capsule ext.release 24hr mphas irbesartan 150 mg tablet 150 mg PO DAILY #30 tab 04/26/19 10/31/19 Rx diclofenac sodium 1 % topical gel 4 gm TOP QID #200 gm 10/10/19 10/31/19 Rx acetaminophen [Tylenol] 650 mg PO QID PRN MDD 3g 10/31/19 10/31/19 History diphenhydramine-acetaminophen 2 tab PO HS MDD 3g 10/31/19 10/31/19 History [Pain Reliever PM] gabapentin 100 mg PO TID 10/31/19 10/31/19 History lanolin kvtoxsf-kx-a.pet-ceres 1 applic TOPICAL DAILY 10/31/19 10/31/19 History [Eucerin] psyllium husk [Reguloid (psyllium 1 tsp PO DAILY PRN 10/31/19 10/31/19 History husk)] vit C,B-Bd-mqoxl-lutein-zeaxan 1 tab PO BID 10/31/19 10/31/19 History [PreserVision AREDS-2] Past Med/Surg History Medical History (Updated 11/01/19 @ 04:05 by Marcus Stein MD) Anemia (Acute) Asthma (Chronic) Asthma (Chronic) Bronchitis (Inactive) Chronic pain of left knee (Chronic) COPD (chronic obstructive pulmonary disease) (Chronic) COPD (chronic obstructive pulmonary disease) (Chronic) Fall (Acute) Fall (Resolved) Heart disease (Chronic) Heart disease (Chronic) Hypertension (Chronic) Hypertension (Chronic) Metacarpal bone fracture (Acute) Metacarpal bone fracture (Resolved) Myofascial pain (Acute) Rotator cuff arthropathy (Acute 04/11/14) Shoulder pain, left (Acute) Thoracic back pain (Chronic) Thoracic radiculopathy Thoracic spine fracture (Acute) Thoracic spine fracture (Chronic) Surgical History (Updated 09/11/19 @ 09:56 by Max Burnham) H/O wrist surgery History of carpal tunnel surgery History of kyphoplasty (Chronic) History of left shoulder replacement (Chronic) Hx of hernia repair 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) Family History (Updated 09/11/19 @ 09:56 by Max Burnham) Brother Cancer Father Heart disease Denies family history of Ovarian cancer Prostate cancer Myocardial infarction Breast cancer Colorectal cancer Social History Preferred Language: Sri Lankan Communication Ability: Effective Visual Impairment: Limited Hearing Ability: Hard of Hearing Jewel Bearing Facer Required: No Beliefs That Will Affect Care: None marital status: / Current Living Situation: Longterm current occupational status: retired Feels Safe at Home: Yes Safety Concerns: Feels Safe At This Time Smoking Status: Never smoker Do You Dip or Chew Tobacco: No ; Second Hand Exposure: No ; Tobacco Cessation Education Requested by Patient: No Hx Alcohol Use: No Hx Substance Use: No Review of Systems Review of Systems: As per HPI, all 10 systems reviewed, all other ROS negative Physical Exam Physical Exam: GENERAL: Slightly uncomfortable, slightly hard of hearing, no respiratory distress, lying on his left side SKIN: Pallor , warm HEENT: Pale palpebral conjunctivae, no ptosis, dry buccal mucosa, nasal cannula in place NECK : Supple, no tenderness CHEST : Decreased breath sounds , no tenderness HEART : RRR, systolic murmur ABDOMEN: Some distention, nontender EXTREMITIES : Minimal LE swelling, left hip tenderness, no other conspicuous deformities noted NEUROLOGIC : Coherent, no facial asymmetry, slightly hard of hearing, no other gross focality Results & Data Results & Data ([facility]) Vital Signs (Past 12 Hours) Vital Signs Temp Pulse Pulse Resp BP BP Pulse Ox 11/01/19 00:26 92 H 16 152/86 H 95 10/31/19 23:09 36.6 C 87 18 146/78 H 88 L Laboratory Results Laboratory Results WBC 10.33 K/uL (4.8-10.8) 10/31/19 23:37 RBC 4.48 M/uL (4.7-6.1) L 10/31/19 23:37 Hgb 13.1 g/dL (14.0-18.0) L 10/31/19 23:37 Hct 38.2 % (42-52) L 10/31/19 23:37 MCV 85.3 fL (80-100) 10/31/19 23:37 MCH 29.2 pg (25-34) 10/31/19 23:37 MCHC 34.3 g/dL (32-36) 10/31/19 23:37 RDW Std Deviation 46.6 fL (36.4-46.3) H 10/31/19 23:37 RDW Coeff of Truman 15.0 % (11.5-14.5) H 10/31/19 23:37 Plt Count 247 K/uL (130-400) 10/31/19 23:37 MPV 8.6 fL (7.4-10.4) 10/31/19 23:37 Immature Gran % (Auto) 0.2 % 10/31/19 23:37 Neut % (Auto) 74.2 % 10/31/19 23:37 Lymph % (Auto) 13.0 % 10/31/19 23:37 Moore % (Auto) 11.2 % 10/31/19 23:37 Eos % (Auto) 1.2 % 10/31/19 23:37 Baso % (Auto) 0.2 % 10/31/19 23:37 Immature Gran # (Auto) 0.02 K/uL (0.00-0.02) 10/31/19 23:37 Neut # (Auto) 7.67 K/uL (1.4-6.5) H 10/31/19 23:37 Lymph # (Auto) 1.34 K/uL (1.2-3.4) 10/31/19 23:37 Moore # (Auto) 1.16 K/uL (0.11-0.59) H 10/31/19 23:37 Eos # (Auto) 0.12 K/uL (0-0.5) 10/31/19 23:37 Baso # (Auto) 0.02 K/uL (0-0.2) 10/31/19 23:37 PT 11.3 Seconds (9.0-12.0) 11/01/19 00:35 INR 1.1 (0.9-1.1) 11/01/19 00:35 APTT 26.3 Seconds (21.0-31.0) 11/01/19 00:35 PTT Ratio 0.9 11/01/19 00:35 Sodium 131 mmol/L (136-145) L 10/31/19 23:37 Potassium 4.5 mmol/L (3.5-5.1) 10/31/19 23:37 Chloride 98 mmol/L (98-107) 10/31/19 23:37 Carbon Dioxide 24 mmol/L (21-32) 10/31/19 23:37 Anion Gap 9.0 (3-11) 10/31/19 23:37 BUN 15 mg/dl (7-18) 10/31/19 23:37 Creatinine 1.11 mg/dl (0.6-1.4) 10/31/19 23:37 Est Cr Clr Drug Dosing 43.0 ml/min 10/31/19 23:37 Est GFR ( Amer) 67.9 10/31/19 23:37 Est GFR (Non-Af Amer) 58.6 10/31/19 23:37 BUN/Creatinine Ratio 13.1 (10-20) 10/31/19 23:37 Glucose 129 mg/dl (70-99) H 10/31/19 23:37 Calcium 8.6 mg/dl (8.5-10.1) 10/31/19 23:37 Magnesium 2.2 mg/dl (1.8-2.4) 10/31/19 23:37 Total Bilirubin 0.6 mg/dl (0.2-1) 10/31/19 23:37 Direct Bilirubin 0.2 mg/dl (0-0.2) 10/31/19 23:37 AST 21 U/L (15-37) 10/31/19 23:37 ALT 21 U/L (12-78) 10/31/19 23:37 Alkaline Phosphatase 121 U/L (45-117) H 10/31/19 23:37 Total Creatine Kinase 189 U/L (39-308) 10/31/19 23:37 Troponin I < 0.015 ng/ml (0-0.045) 10/31/19 23:37 Total Protein 7.1 gm/dl (6.4-8.2) 10/31/19 23:37 Albumin 3.7 gm/dl (3.4-5.0) 10/31/19 23:37 Diagnostic Findings Pelvic x-ray as per my interpretation left femoral neck fracture with some displacement Chest x-ray as per my interpretation cardiomegaly, rotation EKG as per my interpretation : Rate 90, NSR, LAD, LAFB, inferior infarct
[2019-11-01] MEDS ORDERED: ONDANSETRON INJ 2 MG/ML 2 ML VIAL IV STA (01:53)
[2019-11-01] MEDS ORDERED: ONDANSETRON INJ 2 MG/ML 2 ML VIAL ONE ×2 (01:53→16:19)
[2019-11-01 03:03] LABS: Base Excess ABG 1.9 mEq/L (-9-1.8); HCO3 ABG 25 mmol/L (19-24); Oxygen Saturation ABG 96.8 % (90-95); PCO2 ABG 36 mmHg (35-46); PO2 ABG 83 mmHg (80-95); pH ABG 7.46 (7.35-7.45)
[2019-11-01 03:05] LABS: Allen Test POS (Pos)
[2019-11-01] MEDS ORDERED: NALOXONE HCL 0.4 MG/1 ML VIAL/CARP IV PRN ×2 (03:16→16:13)
[2019-11-01] MEDS ORDERED: MAGNESIUM HYDROXIDE SUSP 30 ML UDC PO PRN (03:16)
[2019-11-01] MEDS ORDERED: PROMETHAZINE HCL 12.5 MG in SODIUM CHLORIDE 0.9% 50 ML IV PRN ×2 (03:16→16:13)
[2019-11-01] MEDS ORDERED: PSYLLIUM 58.6% POWDER PACKET PO PRN (03:16)
[2019-11-01] MEDS ORDERED: MoRPHine SULFATE 2 MG/ML CARP IV PRN (03:16)
[2019-11-01] MEDS ORDERED: bisacodyL 10 MG SUPP PR PRN (03:16)
[2019-11-01] MEDS ORDERED: XOPENEX/ATROVENT 1.25mg/0.5MG NEB COMBO NEB PRN (03:16)
[2019-11-01] MEDS ORDERED: ACETAMINOPHEN 325 MG TAB PO PRN (03:16)
[2019-11-01] MEDS ORDERED: SENNA 8.6 MG TAB PO PRN (03:16)
[2019-11-01] MEDS ORDERED: LEVALBUTEROL 1.25MG/0.5ML NEB INH PRN (03:16)
[2019-11-01] MEDS ORDERED: IPRATROPIUM BROMIDE NEB SOLN 0.02% 2.5 ML VIAL INH PRN (03:16)
[2019-11-01] MEDS ORDERED: GLUCOSE 10 TABS/TUBE PO PRN (04:03)
[2019-11-01] MEDS ORDERED: CARBOHYDRATES FOR HYPOGLYCEMIA PO PRN (04:03)
[2019-11-01] MEDS ORDERED: DEXTROSE 50% 50 ML SYRINGE IV PRN (04:03)
[2019-11-01] MEDS ORDERED: GLUCOSE 40% GEL 15 GM TUBE PO PRN (04:03)
[2019-11-01] MEDS ORDERED: GLUCAGON FOR INJ 1 MG VIAL SQ PRN (04:03)
[2019-11-01] MEDS: ATENOLOL 25 MG TABLET PO SCH (05:16)
[2019-11-01] MEDS: INSULIN ASPART 100 UNITS/ML 3 ML PEN SQ SCH ×4 (05:47→22:12)
[2019-11-01 07:35] LABS: Basophils # (auto) 0.01 K/uL (0-0.2); Basophils % (auto) 0.1 %; Eosinophils # (auto) 0.03 K/uL (0-0.5); Eosinophils % (auto) 0.3 %; Hematocrit (blood only) 39.4 % (42-52); Hemoglobin 13.2 g/dL (14.0-18.0); Immature Granulocytes # (auto) 0.01 K/uL (0.00-0.02); Immature Granulocytes % (auto) 0.1 %; Lymphocytes # (auto) 0.66 K/uL (1.2-3.4); Lymphocytes % (auto) 6.2 %; Mean Corpuscular Hemoglobin 28.6 pg (25-34); Mean Corpuscular Hgb Conc 33.5 g/dL (32-36); Mean Corpuscular Volume 85.3 fL (80-100); Mean Platelet Volume 8.8 fL (7.4-10.4); Monocytes # (auto) 1.15 K/uL (0.11-0.59); Monocytes % (auto) 10.8 %; Neutrophils # (auto) 8.79 K/uL (1.4-6.5); Neutrophils % (auto) 82.5 %; Platelet Count 238 K/uL (130-400); RDW Standard Deviation 46.5 fL (36.4-46.3); Red Blood Count 4.62 M/uL (4.7-6.1); White Blood Count 10.65 K/uL (4.8-10.8)
--- NOTE | 2019-11-01 07:39 | XRay Report ---
XR lumbar spine 2-3V CLINICAL HISTORY: left hip knee pain COMPARISON STUDY: Lumbar spine 10/29/2017. FINDINGS: The bones are osteopenic. There is a left hip fracture. T12 compression deformity with vert ebroplasty remains unchanged. No fractures identified within the lumbar spine. 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 Alignment appears intact. IMPRESSION: 1. Left hip fracture. 2. 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 ACT 112: Negative or not required by law. Electronically signed by: Jose Wallace M.D. 11/01/2019 7:37 AM
--- NOTE | 2019-11-01 07:40 | XRay Report ---
XR femur LT 2V routine CLINICAL HISTORY: left hip/knee pain COMPARISON STUDY: None. FINDINGS: Basicervical fracture of the left femoral neck with mild superior displacement and angulati on. No dislocation. Mild vascular calcifications. The mid to distal femur is intact. IMPRESSION: A left femoral neck basicervical fracture. ACT 112: Negative or not required by law. Electronically signed by: Jose Wallace M.D. 11/01/2019 7:39 AM
--- NOTE | 2019-11-01 07:41 | XRay Report ---
XR pelvis 1-2V routine CLINICAL HISTORY: left hip pain COMPARISON: CT of the abdomen and pelvis August 04, 2016. Pelvis radiograph December 19, 2017. FINDINGS: Sacroiliac joints and symphysis pubis are intact. Note is made of an intertrochanteric fra cture of the left femur that extends to the base of the femoral neck. Fracture is angulated and mildl y displaced. There is no proximal right femoral fracture. No acute pelvic fracture is noted. IMPRESSION: Displaced, angulated intertrochanteric fracture of the left femur that extends to the bas e of the femoral neck. ACT 112: Negative or not required by law. Electronically signed by: Kj Hernandez M.D. 11/01/2019 7:39 AM
--- NOTE | 2019-11-01 07:42 | XRay Report ---
XR chest 1V portable CLINICAL HISTORY: hypoxia COMPARISON STUDY: Chest CT December 17, 2018. Chest radiograph March 06, 2019. FINDINGS: Incidental note is made of a left shoulder arthroplasty. 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 No pneumothorax or pleural effusion is n oted. There is no consolidation or evidence for pulmonary edema. Mild cardiomegaly is unchanged. Medi astinal contours are stable. Patient is mildly rotated. IMPRESSION: No acute cardiopulmonary findings. No significant change in appearance of the chest. ACT 112: Negative or not required by law. Electronically signed by: Kj Hernandez M.D. 11/01/2019 7:41 AM
[2019-11-01 08:14] LABS: BUN Creatinine Ratio 15.6 (10-20); Calcium 9.1 mg/dl (8.5-10.1); Creatinine Clr Calc Pharmacy 48.7 ml/min; Est GFR (African American) 78.9; Est GFR (Non-African American) 68.1; Potassium 4.3 mmol/L (3.5-5.1)
[2019-11-01 08:37] LABS: Estimated Average Glucose 140 mg/dl; Hemoglobin A1C 6.5 % (4.5-5.6)
[2019-11-01] MEDS ORDERED: ASPIRIN 81 MG ECTAB PO SCH (09:00)
[2019-11-01] MEDS ORDERED: ATENOLOL 25 MG TABLET PO SCH (09:00)
[2019-11-01] MEDS ORDERED: IRBESARTAN 150 MG TAB PO SCH (09:00)
[2019-11-01] MEDS: DULOXETINE HCL 20 MG CAP PO SCH (09:20)
[2019-11-01] MEDS: POLYETHYLENE (MIRALAX) 17 GM PACK PO SCH (09:22)
[2019-11-01] MEDS: GABAPENTIN 100 MG CAP PO SCH ×3 (09:22→22:12)
--- NOTE | 2019-11-01 10:30 | Orthopedic Consultation ---
Date of Consultation November 01, 2019 Assessment & Plan (1) Closed fracture of left hip: We talked about diagnosis and treatment options at bedside. He is having a difficult time ambulating with the hip the way it is. I do recommend intramedullary nail fixation of his left hip. He would like to proceed. He understands the risks, benefits, and alternatives of procedure. Questions were answered at bedside. The decision was made for surgery. Consents were signed. He is a high risk for the procedure. We are currently awaiting a TTE, he has severe stenosis, he also has COPD. After the procedure he will likely be placed on aspirin for DVT prophylaxis due to his difficulty with Coumadin and rectal bleeding. He is currently n.p.o. and had like to proceed with the surgery this afternoon. Present on Admission?: Yes History of Present Illness Reason for Consultation: Left intertrochanteric hip fracture Attending Physician: Robinson Dubon MD History of Present Illness Jamie is an 89-year-old male who is well-known to me. I have been treating him for years in our clinic for multiple orthopedic complaints. He currently resides in a group home. He often ambulates with a rolling walker, sometimes uses a cane, around his house he ambulates independently. He says that about a week and a half ago he fell out of bed. He has been having hip pain since that time. He is a rather poor historian on this event. His hip pain has been getting more severe so he decided come to the emergency room. Radiographs demonstrated a displaced left proximal femur fracture. He was admitted to the hospital. Orthopedics was consulted to evaluate and treat. Allergies Allergy/AdvReac Type Severity Reaction Status Date / Time No Known Allergies Allergy Verified 10/31/19 23:50 Home Medications Home Medications Medication Instructions Recorded Confirmed Type aspirin 81 mg tablet,delayed 81 mg PO DAILY 02/19/18 10/31/19 History release atenolol 25 mg tablet 25 mg PO DAILY 02/19/18 10/31/19 History duloxetine 20 mg capsule,delayed 40 mg PO DAILY cap 02/19/18 10/31/19 History release multivitamin 1 cap PO DAILY 02/19/18 10/31/19 History naloxone 4 mg/actuation nasal spray 1 sprays INTNAS Q2M PRN 02/21/18 10/31/19 History sennosides 8.6 mg PO DAILY PRN 05/04/18 10/31/19 History guaifenesin 1,200 mg tablet, 1,200 mg PO Q12H PRN 08/21/18 10/31/19 History extended release 12 hr sodium chloride 0.9 % nasal spray 2 sprays INTNAS UD PRN 08/21/18 10/31/19 History aerosol ipratropium-albuterol 3 ml NEB Q6 PRN 01/08/19 10/31/19 History miconazole nitrate [Zeasorb AF] 1 applic TOPICAL BID PRN 01/08/19 10/31/19 History polyethylene glycol 3350 [ClearLax] 17 g PO DAILY 01/08/19 10/31/19 History ondansetron HCl 4 mg tablet 4 mg PO Q6H PRN #30 tab 01/31/19 10/31/19 Rx pantoprazole 40 mg tablet,delayed 40 mg PO BID #180 tab 03/04/19 10/31/19 History release furosemide 20 mg tablet 20 mg PO DAILY #30 tab 03/12/19 10/31/19 Rx oxycodone-acetaminophen 5 mg-325 1 - 2 tab PO .COMPLEX PRN #90 tab 03/12/19 10/31/19 Rx mg tablet ropinirole 1 mg tablet 1 mg PO HS #30 tab 03/12/19 10/31/19 Rx dutasteride 0.5 mg-tamsulosin ER 1 cap PO DAILY #90 cap 04/09/19 10/31/19 Rx 0.4 mg capsule ext.release 24hr mphas irbesartan 150 mg tablet 150 mg PO DAILY #30 tab 04/26/19 10/31/19 Rx diclofenac sodium 1 % topical gel 4 gm TOP QID #200 gm 10/10/19 10/31/19 Rx acetaminophen [Tylenol] 650 mg PO QID PRN MDD 3g 10/31/19 10/31/19 History diphenhydramine-acetaminophen 2 tab PO HS MDD 3g 10/31/19 10/31/19 History [Pain Reliever PM] gabapentin 100 mg PO TID 10/31/19 10/31/19 History lanolin plqekdj-zm-v.pet-ceres 1 applic TOPICAL DAILY 10/31/19 10/31/19 History [Eucerin] psyllium husk [Reguloid (psyllium 1 tsp PO DAILY PRN 10/31/19 10/31/19 History husk)] vit C,M-Zf-tjtih-lutein-zeaxan 1 tab PO BID 10/31/19 10/31/19 History [PreserVision AREDS-2] Patient History Medical History Anemia (Acute) Asthma (Chronic) Asthma (Chronic) Bronchitis (Inactive) Chronic pain of left knee (Chronic) COPD (chronic obstructive pulmonary disease) (Chronic) COPD (chronic obstructive pulmonary disease) (Chronic) Fall (Acute) Fall (Resolved) Heart disease (Chronic) Heart disease (Chronic) Hypertension (Chronic) Hypertension (Chronic) Metacarpal bone fracture (Acute) Metacarpal bone fracture (Resolved) Myofascial pain (Acute) Rotator cuff arthropathy (Acute 04/11/14) Shoulder pain, left (Acute) Thoracic back pain (Chronic) Thoracic radiculopathy Thoracic spine fracture (Acute) Thoracic spine fracture (Chronic) Surgical History H/O wrist surgery History of carpal tunnel surgery History of kyphoplasty (Chronic) History of left shoulder replacement (Chronic) Hx of hernia repair 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) Family History Brother Cancer Father Heart disease Denies family history of Ovarian cancer Prostate cancer Myocardial infarction Breast cancer Colorectal cancer Social History Preferred Language: Macedonian Communication Ability: Effective Visual Impairment: Limited Hearing Ability: Hard of Hearing Geriatric Nurse Assistant Required: No Beliefs That Will Affect Care: None marital status: / Current Living Situation: Senior Living current occupational status: retired Feels Safe at Home: Yes Safety Concerns: Feels Safe At This Time Smoking Status: Never smoker Do You Dip or Chew Tobacco: No ; Second Hand Exposure: No ; Tobacco Cessation Education Requested by Patient: No Hx Alcohol Use: No Hx Substance Use: No Review of Systems Review of Systems: All systems reviewed & are unremarkable except as noted in HPI & below Physical Exam Constitutional: WD/WN, vitals as above Eyes: PERRL, conjunctivae normal, anicteric sclerae ENMT: external ear and nose normal, oropharynx normal Neck: trachea midline, no thyromegaly Respiratory: normal respiratory effort Cardiovascular: RRR, no murmur, no edema Gastrointestinal (Abdomen): normal bowel sounds, soft, nontender, no hepatosplenomegaly Musculoskeletal: On physical examination of the left hip, his hip is most comfortable in a flexed and externally rotated position. His left leg is a little shorter than his right. He has a lot of pain in his groin with logroll of his left hip. There are no abrasions, lesions, or lacerations of the skin. He seems neurovascularly intact. Psychiatric: A+Ox3, euthymic affect Results & Data ([facility]) Vital Signs (Past 12 Hours) Vital Signs Temp Pulse Pulse Resp BP BP Pulse Ox 11/01/19 07:16 37.1 C 76 18 149/76 H 97 11/01/19 05:24 36.5 C 96 H 20 162/79 H 95 11/01/19 03:46 36.9 C 100 H 22 150/81 H 96 11/01/19 03:44 90 11/01/19 03:35 91 H 24 94 11/01/19 02:33 88 16 160/80 H 93 11/01/19 02:00 88 18 163/85 H 91 11/01/19 00:26 92 H 16 152/86 H 95 10/31/19 23:09 36.6 C 87 18 146/78 H 88 L Diagnostic Findings X-rays of the left hip and pelvis do demonstrate a displaced intertrochanteric fracture of the left hip. PG Care Time/CCT Total # of Minutes Spent Total Time Spent with Patient: Total time spent is greater than 50% in coordination of care (as documented) at patient's floor/unit and/or counseling patient: Coding Level of Care Code 26614 Initial Inpt Care Lvl 3 Diagnoses Closed fracture of left hip S72.002A Encounter type: initial encounter (1) Closed fracture of left hip Encounter type: initial encounter Qualified Code(s): S72.002A - Fracture of unspecified part of neck of left femur, initial encounter for closed fracture
[2019-11-01] MEDS: MULTIVITAMIN TAB PO SCH (12:20)
[2019-11-01] MEDS: PANTOprazole 40 MG TAB PO SCH ×2 (12:20→22:12)
--- NOTE | 2019-11-01 14:15 | Orthopedic Progress Note ---
Date of Service November 01, 2019 Assessment & Plan (1) Closed fracture of left hip: We are planning to do intramedullary nail fixation of his right hip at 730 tomorrow morning. We are going to advance his diet. We are still awaiting a reading on his echo report as well as COVID-19 test results. These may take several hours so we decide to delay his surgery until tomorrow morning. Present on Admission?: Yes Subjective We are still awaiting an echo read on Blue aortic stenosis. Also, because he is from a [place] [facility], we are doing a COVID test. The cover test results are not back yet. This may take several hours. Because of this, we elected to delay his case until tomorrow morning. We will advance his diet. Results & Data ([facility]) Vital Signs (Past 12 Hours) Vital Signs Temp Pulse Pulse Resp BP BP Pulse Ox 11/01/19 10:48 90 11/01/19 07:16 37.1 C 76 18 149/76 H 97 11/01/19 05:24 36.5 C 96 H 20 162/79 H 95 11/01/19 03:46 36.9 C 100 H 22 150/81 H 96 11/01/19 03:44 90 11/01/19 03:35 91 H 24 94 11/01/19 02:33 88 16 160/80 H 93 PG Care Time/CCT Total # of Minutes Spent Total Time Spent with Patient: Total time spent is greater than 50% in coor dination of care (as documented) at patient's floor/unit and/or counseling patient: Coding Level of Care Code 35871 Inpt Consult Level 2 Diagnoses Closed fracture of left hip S72.002A Encounter type: initial encounter (1) Closed fracture of left hip Encounter type: initial encounter Qualified Code(s): S72.002A - Fracture of unspecified part of neck of left femur, initial encounter for closed fracture
--- NOTE | 2019-11-01 14:59 | Anesthesiology Consultation ---
Date of Service November 01, 2019 Assessment & Plan (1) Encounter for pre-operative examination: Chart Review Chart Review: Acceptable Risk for Surgery and Patient NOT seen in Pre Admission Testing Consults Requested none ASA ASA4 Proposed Anesthesia Anesthesia Type: General Risk / Benefits Reviewed With: PT / POA / Parent / Guardian, Accepts Plan and Informed Consent Obtained History Surgery Operation Date: 11/01/19 14:55 Proposed Procedures p Left Troch Nail - Miguel Recio, DO Height/Weight Height: 5 ft 9 in Weight: 67.4 kg Allergies Allergy/AdvReac Type Severity Reaction Status Date / Time No Known Allergies Allergy Verified 10/31/19 23:50 Medications Home Medications Medication Instructions Recorded Confirmed Last Taken aspirin 81 mg tablet,delayed 81 mg PO DAILY 02/19/18 10/31/19 01/08/19 release atenolol 25 mg tablet 25 mg PO DAILY 02/19/18 10/31/19 01/08/19 duloxetine 20 mg capsule,delayed 40 mg PO DAILY cap 02/19/18 10/31/19 01/08/19 release multivitamin 1 cap PO DAILY 02/19/18 10/31/19 01/08/19 naloxone 4 mg/actuation nasal spray 1 sprays INTNAS Q2M PRN 02/21/18 10/31/19 Unknown sennosides 8.6 mg PO DAILY PRN 05/04/18 10/31/19 Unknown guaifenesin 1,200 mg tablet, 1,200 mg PO Q12H PRN 08/21/18 10/31/19 Unknown extended release 12 hr sodium chloride 0.9 % nasal spray 2 sprays INTNAS UD PRN 08/21/18 10/31/19 Unknown aerosol ipratropium-albuterol 3 ml NEB Q6 PRN 01/08/19 10/31/19 Unknown miconazole nitrate [Zeasorb AF] 1 applic TOPICAL BID PRN 01/08/19 10/31/19 Unknown polyethylene glycol 3350 [ClearLax] 17 g PO DAILY 01/08/19 10/31/19 Unknown ondansetron HCl 4 mg tablet 4 mg PO Q6H PRN #30 tab 01/31/19 10/31/19 Unknown pantoprazole 40 mg tablet,delayed 40 mg PO BID #180 tab 03/04/19 10/31/19 Unknown release furosemide 20 mg tablet 20 mg PO DAILY #30 tab 03/12/19 10/31/19 Unknown oxycodone-acetaminophen 5 mg-325 1 - 2 tab PO .COMPLEX PRN #90 tab 03/12/19 10/31/19 10/31/19 19:00 mg tablet ropinirole 1 mg tablet 1 mg PO HS #30 tab 03/12/19 10/31/19 Unknown dutasteride 0.5 mg-tamsulosin ER 1 cap PO DAILY #90 cap 04/09/19 10/31/19 Unknown 0.4 mg capsule ext.release 24hr mphas irbesartan 150 mg tablet 150 mg PO DAILY #30 tab 04/26/19 10/31/19 Unknown diclofenac sodium 1 % topical gel 4 gm TOP QID #200 gm 10/10/19 10/31/19 Unknown acetaminophen [Tylenol] 650 mg PO QID PRN MDD 3g 10/31/19 10/31/19 Unknown diphenhydramine-acetaminophen 2 tab PO HS MDD 3g 10/31/19 10/31/19 Unknown [Pain Reliever PM] gabapentin 100 mg PO TID 10/31/19 10/31/19 Unknown lanolin dsnozpe-wq-d.pet-ceres 1 applic TOPICAL DAILY 10/31/19 10/31/19 Unknown [Eucerin] psyllium husk [Reguloid (psyllium 1 tsp PO DAILY PRN 10/31/19 10/31/19 Unknown husk)] vit C,Q-Qc-banvy-lutein-zeaxan 1 tab PO BID 10/31/19 10/31/19 Unknown [PreserVision AREDS-2] Active Medications Generic Name Dose Route Start Last Admin Trade Name Freq PRN Reason Stop Dose Admin Aspirin 81 mg 11/01/19 09:00 11/01/19 09:19 Ecotrin Ectab PO 12/01/19 08:59 81 mg DAILY MIGUEL Administration Atenolol 25 mg 11/01/19 04:00 11/01/19 05:16 Tenormin PO 12/01/19 03:59 25 mg DAILY MIGUEL Administration Duloxetine HCl 40 mg 11/01/19 09:00 11/01/19 09:20 Cymbalta PO 12/01/19 08:59 40 mg DAILY MIGUEL Administration Gabapentin 100 mg 11/01/19 09:00 11/01/19 14:31 Neurontin PO 12/01/19 08:59 Not Given TID MIGUEL Insulin Aspart 0 units 11/01/19 06:00 11/01/19 12:21 Novolog Flexpen SQ 12/01/19 05:59 Not Given Q6 MIGUEL Ipratropium [place] 0.5 mg 11/01/19 03:16 11/01/19 03:35 Atrovent 0.02% 0.5mg/2.5ml INH 12/01/19 03:15 0.5 mg Q4H PRN Administration Shortness Of Breath Or Wheezing Irbesartan 150 mg 11/01/19 09:00 11/01/19 09:22 Avapro PO 12/01/19 08:59 150 mg DAILY MIGUEL Administration Levalbuterol HCl 1.25 mg 11/01/19 03:16 11/01/19 03:35 Xopenex 1.25mg/0.5ml Neb INH 12/01/19 03:15 1.25 mg Q4H PRN Administration Shortness Of Breath Or Wheezing Miscellaneous 1 ea 11/01/19 08:00 11/01/19 09:20 Order Awaiting Action N/A 12/01/19 07:59 Not Given QS MIGUEL Multivitamins 1 tab 11/01/19 09:00 11/01/19 12:20 Multivitamin Tab PO 12/01/19 08:59 Not Given DAILY MIGUEL Pantoprazole Sodium 40 mg 11/01/19 09:00 11/01/19 12:20 Protonix PO 12/01/19 08:59 Not Given BID MIGUEL Polyethylene Glycol 17 gm 11/01/19 09:00 11/01/19 09:22 Miralax Powder Packet PO 12/01/19 08:59 Not Given DAILY MIGUEL NPO Date Last Intake of Fluids: 11/01/19 Time Last Intake of Fluids: 00:00 Date Last Intake of Solids: 11/01/19 Time Last Intake of Solids: 00:00 Past Medical History Medical History Anemia (Acute) Aortic stenosis Asthma (Chronic) Bronchitis (Inactive) Chronic pain of left knee (Chronic) COPD (chronic obstructive pulmonary disease) (Chronic) Dementia Fall (Resolved) Heart disease (Chronic) Hypertension (Chronic) Metacarpal bone fracture (Resolved) Myofascial pain (Acute) Rotator cuff arthropathy (Acute 04/11/14) Shoulder pain, left (Acute) Thoracic back pain (Chronic) Thoracic radiculopathy Thoracic spine fracture (Chronic) Exercise / Class Metabolic Activity IV < 2 Limit ADL/Bedbound Past Family History Family History Brother Cancer Father Heart disease Denies family history of Ovarian cancer Prostate cancer Myocardial infarction Breast cancer Colorectal cancer Past Surgical History Surgical History H/O wrist surgery History of carpal tunnel surgery History of kyphoplasty (Chronic) History of left shoulder replacement (Chronic) Hx of hernia repair 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) Past Anesthesia History No Hx of Anesthesia Complications and No Family Hx of Anesthesia Complications History of PONV No Hx of PONV and No Hx of Motion Sickness Social History Smoking Status: Never smoker Do You Dip or Chew Tobacco: No Hx Alcohol Use: No alcohol intake frequency: holidays/special occasions only Hx Substance Use: No substance use type: does not use Review of Systems unable to assess patient with dementia Constitutional: no fever and no chills Respiratory: no cough and no dyspnea denies BRYCE Cardiovascular: no chest pain and no dyspnea on exertion Physical Exam Vital Signs Last Vital Signs Temp 37.2 C 11/01/19 11:15 Pulse 58 L 11/01/19 11:15 Resp 20 11/01/19 11:15 BP 136/79 11/01/19 11:15 Pulse Ox 97 11/01/19 11:15 ENMT Mouth: no TMJ abnormality and no dentition abnormality Thyromental Distance: > or= 3.5 Finger Breadths Mallampati Class: Other (uncooperative) Neck neck extension not limited Respiratory normal respiratory effort; no respiratory distress Auscultation: lungs clear to auscultation bilaterally Cardiovascular Rate/Rhythm: regular rate and regular rhythm Neurologic moves all extremities Psychiatric Orientation: alert and oriented x 3 Testing Laboratory Results 11/01/19 06:36 11/01/19 06:36 PT 11.3 Seconds (9.0-12.0) 11/01/19 00:35 INR 1.1 (0.9-1.1) 11/01/19 00:35 APTT 26.3 Seconds (21.0-31.0) 11/01/19 00:35 Hemoglobin A1c 6.5 % (4.5-5.6) H 11/01/19 06:36 11/01/19 04:56 POC Glucose 163 H Electrocardiogram Date: 11/01/19 Findings: + NSR @ (90) Normal sinus rhythm Inferior infarct , age undetermined Abnormal ECG When compared with ECG of 06-AUG-2018 06:08, RI interval has decreased Chest X-Ray Date: 11/01/19 XR chest 1V portable CLINICAL HISTORY: hypoxia COMPARISON STUDY: Chest CT December 17, 2018. Chest radiograph March 06, 2019. FINDINGS: Incidental note is made of a left shoulder arthroplasty. There is osteoarthritis of the right glenohumeral joint with elevation the right humeral head. No pneumothorax or pleural effusion is noted. There is no consolidation or evidence for pulmonary edema. Mild cardiomegaly is unchanged. Mediastinal contours are stable. Patient is mildly rotated. IMPRESSION: No acute cardiopulmonary findings. No significant change in appearance of the chest. Echocardiogram Date: 11/01/19 EF 55-60%. LV normal size. RV systolic function normal. SEVERE .
[2019-11-01] MEDS ORDERED: fentaNYL citrate 100 MCG/2 ML VIAL ONE ×2 (15:08→16:25)
[2019-11-01] MEDS ORDERED: ePHEDrine sulfate 50 MG/ML AMP IV PRN ×2 (15:19→16:13)
[2019-11-01] MEDS ORDERED: ONDANSETRON INJ 2 MG/ML 2 ML VIAL IV PRN ×2 (15:19→16:13)
[2019-11-01] MEDS ORDERED: ATROPINE SULFATE 0.1 MG/ML 10ML SYR IV PRN ×2 (15:19→16:13)
[2019-11-01] MEDS ORDERED: HYDROmorphone INJ 2 MG/ML SYR/VIAL IV PRN (15:19)
[2019-11-01] MEDS ORDERED: fentaNYL citrate 100 MCG/2 ML VIAL IV PRN ×2 (15:19→16:13)
[2019-11-01] MEDS ORDERED: PROPOFOL IV EMULSION 10 MG/ML 20 ML VIAL IV ONE (15:39)
[2019-11-01] MEDS ORDERED: LIDOCAINE HCL 2% 2 ML VIAL/AMP(20MG/ML) INFIL ONE (15:39)
[2019-11-01] MEDS ORDERED: CEFAZOLIN 250 MG/ML 1 GM VIAL ONE ×2 (15:49→16:00)
[2019-11-01] MEDS ORDERED: BUPIVACAINE/EPINEPHRINE 0.25% 1:200,000 30 ML VIAL ONE (15:59)
[2019-11-01] MEDS ORDERED: ETOMIDATE 2 MG/ML 20 ML VIAL IV ONE ×2 (16:00→16:19)
[2019-11-01] MEDS ORDERED: SUCCINYLCHOLINE 100MG/5ML SYR ONE ×2 (16:00→16:19)
[2019-11-01] MEDS ORDERED: CEFAZOLIN 2000MG 2,000 MG/15 ML SYR IV ONE (16:01)
[2019-11-01] MEDS ORDERED: LABETALOL HCL IV 5 MG/ML 20ML IV PRN (16:13)
[2019-11-01] MEDS ORDERED: FLUMAZENIL 0.1 MG/1 ML 10 ML VIAL IV PRN (16:13)
[2019-11-01] MEDS ORDERED: PHENYLEPHRINE HCL 10 MG/ML VIAL ONE (16:19)
[2019-11-01] MEDS ORDERED: ePHEDrine sulfate 50 MG/ML SYR ONE (16:42)
[2019-11-01] MEDS ORDERED: NEOSTIGMINE METHYLSULFATE 5 MG/5 ML SYR ONE (16:42)
[2019-11-01] MEDS ORDERED: GLYCOPYRROLATE 0.2 MG/ML VIAL ONE (16:42)
--- NOTE | 2019-11-01 17:14 | Operative Report ---
PG Post Operative Report Pre & Post Diagnosis Operation Date: 11/01/19 14:55 Pre-Op Diagnosis: Closed fracture of left hip Post-Op Diagnosis: Closed fracture of left hip I identified the patient and participated in the time-out.: Yes Procedure Operation Date: 11/01/19 14:55 Actual Procedures p Open Reduction, Internal Fixation of Left Hip with intramedullary nail fixation (Left) - Miguel Recio DO Surgeon Miguel Recio DO Owner Consulting Engineer None Estimated Blood Loss 50 Findings Consistent with Post-Op Diagnosis Specimens None Complications none Disposition Disposition: Recovery Room Indications Jamie is a pleasant 89-year-old male who is been having a several week history of left hip pain. He has had several falls recently. His hip pain became bad enough they decided come to the emergency room. Radiographs demonstrated a an intra-articular fracture of the left hip. After discussions at bedside, he elected proceed with a open reduction internal fixation of the left hip Description of Procedure On November 01, 2019 he was brought down from the hospital room to the preoperative holding area. The operative extremity was identified and signed. He was given a preoperative antibiotic. He was taken back to the operating room and laid on a fracture table in the supine position. He was put under general anesthesia. The left hip was brought out to traction. Fluoroscopy was used to ensure near anatomic alignment of the fracture. The left hip was then prepped and draped in sterile fashion. A timeout was done. The patient and the operative extremity was properly identified. A longitudinal incision was made just superior to the greater trochanter. Dissection was taken down through the fascia. A guidepin was placed at the tip of the greater trochanter and advanced down the stem of the femur. Appropriate placement of this guidepin was checked on orthogonal fluoroscopic images. An 18 mm opening reamer was used to open the proximal femoral canal. A Synthes TFN short nail was then impacted into place. Once I was happy with the alignment an outrigger was placed. An additional longitudinal incision was made distal on the femur. Dissection was taken down through the fascia. The cannula was advanced for the lag screw. A guidepin was placed to the center center position of the femoral head. This was checked on orthogonal fluoroscopic images. The helical blade measured to be 95 mm. The lateral cortex was drilled and the helical blade was drilled. The final helical blade was then impacted into place. Compression was placed on the fracture site. The plate was then locked. A cannula was then advanced for the distal locking screw. The cortex was then drilled and the screw measured to be 40 mm. A 40 mm distal locking screw was then screwed into place. The outrigger's were then removed. Final fluoroscopic images showed acceptable alignment of the fracture. The wounds were then irrigated. The fascia was then closed with #1 Vicryl. The deep layer was closed with 2-0 Vicryl. Skin was closed with 2-0 Vicryl and brisa. He was then placed in a soft dressing. He was then extubated and transferred to a [facility]. He was taken to the postanesthesia care unit in stable condition. He tolerated the procedure well. I attest to the content of the Intraoperative Record and any orders documented therein. Any exceptions are noted below.
--- NOTE | 2019-11-01 17:27 | Hospitalist Progress Note ---
Date of Service November 01, 2019 Assessment & Plan (1) Left hip pain: Left hip fracture Femur X ray:A left femoral neck basicervical fracture. Pelvic X ray:Displaced, angulated intertrochanteric fracture of the left femur that extends to the base of the femoral neck. Lumbar X ray:Left hip fracture. 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 Planned for Open Reduction, Internal Fixation of Left Hip with intramedullary nail fixation by Pain control Monitor for post op anemia Appreciate Orthopedics help PT/OT when appropriate Bowel regimen to prevent constipation Hypertension BP elevated on presentation likely due to pain Optimize pain control Continue Home meds Monitor Chronic diastolic heart failure ECHO: EF 55 to 60%. Severe calcific aortic valve stenosis. Aortic root sclerosis/calcification. No signs of decompensation currently Resume Lasix as able Monitor volume status COPD Chronic oxygen dependency H/O Asbestos exposure as per records. No signs of exacerbation currently Nebs PRN CAD Severe Aortic stenosis Continue aspirin, atenolol, irbesartan H/O PE/DVT off Coumadin secondary to rectus sheath hematoma/recurrent GI bleed as per records Chronic hyponatremia Sodium levels at baseline Monitor DM Type II Diet controlled Hb A1C: 6.5 Continue insulin therapy while hospitalized Does not require tight glycemic control secondary to age DVT Px SCDs Re: Surgery Start on pharmacologic anticoagulation as able Code Status DNI/DNR as per my discussion with patient's POA Admission and Anticipated Discharge Date Admission Date: November 01, 2019 Subjective Patient is seen and examined at bedside Complains of hip pain especially with movement Denies chest pain, SOB, dizziness, nausea, abd pain Offers no other complaints Review of Systems Review of Systems: All systems reviewed & are unremarkable except as noted in HPI & below Physical Exam Physical Exam: Physical Exam: Vitals signs as noted above General Appearance:Thin, chronic ill appearing, no apparent distress Head: normocephalic, Atraumatic Eyes: normal inspection, EOMI Neck: supple, Trachea midline Respiratory/Chest: Decreased breath sounds, Basal crackles, No accessory muscle use Cardiovascular: S1, S2, + systolic murmur Abdomen/GI:Soft, Non tender, Bowel sounds present Extremities/Musculoskelatal:normal inspection, no edema, left hip flexed, externally rotated, +tenderness Neurologic/Psych:Alert, awake, grossly no focal neurological deficits Skin: normal color, warm Results & Data Results & Data ([facility]) Vital Signs (Past 12 Hours) Vital Signs Temp Pulse Pulse Resp BP Pulse Ox 11/01/19 11:15 37.2 C 58 L 20 136/79 97 11/01/19 10:48 90 11/01/19 07:16 37.1 C 76 18 149/76 H 97 11/01/19 05:24 36.5 C 96 H 20 162/79 H 95 Laboratory Results Short CBC 10/31/19 11/01/19 Range/Units 23:37 06:36 WBC 10.33 10.65 (4.8-10.8) K/uL Hgb 13.1 L 13.2 L (14.0-18.0) g/dL Hct 38.2 L 39.4 L (42-52) % Plt Count 247 238 (130-400) K/uL BMP 10/31/19 11/01/19 23:37 06:36 Sodium 131 L 132 L Potassium 4.5 4.3 Chloride 98 98 Carbon Dioxide 24 24 BUN 15 15 Creatinine 1.11 0.98 Glucose 129 H 130 H Calcium 8.6 9.1 Cardiac Enzymes 10/31/19 Range/Units 23:37 Total Creatine Kinase 189 (39-308) U/L Troponin I < 0.015 (0-0.045) ng/ml Liver Function 10/31/19 Range/Units 23:37 Total Bilirubin 0.6 (0.2-1) mg/dl Direct Bilirubin 0.2 (0-0.2) mg/dl AST 21 (15-37) U/L ALT 21 (12-78) U/L Alkaline Phosphatase 121 H (45-117) U/L Albumin 3.7 (3.4-5.0) gm/dl
--- NOTE | 2019-11-01 17:32 | Fluoroscopy Report ---
INTRAOPERATIVE RADIOGRAPHS CLINICAL HISTORY: Open reduction and internal fixation of the left hip. Fluoroscopy time: 65 seconds. FINDINGS: 4 spot fluoroscopic views of the left hip are correlated with radiographs dated 10/31/2019. Intertrochanteric and intramedullary nails have been placed transfixing an intertrochanteric fracture of the left femur. Near-anatomic alignment is restored. A single cortical lag screw transfixes the d istal end of the intramedullary nail. IMPRESSION: Intraoperative images from open reduction and internal fixation of the left proximal femu r as above. Electronically signed by: Braulio Xavier M.D. 11/01/2019 5:30 PM
--- NOTE | 2019-11-01 17:48 | Anesthesiology Progress Note ---
Date of Service November 01, 2019 Anesthesia Post Procedure Vital Signs Vital Signs: Temp Pulse Pulse Pulse Resp BP BP 11/01/19 17:45 37.0 C 94 H 20 121/67 11/01/19 17:35 91 H 20 116/66 11/01/19 17:25 87 19 121/69 11/01/19 17:17 36.9 C 92 H 20 105/61 11/01/19 11:15 37.2 C 58 L 20 11/01/19 10:48 90 11/01/19 07:16 37.1 C 76 18 11/01/19 05:24 36.5 C 96 H 20 11/01/19 03:46 36.9 C 100 H 22 11/01/19 03:44 90 11/01/19 03:35 91 H 24 11/01/19 02:33 88 16 160/80 H 11/01/19 02:00 88 18 11/01/19 00:26 92 H 16 10/31/19 23:09 36.6 C 87 18 146/78 H BP Pulse Ox 11/01/19 17:45 95 11/01/19 17:35 99 11/01/19 17:25 96 11/01/19 17:17 95 11/01/19 11:15 136/79 97 11/01/19 10:48 11/01/19 07:16 149/76 H 97 11/01/19 05:24 162/79 H 95 11/01/19 03:46 150/81 H 96 11/01/19 03:44 11/01/19 03:35 94 11/01/19 02:33 93 11/01/19 02:00 163/85 H 91 11/01/19 00:26 152/86 H 95 10/31/19 23:09 88 L Pain Intensity Leg: Pain Intensity: 4 Transfer of Care Handoff Completed per policy Notes Mental Status: alert / awake / arousable Patient Amnestic to Procedure: Yes Nausea / Vomiting: adequately controlled Pain: adequately controlled Airway Patency, RR, SpO2: stable & adequate BP & HR: stable & adequate Hydration State: stable & adequate Anesthetic Complications: no major complications apparent
[2019-11-01] MEDS ORDERED: LACTATED RINGER'S 1,000 ML IV SCH (18:39)
--- NOTE | 2019-11-01 19:01 | XRay Report ---
SINGLE VIEW PELVIS; SINGLE VIEW LEFT HIP CLINICAL HISTORY: Postoperative examination. FINDINGS: An AP portable view of the hips and pelvis with a crosstable lateral portable view of the l eft hip are obtained. Comparison is made to study dated 10/31/2019. Intertrochanteric and intramedulla ry nails have been placed transfixing an intertrochanteric fracture of the left femur. Near-anatomic alignment has been restored. A single cortical lag screw transfixes the distal end of the intramedull yifan nail. The orthopedic hardware appears intact. No new fracture is identified. There are expected p ostoperative changes overlying the left hip including skin clips, subcutaneous gas, and soft tissue s welling. The visualized bony pelvis and the right proximal femur appear intact. Moderate degenerative narrowing is present in both hips. IMPRESSION: Expected postoperative findings status post open reduction and internal fixation of the l eft hip as above. No new fracture is seen. ACT 112: Negative or not required by law. Electronically signed by: Braulio Xavier M.D. 11/01/2019 7:00 PM
--- NOTE | 2019-11-01 19:36 | Electrocardiogram Report ---
Test Reason : Blood Pressure : / mmHG Vent. Rate : 090 BPM Atrial Rate : 090 BPM P-R Int : 184 ms QRS Dur : 088 ms QT Int : 374 ms P-R-T Axes : 015 -19 009 degrees QTc Int : 457 ms Poor data quality, interpretation may be adversely affected Normal sinus rhythm with 1st degree AV block Inferior infarct , age undetermined Abnormal ECG When compared with ECG of 06-AUG-2018 06:08, SC interval has decreased Confirmed by Jefe Garcia ([id number]) on 11/01/2019 7:35:57 PM Referred By: [facility] Confirmed By:Jorge Garcia
[2019-11-01] MEDS ORDERED: Nursing to Pharmacy Communication ONE (20:42)
[2019-11-01] MEDS: ASPIRIN 81 MG ECTAB PO SCH (22:12)
[2019-11-01] MEDS: ROPINIROLE HCL 1 MG TABLET PO SCH (22:36)
[2019-11-02] MEDS: ACETAMINOPHEN 325 MG TAB PO PRN ×3 (02:14→23:59)
[2019-11-02] MEDS: OXYCODONE/ACETAMINOPHEN 5mg/325mg TAB PO PRN ×2 (03:49→18:33)
[2019-11-02 05:30] LABS: Basophils # (auto) 0.02 K/uL (0-0.2); Basophils % (auto) 0.2 %; Eosinophils # (auto) 0.09 K/uL (0-0.5); Eosinophils % (auto) 0.7 %; Hematocrit (blood only) 37.7 % (42-52); Hemoglobin 12.7 g/dL (14.0-18.0); Immature Granulocytes # (auto) 0.04 K/uL (0.00-0.02); Immature Granulocytes % (auto) 0.3 %; Lymphocytes # (auto) 0.82 K/uL (1.2-3.4); Lymphocytes % (auto) 6.6 %; Mean Corpuscular Hgb Conc 33.7 g/dL (32-36); Mean Corpuscular Volume 86.1 fL (80-100); Mean Platelet Volume 9.1 fL (7.4-10.4); Monocytes # (auto) 1.12 K/uL (0.11-0.59); Neutrophils % (auto) 83.2 %; Platelet Count 192 K/uL (130-400); RDW Coefficient of Variation 15.4 % (11.5-14.5); RDW Standard Deviation 48.6 fL (36.4-46.3); Red Blood Count 4.38 M/uL (4.7-6.1); White Blood Count 12.39 K/uL (4.8-10.8)
[2019-11-02 05:57] LABS: BUN Creatinine Ratio 14.5 (10-20); Calcium 8.7 mg/dl (8.5-10.1); Creatinine Clr Calc Pharmacy 32.5 ml/min; Est GFR (African American) 48.3; Est GFR (Non-African American) 41.7; Magnesium 2.3 mg/dl (1.8-2.4); Potassium 4.5 mmol/L (3.5-5.1)
--- NOTE | 2019-11-02 06:08 | Communication Note ---
Date of Service: November 02, 2019 Made aware by RN of poor urine output postop. SBP 90s as per RN. Patient somewhat groggy as per RN. serum crea 1.47 from 0.98 (10/31) AP ARF Baseline UA Increase current IVF rate of 80 cc/h to 100 cc/hr Caution with fluid boluses given severe aortic stenosis. Hold ARB until creatinine back to baseline. Will relay to AM provider.
[2019-11-02] MEDS ORDERED: SODIUM CHLORIDE 0.9% 1000ML 1,000 ML IV SCH (06:30)
[2019-11-02 07:55] LABS: Appearance Urine Cloudy (Clear); Bacteria Urine Automated Negative (Negative); Blood Urine Negative (Negative); Color Urine Dark Yellow; Epithelial Cell Urine Auto >30 /lpf (0-5); Glucose Urine UA Negative (Negative); Ketones Urine 1+ (Negative); Leukocyte Esterase Urine 1+ (Negative); Nitrite Urine Negative (Negative); Protein Urine 1+ (Negative); Specific Gravity Urine 1.032 (1.000-1.030); Urobilinogen Urine Negative (Negative); WBC Urine Automated >30 /hpf (0-5)
[2019-11-02 08:00] LABS: Bilirubin Urine Negative (Negative); Ictotest Urine Negative (Negative)
[2019-11-02 08:11] LABS: Cast Urine Automated >30 /lpf (0-5)
[2019-11-02 08:13] LABS: Calcium Oxalate Crystals Urine Present (None Prsent)
[2019-11-02] MEDS: DULOXETINE HCL 20 MG CAP PO SCH (08:22)
[2019-11-02] MEDS: MULTIVITAMIN TAB PO SCH (08:22)
[2019-11-02] MEDS: ATENOLOL 25 MG TABLET PO SCH (08:22)
[2019-11-02] MEDS: POLYETHYLENE (MIRALAX) 17 GM PACK PO SCH (08:22)
[2019-11-02] MEDS: ASPIRIN 81 MG ECTAB PO SCH ×2 (08:23→20:26)
[2019-11-02] MEDS: PANTOprazole 40 MG TAB PO SCH ×2 (08:24→20:26)
[2019-11-02] MEDS: INSULIN ASPART 100 UNITS/ML 3 ML PEN SQ SCH ×4 (08:32→20:27)
--- NOTE | 2019-11-02 11:51 | Anesthesiology Progress Note ---
Date of Service November 02, 2019 Anesthesia Post Procedure Vital Signs Vital Signs: Temp Pulse Pulse Resp BP Pulse Ox Pulse Ox 11/02/19 08:00 96 11/02/19 07:58 36.2 C L 92 H 18 89/65 L 93 11/02/19 07:07 89 11/02/19 04:00 36.5 C 107 H 18 97/57 L 92 11/02/19 01:45 36.8 C 11/02/19 00:00 96 H 91 11/01/19 23:57 37.0 C 95 H 18 99/55 L 92 11/01/19 21:30 36.6 C 100 H 18 94/57 L 91 11/01/19 20:32 36.6 C 101 H 18 103/54 L 92 11/01/19 20:00 92 11/01/19 19:30 36.4 C L 92 H 18 116/66 90 11/01/19 19:00 36.7 C 93 H 18 91/53 L 95 11/01/19 18:33 36.5 C 90 18 86/53 L 11/01/19 18:13 86 20 105/64 95 11/01/19 17:55 87 17 121/86 99 11/01/19 17:45 37.0 C 94 H 20 121/67 95 11/01/19 17:35 91 H 20 116/66 99 11/01/19 17:25 87 19 121/69 96 11/01/19 17:17 36.9 C 92 H 20 105/61 95 Pain Intensity Leg: Pain Intensity: 0 Notes Mental Status: alert / awake / arousable and participated in evaluation Patient Amnestic to Procedure: Yes Nausea / Vomiting: adequately controlled Pain: adequately controlled Airway Patency, RR, SpO2: stable & adequate BP & HR: stable & adequate Hydration State: stable & adequate Anesthetic Complications: no major complications apparent and Pt Satisfied with anesthetic care
--- NOTE | 2019-11-02 12:45 | Orthopedic Progress Note ---
Date of Service November 02, 2019 Assessment & Plan (1) Status post open reduction and internal fixation (ORIF) of fracture: Overall he is doing very well. Is not having too much pain in the hip. He is currently on aspirin 81 mg twice a day for DVT prophylaxis. Usually in this case I use Lovenox, however, he seems to have issues with rectal bleeding so I am hesitant to put him on any additional anticoagulation. I do encourage the MESSI hose stockings. I encourage ambulation. He is orthopedically stable for discharge when medically ready. He can be weightbearing as tolerated. The dressings can be changed tomorrow. He can follow-up with orthopedics in 2 weeks for staple removal. Our office phone number is [phone]. Full discharge orthopedic instructions were placed in the discharge summary. Present on Admission?: Yes Subjective Jamie was seen and examined at bedside this morning. Overall he is doing very well. He was sitting up in a chair and eating lunch. He looked much better than he did yesterday. He says his hip is sore but is much better than it was before the surgery. His COVID 19 test came back negative and his echocardiogram was read by mid afternoon so we decided to proceed with his surgery yesterday. Physical Exam Musculoskeletal: On physical examination of the left hip, the dressings are clean and dry. He is sitting comfortably in a chair. He is neurovascularly intact. Results & Data ([facility]) Vital Signs (Past 12 Hours) Vital Signs Temp Pulse Pulse Resp BP Pulse Ox Pulse Ox 11/02/19 08:00 96 11/02/19 07:58 36.2 C L 92 H 18 89/65 L 93 11/02/19 07:07 89 11/02/19 04:00 36.5 C 107 H 18 97/57 L 92 11/02/19 01:45 36.8 C Laboratory Results H & H 10/31/19 11/01/19 11/02/19 Range/Units 23:37 06:36 05:16 Hgb 13.1 L 13.2 L 12.7 L (14.0-18.0) g/dL Hct 38.2 L 39.4 L 37.7 L (42-52) % Coagulation 10/31/19 11/01/19 Range/Units 23:37 00:35 INR Cancelled 1.1 Diagnostic Findings Postoperative x-rays of the left hip show the fracture to be in near anatomic alignment with no evidence of complication. PG Care Time/CCT Total # of Minutes Spent Total Time Spent with Patient: Total time spent is greater than 50% in coordination of care (as documented) at patient's floor/unit and/or counseling patient: Coding Level of Care Code None Diagnoses Status post open reduction and internal fixation (ORIF) of fracture Z98.890; Z87.81
--- NOTE | 2019-11-02 13:45 | XRay Report ---
XR chest 1V portable HISTORY: Shortness of breath. COMPARISON: Chest 10/31/2019. FINDINGS: No pneumothorax. No pleural effusions. The heart remains mildly enlarged. There is a tortuo us thoracic aorta. Slight prominence of the interstitial vascular markings suggestive of mild congest michael change. This has regressed in the interval. No new focal lung consolidations to suggest pneumonia . The left shoulder prosthesis. Advanced degenerative changes within the right shoulder. IMPRESSION: Cardiomegaly with mild congestive change. This has progressed in the interval. ACT 112: Negative or not required by law. Electronically signed by: Jose Wallace M.D. 11/02/2019 1:44 PM
--- NOTE | 2019-11-02 20:06 | Hospitalist Progress Note ---
Date of Service November 02, 2019 Assessment & Plan (1) Left hip pain: Left hip fracture Femur X ray:A left femoral neck basicervical fracture. Pelvic X ray:Displaced, angulated intertrochanteric fracture of the left femur that extends to the base of the femoral neck. Lumbar X ray:Left hip fracture. 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 S/P Open Reduction, Internal Fixation of Left Hip with intramedullary nail fixation by POD #1 Pain control Monitor for post op anemia Appreciate Orthopedics help PT/OT when appropriate Bowel regimen to prevent constipation Weightbearing as tolerated as per Ortho Needs follow-up with orthopedics in 2 weeks for staple removal Acute Kidney Injury Cr:1.47 Hold irbesartan Received gentle IV fluids Monitor renal function Avoid nephrotoxic agents as able Hypertension BP elevated on presentation likely due to pain Optimize pain control Continue Home meds Monitor Abnormal UA Urine culture pending Likely contaminated sample Mild leukocytosis likely reactive Chronic diastolic heart failure ECHO: EF 55 to 60%. Severe calcific aortic valve stenosis. Aortic root sclerosis/calcification. No signs of decompensation currently Resume Lasix as able Monitor volume status COPD Chronic oxygen dependency H/O Asbestos exposure as per records. No signs of exacerbation currently Nebs PRN CAD Severe Aortic stenosis Continue aspirin, atenolol, irbesartan H/O PE/DVT off Coumadin secondary to rectus sheath hematoma/recurrent GI bleed as per records Chronic hyponatremia Sodium levels normalized Monitor DM Type II Diet controlled Hb A1C: 6.5 Continue insulin therapy while hospitalized Does not require tight glycemic control secondary to age DVT Px SCDs, Aspirin BID Re:H/O Recurrent GI bleeding Code Status DNI/DNR as per my discussion with patient's POA Admission and Anticipated Discharge Date Admission Date: November 01, 2019 Subjective Patient is seen and examined at bedside Leg pain at surgical site is controlled Sitting in chair comfortably this morning Creatinine slightly worsened Received gentle IV fluids and had dyspnea--congestion noted on chest x-ray We will hold IV fluids for now Denies chest pain, dizziness, nausea, abd pain Discussed with patient's daughter today. Review of Systems Review of Systems: All systems reviewed & are unremarkable except as noted in HPI & below Physical Exam Physical Exam: Physical Exam: Vitals signs as noted above General Appearance:Thin, chronic ill appearing, no apparent distress Head: normocephalic, Atraumatic Eyes: normal inspection, EOMI Neck: supple, Trachea midline Respiratory/Chest: Decreased breath sounds, Basal crackles, No accessory muscle use Cardiovascular: S1, S2, + systolic murmur Abdomen/GI:Soft, Non tender, Bowel sounds present Extremities/Musculoskelatal:normal inspection, no edema, left hip tender, surgical site in dressing Neurologic/Psych:Alert, awake, grossly no focal neurological deficits Skin: normal color, warm Results & Data Results & Data ([facility]) Vital Signs (Past 12 Hours) Vital Signs Temp Pulse Pulse Resp BP Pulse Ox Pulse Ox 11/02/19 19:47 36.7 C 97 H 18 101/60 96 11/02/19 16:00 96 11/02/19 15:06 36.6 C 96 H 18 98/63 L 96 11/02/19 14:20 93 H 11/02/19 08:00 96 Laboratory Results Short CBC 11/02/19 Range/Units 05:16 WBC 12.39 H (4.8-10.8) K/uL Hgb 12.7 L (14.0-18.0) g/dL Hct 37.7 L (42-52) % Plt Count 192 (130-400) K/uL BMP 11/02/19 05:16 Sodium 138 Potassium 4.5 Chloride 103 Carbon Dioxide 25 BUN 21 H Creatinine 1.47 H D Glucose 134 H Calcium 8.7 Urine 11/02/19 Range/Units 06:30 Urine Color Dark Yellow Urine Appearance Cloudy A (Clear) Urine pH 5.0 (4.5-7.5) Ur Specific [place] 1.032 H (1.000-1.030) Urine Protein 1+ H (Negative) Urine Glucose (UA) Negative (Negative)
[2019-11-02] MEDS: ROPINIROLE HCL 1 MG TABLET PO SCH (20:25)
[2019-11-02] MEDS: GABAPENTIN 100 MG CAP PO SCH (20:26)
[2019-11-03] MEDS ORDERED: ALBUMIN 25% 50 ML IV ONE ×2 (04:29→06:00)
[2019-11-03 06:18] LABS: Hemoglobin 11.3 g/dL (14.0-18.0); Mean Corpuscular Hemoglobin 29.5 pg (25-34); Mean Corpuscular Hgb Conc 34.2 g/dL (32-36); Mean Corpuscular Volume 86.2 fL (80-100); Mean Platelet Volume 9.1 fL (7.4-10.4); Platelet Count 174 K/uL (130-400); RDW Coefficient of Variation 15.6 % (11.5-14.5); RDW Standard Deviation 48.7 fL (36.4-46.3); Red Blood Count 3.83 M/uL (4.7-6.1); White Blood Count 8.14 K/uL (4.8-10.8)
[2019-11-03 06:48] LABS: BUN Creatinine Ratio 22.4 (10-20); Calcium 8.6 mg/dl (8.5-10.1); Creatinine Clr Calc Pharmacy 40.3 ml/min; Est GFR (African American) 63.7; Est GFR (Non-African American) 54.9
[2019-11-03] MEDS: MULTIVITAMIN TAB PO SCH (08:22)
[2019-11-03] MEDS: ATENOLOL 25 MG TABLET PO SCH (08:22)
[2019-11-03] MEDS: DULOXETINE HCL 20 MG CAP PO SCH (08:22)
[2019-11-03] MEDS: PANTOprazole 40 MG TAB PO SCH ×2 (08:23→20:34)
[2019-11-03] MEDS: ASPIRIN 81 MG ECTAB PO SCH ×2 (08:23→20:35)
[2019-11-03] MEDS: GABAPENTIN 100 MG CAP PO SCH ×2 (08:23→20:34)
[2019-11-03] MEDS: POLYETHYLENE (MIRALAX) 17 GM PACK PO SCH (08:23)
[2019-11-03] MEDS: INSULIN ASPART 100 UNITS/ML 3 ML PEN SQ SCH ×4 (08:49→20:35)
[2019-11-03] MEDS ORDERED: TAMSULOSIN HCL 0.4 MG CAP PO ONE (13:19)
--- NOTE | 2019-11-03 18:15 | Hospitalist Progress Note ---
Date of Service November 03, 2019 Assessment & Plan (1) Left hip pain: Left hip fracture Femur X ray:A left femoral neck basicervical fracture. Pelvic X ray:Displaced, angulated intertrochanteric fracture of the left femur that extends to the base of the femoral neck. Lumbar X ray:Left hip fracture. 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 S/P Open Reduction, Internal Fixation of Left Hip with intramedullary nail fixation by POD #1 Pain control Monitor for post op anemia Appreciate Orthopedics help PT/OT Bowel regimen to prevent constipation Weightbearing as tolerated as per Ortho Needs follow-up with orthopedics in 2 weeks for staple removal Needs rehab Placement Acute Kidney Injury Cr:1.47>>1.1 Hold irbesartan for now given low BP Received gentle IV fluids Monitor renal function Avoid nephrotoxic agents as able Hypertension BP elevated on presentation likely due to pain BP relatively low currently Irbesartan held l Continue Atenolol Monitor BP Abnormal UA Urine culture:No growth Likely contaminated sample Mild leukocytosis likely reactive--Resolved Chronic diastolic heart failure ECHO: EF 55 to 60%. Severe calcific aortic valve stenosis. Aortic root sclerosis/calcification. No signs of decompensation currently Resume Lasix tomorrow Monitor volume status COPD Chronic oxygen dependency H/O Asbestos exposure as per records. No signs of exacerbation currently Nebs PRN CAD Severe Aortic stenosis Continue aspirin, atenolol Resume Irbesartan when BP improves H/O PE/DVT off Coumadin secondary to rectus sheath hematoma/recurrent GI bleed as per records Chronic hyponatremia Sodium levels normalized Monitor DM Type II Diet controlled Hb A1C: 6.5 Continue insulin therapy while hospitalized Does not require tight glycemic control secondary to age DVT Px SCDs, Aspirin BID Re:H/O Recurrent GI bleeding Code Status DNI/DNR as per my discussion with patient's POA Admission and Anticipated Discharge Date Admission Date: November 01, 2019 Subjective Patient is seen and examined at bedside Had urinary retention today Leg pain is controlled No new complaints Waiting for placement Renal function improved Denies chest pain, dizziness, nausea, abd pain Review of Systems Review of Systems: All systems reviewed & are unremarkable except as noted in HPI & below Physical Exam Physical Exam: Physical Exam: Vitals signs as noted above General Appearance:Thin, chronic ill appearing, no apparent distress Head: normocephalic, Atraumatic Eyes: normal inspection, EOMI Neck: supple, Trachea midline Respiratory/Chest: Decreased breath sounds, Basal crackles, No accessory muscle use Cardiovascular: S1, S2, + systolic murmur Abdomen/GI:Soft, Non tender, Bowel sounds present Extremities/Musculoskelatal:normal inspection, no edema, left hip tender, surgical site in dressing Neurologic/Psych:Alert, awake, grossly no focal neurological deficits Skin: normal color, warm Results & Data Results & Data ([facility]) Vital Signs (Past 12 Hours) Vital Signs Temp Pulse Pulse Pulse Resp BP Pulse Ox 11/03/19 15:49 36.4 C L 73 16 90/60 L 96 11/03/19 14:20 77 11/03/19 11:58 36.3 C L 94 H 18 106/48 L 94 11/03/19 07:38 36.7 C 100 H 18 113/69 91 11/03/19 07:20 100 H Laboratory Results Short CBC 11/03/19 Range/Units 05:56 WBC 8.14 (4.8-10.8) K/uL Hgb 11.3 L (14.0-18.0) g/dL Hct 33.0 L (42-52) % Plt Count 174 (130-400) K/uL BMP 11/03/19 05:56 Sodium 134 L Potassium 4.0 Chloride 100 Carbon Dioxide 27 BUN 26 H Creatinine 1.17 D Glucose 109 H Calcium 8.6
[2019-11-03] MEDS: ROPINIROLE HCL 1 MG TABLET PO SCH (20:34)
[2019-11-03] MEDS: OXYCODONE/ACETAMINOPHEN 5mg/325mg TAB PO PRN (21:15)
[2019-11-04 07:38] LABS: BUN Creatinine Ratio 27.3 (10-20); Calcium 8.3 mg/dl (8.5-10.1); Est GFR (African American) 90.4; Potassium 4.1 mmol/L (3.5-5.1)
[2019-11-04] MEDS: TAMSULOSIN HCL 0.4 MG CAP PO SCH (08:15)
[2019-11-04] MEDS: DULOXETINE HCL 20 MG CAP PO SCH (08:15)
[2019-11-04] MEDS: POLYETHYLENE (MIRALAX) 17 GM PACK PO SCH (08:15)
[2019-11-04] MEDS: PANTOprazole 40 MG TAB PO SCH ×2 (08:15→20:24)
[2019-11-04] MEDS: MULTIVITAMIN TAB PO SCH (08:15)
[2019-11-04] MEDS: ASPIRIN 81 MG ECTAB PO SCH ×2 (08:15→20:24)
[2019-11-04] MEDS: FUROSEMIDE 20 MG TAB PO SCH (08:15)
[2019-11-04] MEDS: GABAPENTIN 100 MG CAP PO SCH ×2 (08:15→20:23)
[2019-11-04] MEDS: ATENOLOL 25 MG TABLET PO SCH (08:15)
[2019-11-04] MEDS: INSULIN ASPART 100 UNITS/ML 3 ML PEN SQ SCH ×4 (08:16→21:07)
[2019-11-04] MEDS: FINASTERIDE 5 MG TAB PO SCH (10:29)
--- NOTE | 2019-11-04 16:48 | Hospitalist Progress Note ---
Date of Service November 04, 2019 Assessment & Plan (1) Left hip pain: Left hip fracture Femur X ray:A left femoral neck basicervical fracture. Pelvic X ray:Displaced, angulated intertrochanteric fracture of the left femur that extends to the base of the femoral neck. Lumbar X ray:Left hip fracture. 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 S/P Open Reduction, Internal Fixation of Left Hip with intramedullary nail fixation by POD #1 Pain control Monitor for post op anemia Appreciate Orthopedics help PT/OT Bowel regimen to prevent constipation Weightbearing as tolerated as per Ortho No significant pain Needs follow-up with orthopedics in 2 weeks for staple removal Needs rehab Placement Acute Kidney Injury Cr:1.47>>1.1>>0.83 Irbesartan held Received gentle IV fluids Monitor renal function Avoid nephrotoxic agents as able Hypertension BP elevated on presentation likely due to pain BP relatively low Resume Irbesartan when BP better Continue Atenolol Monitor BP Abnormal UA Urine culture:No growth Likely contaminated sample Mild leukocytosis likely reactive--Resolved Chronic diastolic heart failure ECHO: EF 55 to 60%. Severe calcific aortic valve stenosis. Aortic root sclerosis/calcification. No signs of decompensation currently Continue Lasix Monitor volume status COPD Chronic oxygen dependency H/O Asbestos exposure as per records. No signs of exacerbation currently Nebs PRN CAD Severe Aortic stenosis Continue aspirin, atenolol Resume Irbesartan when BP improves H/O PE/DVT off Coumadin secondary to rectus sheath hematoma/recurrent GI bleed as per records Chronic hyponatremia Sodium levels normalized Monitor DM Type II Diet controlled Hb A1C: 6.5 Continue insulin therapy while hospitalized Does not require tight glycemic control secondary to age DVT Px SCDs, Aspirin BID Re:H/O Recurrent GI bleeding Code Status DNI/DNR as per my discussion with patient's POA Disposition Needs Placement Admission and Anticipated Discharge Date Admission Date: November 01, 2019 Subjective Patient is seen and examined at bedside Urinary retention resolved Sitting in chair comfortably this morning May need rehab placement Leg pain is controlled per RN Denies chest pain, dizziness, nausea, abd pain Review of Systems Review of Systems: All systems reviewed & are unremarkable except as noted in HPI & below Physical Exam Physical Exam: Physical Exam: Vitals signs as noted above General Appearance:Thin, chronic ill appearing, no apparent distress Head: normocephalic, Atraumatic Eyes: normal inspection, EOMI Neck: supple, Trachea midline Respiratory/Chest: Decreased breath sounds, Basal crackles, No accessory muscle use Cardiovascular: S1, S2, + systolic murmur Abdomen/GI:Soft, Non tender, Bowel sounds present Extremities/Musculoskelatal:normal inspection, no edema, left hip tender, surgical site in dressing Neurologic/Psych:Alert, awake, grossly no focal neurological deficits Skin: normal color, warm Results & Data Results & Data ([facility]) Vital Signs (Past 12 Hours) Vital Signs Temp Pulse Pulse Resp BP BP Pulse Ox 11/04/19 15:54 36.7 C 81 18 108/70 97 11/04/19 11:41 36.7 C 78 20 129/72 97 11/04/19 07:26 85 11/04/19 07:16 36.5 C 99 H 20 117/63 94 Laboratory Results [facility] 11/04/19 06:27 Sodium 132 L Potassium 4.1 Chloride 100 Carbon Dioxide 27 BUN 23 H Creatinine 0.83 D Glucose 108 H Calcium 8.3 L
[2019-11-04] MEDS: OXYCODONE/ACETAMINOPHEN 5mg/325mg TAB PO PRN ×2 (20:22→21:07)
[2019-11-04] MEDS: ROPINIROLE HCL 1 MG TABLET PO SCH (20:24)
[2019-11-05] MEDS: OXYCODONE/ACETAMINOPHEN 5mg/325mg TAB PO PRN ×3 (04:35→22:48)
[2019-11-05] MEDS: FINASTERIDE 5 MG TAB PO SCH (07:59)
[2019-11-05] MEDS: ATENOLOL 25 MG TABLET PO SCH (07:59)
[2019-11-05] MEDS: MULTIVITAMIN TAB PO SCH (08:00)
[2019-11-05] MEDS: DULOXETINE HCL 20 MG CAP PO SCH (08:00)
[2019-11-05] MEDS: TAMSULOSIN HCL 0.4 MG CAP PO SCH (08:00)
[2019-11-05] MEDS: PANTOprazole 40 MG TAB PO SCH ×2 (08:01→21:44)
[2019-11-05] MEDS: FUROSEMIDE 20 MG TAB PO SCH (08:01)
[2019-11-05] MEDS: GABAPENTIN 100 MG CAP PO SCH ×2 (08:01→21:44)
[2019-11-05] MEDS: ASPIRIN 81 MG ECTAB PO SCH ×2 (08:01→21:44)
[2019-11-05] MEDS: POLYETHYLENE (MIRALAX) 17 GM PACK PO SCH (08:02)
[2019-11-05] MEDS: INSULIN ASPART 100 UNITS/ML 3 ML PEN SQ SCH ×4 (08:30→21:01)
--- NOTE | 2019-11-05 17:22 | Hospitalist Progress Note ---
Date of Service November 05, 2019 Assessment & Plan (1) Left hip pain: Left hip fracture Femur X ray:A left femoral neck basicervical fracture. Pelvic X ray:Displaced, angulated intertrochanteric fracture of the left femur that extends to the base of the femoral neck. Lumbar X ray:Left hip fracture. 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 S/P Open Reduction, Internal Fixation of Left Hip with intramedullary nail fixation by POD #1 Pain control Monitor for post op anemia Appreciate Orthopedics help PT/OT Bowel regimen to prevent constipation Weightbearing as tolerated as per Ortho No significant pain Needs follow-up with orthopedics in 2 weeks for staple removal Plan to discharge to rehab facility when bed is available Case management to help with placement Acute Kidney Injury Cr:1.47>>1.1>>0.83 Irbesartan held Received gentle IV fluids Monitor renal function Avoid nephrotoxic agents as able Hypertension Resume Irbesartan when BP better Continue Atenolol Monitor BP Abnormal UA Urine culture:No growth Likely contaminated sample Mild leukocytosis likely reactive--Resolved Chronic diastolic heart failure ECHO: EF 55 to 60%. Severe calcific aortic valve stenosis. Aortic root sclerosis/calcification. No signs of decompensation currently Continue Lasix Monitor volume status COPD Chronic oxygen dependency H/O Asbestos exposure as per records. No signs of exacerbation currently Nebs PRN CAD Severe Aortic stenosis Continue aspirin, atenolol Resume Irbesartan when BP improves H/O PE/DVT off Coumadin secondary to rectus sheath hematoma/recurrent GI bleed as per records Chronic hyponatremia Sodium levels normalized Monitor DM Type II Diet controlled Hb A1C: 6.5 Continue insulin therapy while hospitalized Does not require tight glycemic control secondary to age DVT Px SCDs, Aspirin BID Re:H/O Recurrent GI bleeding Code Status DNI/DNR as per my discussion with patient's POA Disposition Needs Rehab Placement Admission and Anticipated Discharge Date Admission Date: November 01, 2019 Subjective Patient is seen and examined at bedside Sitting in chair comfortably this morning Waiting for placement No new complaints Denies any significant leg pain at surgical site Also denies chest pain, dizziness, nausea, abd pain Review of Systems Review of Systems: All systems reviewed & are unremarkable except as noted in HPI & below Physical Exam Physical Exam: Physical Exam: Vitals signs as noted above General Appearance:Thin, chronic ill appearing, no apparent distress Head: normocephalic, Atraumatic Eyes: normal inspection, EOMI Neck: supple, Trachea midline Respiratory/Chest: Decreased breath sounds, Basal crackles, No accessory muscle use Cardiovascular: S1, S2, + systolic murmur Abdomen/GI:Soft, Non tender, Bowel sounds present Extremities/Musculoskelatal:normal inspection, no edema, left hip tender, surgical site in dressing Neurologic/Psych:Alert, awake, grossly no focal neurological deficits Skin: normal color, warm Results & Data Results & Data ([facility]) Vital Signs (Past 12 Hours) Vital Signs Temp Pulse Pulse Resp BP BP Pulse Ox 11/05/19 16:30 83 11/05/19 16:14 36.8 C 88 18 137/79 93 11/05/19 12:34 36.6 C 77 18 116/64 97 11/05/19 07:34 36.5 C 94 H 20 138/88 94 11/05/19 07:24 82
[2019-11-05] MEDS: ROPINIROLE HCL 1 MG TABLET PO SCH (21:44)
[2019-11-06] MEDS: OXYCODONE/ACETAMINOPHEN 5mg/325mg TAB PO PRN ×3 (06:06→18:56)
[2019-11-06] MEDS ORDERED: ALBUMIN 25% 50 ML IV ONE (07:00)
[2019-11-06 07:35] LABS: Hemoglobin 10.6 g/dL (14.0-18.0); Mean Corpuscular Hemoglobin 28.3 pg (25-34); Mean Corpuscular Hgb Conc 33.1 g/dL (32-36); Mean Corpuscular Volume 85.3 fL (80-100); Mean Platelet Volume 8.2 fL (7.4-10.4); Platelet Count 185 K/uL (130-400); RDW Coefficient of Variation 15.4 % (11.5-14.5); RDW Standard Deviation 48.3 fL (36.4-46.3); Red Blood Count 3.75 M/uL (4.7-6.1); White Blood Count 5.24 K/uL (4.8-10.8)
[2019-11-06 08:10] LABS: BUN Creatinine Ratio 21.6 (10-20); Calcium 8.7 mg/dl (8.5-10.1); Creatinine Clr Calc Pharmacy 66.2 ml/min; Est GFR (African American) 96.4; Est GFR (Non-African American) 83.2; Potassium 3.9 mmol/L (3.5-5.1)
[2019-11-06] MEDS: GABAPENTIN 100 MG CAP PO SCH ×2 (08:14→20:29)
[2019-11-06] MEDS: ASPIRIN 81 MG ECTAB PO SCH ×2 (08:14→20:29)
[2019-11-06] MEDS: PANTOprazole 40 MG TAB PO SCH ×2 (08:14→20:29)
[2019-11-06] MEDS: ATENOLOL 25 MG TABLET PO SCH (08:14)
[2019-11-06] MEDS: FUROSEMIDE 20 MG TAB PO SCH (08:15)
[2019-11-06] MEDS: FINASTERIDE 5 MG TAB PO SCH (08:15)
[2019-11-06] MEDS: MULTIVITAMIN TAB PO SCH (08:15)
[2019-11-06] MEDS: TAMSULOSIN HCL 0.4 MG CAP PO SCH (08:15)
[2019-11-06] MEDS: POLYETHYLENE (MIRALAX) 17 GM PACK PO SCH (08:16)
[2019-11-06] MEDS: DULOXETINE HCL 20 MG CAP PO SCH (08:16)
[2019-11-06] MEDS: INSULIN ASPART 100 UNITS/ML 3 ML PEN SQ SCH ×4 (08:17→20:36)
--- NOTE | 2019-11-06 14:52 | Hospitalist Progress Note ---
Date of Service November 06, 2019 Assessment & Plan (1) Left hip pain: Left hip fracture: Complained achy left hip/knee pain for about a week before the presentation in ER Femur X ray:A left femoral neck basicervical fracture. Pelvic X ray:Displaced, angulated intertrochanteric fracture of the left femur that extends to the base of the femoral neck. Lumbar X ray:Left hip fracture. 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 S/P Open Reduction, Internal Fixation of Left Hip with intramedullary nail fixation by POD #1 Appreciate Orthopedics input and recommendation Has been getting PT/OT Bowel regimen to prevent constipation Weightbearing as tolerated as per Ortho Needs follow-up with orthopedics in 2 weeks for staple removal Plan to discharge to rehab facility when bed is available Case management to help with placement Will need to have COVID-19 test before discharge Acute Kidney Injury Cr:1.47>>1.1>>0.83 Irbesartan held Received gentle IV fluids Creatinine normalized Avoid nephrotoxic agents as able Hypertension Resume Irbesartan when BP better Continue Atenolol Monitor BP Abnormal UA Urine culture:No growth Likely contaminated sample Mild leukocytosis likely reactive--Resolved Chronic diastolic heart failure ECHO: EF 55 to 60%. Severe calcific aortic valve stenosis. Aortic root sclerosis/calcification. No signs of decompensation currently Continue Lasix Monitor volume status COPD Chronic oxygen dependency H/O Asbestos exposure as per records. No signs of exacerbation currently No acute symptoms CAD Severe Aortic stenosis Continue aspirin, atenolol Resume Irbesartan when BP improves No acute issues H/O PE/DVT off Coumadin secondary to rectus sheath hematoma/recurrent GI bleed as per records Chronic hyponatremia Sodium levels normalized Monitor-sodium level remains around 132 DM Type II Diet controlled Hb A1C: 6.5 Continue insulin therapy while hospitalized Does not require tight glycemic control secondary to age DVT Px SCDs, Aspirin BID Re:H/O Recurrent GI bleeding Code Status DNI/DNR as per my discussion with patient's POA Disposition Needs Rehab Placement Awaiting placement Admission and Anticipated Discharge Date Admission Date: November 01, 2019 Subjective The patient was seen and examined in medical telemetry unit He remains generally weak but denies any significant pain and/or symptoms He remains medically stable to be transferred to rehab facility when accepted Denies any chest pain, palpitation, shortness of breath, abdominal pain, nausea and/or vomiting Review of Systems Review of Systems: All systems reviewed and are unremarkable except as noted below Musculoskeletal: Minimal left hip pain with movement of the left lower extremity Physical Exam Physical Exam: Sitting in a chair without any acute symptoms Constitutional: well developed and well nourished; no acute distress and not ill appearing Eyes: PERRL, conjunctivae normal, anicteric sclerae ENMT: external ear and nose normal, oropharynx normal Neck: trachea midline, no thyromegaly Respiratory: no respiratory distress Auscultation: lungs clear to auscultation bilaterally and + diminished lung sounds (At the bases) Cardiovascular: Rate/Rhythm: regular rate and regular rhythm Heart Sounds: no murmur Extremities: + edema (Trace edema bilaterally) Gastrointestinal (Abdomen): Inspection/Auscultation: abdomen normal to inspection; abdomen not distended Percussion/Palpation: abdomen soft; abdomen nontender Musculoskeletal: Minimal hip pain with movement of the left lower extremity Neurologic: moves all extremities; no focal motor deficits Lymphatic: no cervical or axillary lymphadenopathy Results & Data Results & Data ([facility]) Vital Signs (Past 12 Hours) Vital Signs Temp Pulse Pulse Resp BP Pulse Ox 11/06/19 11:15 36.9 C 68 18 115/75 96 11/06/19 07:42 36.7 C 97 H 20 129/77 98 11/06/19 07:14 79 11/06/19 04:13 36.5 C 81 18 139/70 98 Laboratory Results Short CBC 11/06/19 Range/Units 07:18 WBC 5.24 (4.8-10.8) K/uL Hgb 10.6 L (14.0-18.0) g/dL Hct 32.0 L (42-52) % Plt Count 185 (130-400) K/uL BMP 11/06/19 07:18 Sodium 132 L Potassium 3.9 Chloride 98 Carbon Dioxide 28 BUN 15 Creatinine 0.71 Glucose 112 H Calcium 8.7 Medications Administered Current Inpatient Medications Acetaminophen (Tylenol) 650 mg PO Q4H PRN PRN Reason: Pain or Fever Stop: 12/01/19 03:15 Last Admin: 11/02/19 23:59 Dose: 650 mg Documented by: Aspirin (Ecotrin Ectab) 81 mg PO BID [facility] Stop: 12/01/19 20:59 Last Admin: 11/06/19 08:14 Dose: 81 mg Documented by: Atenolol (Tenormin) 25 mg PO DAILY [facility] Stop: 12/01/19 03:59 Last Admin: 11/06/19 08:14 Dose: 25 mg Documented by: Bisacodyl (Dulcolax) 10 mg [place] DAILY PRN PRN Reason: Constipation Stop: 12/01/19 03:15 Dextrose (Dextrose 50%) 25 - 50 ml IV UD PRN; Protocol PRN Reason: Hypoglycemia Protocol Stop: 12/01/19 04:02 Duloxetine HCl (Cymbalta) 40 mg PO DAILY [facility] Stop: 12/01/19 08:59 Last Admin: 11/06/19 08:16 Dose: 40 mg Documented by: Finasteride (Proscar) 5 mg PO QAM [facility]; Protocol Stop: 12/04/19 08:59 Last Admin: 11/06/19 08:15 Dose: 5 mg Documented by: Furosemide (Lasix) 20 mg PO DAILY [facility] Stop: 12/04/19 08:59 Last Admin: 11/06/19 08:15 Dose: 20 mg Documented by: Gabapentin (Neurontin) 100 mg PO BID [facility] Stop: 12/02/19 20:59 Last Admin: 11/06/19 08:14 Dose: 100 mg Documented by: Glucagon (Glucagen) 1 mg SQ UD PRN; Protocol PRN Reason: Hypoglycemia Protocol Stop: 12/01/19 04:02 Glucose (Dex4 Glucose) 4 - 8 tabs PO UD PRN; Protocol PRN Reason: Hypoglycemia Protocol Stop: 12/01/19 04:02 Glucose (Glucose 40%) 15 - 30 gm PO UD PRN; Protocol PRN Reason: Hypoglycemia Protocol Stop: 12/01/19 04:02 Hydromorphone HCl (Dilaudid) 0.25 mg IV Q2H PRN PRN Reason: Pain Stop: 11/16/19 06:29 Promethazine HCl 12.5 mg/ (Sodium Chloride) 50.5 mls @ 202 mls/hr IV Q6H PRN PRN Reason: Nausea And Vomiting Stop: 12/01/19 03:15 Insulin Aspart (Novolog Flexpen) 0 units SQ ACHS [facility] Stop: 12/01/19 20:59 Last Admin: 11/06/19 12:53 Dose: Not Given Documented by: Ipratropium [place] (Atrovent 0.02% 0.5mg/2.5ml) 0.5 mg INH Q4H PRN PRN Reason: Shortness Of Breath Or Wheezing Stop: 12/01/19 03:15 Last Admin: 11/01/19 03:35 Dose: 0.5 mg Documented by: Irbesartan (Avapro) 150 mg PO DAILY [facility] Stop: 12/01/19 08:59 Last Admin: 11/01/19 09:22 Dose: 150 mg Documented by: Levalbuterol HCl (Xopenex 1.25mg/0.5ml Neb) 1.25 mg INH Q4H PRN PRN Reason: Shortness Of Breath Or Wheezing Stop: 12/01/19 03:15 Last Admin: 11/01/19 03:35 Dose: 1.25 mg Documented by: Magnesium Hydroxide (Milk Of Magnesia) 30 ml PO DAILY PRN PRN Reason: Constipation Stop: 12/01/19 03:15 Miscellaneous (Carbohydrates For Hypoglycemia) 15 - 30 gm PO UD PRN PRN Reason: Hypoglycemia Protocol Stop: 12/01/19 04:02 Multivitamins (Multivitamin Tab) 1 tab PO DAILY [facility] Stop: 12/01/19 08:59 Last Admin: 11/06/19 08:15 Dose: 1 tab Documented by: Naloxone HCl (Narcan) 0.1 mg IV UD PRN PRN Reason: Opiate Overdose Stop: 12/01/19 03:15 Oxycodone/Acetaminophen (Percocet 5mg/325mg) 1 - 2 tab PO Q4H PRN PRN Reason: Pain Stop: 11/15/19 03:15 Last Admin: 11/06/19 11:34 Dose: 2 tab Documented by: Pantoprazole Sodium (Protonix) 40 mg PO BID [facility] Stop: 12/01/19 08:59 Last Admin: 11/06/19 08:14 Dose: 40 mg Documented by: Polyethylene Glycol (Miralax Powder Packet) 17 gm PO DAILY [facility] Stop: 12/01/19 08:59 Last Admin: 11/06/19 08:16 Dose: Not Given Documented by: Psyllium Hydrophilic Mucilloid (Metamucil) 1 pkt PO DAILY PRN PRN Reason: Constipation Stop: 12/01/19 03:15 Ropinirole HCl (Requip) 1 mg PO HS [facility] Stop: 12/01/19 20:59 Last Admin: 11/05/19 21:44 Dose: 1 mg Documented by: Sennosides (Senokot) 8.6 mg PO DAILY PRN PRN Reason: Constipation Stop: 12/01/19 03:15 Last Admin: 11/04/19 08:15 Dose: 8.6 mg Documented by: Tamsulosin HCl (Flomax) 0.4 mg PO QAM [facility] Stop: 12/04/19 08:59 Last Admin: 11/06/19 08:15 Dose: 0.4 mg Documented by:
[2019-11-06] MEDS: ROPINIROLE HCL 1 MG TABLET PO SCH (20:29)
[2019-11-06] MEDS: HYDROmorphone INJ 0.5 MG/0.5 ML SYR IV PRN (21:51)
[2019-11-07] MEDS: POLYETHYLENE (MIRALAX) 17 GM PACK PO SCH (08:02)
[2019-11-07] MEDS: ASPIRIN 81 MG ECTAB PO SCH ×2 (08:04→21:33)
[2019-11-07] MEDS: ATENOLOL 25 MG TABLET PO SCH (08:04)
[2019-11-07] MEDS: FINASTERIDE 5 MG TAB PO SCH (08:04)
[2019-11-07] MEDS: PANTOprazole 40 MG TAB PO SCH ×2 (08:04→21:34)
[2019-11-07] MEDS: MULTIVITAMIN TAB PO SCH (08:04)
[2019-11-07] MEDS: GABAPENTIN 100 MG CAP PO SCH ×2 (08:04→21:32)
[2019-11-07] MEDS: TAMSULOSIN HCL 0.4 MG CAP PO SCH (08:04)
[2019-11-07] MEDS: FUROSEMIDE 20 MG TAB PO SCH (08:04)
[2019-11-07] MEDS: DULOXETINE HCL 20 MG CAP PO SCH (08:04)
[2019-11-07] MEDS: INSULIN ASPART 100 UNITS/ML 3 ML PEN SQ SCH ×4 (09:02→20:39)
[2019-11-07] MEDS: OXYCODONE/ACETAMINOPHEN 5mg/325mg TAB PO PRN ×2 (09:38→21:58)
--- NOTE | 2019-11-07 14:12 | Hospitalist Progress Note ---
Date of Service November 07, 2019 Assessment & Plan (1) Left hip pain: Left hip fracture: Complained achy left hip/knee pain for about a week before the presentation in ER Femur X ray:A left femoral neck basicervical fracture. Pelvic X ray:Displaced, angulated intertrochanteric fracture of the left femur that extends to the base of the femoral neck. Lumbar X ray:Left hip fracture. 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 S/P Open Reduction, Internal Fixation of Left Hip with intramedullary nail fixation by POD #1 Appreciate Orthopedics input and recommendation Has been getting PT/OT Bowel regimen to prevent constipation Weightbearing as tolerated as per Ortho Needs follow-up with orthopedics in 2 weeks for staple removal Plan to discharge to rehab facility when bed is available Case management to help with placement Repeat COVID-19 test is pending Patient has been stable and medically ready to be discharged from the hospital Acute Kidney Injury Cr:1.47>>1.1>>0.83 Irbesartan held Received gentle IV fluids Creatinine normalized Avoid nephrotoxic agents as able Hypertension Resume Irbesartan when BP better Continue Atenolol Monitor BP-blood pressure remains controlled Abnormal UA Urine culture:No growth Likely contaminated sample Mild leukocytosis likely reactive--Resolved Chronic diastolic heart failure ECHO: EF 55 to 60%. Severe calcific aortic valve stenosis. Aortic root sclerosis/calcification. No signs of decompensation currently Continue Lasix No signs and/or symptoms of CHF COPD Chronic oxygen dependency H/O Asbestos exposure as per records. No signs of exacerbation currently No acute symptoms CAD Severe Aortic stenosis Continue aspirin, atenolol Resume Irbesartan when BP improves No acute issues H/O PE/DVT off Coumadin secondary to rectus sheath hematoma/recurrent GI bleed as per records Chronic hyponatremia Sodium levels normalized Monitor-sodium level remains around 132 DM Type II Diet controlled Hb A1C: 6.5 Continue insulin therapy while hospitalized Does not require tight glycemic control secondary to age DVT Px SCDs, Aspirin BID Re:H/O Recurrent GI bleeding Code Status DNI/DNR as per my discussion with patient's POA Disposition Needs Rehab Placement Awaiting placement Admission and Anticipated Discharge Date Admission Date: November 01, 2019 Subjective The patient was seen and examined in medical telemetry unit He remains generally weak but denies any significant pain and/or symptoms He remains medically stable to be transferred to rehab facility when accepted Denies any chest pain, palpitation, shortness of breath, abdominal pain, nausea and/or vomiting 11/07/2019 The patient was seen and examined in medical telemetry unit He has been sitting on a chair without any acute distress Complains today of generalized weakness but no other symptoms Review of Systems Review of Systems: All systems reviewed and are unremarkable except as noted below Musculoskeletal: Minimal left hip pain with movement of the left lower extremity Physical Exam Physical Exam: Sitting in a chair without any acute symptoms Constitutional: well developed and well nourished; no acute distress and not ill appearing Eyes: PERRL, conjunctivae normal, anicteric sclerae ENMT: external ear and nose normal, oropharynx normal Neck: trachea midline, no thyromegaly Respiratory: no respiratory distress Auscultation: lungs clear to auscultation bilaterally and + diminished lung sounds (At the bases) Cardiovascular: Rate/Rhythm: regular rate and regular rhythm Heart Sounds: no murmur Extremities: + edema (Trace edema bilaterally) Gastrointestinal (Abdomen): Inspection/Auscultation: abdomen normal to inspection; abdomen not distended Percussion/Palpation: abdomen soft; abdomen nontender Musculoskeletal: Denies any acute arthritis involving any joints Neurologic: moves all extremities; no focal motor deficits Alert, awake and oriented x3. Generally weak and lethargic Lymphatic: no cervical or axillary lymphadenopathy Results & Data Results & Data ([facility]) Vital Signs (Past 12 Hours) Vital Signs Temp Pulse Pulse Resp BP BP Pulse Ox 11/07/19 11:08 36.9 C 73 20 115/76 94 11/07/19 07:44 36.8 C 85 20 151/78 H 95 11/07/19 07:26 78 11/07/19 04:46 79 11/07/19 02:54 36.7 C 80 19 153/78 H 95 Medications Administered Current Inpatient Medications Acetaminophen (Tylenol) 650 mg PO Q4H PRN PRN Reason: Pain or Fever Stop: 12/01/19 03:15 Last Admin: 11/02/19 23:59 Dose: 650 mg Documented by: Aspirin (Ecotrin Ectab) 81 mg PO BID [facility] Stop: 12/01/19 20:59 Last Admin: 11/07/19 08:04 Dose: 81 mg Documented by: Atenolol (Tenormin) 25 mg PO DAILY [facility] Stop: 12/01/19 03:59 Last Admin: 11/07/19 08:04 Dose: 25 mg Documented by: Bisacodyl (Dulcolax) 10 mg [place] DAILY PRN PRN Reason: Constipation Stop: 12/01/19 03:15 Dextrose (Dextrose 50%) 25 - 50 ml IV UD PRN; Protocol PRN Reason: Hypoglycemia Protocol Stop: 12/01/19 04:02 Duloxetine HCl (Cymbalta) 40 mg PO DAILY [facility] Stop: 12/01/19 08:59 Last Admin: 11/07/19 08:04 Dose: 40 mg Documented by: Finasteride (Proscar) 5 mg PO QAM [facility]; Protocol Stop: 12/04/19 08:59 Last Admin: 11/07/19 08:04 Dose: 5 mg Documented by: Furosemide (Lasix) 20 mg PO DAILY [facility] Stop: 12/04/19 08:59 Last Admin: 11/07/19 08:04 Dose: 20 mg Documented by: Gabapentin (Neurontin) 100 mg PO BID [facility] Stop: 12/02/19 20:59 Last Admin: 11/07/19 08:04 Dose: 100 mg Documented by: Glucagon (Glucagen) 1 mg SQ UD PRN; Protocol PRN Reason: Hypoglycemia Protocol Stop: 12/01/19 04:02 Glucose (Dex4 Glucose) 4 - 8 tabs PO UD PRN; Protocol PRN Reason: Hypoglycemia Protocol Stop: 12/01/19 04:02 Glucose (Glucose 40%) 15 - 30 gm PO UD PRN; Protocol PRN Reason: Hypoglycemia Protocol Stop: 12/01/19 04:02 Hydromorphone HCl (Dilaudid) 0.25 mg IV Q2H PRN PRN Reason: Pain Stop: 11/16/19 06:29 Last Admin: 11/06/19 21:51 Dose: 0.25 mg Documented by: Promethazine HCl 12.5 mg/ (Sodium Chloride) 50.5 mls @ 202 mls/hr IV Q6H PRN PRN Reason: Nausea And Vomiting Stop: 12/01/19 03:15 Insulin Aspart (Novolog Flexpen) 0 units SQ ACHS [facility] Stop: 12/01/19 20:59 Last Admin: 11/07/19 12:46 Dose: Not Given Documented by: Ipratropium [place] (Atrovent 0.02% 0.5mg/2.5ml) 0.5 mg INH Q4H PRN PRN Reason: Shortness Of Breath Or Wheezing Stop: 12/01/19 03:15 Last Admin: 11/01/19 03:35 Dose: 0.5 mg Documented by: Irbesartan (Avapro) 150 mg PO DAILY [facility] Stop: 12/01/19 08:59 Last Admin: 11/01/19 09:22 Dose: 150 mg Documented by: Levalbuterol HCl (Xopenex 1.25mg/0.5ml Neb) 1.25 mg INH Q4H PRN PRN Reason: Shortness Of Breath Or Wheezing Stop: 12/01/19 03:15 Last Admin: 11/01/19 03:35 Dose: 1.25 mg Documented by: Magnesium Hydroxide (Milk Of Magnesia) 30 ml PO DAILY PRN PRN Reason: Constipation Stop: 12/01/19 03:15 Miscellaneous (Carbohydrates For Hypoglycemia) 15 - 30 gm PO UD PRN PRN Reason: Hypoglycemia Protocol Stop: 12/01/19 04:02 Multivitamins (Multivitamin Tab) 1 tab PO DAILY [facility] Stop: 12/01/19 08:59 Last Admin: 11/07/19 08:04 Dose: 1 tab Documented by: Naloxone HCl (Narcan) 0.1 mg IV UD PRN PRN Reason: Opiate Overdose Stop: 12/01/19 03:15 Oxycodone/Acetaminophen (Percocet 5mg/325mg) 1 - 2 tab PO Q4H PRN PRN Reason: Pain Stop: 11/15/19 03:15 Last Admin: 11/07/19 09:38 Dose: 1 tab Documented by: Pantoprazole Sodium (Protonix) 40 mg PO BID [facility] Stop: 12/01/19 08:59 Last Admin: 11/07/19 08:04 Dose: 40 mg Documented by: Polyethylene Glycol (Miralax Powder Packet) 17 gm PO DAILY [facility] Stop: 12/01/19 08:59 Last Admin: 11/07/19 08:02 Dose: 17 gm Documented by: Psyllium Hydrophilic Mucilloid (Metamucil) 1 pkt PO DAILY PRN PRN Reason: Constipation Stop: 12/01/19 03:15 Ropinirole HCl (Requip) 1 mg PO HS [facility] Stop: 12/01/19 20:59 Last Admin: 11/06/19 20:29 Dose: 1 mg Documented by: Sennosides (Senokot) 8.6 mg PO DAILY PRN PRN Reason: Constipation Stop: 12/01/19 03:15 Last Admin: 11/04/19 08:15 Dose: 8.6 mg Documented by: Tamsulosin HCl (Flomax) 0.4 mg PO [facility] Stop: 12/04/19 08:59 Last Admin: 11/07/19 08:04 Dose: 0.4 mg Documented by:
[2019-11-07] MEDS: ROPINIROLE HCL 1 MG TABLET PO SCH (21:33)
[2019-11-08 08:02] LABS: BUN Creatinine Ratio 21.1 (10-20); Creatinine Clr Calc Pharmacy 63.4 ml/min; Est GFR (African American) 98.1; Est GFR (Non-African American) 84.7; Magnesium 2.1 mg/dl (1.8-2.4); Potassium 4.4 mmol/L (3.5-5.1)
[2019-11-08] MEDS: INSULIN ASPART 100 UNITS/ML 3 ML PEN SQ SCH ×4 (08:54→20:28)
[2019-11-08] MEDS: POLYETHYLENE (MIRALAX) 17 GM PACK PO SCH (08:55)
[2019-11-08] MEDS: ASPIRIN 81 MG ECTAB PO SCH ×2 (08:57→20:26)
[2019-11-08] MEDS: DULOXETINE HCL 20 MG CAP PO SCH (08:57)
[2019-11-08] MEDS: MULTIVITAMIN TAB PO SCH (08:58)
[2019-11-08] MEDS: GABAPENTIN 100 MG CAP PO SCH ×2 (08:58→20:27)
[2019-11-08] MEDS: FINASTERIDE 5 MG TAB PO SCH (08:58)
[2019-11-08] MEDS: FUROSEMIDE 20 MG TAB PO SCH (08:58)
[2019-11-08] MEDS: TAMSULOSIN HCL 0.4 MG CAP PO SCH (08:58)
[2019-11-08] MEDS: PANTOprazole 40 MG TAB PO SCH ×2 (08:59→20:27)
[2019-11-08] MEDS: ATENOLOL 25 MG TABLET PO SCH (08:59)
[2019-11-08] MEDS: OXYCODONE/ACETAMINOPHEN 5mg/325mg TAB PO PRN ×2 (12:06→19:23)
--- NOTE | 2019-11-08 14:40 | Hospitalist Progress Note ---
Date of Service November 08, 2019 Assessment & Plan (1) Left hip pain: Left hip fracture: Complained achy left hip/knee pain for about a week before the presentation in ER Femur X ray:A left femoral neck basicervical fracture. Pelvic X ray:Displaced, angulated intertrochanteric fracture of the left femur that extends to the base of the femoral neck. Lumbar X ray:Left hip fracture. 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 S/P Open Reduction, Internal Fixation of Left Hip with intramedullary nail fixation by POD #1 Appreciate Orthopedics input and recommendation Has been getting PT/OT Bowel regimen to prevent constipation Weightbearing as tolerated as per Ortho Needs follow-up with orthopedics in 2 weeks for staple removal Plan to discharge to rehab facility when bed is available Case management to help with placement Repeat COVID-19 test is negative Patient has been stable and medically ready to be discharged from the hospital Likely be transferred to skilled care facility tomorrow Acute Kidney Injury Cr:1.47>>1.1>>0.83 Irbesartan held Received gentle IV fluids Creatinine normalized Avoid nephrotoxic agents as able Hypertension Resume Irbesartan when BP better Continue Atenolol Monitor BP-blood pressure remains controlled Abnormal UA Urine culture:No growth Likely contaminated sample Mild leukocytosis likely reactive--Resolved Chronic diastolic heart failure ECHO: EF 55 to 60%. Severe calcific aortic valve stenosis. Aortic root sclerosis/calcification. No signs of decompensation currently Continue Lasix No signs and/or symptoms of CHF COPD Chronic oxygen dependency H/O Asbestos exposure as per records. No signs of exacerbation currently No acute symptoms CAD Severe Aortic stenosis Continue aspirin, atenolol Resume Irbesartan when BP improves No acute issues H/O PE/DVT off Coumadin secondary to rectus sheath hematoma/recurrent GI bleed as per records Chronic hyponatremia Sodium levels normalized Monitor-sodium level remains around 132 DM Type II Diet controlled Hb A1C: 6.5 Continue insulin therapy while hospitalized Does not require tight glycemic control secondary to age DVT Px SCDs, Aspirin BID Re:H/O Recurrent GI bleeding Code Status DNI/DNR as per my discussion with patient's POA Disposition Needs Rehab Placement Awaiting placement-likely to be discharged tomorrow Admission and Anticipated Discharge Date Admission Date: November 01, 2019 Subjective The patient was seen and examined in medical telemetry unit He remains generally weak but denies any significant pain and/or symptoms He remains medically stable to be transferred to rehab facility when accepted Denies any chest pain, palpitation, shortness of breath, abdominal pain, nausea and/or vomiting 11/07/2019 The patient was seen and examined in medical telemetry unit He has been sitting on a chair without any acute distress Complains today of generalized weakness but no other symptoms 11/08/2019 The patient is seen and examined in medical telemetry unit He remains stable with generalized weakness Complains some pain left hip with movement Denies any other symptoms Review of Systems Review of Systems: All systems reviewed and are unremarkable except as noted below Musculoskeletal: Minimal left hip pain with movement of the left lower extremity Physical Exam Physical Exam: Lying in bed without any acute distress Constitutional: well developed and well nourished; no acute distress and not ill appearing Eyes: PERRL, conjunctivae normal, anicteric sclerae ENMT: external ear and nose normal, oropharynx normal Neck: trachea midline, no thyromegaly Respiratory: no respiratory distress Auscultation: lungs clear to auscultation bilaterally and + diminished lung sounds (At the bases) Cardiovascular: Rate/Rhythm: regular rate and regular rhythm Heart Sounds: no murmur Extremities: + edema (Trace edema bilaterally) Gastrointestinal (Abdomen): Inspection/Auscultation: abdomen normal to inspection; abdomen not distended Percussion/Palpation: abdomen soft; abdomen nontender Musculoskeletal: Pain with movement of the left hip Neurologic: moves all extremities; no focal motor deficits Generally weak and lethargy Lymphatic: no cervical or axillary lymphadenopathy Results & Data Results & Data ([facility]) Vital Signs (Past 12 Hours) Vital Signs Temp Pulse Pulse Resp BP BP Pulse Ox 11/08/19 11:15 36.2 C L 92 H 16 133/78 95 11/08/19 08:00 78 11/08/19 07:17 36.4 C L 83 16 137/66 96 11/08/19 03:38 36.6 C 79 20 146/70 H 97 Laboratory Results [facility] 11/08/19 07:21 Sodium 131 L Potassium 4.4 Chloride 98 Carbon Dioxide 28 BUN 14 Creatinine 0.68 Glucose 107 H Calcium 9.0 Medications Administered Current Inpatient Medications Acetaminophen (Tylenol) 650 mg PO Q4H PRN PRN Reason: Pain or Fever Stop: 12/01/19 03:15 Last Admin: 11/02/19 23:59 Dose: 650 mg Documented by: Aspirin (Ecotrin Ectab) 81 mg PO BID [facility] Stop: 12/01/19 20:59 Last Admin: 11/08/19 08:57 Dose: 81 mg Documented by: Atenolol (Tenormin) 25 mg PO DAILY [facility] Stop: 12/01/19 03:59 Last Admin: 11/08/19 08:59 Dose: 25 mg Documented by: Bisacodyl (Dulcolax) 10 mg [place] DAILY PRN PRN Reason: Constipation Stop: 12/01/19 03:15 Dextrose (Dextrose 50%) 25 - 50 ml IV UD PRN; Protocol PRN Reason: Hypoglycemia Protocol Stop: 12/01/19 04:02 Duloxetine HCl (Cymbalta) 40 mg PO DAILY [facility] Stop: 12/01/19 08:59 Last Admin: 11/08/19 08:57 Dose: 40 mg Documented by: Finasteride (Proscar) 5 mg PO QAM [facility]; Protocol Stop: 12/04/19 08:59 Last Admin: 11/08/19 08:58 Dose: 5 mg Documented by: Furosemide (Lasix) 20 mg PO DAILY [facility] Stop: 12/04/19 08:59 Last Admin: 11/08/19 08:58 Dose: 20 mg Documented by: Gabapentin (Neurontin) 100 mg PO BID [facility] Stop: 12/02/19 20:59 Last Admin: 11/08/19 08:58 Dose: 100 mg Documented by: Glucagon (Glucagen) 1 mg SQ UD PRN; Protocol PRN Reason: Hypoglycemia Protocol Stop: 12/01/19 04:02 Glucose (Dex4 Glucose) 4 - 8 tabs PO UD PRN; Protocol PRN Reason: Hypoglycemia Protocol Stop: 12/01/19 04:02 Glucose (Glucose 40%) 15 - 30 gm PO UD PRN; Protocol PRN Reason: Hypoglycemia Protocol Stop: 12/01/19 04:02 Hydromorphone HCl (Dilaudid) 0.25 mg IV Q2H PRN PRN Reason: Pain Stop: 11/16/19 06:29 Last Admin: 11/06/19 21:51 Dose: 0.25 mg Documented by: Promethazine HCl 12.5 mg/ (Sodium Chloride) 50.5 mls @ 202 mls/hr IV Q6H PRN PRN Reason: Nausea And Vomiting Stop: 12/01/19 03:15 Insulin Aspart (Novolog Flexpen) 0 units SQ ACHS [facility] Stop: 12/01/19 20:59 Last Admin: 11/08/19 13:02 Dose: Not Given Documented by: Ipratropium [place] (Atrovent 0.02% 0.5mg/2.5ml) 0.5 mg INH Q4H PRN PRN Reason: Shortness Of Breath Or Wheezing Stop: 12/01/19 03:15 Last Admin: 11/01/19 03:35 Dose: 0.5 mg Documented by: Irbesartan (Avapro) 150 mg PO DAILY [facility] Stop: 12/01/19 08:59 Last Admin: 11/01/19 09:22 Dose: 150 mg Documented by: Levalbuterol HCl (Xopenex 1.25mg/0.5ml Neb) 1.25 mg INH Q4H PRN PRN Reason: Shortness Of Breath Or Wheezing Stop: 12/01/19 03:15 Last Admin: 11/01/19 03:35 Dose: 1.25 mg Documented by: Magnesium Hydroxide (Milk Of Magnesia) 30 ml PO DAILY PRN PRN Reason: Constipation Stop: 12/01/19 03:15 Miscellaneous (Carbohydrates For Hypoglycemia) 15 - 30 gm PO UD PRN PRN Reason: Hypoglycemia Protocol Stop: 12/01/19 04:02 Multivitamins (Multivitamin Tab) 1 tab PO DAILY [facility] Stop: 12/01/19 08:59 Last Admin: 11/08/19 08:58 Dose: 1 tab Documented by: Naloxone HCl (Narcan) 0.1 mg IV UD PRN PRN Reason: Opiate Overdose Stop: 12/01/19 03:15 Oxycodone/Acetaminophen (Percocet 5mg/325mg) 1 - 2 tab PO Q4H PRN PRN Reason: Pain Stop: 11/15/19 03:15 Last Admin: 11/08/19 12:06 Dose: 2 tab Documented by: Pantoprazole Sodium (Protonix) 40 mg PO BID [facility] Stop: 12/01/19 08:59 Last Admin: 11/08/19 08:59 Dose: 40 mg Documented by: Polyethylene Glycol (Miralax Powder Packet) 17 gm PO DAILY [facility] Stop: 12/01/19 08:59 Last Admin: 11/08/19 08:55 Dose: 17 gm Documented by: Psyllium Hydrophilic Mucilloid (Metamucil) 1 pkt PO DAILY PRN PRN Reason: Constipation Stop: 12/01/19 03:15 Ropinirole HCl (Requip) 1 mg PO [facility] Stop: 12/01/19 20:59 Last Admin: 11/07/19 21:33 Dose: 1 mg Documented by: Sennosides (Senokot) 8.6 mg PO DAILY PRN PRN Reason: Constipation Stop: 12/01/19 03:15 Last Admin: 11/04/19 08:15 Dose: 8.6 mg Documented by: Tamsulosin HCl (Flomax) 0.4 mg PO [facility] Stop: 12/04/19 08:59 Last Admin: 11/08/19 08:58 Dose: 0.4 mg Documented by:
[2019-11-08] MEDS: HYDROmorphone INJ 0.5 MG/0.5 ML SYR IV PRN (20:24)
[2019-11-08] MEDS: ROPINIROLE HCL 1 MG TABLET PO SCH (20:27)
[2019-11-09] MEDS: OXYCODONE/ACETAMINOPHEN 5mg/325mg TAB PO PRN (04:09)
[2019-11-09] MEDS: HYDROmorphone INJ 0.5 MG/0.5 ML SYR IV PRN (05:48)
[2019-11-09] MEDS: ASPIRIN 81 MG ECTAB PO SCH (08:12)
[2019-11-09] MEDS: FUROSEMIDE 20 MG TAB PO SCH (08:12)
[2019-11-09] MEDS: FINASTERIDE 5 MG TAB PO SCH (08:12)
[2019-11-09] MEDS: GABAPENTIN 100 MG CAP PO SCH (08:12)
[2019-11-09] MEDS: ATENOLOL 25 MG TABLET PO SCH (08:13)
[2019-11-09] MEDS: DULOXETINE HCL 20 MG CAP PO SCH (08:13)
[2019-11-09] MEDS: PANTOprazole 40 MG TAB PO SCH (08:13)
[2019-11-09] MEDS: TAMSULOSIN HCL 0.4 MG CAP PO SCH (08:13)
[2019-11-09] MEDS: MULTIVITAMIN TAB PO SCH (08:13)
[2019-11-09] MEDS: POLYETHYLENE (MIRALAX) 17 GM PACK PO SCH (08:13)
[2019-11-09] MEDS: INSULIN ASPART 100 UNITS/ML 3 ML PEN SQ SCH ×2 (08:14→12:54)
[2019-11-09 09:33] LABS: Basophils # (auto) 0.03 K/uL (0-0.2); Basophils % (auto) 0.6 %; Eosinophils # (auto) 0.33 K/uL (0-0.5); Eosinophils % (auto) 6.2 %; Hemoglobin 11.4 g/dL (14.0-18.0); Immature Granulocytes # (auto) 0.01 K/uL (0.00-0.02); Immature Granulocytes % (auto) 0.2 %; Lymphocytes # (auto) 1.31 K/uL (1.2-3.4); Lymphocytes % (auto) 24.6 %; Mean Corpuscular Hemoglobin 28.9 pg (25-34); Mean Corpuscular Hgb Conc 33.5 g/dL (32-36); Mean Corpuscular Volume 86.1 fL (80-100); Mean Platelet Volume 8.5 fL (7.4-10.4); Monocytes % (auto) 13.1 %; Neutrophils # (auto) 2.95 K/uL (1.4-6.5); Neutrophils % (auto) 55.3 %; Platelet Count 266 K/uL (130-400); RDW Coefficient of Variation 15.4 % (11.5-14.5); RDW Standard Deviation 48.2 fL (36.4-46.3); Red Blood Count 3.95 M/uL (4.7-6.1); White Blood Count 5.33 K/uL (4.8-10.8)
[2019-11-09 10:02] LABS: BUN Creatinine Ratio 16.8 (10-20); Calcium 8.7 mg/dl (8.5-10.1); Creatinine Clr Calc Pharmacy 50.2 ml/min; Est GFR (African American) 89.5; Est GFR (Non-African American) 77.3; Magnesium 2.1 mg/dl (1.8-2.4); Phosphorus 3.4 mg/dl (2.5-4.9); Potassium 4.3 mmol/L (3.5-5.1)
--- NOTE | 2019-11-09 12:28 | Hospitalist Progress Note ---
Date of Service November 09, 2019 Assessment & Plan (1) Left hip pain: Left hip fracture: Complained achy left hip/knee pain for about a week before the presentation in ER Femur X ray:A left femoral neck basicervical fracture. Pelvic X ray:Displaced, angulated intertrochanteric fracture of the left femur that extends to the base of the femoral neck. Lumbar X ray:Left hip fracture. 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 S/P Open Reduction, Internal Fixation of Left Hip with intramedullary nail fixation by POD #1 Appreciate Orthopedics input and recommendation Has been getting PT/OT Bowel regimen to prevent constipation Weightbearing as tolerated as per Ortho Needs follow-up with orthopedics in 2 weeks for staple removal Plan to discharge to rehab facility when bed is available Case management to help with placement Repeat COVID-19 test is negative Patient has been stable and medically ready to be discharged from the hospital Medically stable to be transferred to [facility] rehab facility today Acute Kidney Injury Cr:1.47>>1.1>>0.83 Irbesartan held Received gentle IV fluids Creatinine normalized-and remains normal Avoid nephrotoxic agents as able Hypertension Resume Irbesartan when BP better Continue Atenolol Monitor BP-blood pressure remains controlled Abnormal UA Urine culture:No growth Likely contaminated sample Mild leukocytosis likely reactive--Resolved Chronic diastolic heart failure ECHO: EF 55 to 60%. Severe calcific aortic valve stenosis. Aortic root sclerosis/calcification. No signs of decompensation currently Continue Lasix No signs and/or symptoms of CHF COPD Chronic oxygen dependency H/O Asbestos exposure as per records. No signs of exacerbation currently No acute symptoms CAD Severe Aortic stenosis Continue aspirin, atenolol Resume Irbesartan when BP improves No acute issues H/O PE/DVT off Coumadin secondary to rectus sheath hematoma/recurrent GI bleed as per records Chronic hyponatremia Sodium levels normalized Monitor-sodium level remains around 132 DM Type II Diet controlled Hb A1C: 6.5 Continue insulin therapy while hospitalized Does not require tight glycemic control secondary to age DVT Px SCDs, Aspirin BID Re:H/O Recurrent GI bleeding Code Status DNI/DNR as per my discussion with patient's POA Disposition Needs Rehab Placement [facility] transfer to [facility] today Admission and Anticipated Discharge Date Admission Date: November 01, 2019 Subjective The patient was seen and examined in medical telemetry unit He remains generally weak but denies any significant pain and/or symptoms He remains medically stable to be transferred to rehab facility when accepted Denies any chest pain, palpitation, shortness of breath, abdominal pain, nausea and/or vomiting 11/07/2019 The patient was seen and examined in medical telemetry unit He has been sitting on a chair without any acute distress Complains today of generalized weakness but no other symptoms 11/08/2019 The patient is seen and examined in medical telemetry unit He remains stable with generalized weakness Complains some pain left hip with movement Denies any other symptoms 11/09/2019 The patient was seen and examined in medical telemetry unit He has been feeling a lot better and remains stable Except some weakness denies any other significant symptoms Review of Systems Review of Systems: All systems reviewed and are unremarkable except as noted below Musculoskeletal: Minimal left hip pain with movement of the left lower extremity Physical Exam Physical Exam: Lying in bed without any acute distress Constitutional: well developed and well nourished; no acute distress and not ill appearing Eyes: PERRL, conjunctivae normal, anicteric sclerae ENMT: external ear and nose normal, oropharynx normal Neck: trachea midline, no thyromegaly Respiratory: no respiratory distress Auscultation: lungs clear to auscultation bilaterally and + diminished lung sounds (At the bases) Cardiovascular: Rate/Rhythm: regular rate and regular rhythm Heart Sounds: no murmur Extremities: + edema (Trace edema bilaterally) Gastrointestinal (Abdomen): Inspection/Auscultation: abdomen normal to inspection; abdomen not distended Percussion/Palpation: abdomen soft; abdomen nontender Musculoskeletal: Moderate pain on movement of the left hip Neurologic: moves all extremities; no focal motor deficits Alert, awake and oriented x3 Lymphatic: no cervical or axillary lymphadenopathy Results & Data Results & Data ([facility]) Vital Signs (Past 12 Hours) Vital Signs Temp Pulse Pulse Resp BP BP Pulse Ox 11/09/19 12:01 36.3 C L 78 17 112/70 96 11/09/19 08:04 36.8 C 81 20 166/77 H 98 11/09/19 07:29 76 11/09/19 04:13 36.7 C 75 17 152/74 H 97 11/09/19 02:00 78 Laboratory Results Short CBC 11/09/19 Range/Units 09:17 WBC 5.33 (4.8-10.8) K/uL Hgb 11.4 L (14.0-18.0) g/dL Hct 34.0 L (42-52) % Plt Count 266 (130-400) K/uL BMP 11/09/19 09:17 Sodium 131 L Potassium 4.3 Chloride 98 Carbon Dioxide 29 BUN 14 Creatinine 0.85 Glucose 168 H Calcium 8.7 Medications Administered Current Inpatient Medications Acetaminophen (Tylenol) 650 mg PO Q4H PRN PRN Reason: Pain or Fever Stop: 12/01/19 03:15 Last Admin: 11/02/19 23:59 Dose: 650 mg Documented by: Aspirin (Ecotrin Ectab) 81 mg PO BID [facility] Stop: 12/01/19 20:59 Last Admin: 11/09/19 08:12 Dose: 81 mg Documented by: Atenolol (Tenormin) 25 mg PO DAILY [facility] Stop: 12/01/19 03:59 Last Admin: 11/09/19 08:13 Dose: 25 mg Documented by: Bisacodyl (Dulcolax) 10 mg [place] DAILY PRN PRN Reason: Constipation Stop: 12/01/19 03:15 Dextrose (Dextrose 50%) 25 - 50 ml IV UD PRN; Protocol PRN Reason: Hypoglycemia Protocol Stop: 12/01/19 04:02 Duloxetine HCl (Cymbalta) 40 mg PO DAILY [facility] Stop: 12/01/19 08:59 Last Admin: 11/09/19 08:13 Dose: 40 mg Documented by: Finasteride (Proscar) 5 mg PO QAM [facility]; Protocol Stop: 12/04/19 08:59 Last Admin: 11/09/19 08:12 Dose: 5 mg Documented by: Furosemide (Lasix) 20 mg PO DAILY [facility] Stop: 12/04/19 08:59 Last Admin: 11/09/19 08:12 Dose: 20 mg Documented by: Gabapentin (Neurontin) 100 mg PO BID [facility] Stop: 12/02/19 20:59 Last Admin: 11/09/19 08:12 Dose: 100 mg Documented by: Glucagon (Glucagen) 1 mg SQ UD PRN; Protocol PRN Reason: Hypoglycemia Protocol Stop: 12/01/19 04:02 Glucose (Dex4 Glucose) 4 - 8 tabs PO UD PRN; Protocol PRN Reason: Hypoglycemia Protocol Stop: 12/01/19 04:02 Glucose (Glucose 40%) 15 - 30 gm PO UD PRN; Protocol PRN Reason: Hypoglycemia Protocol Stop: 12/01/19 04:02 Hydromorphone HCl (Dilaudid) 0.25 mg IV Q2H PRN PRN Reason: Pain Stop: 11/16/19 06:29 Last Admin: 11/09/19 05:48 Dose: 0.25 mg Documented by: Promethazine HCl 12.5 mg/ (Sodium Chloride) 50.5 mls @ 202 mls/hr IV Q6H PRN PRN Reason: Nausea And Vomiting Stop: 12/01/19 03:15 Insulin Aspart (Novolog Flexpen) 0 units SQ ACHS [facility] Stop: 12/01/19 20:59 Last Admin: 11/09/19 08:14 Dose: Not Given Documented by: Ipratropium [place] (Atrovent 0.02% 0.5mg/2.5ml) 0.5 mg INH Q4H PRN PRN Reason: Shortness Of Breath Or Wheezing Stop: 12/01/19 03:15 Last Admin: 11/01/19 03:35 Dose: 0.5 mg Documented by: Irbesartan (Avapro) 150 mg PO DAILY [facility] Stop: 12/01/19 08:59 Last Admin: 11/01/19 09:22 Dose: 150 mg Documented by: Levalbuterol HCl (Xopenex 1.25mg/0.5ml Neb) 1.25 mg INH Q4H PRN PRN Reason: Shortness Of Breath Or Wheezing Stop: 12/01/19 03:15 Last Admin: 11/01/19 03:35 Dose: 1.25 mg Documented by: Magnesium Hydroxide (Milk Of Magnesia) 30 ml PO DAILY PRN PRN Reason: Constipation Stop: 12/01/19 03:15 Miscellaneous (Carbohydrates For Hypoglycemia) 15 - 30 gm PO UD PRN PRN Reason: Hypoglycemia Protocol Stop: 12/01/19 04:02 Multivitamins (Multivitamin Tab) 1 tab PO DAILY [facility] Stop: 12/01/19 08:59 Last Admin: 11/09/19 08:13 Dose: 1 tab Documented by: Naloxone HCl (Narcan) 0.1 mg IV UD PRN PRN Reason: Opiate Overdose Stop: 12/01/19 03:15 Oxycodone/Acetaminophen (Percocet 5mg/325mg) 1 - 2 tab PO Q4H PRN PRN Reason: Pain Stop: 11/15/19 03:15 Last Admin: 11/09/19 04:09 Dose: 2 tab Documented by: Pantoprazole Sodium (Protonix) 40 mg PO BID [facility] Stop: 12/01/19 08:59 Last Admin: 11/09/19 08:13 Dose: 40 mg Documented by: Polyethylene Glycol (Miralax Powder Packet) 17 gm PO DAILY [facility] Stop: 12/01/19 08:59 Last Admin: 11/09/19 08:13 Dose: 17 gm Documented by: Psyllium Hydrophilic Mucilloid (Metamucil) 1 pkt PO DAILY PRN PRN Reason: Constipation Stop: 12/01/19 03:15 Ropinirole HCl (Requip) 1 mg PO HS [facility] Stop: 12/01/19 20:59 Last Admin: 11/08/19 20:27 Dose: 1 mg Documented by: Sennosides (Senokot) 8.6 mg PO DAILY PRN PRN Reason: Constipation Stop: 12/01/19 03:15 Last Admin: 11/04/19 08:15 Dose: 8.6 mg Documented by: Tamsulosin HCl (Flomax) 0.4 mg PO QAM [facility] Stop: 12/04/19 08:59 Last Admin: 11/09/19 08:13 Dose: 0.4 mg Documented by:
--- NOTE | 2019-11-10 07:29 | Discharge Summary ---
Date of Service November 10, 2019 Admission HPI Per Admitting Provider History obtained from patient and records. Medical history significant for chronic diastolic heart failure (EF 55%, TTE 2014), nocturnal hypoxemia on home O2 at night, COPD as per records, hypertension, CAD as per records, history of moderate aortic stenosis (TTE 2014), history PE/DVT off Coumadin secondary to bleeding, chronic hyponatremia, skin cancer as per records, chronic anemia (baseline hemoglobin of 12 as of 2019) BPH as per records, chronic pain, prediabetes as per records, past tobacco abuse. Last confinement July 2018 for spontaneous rectus sheath hematoma attributed to coughing from COPD exacerbation. Coumadin stopped on discharge. [facility] Patient noted achy left hip/knee pain for about a week. Has been tripping at home. No head trauma as per patient No fever, no chills. No unusual chest pain, cough, S OB, fluid retention issues. Patient brought to the ER for evaluation. Medical History as above Surgical History : Bowel surgery, carpal tunnel surgery, back surgery, shoulder surgery, hernia repair Family History : Heart disease Personal/Social history : Past tobacco abuse, occasional EtOH intake, retired from [employer] work Admission Exam Per Admitting Provider Physical Exam: GENERAL: Slightly uncomfortable, slightly hard of hearing, no respiratory distress, lying on his left side SKIN: Pallor , warm HEENT: Pale palpebral conjunctivae, no ptosis, dry buccal mucosa, nasal cannula in place NECK : Supple, no tenderness CHEST : Decreased breath sounds , no tenderness HEART : RRR, systolic murmur ABDOMEN: Some distention, nontender EXTREMITIES : Minimal LE swelling, left hip tenderness, no other conspicuous de formities noted NEUROLOGIC : Coherent, no facial asymmetry, slightly hard of hearing, no other gross focality Principal Diagnosis Left hip fracture status post ORIF, chronic diastolic heart failure, COPD with oxygen dependency. Hypertension Discharge Exam Constitutional well developed and well nourished; no acute distress and not ill appearing Eyes PERRL, conjunctivae normal, anicteric sclerae ENMT external ear and nose normal, oropharynx normal Neck trachea midline, no thyromegaly Respiratory no respiratory distress Auscultation: lungs clear to auscultation bilaterally and + diminished lung sounds (At the bases) Cardiovascular Rate/Rhythm: regular rate and regular rhythm Heart Sounds: no murmur Extremities: + edema (Trace edema bilaterally) Gastrointestinal (Abdomen) Inspection/Auscultation: abdomen normal to inspection; abdomen not distended Percussion/Palpation: abdomen soft; abdomen nontender Neurologic moves all extremities; no focal motor deficits Lymphatic no cervical or axillary lymphadenopathy Discharge Data Allergies Allergy/AdvReac Type Severity Reaction Status Date / Time No Known Allergies Allergy Verified 10/31/19 23:50 Consultations 11/01/19 00:51 Consult Orthopedic Surgery Stat ED Decision to Admit Stat 11/01/19 03:16 Consult Case Management - Discharge Planning Routine Consult Case Management - Discharge Planning Routine 11/09/19 12:28 Consult Case Management - Discharge Planning Routine Procedures Performed Operation Date: 11/01/19 14:55 Actual Procedures p Open Reduction, Internal Fixation of Left Hip(Left) - Miguel Recio, Ordered Studies 11/01/19 FL fluoroscopy <1hr Routine FL hip LT 2-3V Routine Hospital Course (1) Left hip pain: Left hip fracture: Complained achy left hip/knee pain for about a week before the presentation in ER Femur X ray:A left femoral neck basicervical fracture. Pelvic X ray:Displaced, angulated intertrochanteric fracture of the left femur that extends to the base of the femoral neck. Lumbar X ray:Left hip fracture. 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 S/P Open Reduction, Internal Fixation of Left Hip with intramedullary nail fixation by POD #1 Appreciate Orthopedics input and recommendation Has been getting PT/OT Bowel regimen to prevent constipation Weightbearing as tolerated as per Ortho Needs follow-up with orthopedics in 2 weeks for staple removal Plan to discharge to rehab facility when bed is available Case management to help with placement Repeat COVID-19 test is negative Patient has been stable and medically ready to be discharged from the hospital Medically stable to be transferred to [facility] rehab facility today Acute Kidney Injury Cr:1.47>>1.1>>0.83 Irbesartan held Received gentle IV fluids Creatinine normalized-and remains normal Avoid nephrotoxic agents as able Hypertension Resume Irbesartan when BP better Continue Atenolol Monitor BP-blood pressure remains controlled Abnormal UA Urine culture:No growth Likely contaminated sample Mild leukocytosis likely reactive--Resolved Chronic diastolic heart failure ECHO: EF 55 to 60%. Severe calcific aortic valve stenosis. Aortic root sclerosis/calcification. No signs of decompensation currently Continue Lasix No signs and/or symptoms of CHF COPD Chronic oxygen dependency H/O Asbestos exposure as per records. No signs of exacerbation currently No acute symptoms CAD Severe Aortic stenosis Continue aspirin, atenolol Resume Irbesartan when BP improves No acute issues H/O PE/DVT off Coumadin secondary to rectus sheath hematoma/recurrent GI bleed as per records Chronic hyponatremia Sodium levels normalized Monitor-sodium level remains around 132 DM Type II Diet controlled Hb A1C: 6.5 Continue insulin therapy while hospitalized Does not require tight glycemic control secondary to age DVT Px SCDs, Aspirin BID Re:H/O Recurrent GI bleeding Code Status DNI/DNR as per my discussion with patient's POA Disposition Needs Rehab Placement Likely transfer to [facility] rehab facility today Total Time Total Time Spent Total Time Spent (In Minutes): 35 minutes Total Time Includes: Examination of the Patient, Discharge Planning, Medication Reconciliation and Communication With Other Providers Discharge Plan Discharge Items Patient Disposition: Transfer Halfway Fac Reason For Visit: RESP FAILURE Discharge Diagnosis: Left hip fracture status post ORIF, chronic diastolic heart failure, COPD with oxygen dependency. Hypertension Condition on Discharge: Fair Activity: As commented below Activity Comment: As advised by PT and OT Non-emergency contact: Primary Care Provider Call non-emergency contact if: you have any medication questions Follow-up/Referrals: Max Blanchard [Primary Care Provider] - Diet: Carb Consistent or DM2 and Heart Healthy Addtl Attending Provider Instructions: ORTHOPEDIC INSTRUCTIONS Hip Fracture Activity and Therapy Recommendations: 1. You were shown a series of exercises in the hospital. Do these exercises three times each day if you are able. 2. Get up and walk several times each day if you are capable. Make sure you have assistance is needed. For the first four weeks, try not to stand or walk for more than one hour at a time. If you do stand or walk for more than one hour, you will not hurt anything, but your leg will likely swell. 3. As you feel comfortable, you may change from the walker or crutches to a cane and then to independent walking if you are able. Please be safe. Medications: 1. Narcotic You will likely be sent from the hospital with the narcotic pain medication that worked best throughout your stay. 2. Aspirin -take aspirin 81 mg twice a day for 6 weeks following her surgery. 3. Other medications may be given for specific circumstances. If you have any questions, please call the office at [phone]. 4. Resume previous home medications unless otherwise instructed TEDs/Elastic Stockings: The white elastic stockings help limit swelling and prevent blood clots from forming in your legs. The more you wear them, the more they work. Wear them for six weeks. Dressing Care: [place] can be open to air as long as the incisions are not draining. If the incisions are draining or if the brisa are getting caught on your clothes then please cover the brisa with dry gauze. Change the dressings as necessary to keep the incision as dry as possible Showering: You may shower 5 days from the day of surgery as long as the incisions are not draining. Do not soak the incision. Let soapy water run over the brisa and pat them dry. Things To Watch For: 1. Drainage from the incision site that occurs more than one week after your surgery. 2. Increased redness at the incision site. 3. Fever above 102 degrees Fahrenheit. 4. Unusual chest pain or shortness of breath. 5. Call [facility] at with any of the above problems Follow-Up Visit: Follow-up with Dr. Recio's PA (Miguel Mortensen) 2-3 weeks after your day of surgery. He will remove your brisa and answer any questions. If you have any additional questions or concerns, Dr Recio is usually in the office at the same time and will be available An appointment was probably scheduled when you signed-up for surgery in the office. If you have any questions call Addtl [employer] Professional Provider Instructions: Please take precaution to avoid falls Pending Studies at Discharge: No Stand-Alone Forms: My [facility] Skilled Items Patient informed of condition?: Yes DNR: Yes Discharge Level of Care: Skilled Communicable Disease: No Discharge Prognosis: Stable Lines: None Urinary Catheter: No Medications and DC Order Prescriptions: New oxycodone-acetaminophen [Percocet] 5-325 mg Tablet 1 tab PO Q4H PRN (Reason: pain) 3 Days Qty: 10 RF: 0 tamsulosin 0.4 mg Capsule 0.4 mg PO QAM 30 Days Qty: 30 RF: 0 finasteride [Proscar] 5 mg Tablet 5 mg PO QAM 30 Days Qty: 30 RF: 0 Continued atenolol 25 mg tablet 25 mg PO DAILY RF: 0 aspirin 81 mg tablet,delayed release (DR/EC) 81 mg PO DAILY RF: 0 multivitamin capsule 1 cap PO DAILY RF: 0 duloxetine [Cymbalta] 20 mg capsule,delayed release(DR/EC) 40 mg PO DAILY RF: 0 naloxone [Narcan] 4 mg/actuation spray,non-aerosol 1 sprays INTNAS Q2M PRN (Reason: opioid overdose) RF: 0 sodium chloride 0.9 % aerosol,spray 2 sprays INTNAS UD PRN (Reason: Dry Nasal Passages) RF: 0 guaifenesin [Mucinex] 1,200 mg tablet extended release 12hr 1,200 mg PO Q12H PRN (Reason: Congestion) RF: 0 ondansetron HCl [Zofran] 4 mg tablet 4 mg PO Q6H PRN (Reason: Nausea) Qty: 30 RF: 0 ropinirole 1 mg tablet 1 mg PO HS Qty: 30 RF: 5 furosemide [Lasix] 20 mg tablet 20 mg PO DAILY Qty: 30 RF: 5 oxycodone-acetaminophen [Percocet] 5-325 mg tablet 1 - 2 tab PO .COMPLEX PRN (Reason: Pain) Qty: 90 RF: 0 irbesartan 150 mg tablet 150 mg PO DAILY Qty: 30 RF: 5 diclofenac sodium 1 % gel 4 gm TOP QID Qty: 200 RF: 3 pantoprazole 40 mg tablet,delayed release (DR/EC) 40 mg PO BID Qty: 180 RF: 0 dutasteride-tamsulosin [Camelia] 0.5-0.4 mg capsule, ER multiphase 24 hr 1 cap PO DAILY Qty: 90 RF: 3 polyethylene glycol 3350 [ClearLax] 17 gram Powder In Packet 17 g PO DAILY RF: 0 Zeasorb AF 2 % Powder 1 applic TOPICAL BID PRN (Reason: Skin Irritation) RF: 0 ipratropium-albuterol 0.5 mg-3 mg(2.5 mg base)/3 mL solution for nebulization 3 ml NEB Q6 PRN (Reason: Shortness Of Breath Or Wheezing) RF: 0 gabapentin 100 mg Capsule 100 mg PO TID RF: 0 PreserVision AREDS-2 [id number] Capsule 1 tab PO BID RF: 0 acetaminophen [Tylenol] 325 mg Tablet 650 mg PO QID MDD 3g PRN (Reason: Fever Or Pain) RF: 0 diphenhydramine-acetaminophen [Pain Reliever PM] 25-500 mg Tablet 2 tab PO HS MDD 3g RF: 0 Eucerin Cream 1 applic TOPICAL DAILY RF: 0 Reguloid (psyllium husk) 3 gram/5.4 gram Powder 1 tsp PO DAILY PRN (Reason: Constipation) RF: 0 sennosides 8.6 mg Tablet 8.6 mg PO DAILY PRN (Reason: Constipation) RF: 0 Discharge Orders: Discharge Order (Routine); Ordered 11/09/19 Ordered By: Linsey Mora/Other Patient Handouts: A1C Admission Data Admit Date/Time: 11/01/19 01:49 Attending Provider: Linsey Resendez Admit Provider: Marcus Stein Primary Care Provider: Max Blanchard Other Providers: Da Domingo ; Marcus Stein ; [facility] ; Robinson Dubon Other Interventions: Discharge Summary Assessment (RN) Last Done: 11/09/19 13:39 DC Date/Time DO NOT enter until pt leaves facility: 11/09/19 15:30
--- NOTE | 2019-11-17 14:27 | Coding Query ---
To promote full compliance with coding requirements relating to patient care, physician participation is requested in all cases of client evaluator uncertainty. Please assist us with the question(s) below: Coding Question(s): It was noted on the ER H&P that the patient has/is suspected to have osteoporosis. According to coding guidelines "a code for osteoporotic fracture, and not a traumatic fracture, should be used for any patient with known osteoporosis who suffers a fracture, even if the patient had a minor fall or trauma, if that fall or trauma would not usually break a normal, healthy bone." Please indicate below the type of fracture: Physician's Response(s): ( + ) Osteoporotic fracture of Left Hip ( ) Traumatic fracture of Left Hip ( ) Other, please specify ( ) Unable to be determined MTDD
--- NOTE | 2019-11-17 14:31 | Coding Query ---
CODING QUERY To promote full compliance with coding requirements relating to patient care, provider participation is requested in all cases of dress marker uncertainty. Please assist us with the question(s) below: Coding Question(s): The H&P documents, "Hypoxemic respiratory failure secondary to COPD nocturnal hypoxemia on home O2 at night History of asbestos exposure as per records. Patient denies unusual S OB symptoms.". Please specify below, in your clinical opinion, regarding the Hypoxemic Respiratory Failure. (x ) Chronic Hypoxemic Respiratory Failure ( ) Acute Hypoxemic Respiratory Failure ( ) Acute on Chronic Hypoxemic Respiratory Failure ( ) Other: Please Specify Physician's Response(s): Thank you Marine Holbrook Principal Diagnosis: "that condition established after study, to be chiefly responsible for occasioning the admission of the patient to the hospital for care." Co-Existing Principal Diagnosis: "when two or more diagnoses equally meet the criteria for principal diagnosis as determined by the circumstances of admission, diagnostic work up, and/or therapy provided, and the Alphabetic Index, Tabular List, or another coding guideline does not provide sequencing direction, any one of the diagnoses may be sequenced first." "When the physician has documented what appears to be a current diagnosis in the body of the record, but has not included the diagnosis in the final diagnostic statement, the physician should be asked whether the diagnosis should be added." (Source [facility]oding [facility] 2 QTR90. p3-4) ADIEL
== END 2019-11-09 15:30 | DRG 481 ==
LOC: ED 22:56 → 2N 11-01 01:49 → SUATTDRO 11-01 01:49 → 2N 11-01 02:33